=== PATIENT | female | born 1960 | race Caucasian/White ===

== ENCOUNTER 2016-08-09 18:37 | Emergency (ER) | payer OTHER ==
[~2016-08-09] VITALS: Ht 167.6 cm; Wt 82.0 kg
[~2016-08-09 18:37] MED LIST: ALBU18HF INHALATION; AZIT250T94 PO; BACTDS PO; CIME400T PO; ELIM TOP; FLUO20CA22 PO; FLUO40CA63 PO; HYDR-3010 PO; LEVO125T58 PO; LORA-441 PO; LORA1TAB PO; METO10TA92 PO; METO10TA96 PO; ONDA4TAB35 PO; OXYC-281 PO; PRED20TA PO; TRAZ150T65 PO; [UNRECOGNIZED DRUG - CODE] PO
[2016-08-09 18:51] VITALS: Ht 167.6 cm; Wt 82.0 kg
[2016-08-09] MEDS ORDERED: FLUO40CA63 PO (19:18)
[2016-08-09] MEDS ORDERED: TRAZ150T65 PO (19:18)
--- NOTE | 2016-08-09 19:32 | ERD ---
ER Documentation Chief Complaint Date/Time DATE: 08/09/16 TIME: 19:22 Chief Complaint med refill HPI This 56-year-old female presents referred medication refill. She states that she is in between switching her [facility] to [facility]. Expectation her depression but currently has no suicidal homicidal ideations. She just simply does not want to stop taking it. ROS All systems reviewed and are negative except as per history of present illness. Medications Home Meds Active Scripts Trazodone Hcl* (Trazodone Hcl*) 150 Mg Tablet, 150 MG PO QHS, #19 TAB Prov:GEETHAJOSEMIKEY DO 08/09/16 Fluoxetine Hcl* (Fluoxetine Hcl*) 40 Mg Capsule, 40 MG PO DAILY, #14 CAP Prov:GEETHAMIKEY DO 08/09/16 Trazodone Hcl* (Trazodone Hcl*) 150 Mg Tablet, 150 MG PO QHS, #2 TAB Prov:CONSTANCE SIMON MD 07/14/16 Permethrin* (Elimite*) 5% Cr, 1 APPLIC TOP ONCE, #1 TUB Prov:TYE MURDOCK PA-C 05/26/16 Azithromycin* (Zithromax*) 250 Mg Tablet, 250 MG PO .ZPACK DIRECTED, #6 TAB TAKE 500 MG (2 TABS) THE FIRST DAY THEN 250 MG (1 TAB) DAYS 2-5 Prov:TYE MURDOCK PA-C 05/26/16 Albuterol Sulfate* (Ventolin HFA*) 18 Gm Hfa.aer.ad, 2 PUFF INHALATION Q4H, #1 INHALER Prov:TYE MURDOCK PA-C 05/26/16 Prednisone* (Prednisone*) 20 Mg Tab, 40 MG PO DAILY for 4 Days, TAB Prov:TYE MURDOCK PA-C 05/26/16 Ondansetron Hcl* (Zofran* ODT) 4 mg -ODT Tab.disper, 4 MG PO Q8 Y for NAUSEA AND /OR VOMITING, #30 TAB Prov:RASHAAD PENN NP 11/21/15 Oxycodone Hcl-Acetaminophen* (Percocet*) 5-325 Mg Tablet, 1 TAB PO Q4H Y for SEVERE PAIN LEVEL 7-10, #5 TAB Prov:RASHAAD PENN NP 11/21/15 Lorazepam* (Ativan*) 0.5 Mg Tablet, 0.5 MG PO BID Y for ANXIETY, #6 TAB Prov:TYE MURDOCK PA-C 10/30/15 Cimetidine* (Cimetidine*) 400 Mg Tablet, 400 MG PO BID, #60 TAB Prov:TYE MURDOCK PA-C 10/30/15 Metoclopramide Hcl* (Metoclopramide Hcl*) 10 Mg Tablet, 10 MG PO TID, #30 TAB Prov:TYE MURDOCK PA-C 10/30/15 Trazodone Hcl* (Trazodone Hcl*) 150 Mg Tablet, 150 MG PO QHS, #30 TAB Prov:TYE MURDOCK PA-C 10/30/15 Fluoxetine Hcl* (Fluoxetine Hcl*) 40 Mg Capsule, 40 MG PO DAILY, #30 CAP Prov:TYE MURDOCK PA-C 10/30/15 Hydroxyzine Hcl* (Hydroxyzine Hcl*) 10 Mg Tablet, 10 MG PO Q6H Y for ITCHING, # 30 TAB Prov:RASHAAD PENN NP 10/16/15 Metoclopramide* (Reglan*) 10 Mg Tablet, 10 MG PO Q6 Y for NAUSEA AND/OR VOMITING , #10 TAB Prov:RASHAAD PENN PRODUCTION COORDINATOR 10/16/15 Trazodone Hcl* (Trazodone Hcl*) 150 Mg Tablet, 150 MG PO QHS, #30 TAB Prov:TYE MURDOCK PA-C 09/29/15 Fluoxetine Hcl* (Fluoxetine Hcl*) 20 Mg Capsule, 20 MG PO DAILY, #30 CAP Prov:TYE MURDOCK PA-C 09/29/15 Lorazepam* (Lorazepam*) 1 Mg Tablet, 1 MG PO BID Y for ANXIETY, #5 TAB Prov:TYE MURDOCK PA-C 09/29/15 Permethrin* (Elimite*) 5% Cr, 1 APPLIC TOP ONCE, #1 TUB Prov:TYE MURDOCK PA-C 09/29/15 Sulfamethoxazole-Trimethoprim* (Bactrim* DS) 800-160 Mg Tab, 1 TAB PO BID for 7 Days, TAB Prov:TYE MURDOCK PA-C 09/29/15 Reported Medications Levothyroxine Sodium (Levothroid) 125 Mcg Tablet, 125 MCG PO DAILY 09/05/13 Fluoxetine Hcl* (Fluoxetine Hcl*) 20 Mg Capsule, 20 MG PO HS 07/11/12 Metoclopramide* (Reglan*) 10 Mg Tablet, 10 MG PO TID 07/11/12 Cimetidine* (Tagamet*) 400 Mg Tablet, 400 MG PO DAILY 07/11/12 Trazodone Hcl* (Trazodone Hcl*) 150 Mg Tablet, 150 MG PO HS 07/11/12 Allergies Allergies: Coded Allergies: cefuroxime (Verified Allergy, Intermediate, RASH, 01/15/16) erythromycin base (Verified Allergy, Intermediate, LIGHTHEADED, 01/15/16) ketorolac tromethamine (Verified Allergy, Intermediate, HEADACHE, 01/15/16) levofloxacin (Verified Allergy, Intermediate, PALPITATION, 01/15/16) cefuroxime axetil (Verified Allergy, Mild, RASH, 01/15/16) acetaminophen (Verified Allergy, Unknown, 01/15/16) hydrocodone bit (Verified Allergy, Unknown, 01/15/16) ketorolac (Verified Allergy, Unknown, PENALOZA, 01/15/16) morphine (Verified Allergy, Unknown, 01/15/16) PMhx/Soc History of Surgery: No Anesthesia Reaction: No Hx Neurological Disorder: No Hx Respiratory Disorders: No Hx Cardiac Disorders: No Hx Psychiatric Problems: Yes (anxiety) Hx Miscellaneous Medical Probl: Yes Hx Alcohol Use: No Hx Substance Use: No Hx Tobacco Use: No Physical Exam Vitals Vital Signs Date Time Temp Pulse Resp B/P Pulse Ox O2 Delivery O2 Flow Rate FiO2 08/09/16 18:51 97.0 78 20 122/70 100 Physical Exam Const: [] No distress Head: Atraumatic Eyes: Normal Conjunctiva ENT: Normal External Ears, Nose and Mouth. Neur: Awake and alert oriented 3, no focal deficits Psych: Normal Mood and Affect Procedures/MDM Simple medication refill. Patient with diagnosis of depression but no current depression. Discharging her with 2 weeks worth of fluoxetine and trazodone. Return precautions given if she also any symptoms. Departure Diagnosis: Primary Impression: Encounter for medication refill Condition: Stable Patient Instructions: Taking Medicine Safely Additional Instructions: Call your primary care doctor TOMORROW for an appointment during the next 2-3 days.See the doctor sooner or return here if your condition worsens before your appointment time. MIKEY INIGUEZ DO Aug 09, 2016 19:32
== END 2016-08-09 19:21 | disposition home or self-care (01) ==
LOC: E/R 18:37
DX: Z76.0 Encounter for issue of repeat prescription (principal)
CPT/HCPCS: 99281

== ENCOUNTER 2016-08-22 19:50 | Emergency (ER) | payer OTHER ==
[~2016-08-22] VITALS: Ht 170.2 cm; Wt 83.0 kg
[~2016-08-22 19:50] MED LIST changes: +FLUO40CA PO; -FLUO40CA63 PO
[2016-08-22 20:37] VITALS: Ht 170.2 cm; Wt 83.0 kg
--- NOTE | 2016-08-22 22:11 | ERA ---
ER Documentation Chief Complaint Date/Time DATE: 08/22/16 TIME: 22:11 Chief Complaint headache x 3 days HPI The patient is a 56-year-old female, presenting to the ER because of headache, facial pain, nasal congestion, nasal discharge for the last 3 days. She has had cold symptoms for over a week. She denies fever, chills, neck pain, chest pain, dyspnea, abdominal pain, vomiting, dysuria, diarrhea. She ran out of her Ativan for anxiety for the last couple days and requesting medication and Ativan medication refill. She does not smoke, drink Past medical history: Hypothyroidism, anxiety Past surgical history: Thyroidectomy, appendectomy, cholecystectomy, hysterectomy ROS All systems reviewed and are negative except as per history of present illness. Medications Home Meds Active Scripts Lorazepam* (Ativan*) 0.5 Mg Tablet, 0.5 MG PO Q8H Y for ANXIETY, #10 TAB Prov:GEOFF SCOTT MD 08/22/16 Ibuprofen* (Motrin*) 600 Mg Tab, 600 MG PO Q6H Y for PAIN AND OR ELEVATED TEMP, #20 TAB Prov:GEOFF SCOTT MD 08/22/16 Amoxicillin* (Amoxicillin*) 500 Mg Cap, 500 MG PO Q8, #30 CAP Prov:GEOFF SCOTT MD 08/22/16 Trazodone Hcl* (Trazodone Hcl*) 150 Mg Tablet, 150 MG PO QHS, #19 TAB Prov:MIKEY INIGUEZ DO 08/09/16 Fluoxetine Hcl* (Fluoxetine Hcl*) 40 Mg Capsule, 40 MG PO DAILY, #14 CAP Prov:MIKEY INIGUEZ DO 08/09/16 Trazodone Hcl* (Trazodone Hcl*) 150 Mg Tablet, 150 MG PO QHS, #2 TAB Prov:CONSTANCE SIMON MD 07/14/16 Permethrin* (Elimite*) 5% Cr, 1 APPLIC TOP ONCE, #1 TUB Prov:TYE MURDOCK PA-C 05/26/16 Azithromycin* (Zithromax*) 250 Mg Tablet, 250 MG PO .ZPACK DIRECTED, #6 TAB TAKE 500 MG (2 TABS) THE FIRST DAY THEN 250 MG (1 TAB) DAYS 2-5 Prov:TYE MURDOCK PA-C 05/26/16 Albuterol Sulfate* (Ventolin HFA*) 18 Gm Hfa.aer.ad, 2 PUFF INHALATION Q4H, #1 INHALER Prov:TYE MURDOCK PA-C 05/26/16 Prednisone* (Prednisone*) 20 Mg Tab, 40 MG PO DAILY for 4 Days, TAB Prov:TYE MURDOCK PA-C 05/26/16 Ondansetron Hcl* (Zofran* ODT) 4 mg -ODT Tab.disper, 4 MG PO Q8 Y for NAUSEA AND /OR VOMITING, #30 TAB Prov:RASHAAD PENN NP 11/21/15 Oxycodone Hcl-Acetaminophen* (Percocet*) 5-325 Mg Tablet, 1 TAB PO Q4H Y for SEVERE PAIN LEVEL 7-10, #5 TAB Prov:RASHAAD PENN NP 11/21/15 Lorazepam* (Ativan*) 0.5 Mg Tablet, 0.5 MG PO BID Y for ANXIETY, #6 TAB Prov:TYE MURDOCK PA-C 10/30/15 Cimetidine* (Cimetidine*) 400 Mg Tablet, 400 MG PO BID, #60 TAB Prov:TYE MURDOCK PA-C 10/30/15 Metoclopramide Hcl* (Metoclopramide Hcl*) 10 Mg Tablet, 10 MG PO TID, #30 TAB Prov:TYE MURDOCK PA-C 10/30/15 Trazodone Hcl* (Trazodone Hcl*) 150 Mg Tablet, 150 MG PO QHS, #30 TAB Prov:TYE MURDOCK PA-C 10/30/15 Fluoxetine Hcl* (Fluoxetine Hcl*) 40 Mg Capsule, 40 MG PO DAILY, #30 CAP Prov:TYE MURDOCK PA-C 10/30/15 Hydroxyzine Hcl* (Hydroxyzine Hcl*) 10 Mg Tablet, 10 MG PO Q6H Y for ITCHING, # 30 TAB Prov:RASHAAD PENN NP 10/16/15 Metoclopramide* (Reglan*) 10 Mg Tablet, 10 MG PO Q6 Y for NAUSEA AND/OR VOMITING , #10 TAB Prov:RASHAAD PENN NP 10/16/15 Trazodone Hcl* (Trazodone Hcl*) 150 Mg Tablet, 150 MG PO QHS, #30 TAB Prov:TYE MURDOCK PA-C 09/29/15 Fluoxetine Hcl* (Fluoxetine Hcl*) 20 Mg Capsule, 20 MG PO DAILY, #30 CAP Prov:TYE MURDOCK PA-C 09/29/15 Lorazepam* (Lorazepam*) 1 Mg Tablet, 1 MG PO BID Y for ANXIETY, #5 TAB Prov:TYE MURDOCK PA-C 09/29/15 Permethrin* (Elimite*) 5% Cr, 1 APPLIC TOP ONCE, #1 TUB Prov:TYE MURDOCK PA-C 09/29/15 Sulfamethoxazole-Trimethoprim* (Bactrim* DS) 800-160 Mg Tab, 1 TAB PO BID for 7 Days, TAB Prov:TYE MURDOCK PA-C 09/29/15 Reported Medications Levothyroxine Sodium (Levothroid) 125 Mcg Tablet, 125 MCG PO DAILY 09/05/13 Fluoxetine Hcl* (Fluoxetine Hcl*) 20 Mg Capsule, 20 MG PO HS 07/11/12 Metoclopramide* (Reglan*) 10 Mg Tablet, 10 MG PO TID 07/11/12 Cimetidine* (Tagamet*) 400 Mg Tablet, 400 MG PO DAILY 07/11/12 Trazodone Hcl* (Trazodone Hcl*) 150 Mg Tablet, 150 MG PO HS 07/11/12 Allergies Allergies: Coded Allergies: cefuroxime (Verified Allergy, Intermediate, RASH, 01/15/16) erythromycin base (Verified Allergy, Intermediate, LIGHTHEADED, 01/15/16) ketorolac tromethamine (Verified Allergy, Intermediate, HEADACHE, 01/15/16) levofloxacin (Verified Allergy, Intermediate, PALPITATION, 01/15/16) cefuroxime axetil (Verified Allergy, Mild, RASH, 01/15/16) acetaminophen (Verified Allergy, Unknown, 01/15/16) hydrocodone bit (Verified Allergy, Unknown, 01/15/16) ketorolac (Verified Allergy, Unknown, PENALOZA, 01/15/16) morphine (Verified Allergy, Unknown, 01/15/16) PMhx/Soc History of Surgery: No Anesthesia Reaction: No Hx Neurological Disorder: No Hx Respiratory Disorders: No Hx Cardiac Disorders: No Hx Psychiatric Problems: Yes (anxiety) Hx Miscellaneous Medical Probl: Yes Hx Alcohol Use: No Hx Substance Use: No Hx Tobacco Use: No Physical Exam Vitals Vital Signs Date Time Temp Pulse Resp B/P Pulse Ox O2 Delivery O2 Flow Rate FiO2 08/22/16 20:37 96.9 75 20 148/64 99 Physical Exam Const: No acute distress. Head: Atraumatic. Eyes: Normal Conjunctiva. ENT: Normal External Ears, Nose and Mouth. Bilateral tympanic membranes are within normal limits. Bilateral frontal and maxillary sinus tenderness. Oropharynx is within normal limits Neck: Full range of motion. No meningismus. Resp: Clear to auscultation bilaterally. Cardio: Regular rate and rhythm, no murmurs. Abd: Soft, non distended, normal bowel sounds, non tender. Skin: No petechiae or rashes. Back: No midline or flank tenderness. Ext: No cyanosis, or edema. Neur: Awake and alert. No focal deficit Psych: Normal Mood and Affect. Results 24 hrs Current Medications Medications (Trade) Dose Ordered Sig/Shannan Route PRN Reason Start Time Stop Time Status Last Admin Dose Admin Lorazepam (Ativan) 0.5 mg ONCE ONCE PO 08/22/16 23:00 08/22/16 23:01 DC 08/22/16 23:10 Procedures/MDM MEDICAL MAKING DECISION: The patient is a 56-year-old female, presenting with acute sinusitis, acute headache, acute anxiety attack, acute viral syndrome. She was treated with Ativan 0.5 mg for acute anxiety with good response. The differential diagnoses considered include but are not limited to otitis media, bronchitis, pneumonia, cystitis Departure Diagnosis: Primary Impression: Acute sinusitis Additional Impressions: Sinus headache Viral syndrome Anxiety Condition: Good Comments She was discharged with amoxicillin, Motrin, Ativan I discussed the findings with the patient. I advised the patient to follow-up with the primary physician in about 1-2 days, sooner if needed and return if any concern. The patient's blood pressure was elevated (>120/80) but appears stable without evidence of hypertension emergency or urgency. The patient was counseled about the risks of hypertension and urged to pursue outpatient monitoring and therapy within a week with their primary care physician. GEOFF SCOTT MD Aug 22, 2016 22:11
[2016-08-22] MEDS ORDERED: IBUP-1542 PO (22:46)
[2016-08-22] MEDS ORDERED: AMO500 PO (22:46)
[2016-08-22] MEDS ORDERED: LORA-441 PO (22:46)
[2016-08-22] MEDS ORDERED: LORAZEPAM 0.5 MG TAB PO ONE (23:00)
== END 2016-08-22 23:46 | disposition home or self-care (01) ==
LOC: FTE 19:50
DX: J01.90 Acute sinusitis, unspecified (principal); J34.89 Other specified disorders of nose and nasal sinuses; B34.9 Viral infection, unspecified; F41.9 Anxiety disorder, unspecified; E03.9 Hypothyroidism, unspecified
CPT/HCPCS: Z7502; Z7610; 99284

== ENCOUNTER 2016-08-31 11:11 | Emergency (ER) | payer OTHER ==
[~2016-08-31] VITALS: Wt 72.3 kg
[~2016-08-31 11:11] MED LIST changes: +AMO500 PO; +IBUP-1542 PO
[2016-08-31] MEDS ORDERED: FLUO40CA PO (11:45)
--- NOTE | 2016-08-31 11:53 | ERD ---
ER Documentation Chief Complaint Date/Time DATE: 08/31/16 TIME: 11:51 Chief Complaint pt here for medication refill of fluoxetine. no complaints HPI Chief complaint medication refill for her Prozac 40 mg nightly. She states that she saw her primary care doctor who refilled her medications yesterday including trazodone but she states that she forgot to ask for the Prozac. She denies suicidal ideations or homicidal ideations. She has no medical complaints. ROS All systems reviewed and are negative except as per history of present illness. Medications Home Meds Active Scripts Fluoxetine Hcl* (Fluoxetine Hcl*) 40 Mg Capsule, 40 MG PO DAILY, #30 CAP Prov:TYE MURDOCK PA-C 08/31/16 Lorazepam* (Ativan*) 0.5 Mg Tablet, 0.5 MG PO Q8H Y for ANXIETY, #10 TAB Prov:GEOFF SCOTT MD 08/22/16 Ibuprofen* (Motrin*) 600 Mg Tab, 600 MG PO Q6H Y for PAIN AND OR ELEVATED TEMP, #20 TAB Prov:GEOFF SCOTT MD 08/22/16 Amoxicillin* (Amoxicillin*) 500 Mg Cap, 500 MG PO Q8, #30 CAP Prov:GEOFF SCOTT MD 08/22/16 Trazodone Hcl* (Trazodone Hcl*) 150 Mg Tablet, 150 MG PO QHS, #19 TAB Prov:MIKEY INIGUEZ DO 08/09/16 Fluoxetine Hcl* (Fluoxetine Hcl*) 40 Mg Capsule, 40 MG PO DAILY, #14 CAP Prov:MIKEY INIGUEZ DO 08/09/16 Trazodone Hcl* (Trazodone Hcl*) 150 Mg Tablet, 150 MG PO QHS, #2 TAB Prov:CONSTANCE SIMON MD 07/14/16 Permethrin* (Elimite*) 5% Cr, 1 APPLIC TOP ONCE, #1 TUB Prov:TYE MURDOCK PA-C 05/26/16 Azithromycin* (Zithromax*) 250 Mg Tablet, 250 MG PO .ZPACK DIRECTED, #6 TAB TAKE 500 MG (2 TABS) THE FIRST DAY THEN 250 MG (1 TAB) DAYS 2-5 Prov:TYE MURDOCK PA-C 05/26/16 Albuterol Sulfate* (Ventolin HFA*) 18 Gm Hfa.aer.ad, 2 PUFF INHALATION Q4H, #1 INHALER Prov:TYE MURDOCK PA-C 05/26/16 Prednisone* (Prednisone*) 20 Mg Tab, 40 MG PO DAILY for 4 Days, TAB Prov:TYE MURDOCK PA-C 05/26/16 Ondansetron Hcl* (Zofran* ODT) 4 mg -ODT Tab.disper, 4 MG PO Q8 Y for NAUSEA AND /OR VOMITING, #30 TAB Prov:RASHAAD PENN NP 11/21/15 Oxycodone Hcl-Acetaminophen* (Percocet*) 5-325 Mg Tablet, 1 TAB PO Q4H Y for SEVERE PAIN LEVEL 7-10, #5 TAB Prov:RASHAAD PENN NP 11/21/15 Lorazepam* (Ativan*) 0.5 Mg Tablet, 0.5 MG PO BID Y for ANXIETY, #6 TAB Prov:TYE MURDOCK PA-C 10/30/15 Cimetidine* (Cimetidine*) 400 Mg Tablet, 400 MG PO BID, #60 TAB Prov:TYE MURDOCK PA-C 10/30/15 Metoclopramide Hcl* (Metoclopramide Hcl*) 10 Mg Tablet, 10 MG PO TID, #30 TAB Prov:TYE MURDOCK PA-C 10/30/15 Trazodone Hcl* (Trazodone Hcl*) 150 Mg Tablet, 150 MG PO QHS, #30 TAB Prov:TYE MURDOCK PA-C 10/30/15 Fluoxetine Hcl* (Fluoxetine Hcl*) 40 Mg Capsule, 40 MG PO DAILY, #30 CAP Prov:TYE MURDOCK PA-C 10/30/15 Hydroxyzine Hcl* (Hydroxyzine Hcl*) 10 Mg Tablet, 10 MG PO Q6H Y for ITCHING, # 30 TAB Prov:RASHAAD PENN NP 10/16/15 Metoclopramide* (Reglan*) 10 Mg Tablet, 10 MG PO Q6 Y for NAUSEA AND/OR VOMITING , #10 TAB Prov:RASHAAD PENN NP 10/16/15 Trazodone Hcl* (Trazodone Hcl*) 150 Mg Tablet, 150 MG PO QHS, #30 TAB Prov:TYE MURDOCK PA-C 09/29/15 Fluoxetine Hcl* (Fluoxetine Hcl*) 20 Mg Capsule, 20 MG PO DAILY, #30 CAP Prov:TYE MURDOCK PA-C 09/29/15 Lorazepam* (Lorazepam*) 1 Mg Tablet, 1 MG PO BID Y for ANXIETY, #5 TAB Prov:TYE MURDOCK PA-C 09/29/15 Permethrin* (Elimite*) 5% Cr, 1 APPLIC TOP ONCE, #1 TUB Prov:TYE MURDOCK PA-C 09/29/15 Sulfamethoxazole-Trimethoprim* (Bactrim* DS) 800-160 Mg Tab, 1 TAB PO BID for 7 Days, TAB Prov:TYE MURDOCK PA-C 09/29/15 Reported Medications Levothyroxine Sodium (Levothroid) 125 Mcg Tablet, 125 MCG PO DAILY 09/05/13 Fluoxetine Hcl* (Fluoxetine Hcl*) 20 Mg Capsule, 20 MG PO HS 07/11/12 Metoclopramide* (Reglan*) 10 Mg Tablet, 10 MG PO TID 07/11/12 Cimetidine* (Tagamet*) 400 Mg Tablet, 400 MG PO DAILY 07/11/12 Trazodone Hcl* (Trazodone Hcl*) 150 Mg Tablet, 150 MG PO HS 07/11/12 Allergies Allergies: Coded Allergies: cefuroxime (Verified Allergy, Intermediate, RASH, 01/15/16) erythromycin base (Verified Allergy, Intermediate, LIGHTHEADED, 01/15/16) ketorolac tromethamine (Verified Allergy, Intermediate, HEADACHE, 01/15/16) levofloxacin (Verified Allergy, Intermediate, PALPITATION, 01/15/16) cefuroxime axetil (Verified Allergy, Mild, RASH, 01/15/16) acetaminophen (Verified Allergy, Unknown, 01/15/16) hydrocodone bit (Verified Allergy, Unknown, 01/15/16) ketorolac (Verified Allergy, Unknown, PENALOZA, 01/15/16) morphine (Verified Allergy, Unknown, 01/15/16) PMhx/Soc History of Surgery: Yes (thyroidectomy, appendectomy, hysterectomy, cholecystectomy) Anesthesia Reaction: No Hx Neurological Disorder: No Hx Respiratory Disorders: No Hx Cardiac Disorders: No Hx Psychiatric Problems: Yes (anxiety) 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 The patient appears in no acute distress. HEENT: Head is normocephalic, atraumatic. No scleral icterus. Neck: Supple. Nontender. Lungs: Clear to auscultation. Normal air movement. Heart: Regular rate and rhythm. S1 and S2 are normal. No murmurs, gallops, or rubs. Abdomen: Nondistended. Extremities: No clubbing or cyanosis. Moving extremities x 4. No weakness. Neurologic: Alert and oriented 3. No focal deficits. Normal speech and gait. Skin: Normal turgor. No rash or lesions. Results 24 hrs Current Medications Medications (Trade) Dose Ordered Sig/Shannan Route PRN Reason Start Time Stop Time Status Last Admin Dose Admin Fluoxetine HCl (Prozac) 40 mg ONCE ONCE PO 08/31/16 12:00 08/31/16 12:01 Procedures/MDM 56-year-old female presents for medication refill for Prozac. She will be given a one-month supply, she was asking for a dose here was given 40 mg at this time. She was asked to follow-up with her primary care doctor for further refills. Departure Diagnosis: Primary Impression: Encounter for medication refill Condition: Good Patient Instructions: Depression Additional Instructions: Call your primary care doctor TOMORROW for an appointment during the next 1-2 days.See the doctor sooner or return here if your condition worsens before your appointment time. TYE MURDOCK PA-C Aug 31, 2016 11:53
[2016-08-31] MEDS ORDERED: FLUOXETINE 20 MG CAP PO ONE (12:00)
== END 2016-08-31 12:03 | disposition home or self-care (01) ==
LOC: FTE 11:11
DX: Z76.0 Encounter for issue of repeat prescription (principal); F17.210 Nicotine dependence, cigarettes, uncomplicated
CPT/HCPCS: 99283

== ENCOUNTER 2016-09-11 18:11 | Emergency (ER) | payer OTHER ==
[~2016-09-11] VITALS: Ht 162.6 cm; Wt 80.1 kg
[2016-09-11 18:26] VITALS: Ht 162.6 cm; Wt 80.1 kg
[2016-09-11] MEDS ORDERED: BENZ100C70 PO (18:46)
[2016-09-11] MEDS ORDERED: IBUP-1542 PO (18:46)
[2016-09-11] MEDS ORDERED: BEN50 PO (18:46)
--- NOTE | 2016-09-11 19:06 | ERD ---
ER Documentation Chief Complaint Date/Time DATE: 09/11/16 TIME: 19:05 Chief Complaint cough x 1 week HPI This is a 56-year-old female with a history of hypothyroidism, anxiety presenting to the emergency department complaining of congestion and cough for the past 5 days. Patient presents with her daughter with similar symptoms. Patient denies any chest pain or shortness of breath. She denies any fevers. She denies taking any medications for this ROS All systems reviewed and are negative except as per history of present illness. Medications Home Meds Active Scripts Benzonatate* (Tessalon Perle*) 100 Mg Capsule, 100 MG PO Q8H Y for COUGH, #30 CAP Prov:STELLA BARROW PA-C 09/11/16 Ibuprofen* (Motrin*) 600 Mg Tab, 600 MG PO Q6H Y for PAIN AND OR ELEVATED TEMP, #30 TAB Prov:STELLA BARROW PA-C 09/11/16 Diphenhydramine Hcl* (Benadryl*) 50 Mg Cap, 50 MG PO Q6H Y for ITCHING/RASH, # 30 CAP Prov:STELLA BARROW PA-C 09/11/16 Fluoxetine Hcl* (Fluoxetine Hcl*) 40 Mg Capsule, 40 MG PO DAILY, #30 CAP Prov:TYE MURDOCK PA-C 08/31/16 Lorazepam* (Ativan*) 0.5 Mg Tablet, 0.5 MG PO Q8H Y for ANXIETY, #10 TAB Prov:GEOFF SCOTT MD 08/22/16 Ibuprofen* (Motrin*) 600 Mg Tab, 600 MG PO Q6H Y for PAIN AND OR ELEVATED TEMP, #20 TAB Prov:GEOFF SCOTT MD 08/22/16 Amoxicillin* (Amoxicillin*) 500 Mg Cap, 500 MG PO Q8, #30 CAP Prov:GEOFF SCOTT MD 08/22/16 Trazodone Hcl* (Trazodone Hcl*) 150 Mg Tablet, 150 MG PO QHS, #19 TAB Prov:MIKEY INIGUEZ DO 08/09/16 Fluoxetine Hcl* (Fluoxetine Hcl*) 40 Mg Capsule, 40 MG PO DAILY, #14 CAP Prov:MIKEY INIGUEZ DO 08/09/16 Trazodone Hcl* (Trazodone Hcl*) 150 Mg Tablet, 150 MG PO QHS, #2 TAB Prov:CONSTANCE SIMON MD 07/14/16 Permethrin* (Elimite*) 5% Cr, 1 APPLIC TOP ONCE, #1 TUB Prov:TYE MURDOCK PA-C 05/26/16 Azithromycin* (Zithromax*) 250 Mg Tablet, 250 MG PO .ZPACK DIRECTED, #6 TAB TAKE 500 MG (2 TABS) THE FIRST DAY THEN 250 MG (1 TAB) DAYS 2-5 Prov:TYE MURDOCK PA-C 05/26/16 Albuterol Sulfate* (Ventolin HFA*) 18 Gm Hfa.aer.ad, 2 PUFF INHALATION Q4H, #1 INHALER Prov:TYE MURDOCK PA-C 05/26/16 Prednisone* (Prednisone*) 20 Mg Tab, 40 MG PO DAILY for 4 Days, TAB Prov:TYE MURDOCK PA-C 05/26/16 Ondansetron Hcl* (Zofran* ODT) 4 mg -ODT Tab.disper, 4 MG PO Q8 Y for NAUSEA AND /OR VOMITING, #30 TAB Prov:RASHAAD PENN NP 11/21/15 Oxycodone Hcl-Acetaminophen* (Percocet*) 5-325 Mg Tablet, 1 TAB PO Q4H Y for SEVERE PAIN LEVEL 7-10, #5 TAB Prov:RASHAAD PENN NP 11/21/15 Lorazepam* (Ativan*) 0.5 Mg Tablet, 0.5 MG PO BID Y for ANXIETY, #6 TAB Prov:TYE MURDOCK PA-C 10/30/15 Cimetidine* (Cimetidine*) 400 Mg Tablet, 400 MG PO BID, #60 TAB Prov:TYE MURDOCK PA-C 10/30/15 Metoclopramide Hcl* (Metoclopramide Hcl*) 10 Mg Tablet, 10 MG PO TID, #30 TAB Prov:TYE MURDOCK PA-C 10/30/15 Trazodone Hcl* (Trazodone Hcl*) 150 Mg Tablet, 150 MG PO QHS, #30 TAB Prov:TYE MURDOCK PA-C 10/30/15 Fluoxetine Hcl* (Fluoxetine Hcl*) 40 Mg Capsule, 40 MG PO DAILY, #30 CAP Prov:TYE MURDOCK PA-C 10/30/15 Hydroxyzine Hcl* (Hydroxyzine Hcl*) 10 Mg Tablet, 10 MG PO Q6H Y for ITCHING, # 30 TAB Prov:RASHAAD PENN EXTENSION CLERK 10/16/15 Metoclopramide* (Reglan*) 10 Mg Tablet, 10 MG PO Q6 Y for NAUSEA AND/OR VOMITING , #10 TAB Prov:RASHAAD PENN EXTENSION CLERK 10/16/15 Trazodone Hcl* (Trazodone Hcl*) 150 Mg Tablet, 150 MG PO QHS, #30 TAB Prov:TYE MURDOCK PA-C 09/29/15 Fluoxetine Hcl* (Fluoxetine Hcl*) 20 Mg Capsule, 20 MG PO DAILY, #30 CAP Prov:TYE MURDOCK PA-C 09/29/15 Lorazepam* (Lorazepam*) 1 Mg Tablet, 1 MG PO BID Y for ANXIETY, #5 TAB Prov:TYE MURDOCK PA-C 09/29/15 Permethrin* (Elimite*) 5% Cr, 1 APPLIC TOP ONCE, #1 TUB Prov:TYE MURDOCK PA-C 09/29/15 Sulfamethoxazole-Trimethoprim* (Bactrim* DS) 800-160 Mg Tab, 1 TAB PO BID for 7 Days, TAB Prov:TYE MURDOCK PA-C 09/29/15 Reported Medications Levothyroxine Sodium (Levothroid) 125 Mcg Tablet, 125 MCG PO DAILY 09/05/13 Fluoxetine Hcl* (Fluoxetine Hcl*) 20 Mg Capsule, 20 MG PO HS 07/11/12 Metoclopramide* (Reglan*) 10 Mg Tablet, 10 MG PO TID 07/11/12 Cimetidine* (Tagamet*) 400 Mg Tablet, 400 MG PO DAILY 07/11/12 Trazodone Hcl* (Trazodone Hcl*) 150 Mg Tablet, 150 MG PO HS 07/11/12 Allergies Allergies: Coded Allergies: cefuroxime (Verified Allergy, Intermediate, RASH, 01/15/16) erythromycin base (Verified Allergy, Intermediate, LIGHTHEADED, 01/15/16) ketorolac tromethamine (Verified Allergy, Intermediate, HEADACHE, 01/15/16) levofloxacin (Verified Allergy, Intermediate, PALPITATION, 01/15/16) cefuroxime axetil (Verified Allergy, Mild, RASH, 01/15/16) acetaminophen (Verified Allergy, Unknown, 01/15/16) hydrocodone bit (Verified Allergy, Unknown, 01/15/16) ketorolac (Verified Allergy, Unknown, PENALOZA, 01/15/16) morphine (Verified Allergy, Unknown, 01/15/16) PMhx/Soc History of Surgery: Yes (thyroidectomy, appendectomy, hysterectomy, cholecystectomy) Anesthesia Reaction: No Hx Neurological Disorder: No Hx Respiratory Disorders: No Hx Cardiac Disorders: No Hx Psychiatric Problems: Yes (anxiety) Hx Miscellaneous Medical Probl: Yes (thyoid mass (benign) x 3) Hx Alcohol Use: No Hx Substance Use: No Hx Tobacco Use: Yes Physical Exam Vitals Vital Signs Date Time Temp Pulse Resp B/P Pulse Ox O2 Delivery O2 Flow Rate FiO2 09/11/16 18:26 97.8 80 20 123/82 98 Physical Exam GENERAL: well-developed/well-nourished, in no apparent distress, non-toxic appearing HEAD: NC/AT, no swelling noted in frontal or maxillary areas EARS: bilateral tympanic membrane is intact without erythema or effusion NARES: Congested THROAT: Nonerythematous EYES: Conjunctiva normal NECK: Supple, no lymphadenopathy PULM: CTA bilaterally, no rales, rhonchi, or wheezing heard CV: Normal S1S2, RRR, good capillary refill GI: Soft, non-distended, normal bowel sounds, non-tender BACK: No midline tenderness, no masses EXT No clubbing, cyanosis, or edema NEURO: Alert and Orientated SKIN: Intact, normal turgor PSYCH: Normal mood and mentation Procedures/MDM MDM: 56-year-old female presents to the ER with cough and congestion most likely a viral upper respiratory infection peer. My clinical suspicion is low suspicion for pneumonia, strep pharyngitis, or pulmonary emergencies due to physical examination. Patient's lungs were clear on examination. Patient is breathing well on room air, she is speaking clearly and does not appear to be sick DISPOSITION: hemodynamically stable for discharge. Prescription for ibuprofen, Benadryl and Tessalon Perles was given to patient, discussed to return to the ED if not improving as expected or follow-up with a primary care physician. Patient understood and agreed with this plan. Departure Diagnosis: Primary Impression: URI (upper respiratory infection) Condition: Stable Patient Instructions: Preventing Common Respiratory Infections, Uri, Viral, No Abx (Adult) Additional Instructions: FOLLOW UP WITH YOUR PRIMARY CARE PHYSICIAN TOMORROW.Return to this facility if you are not improving as expected. Take all medicines as directed. Return to this facility if you are not improving as expected. STELLA BARROW PA-C Sep 11, 2016 19:06
== END 2016-09-11 18:48 | disposition home or self-care (01) ==
LOC: E/R 18:11
DX: J06.9 Acute upper respiratory infection, unspecified (principal); E03.9 Hypothyroidism, unspecified; Z87.891 Personal history of nicotine dependence
CPT/HCPCS: 99283

== ENCOUNTER 2016-09-29 10:04 | Emergency (ER) | payer OTHER ==
[~2016-09-29] VITALS: Wt 80.0 kg
[~2016-09-29 10:04] MED LIST changes: +BEN50 PO; +BENZ100C70 PO
[2016-09-29] MEDS ORDERED: TRAZ150T65 PO (12:18)
[2016-09-29] MEDS ORDERED: FLUO40CA PO (12:18)
--- NOTE | 2016-09-29 12:43 | ERD ---
ER Documentation Chief Complaint Date/Time DATE: 09/29/16 TIME: 12:39 Chief Complaint Medication refill HPI 56-year-old female with history of anxiety depression comes to the emergency room for refill of trazodone and Paxil. She states that she ran out last night and has not been able to see her primary care physician for at least 3 months. Upon electronic medical review, patient has a multitude of emergency room visits. Patient is not asking for benzodiazepines at this time. ROS All systems reviewed and are negative except as per history of present illness. Medications Home Meds Active Scripts Trazodone Hcl* (Trazodone Hcl*) 150 Mg Tablet, 150 MG PO QHS, #14 TAB Prov:TYE MURDOCK PA-C 09/29/16 Fluoxetine Hcl* (Fluoxetine Hcl*) 40 Mg Capsule, 40 MG PO DAILY, #30 CAP Prov:TYE MURDOCK PA-C 09/29/16 Benzonatate* (Tessalon Perle*) 100 Mg Capsule, 100 MG PO Q8H Y for COUGH, #30 CAP Prov:STELLA BARROW PA-C 09/11/16 Ibuprofen* (Motrin*) 600 Mg Tab, 600 MG PO Q6H Y for PAIN AND OR ELEVATED TEMP, #30 TAB Prov:STELLA BARROW PA-C 09/11/16 Diphenhydramine Hcl* (Benadryl*) 50 Mg Cap, 50 MG PO Q6H Y for ITCHING/RASH, # 30 CAP Prov:STELLA BARROW PA-C 09/11/16 Fluoxetine Hcl* (Fluoxetine Hcl*) 40 Mg Capsule, 40 MG PO DAILY, #30 CAP Prov:TYE MURDOCK PA-C 08/31/16 Lorazepam* (Ativan*) 0.5 Mg Tablet, 0.5 MG PO Q8H Y for ANXIETY, #10 TAB Prov:GEOFF SCOTT MD 08/22/16 Ibuprofen* (Motrin*) 600 Mg Tab, 600 MG PO Q6H Y for PAIN AND OR ELEVATED TEMP, #20 TAB Prov:GEOFF SCOTT MD 08/22/16 Amoxicillin* (Amoxicillin*) 500 Mg Cap, 500 MG PO Q8, #30 CAP Prov:GEOFF SCOTT MD 08/22/16 Trazodone Hcl* (Trazodone Hcl*) 150 Mg Tablet, 150 MG PO QHS, #19 TAB Prov:MIKEY INIGUEZ DO 08/09/16 Fluoxetine Hcl* (Fluoxetine Hcl*) 40 Mg Capsule, 40 MG PO DAILY, #14 CAP Prov:MIKEY INIGUEZ DO 08/09/16 Trazodone Hcl* (Trazodone Hcl*) 150 Mg Tablet, 150 MG PO QHS, #2 TAB Prov:CONSTANCE SIMON MD 07/14/16 Permethrin* (Elimite*) 5% Cr, 1 APPLIC TOP ONCE, #1 TUB Prov:TYE MURDOCK PA-C 05/26/16 Azithromycin* (Zithromax*) 250 Mg Tablet, 250 MG PO .ZPACK DIRECTED, #6 TAB TAKE 500 MG (2 TABS) THE FIRST DAY THEN 250 MG (1 TAB) DAYS 2-5 Prov:TYE MURDOCK PA-C 05/26/16 Albuterol Sulfate* (Ventolin HFA*) 18 Gm Hfa.aer.ad, 2 PUFF INHALATION Q4H, #1 INHALER Prov:TYE MURDOCK PA-C 05/26/16 Prednisone* (Prednisone*) 20 Mg Tab, 40 MG PO DAILY for 4 Days, TAB Prov:TYE MURDOCK PA-C 05/26/16 Ondansetron Hcl* (Zofran* ODT) 4 mg -ODT Tab.disper, 4 MG PO Q8 Y for NAUSEA AND /OR VOMITING, #30 TAB Prov:RASHAAD PENN NP 11/21/15 Oxycodone Hcl-Acetaminophen* (Percocet*) 5-325 Mg Tablet, 1 TAB PO Q4H Y for SEVERE PAIN LEVEL 7-10, #5 TAB Prov:RASHAAD PENN NP 11/21/15 Lorazepam* (Ativan*) 0.5 Mg Tablet, 0.5 MG PO BID Y for ANXIETY, #6 TAB Prov:TYE MURDOCK PA-C 10/30/15 Cimetidine* (Cimetidine*) 400 Mg Tablet, 400 MG PO BID, #60 TAB Prov:TYE MURDOCK PA-C 10/30/15 Metoclopramide Hcl* (Metoclopramide Hcl*) 10 Mg Tablet, 10 MG PO TID, #30 TAB Prov:TYE MURDOCK PA-C 10/30/15 Trazodone Hcl* (Trazodone Hcl*) 150 Mg Tablet, 150 MG PO QHS, #30 TAB Prov:TYE MURDOCK PA-C 10/30/15 Fluoxetine Hcl* (Fluoxetine Hcl*) 40 Mg Capsule, 40 MG PO DAILY, #30 CAP Prov:TYE MURDOCK PA-C 10/30/15 Hydroxyzine Hcl* (Hydroxyzine Hcl*) 10 Mg Tablet, 10 MG PO Q6H Y for ITCHING, # 30 TAB Prov:RASHAAD PENN COIL BINDER 10/16/15 Metoclopramide* (Reglan*) 10 Mg Tablet, 10 MG PO Q6 Y for NAUSEA AND/OR VOMITING , #10 TAB Prov:RASHAAD PENN COIL BINDER 10/16/15 Trazodone Hcl* (Trazodone Hcl*) 150 Mg Tablet, 150 MG PO QHS, #30 TAB Prov:TYE MURDOCK PA-C 09/29/15 Fluoxetine Hcl* (Fluoxetine Hcl*) 20 Mg Capsule, 20 MG PO DAILY, #30 CAP Prov:TYE MURDOCK PA-C 09/29/15 Lorazepam* (Lorazepam*) 1 Mg Tablet, 1 MG PO BID Y for ANXIETY, #5 TAB Prov:TYE MURDOCK PA-C 09/29/15 Permethrin* (Elimite*) 5% Cr, 1 APPLIC TOP ONCE, #1 TUB Prov:TYE MURDOCK PA-C 09/29/15 Sulfamethoxazole-Trimethoprim* (Bactrim* DS) 800-160 Mg Tab, 1 TAB PO BID for 7 Days, TAB Prov:TYE MURDOCK PA-C 09/29/15 Reported Medications Levothyroxine Sodium (Levothroid) 125 Mcg Tablet, 125 MCG PO DAILY 09/05/13 Fluoxetine Hcl* (Fluoxetine Hcl*) 20 Mg Capsule, 20 MG PO HS 07/11/12 Metoclopramide* (Reglan*) 10 Mg Tablet, 10 MG PO TID 07/11/12 Cimetidine* (Tagamet*) 400 Mg Tablet, 400 MG PO DAILY 07/11/12 Trazodone Hcl* (Trazodone Hcl*) 150 Mg Tablet, 150 MG PO HS 07/11/12 Allergies Allergies: Coded Allergies: cefuroxime (Verified Allergy, Intermediate, RASH, 09/29/16) erythromycin base (Verified Allergy, Intermediate, LIGHTHEADED, 09/29/16) ketorolac tromethamine (Verified Allergy, Intermediate, HEADACHE, 09/29/16) levofloxacin (Verified Allergy, Intermediate, PALPITATION, 09/29/16) cefuroxime axetil (Verified Allergy, Mild, RASH, 01/15/16) acetaminophen (Verified Allergy, Unknown, 01/15/16) hydrocodone bit (Verified Allergy, Unknown, 01/15/16) ketorolac (Verified Allergy, Unknown, PENALOZA, 01/15/16) morphine (Verified Allergy, Unknown, 01/15/16) PMhx/Soc History of Surgery: Yes (thyroidectomy, appendectomy, hysterectomy, cholecystectomy) Anesthesia Reaction: No Hx Neurological Disorder: No Hx Respiratory Disorders: No Hx Cardiac Disorders: No Hx Psychiatric Problems: Yes (anxiety) Hx Miscellaneous Medical Probl: Yes (thyoid mass (benign) x 3) Hx Alcohol Use: No Hx Substance Use: No Hx Tobacco Use: Yes Smoking Status: Current every day smoker Physical Exam Vitals Vital Signs Date Time Temp Pulse Resp B/P Pulse Ox O2 Delivery O2 Flow Rate FiO2 09/29/16 10:13 98.4 78 18 141/75 98 Physical Exam General: Well-developed, well-nourished. The patient appears in no acute distress. HEENT: Head is normocephalic, atraumatic. No scleral icterus. Neck: Supple. Nontender. Lungs: Clear to auscultation. Normal air movement. Heart: Regular rate and rhythm. Abdomen: nondistended. Neurologic: Alert and oriented 3. No focal deficits. Skin: Normal turgor. No rash or lesions. Procedures/MDM 56-year-old female presents for medication refill for trazodone, and Paxil. Patient was noted to not have any available appointment with her primary care physician. I have discussed her EMR with her, it shows that she has been here multiple times for refills. She has not asked for benzodiazepines I have asked her to follow-up with a PCP. She states she does not have a wave seeing 1 and will be given just a short course of trazodone. I have will be giving her 2 weeks to follow-up with her primary care doctor, and if she is not able to see her doctor a list of facilities was also provided to her. This patient expresses understanding and agrees to plan. Departure Diagnosis: Primary Impression: Encounter for medication refill Condition: Good Patient Instructions: Depression Referrals: [facility] YOU HAVE RECEIVED A MEDICAL SCREENING EXAM AND THE RESULTS INDICATE THAT YOU DO NOT HAVE A CONDITION THAT REQUIRES URGENT TREATMENT IN THE EMERGENCY DEPARTMENT. FURTHER EVALUATION AND TREATMENT OF YOUR CONDITION CAN WAIT UNTIL YOU ARE SEEN IN YOUR DOCTORS OFFICE WITHIN THE NEXT 1-2 DAYS. IT IS YOUR RESPONSIBILITY TO MAKE AN APPOINTMENT FOR FOLOW-UP CARE. IF YOU HAVE A PRIMARY DOCTOR --you should call your primary doctor and schedule an appointment IF YOU DO NOT HAVE A PRIMARY DOCTOR YOU CAN CALL OUR PHYSICIAN REFERRAL HOTLINE AT IF YOU CAN NOT AFFORD TO SEE A PHYSICIAN YOU CAN CHOSE FROM THE FOLLOWING [facility] [address] [facility]. [facility] [address] [facility]. [facility] [address] [facility] [facility] [address] [facility] [address] [facility]. [facility] [address] [facility]. [facility] YOU HAVE RECEIVED A MEDICAL SCREENING EXAM AND THE RESULTS INDICATE THAT YOU DO NOT HAVE A CONDITION THAT REQUIRES URGENT TREATMENT IN THE EMERGENCY DEPARTMENT. FURTHER EVALUATION AND TREATMENT OF YOUR CONDITION CAN WAIT UNTIL YOU ARE SEEN IN YOUR DOCTORS OFFICE WITHIN THE NEXT 1-2 DAYS. IT IS YOUR RESPONSIBILITY TO MAKE AN APPOINTMENT FOR FOLOW-UP CARE. IF YOU HAVE A PRIMARY DOCTOR --you should call your primary doctor and schedule and appointment IF YOU DO NOT HAVE A PRIMARY DOCTOR YOU CAN CALL OUR PHYSICIAN REFERRAL HOTLINE AT . IF YOU CAN NOT AFFORD TO SEE A PHYSICIAN YOU CAN CHOSE FROM THE FOLLOWING [facility] INSTITUTIONS: [facility] [address] [place] [address] [facility] [address] [place] [address] [facility] [address] [place] [address] [facility] Additional Instructions: Call your primary care doctor TOMORROW for an appointment during the next 1-2 days.See the doctor sooner or return here if your condition worsens before your appointment time. TYE MURDOCK PA-C Sep 29, 2016 12:43
== END 2016-09-29 13:10 | disposition home or self-care (01) ==
LOC: FTE 10:04
DX: Z76.0 Encounter for issue of repeat prescription (principal); F17.210 Nicotine dependence, cigarettes, uncomplicated
CPT/HCPCS: 82962; Z7502; 99281

== ENCOUNTER 2016-11-20 13:28 | Emergency (ER) | payer OTHER ==
[~2016-11-20] VITALS: Ht 160 cm; Wt 75.0 kg
[2016-11-20 13:32] VITALS: Ht 160 cm; Wt 75.0 kg
--- NOTE | 2016-11-20 15:36 | RADRPT ---
PROCEDURE: XR Chest. CLINICAL INDICATION: Cough and shortness of breath. TECHNIQUE: Single frontal view. COMPARISON: 05/26/2016. FINDINGS: The lungs are clear. The heart size is normal. There is no pleural effusion. There is no pneumothorax. IMPRESSION: 1. Normal chest radiograph. 2. No change from 05/26/2016. RPTAT: QQ .Leno Ritchie MD, MD Date Time Electronically viewed and signed by .Leno Ritchie MD, on 11/20/2016 15:35 .R/
[2016-11-20] MEDS ORDERED: BENZ100C70 PO (16:00)
[2016-11-20] MEDS ORDERED: ALBU18HF INHALATION (16:00)
[2016-11-20 16:19] VITALS: BP 131/68; PULSE 77; RESP 17; TEMP 98.7
--- NOTE | 2016-11-20 17:47 | ERD ---
ER Documentation Chief Complaint Date/Time DATE: 11/20/16 TIME: 17:45 Chief Complaint COUGH, SOB X 5 DAYS HX OF ASTHMA HPI 56-year-old female patient with a past medical history of status post thyroidectomy presents to the ED complaining of a cough that started worsened in the last 8 days. Reports that she seen her primary care physician and she has been taking Robitussin AC without relief. Reports that her daughter is sick with similar symptoms. Denies any chest pain, shortness of breath, wheezing, dyspnea on exertion, orthopnea, pleuritic chest pain, abdominal pain, nausea, vomiting, rashes. Patient states that she also has taken a Z-Patel without relief of her symptoms. Denies denies any recent traveling. Denies any leg swelling. ROS All systems reviewed and are negative except as per history of present illness. Medications Home Meds Active Scripts Albuterol Sulfate* (Ventolin HFA*) 18 Gm Hfa.aer.ad, 2 PUFF INHALATION Q4H, #1 INHALER Prov:LYNNETTE RFAZIER PA-C 11/20/16 Benzonatate* (Tessalon Perle*) 100 Mg Capsule, 100 MG PO Q8H Y for COUGH, #20 CAP Prov:LYNNETTE FRAZIER PA-C 11/20/16 Trazodone Hcl* (Trazodone Hcl*) 150 Mg Tablet, 150 MG PO QHS, #14 TAB Prov:TYE MURDOCK PA-C 09/29/16 Fluoxetine Hcl* (Fluoxetine Hcl*) 40 Mg Capsule, 40 MG PO DAILY, #30 CAP Prov:TYE MURDOCK PA-C 09/29/16 Benzonatate* (Tessalon Perle*) 100 Mg Capsule, 100 MG PO Q8H Y for COUGH, #30 CAP Prov:STELLA BARROW PA-C 09/11/16 Ibuprofen* (Motrin*) 600 Mg Tab, 600 MG PO Q6H Y for PAIN AND OR ELEVATED TEMP, #30 TAB Prov:STELLA BARROW PA-C 09/11/16 Diphenhydramine Hcl* (Benadryl*) 50 Mg Cap, 50 MG PO Q6H Y for ITCHING/RASH, # 30 CAP Prov:STELLA BARROW PA-C 09/11/16 Fluoxetine Hcl* (Fluoxetine Hcl*) 40 Mg Capsule, 40 MG PO DAILY, #30 CAP Prov:TYE MURDOCK PA-C 08/31/16 Lorazepam* (Ativan*) 0.5 Mg Tablet, 0.5 MG PO Q8H Y for ANXIETY, #10 TAB Prov:GEOFF SCOTT MD 08/22/16 Ibuprofen* (Motrin*) 600 Mg Tab, 600 MG PO Q6H Y for PAIN AND OR ELEVATED TEMP, #20 TAB Prov:GEOFF SCOTT MD 08/22/16 Amoxicillin* (Amoxicillin*) 500 Mg Cap, 500 MG PO Q8, #30 CAP Prov:GEOFF SCOTT MD 08/22/16 Trazodone Hcl* (Trazodone Hcl*) 150 Mg Tablet, 150 MG PO QHS, #19 TAB Prov:NADEEM INIGUEZSHKENNEDY CALDWELL 08/09/16 Fluoxetine Hcl* (Fluoxetine Hcl*) 40 Mg Capsule, 40 MG PO DAILY, #14 CAP Prov:MIKEY INIGUEZ DO 08/09/16 Trazodone Hcl* (Trazodone Hcl*) 150 Mg Tablet, 150 MG PO QHS, #2 TAB Prov:CONSTANCE SIMON MD 07/14/16 Permethrin* (Elimite*) 5% Cr, 1 APPLIC TOP ONCE, #1 TUB Prov:TYE MURDOCK PA-C 05/26/16 Azithromycin* (Zithromax*) 250 Mg Tablet, 250 MG PO .ZPACK DIRECTED, #6 TAB TAKE 500 MG (2 TABS) THE FIRST DAY THEN 250 MG (1 TAB) DAYS 2-5 Prov:TYE MURDOCK PA-C 05/26/16 Albuterol Sulfate* (Ventolin HFA*) 18 Gm Hfa.aer.ad, 2 PUFF INHALATION Q4H, #1 INHALER Prov:TYE MURDOCK PA-C 05/26/16 Prednisone* (Prednisone*) 20 Mg Tab, 40 MG PO DAILY for 4 Days, TAB Prov:TYE MURDOCK PA-C 05/26/16 Ondansetron Hcl* (Zofran* ODT) 4 mg -ODT Tab.disper, 4 MG PO Q8 Y for NAUSEA AND /OR VOMITING, #30 TAB Prov:RASHAAD PENN NP 11/21/15 Oxycodone Hcl-Acetaminophen* (Percocet*) 5-325 Mg Tablet, 1 TAB PO Q4H Y for SEVERE PAIN LEVEL 7-10, #5 TAB Prov:RASHAAD PENN NP 11/21/15 Lorazepam* (Ativan*) 0.5 Mg Tablet, 0.5 MG PO BID Y for ANXIETY, #6 TAB Prov:TYE MURDOCK PA-C 10/30/15 Cimetidine* (Cimetidine*) 400 Mg Tablet, 400 MG PO BID, #60 TAB Prov:TYE MURDOCK PA-C 10/30/15 Metoclopramide Hcl* (Metoclopramide Hcl*) 10 Mg Tablet, 10 MG PO TID, #30 TAB Prov:TYE MURDOCK PA-C 10/30/15 Trazodone Hcl* (Trazodone Hcl*) 150 Mg Tablet, 150 MG PO QHS, #30 TAB Prov:TYE MURDOCK PA-C 10/30/15 Fluoxetine Hcl* (Fluoxetine Hcl*) 40 Mg Capsule, 40 MG PO DAILY, #30 CAP Prov:TYE MURDOCK PA-C 10/30/15 Hydroxyzine Hcl* (Hydroxyzine Hcl*) 10 Mg Tablet, 10 MG PO Q6H Y for ITCHING, # 30 TAB Prov:RASHAAD PENN NP 10/16/15 Metoclopramide* (Reglan*) 10 Mg Tablet, 10 MG PO Q6 Y for NAUSEA AND/OR VOMITING , #10 TAB Prov:RASHADA PENN NP 10/16/15 Trazodone Hcl* (Trazodone Hcl*) 150 Mg Tablet, 150 MG PO QHS, #30 TAB Prov:TYE MURDOCK PA-C 09/29/15 Fluoxetine Hcl* (Fluoxetine Hcl*) 20 Mg Capsule, 20 MG PO DAILY, #30 CAP Prov:TYE MURDOCK PA-C 09/29/15 Lorazepam* (Lorazepam*) 1 Mg Tablet, 1 MG PO BID Y for ANXIETY, #5 TAB Prov:TYE MURDOCK PA-C 09/29/15 Permethrin* (Elimite*) 5% Cr, 1 APPLIC TOP ONCE, #1 TUB Prov:TYE MURDOCK PA-C 09/29/15 Sulfamethoxazole-Trimethoprim* (Bactrim* DS) 800-160 Mg Tab, 1 TAB PO BID for 7 Days, TAB Prov:TYE MURDOCK PA-C 09/29/15 Reported Medications Levothyroxine Sodium (Levothroid) 125 Mcg Tablet, 125 MCG PO DAILY 09/05/13 Fluoxetine Hcl* (Fluoxetine Hcl*) 20 Mg Capsule, 20 MG PO HS 07/11/12 Metoclopramide* (Reglan*) 10 Mg Tablet, 10 MG PO TID 07/11/12 Cimetidine* (Tagamet*) 400 Mg Tablet, 400 MG PO DAILY 07/11/12 Trazodone Hcl* (Trazodone Hcl*) 150 Mg Tablet, 150 MG PO HS 07/11/12 Allergies Allergies: Coded Allergies: cefuroxime (Verified Allergy, Intermediate, RASH, 11/20/16) erythromycin base (Verified Allergy, Intermediate, LIGHTHEADED, 11/20/16) ketorolac tromethamine (Verified Allergy, Intermediate, HEADACHE, 11/20/16) levofloxacin (Verified Allergy, Intermediate, PALPITATION, 11/20/16) cefuroxime axetil (Verified Allergy, Mild, RASH, 11/20/16) acetaminophen (Verified Allergy, Unknown, 11/20/16) hydrocodone bit (Verified Allergy, Unknown, 11/20/16) ketorolac (Verified Allergy, Unknown, PENALOZA, 11/20/16) morphine (Verified Allergy, Unknown, 11/20/16) PMhx/Soc History of Surgery: Yes (thyroidectomy, appendectomy, hysterectomy, cholecystectomy) Anesthesia Reaction: No Hx Neurological Disorder: No Hx Respiratory Disorders: No Hx Cardiac Disorders: No Hx Psychiatric Problems: Yes (anxiety) Hx Miscellaneous Medical Probl: Yes (thyoid mass (benign) x 3) Hx Alcohol Use: No Hx Substance Use: No Hx Tobacco Use: Yes Smoking Status: Current every day smoker Physical Exam Vitals Vital Signs Date Time Temp Pulse Resp B/P Pulse Ox O2 Delivery O2 Flow Rate FiO2 11/20/16 16:19 98.7 77 17 131/68 100 11/20/16 13:32 98.4 90 22 137/78 98 Physical Exam Const: [id number], well-nourished. In no acute distress. Head: Atraumatic, normocephalic Eyes: Normal Conjunctiva without injection. No purulent discharge. PERRL. EOMI ENT: Normal external ear. Ear canal without erythema. Tympanic membrane pearly strickland without effusion or bulging. Nasal canal clear with normal turbinates. Moist oropharynx without tonsillar exudates. Non-erythematous pharynx. Uvula midline. No drooling. No trismus. Neck: Full range of motion. No meningismus. No cervical lymphadenopathy. Resp: Clear to auscultation bilaterally. No wheezing, rhonchi, rales, or crackles. No accessory muscle use. No retractions. Cardio: Regular rate and rhythm. No murmurs, rubs or gallops. Abd: Soft, non tender, non distended. Normal bowel sounds. No palpable masses. No rebound tenderness. No guarding. Skin: No petechiae or rashes Back: No midline tenderness. No CVA tenderness. Ext: No cyanosis, or edema. Neur: Awake and alert. Psych: Normal Mood and Affect Procedures/MDM This is a 56-year-old female patient with a past medical history of status post thyroidectomy presents the ED complaining of a persistent cough that has been going on since 8 days ago. Reports that she did have a cough also 4-6 weeks ago and took Zithromax without relief of her symptoms. Patient is afebrile nontoxic appearing. Patient has normal vital signs. Since patient has not found no relief with any medications, a chest x-ray was ordered to further evaluate patient. PROCEDURE: XR Chest. CLINICAL INDICATION: Cough and shortness of breath. TECHNIQUE: Single frontal view. COMPARISON: 05/26/2016. FINDINGS: The lungs are clear. The heart size is normal. There is no pleural effusion. There is no pneumothorax. IMPRESSION: 1. Normal chest radiograph. 2. No change from 05/26/2016. This patient presents to the ED with symptoms consistent with a viral acute upper respiratory infection. Patient is afebrile and has normal vital signs. Patient's physical exam include lungs which were clear to auscultation and a normal pulse oximetry. There is a low suspicion for CHF, atypical [place], pneumonia , pneumothorax, mononucleosis, pulmonary embolism, epiglottitis, otitis media, otitis externa, viral/strep pharyngitis, sinusitis, peritonsillar abscess, mastoiditis, retropharyngeal abscess, meningitis, sepsis, acute abdomen or other emergent conditions. Discharge medications: Tesjoyon Monico Tabares Patient was instructed to return to the ED for any new or worsening symptoms. They should otherwise follow up with the primary care provider within 1-2 days. The patient's questions were answered at the time of discharge. Patient understood and agreed with discharge management. Departure Diagnosis: Primary Impression: Cough Condition: Stable Patient Instructions: Bronchitis, No Antibiotic (Adult), Cough, Chronic, Uncertain Cause, (Adult) Referrals: CHRISTINA DUNCAN (PCP) [facility] YOU HAVE RECEIVED A MEDICAL SCREENING EXAM AND THE RESULTS INDICATE THAT YOU DO NOT HAVE A CONDITION THAT REQUIRES URGENT TREATMENT IN THE EMERGENCY DEPARTMENT. FURTHER EVALUATION AND TREATMENT OF YOUR CONDITION CAN WAIT UNTIL YOU ARE SEEN IN YOUR DOCTORS OFFICE WITHIN THE NEXT 1-2 DAYS. IT IS YOUR RESPONSIBILITY TO MAKE AN APPOINTMENT FOR FOLOW-UP CARE. IF YOU HAVE A PRIMARY DOCTOR --you should call your primary doctor and schedule an appointment IF YOU DO NOT HAVE A PRIMARY DOCTOR YOU CAN CALL OUR PHYSICIAN REFERRAL HOTLINE AT IF YOU CAN NOT AFFORD TO SEE A PHYSICIAN YOU CAN CHOSE FROM THE FOLLOWING [facility] [address] [facility] [address] [facility] [address] [facility] [address] [facility] [address] [facility]. [facility] [address] [facility]. [facility] YOU HAVE RECEIVED A MEDICAL SCREENING EXAM AND THE RESULTS INDICATE THAT YOU DO NOT HAVE A CONDITION THAT REQUIRES URGENT TREATMENT IN THE EMERGENCY DEPARTMENT. FURTHER EVALUATION AND TREATMENT OF YOUR CONDITION CAN WAIT UNTIL YOU ARE SEEN IN YOUR DOCTORS OFFICE WITHIN THE NEXT 1-2 DAYS. IT IS YOUR RESPONSIBILITY TO MAKE AN APPOINTMENT FOR FOLOW-UP CARE. IF YOU HAVE A PRIMARY DOCTOR --you should call your primary doctor and schedule and appointment IF YOU DO NOT HAVE A PRIMARY DOCTOR YOU CAN CALL OUR PHYSICIAN REFERRAL HOTLINE AT . IF YOU CAN NOT AFFORD TO SEE A PHYSICIAN YOU CAN CHOSE FROM THE FOLLOWING [facility]: [facility] [address] [place] [address] [facility] [address] [place] [address] [facility] [address] [place] [address] [facility] Additional Instructions: Call your primary care doctor TOMORROW for an appointment during the next 1-2 days.See the doctor sooner or return here if your condition worsens before your appointment time. LYNNETTE FRAZIER PA-C November 20, 2016 17:47 LYNNETTE FRAZIER PA-C November 20, 2016 17:47
== END 2016-11-20 16:32 | disposition home or self-care (01) ==
LOC: E/R 13:28
DX: R05 Cough (principal); J45.909 Unspecified asthma, uncomplicated; F17.210 Nicotine dependence, cigarettes, uncomplicated
CPT/HCPCS: 71010; Z7502

== ENCOUNTER 2017-03-23 13:36 | Emergency (ER) | payer OTHER ==
[~2017-03-23] VITALS: Ht 162.6 cm; Wt 79.5 kg
[2017-03-23 13:41] VITALS: Ht 162.6 cm; Wt 79.5 kg
[2017-03-23] MEDS ORDERED: NITR-58 PO (14:39)
[2017-03-23] MEDS ORDERED: PHEN-538 PO (14:39)
--- NOTE | 2017-03-23 14:45 | ERD ---
ER Documentation Chief Complaint Date/Time DATE: 03/23/17 TIME: 14:42 Chief Complaint RT FLANK PAIN STARTING TODAY WITH HEMATURIA/DYSURIA HPI Patient is a 57-year-old female with a history of anxiety and pain who presents with right-sided flank pain. She said that for the past few days she has been having pain with urination and blood in her urine. She feels right-sided flank pain as well. She has not taken anything for pain as of yet. She has no fevers. Upon review of old medical records the patient has multiple visits to the ER for various complaints. Review of the emergency department information exchange system shows visits to 3 separate emergency departments as well. ROS All systems reviewed and are negative except as per history of present illness. Medications Home Meds Active Scripts Phenazopyridine Hcl* (Pyridium*) 200 Mg Tab, 200 MG PO TID Y for URINARY PAIN, # 6 TAB Prov:CONSTANCE SIMON MD 03/23/17 Nitrofurantoin Monohyd Macrocr* (Macrobid*) 100 Mg Capsr, 100 MG PO BID for 7 Days, CAP Prov:CONSTANCE SIMON MD 03/23/17 Lorazepam* (Lorazepam*) 1 Mg Tablet, 1 MG PO Q8H Y for ANXIETY, #10 TAB Prov:RASHAAD PENN NP 03/18/17 Albuterol Sulfate* (Ventolin HFA*) 18 Gm Hfa.aer.ad, 2 PUFF INHALATION Q4H, #1 INHALER Prov:LYNNETTE FRAZIER PA-C 11/20/16 Benzonatate* (Tessalon Perle*) 100 Mg Capsule, 100 MG PO Q8H Y for COUGH, #20 CAP Prov:LYNNETTE FRAZIER PA-C 11/20/16 Trazodone Hcl* (Trazodone Hcl*) 150 Mg Tablet, 150 MG PO QHS, #14 TAB Prov:TYE MURDOCK PA-C 09/29/16 Fluoxetine Hcl* (Fluoxetine Hcl*) 40 Mg Capsule, 40 MG PO DAILY, #30 CAP Prov:TYE MURDOCK PA-C 09/29/16 Benzonatate* (Tessalon Perle*) 100 Mg Capsule, 100 MG PO Q8H Y for COUGH, #30 CAP Prov:STELLA BARROW PA-C 09/11/16 Ibuprofen* (Motrin*) 600 Mg Tab, 600 MG PO Q6H Y for PAIN AND OR ELEVATED TEMP, #30 TAB Prov:STELLA BARROW PA-C 09/11/16 Diphenhydramine Hcl* (Benadryl*) 50 Mg Cap, 50 MG PO Q6H Y for ITCHING/RASH, # 30 CAP Prov:STELLA BARROW PA-C 09/11/16 Fluoxetine Hcl* (Fluoxetine Hcl*) 40 Mg Capsule, 40 MG PO DAILY, #30 CAP Prov:TYE MURDOCK PA-C 08/31/16 Lorazepam* (Ativan*) 0.5 Mg Tablet, 0.5 MG PO Q8H Y for ANXIETY, #10 TAB Prov:GEOFF SCOTT MD 08/22/16 Ibuprofen* (Motrin*) 600 Mg Tab, 600 MG PO Q6H Y for PAIN AND OR ELEVATED TEMP, #20 TAB Prov:GEOFF SCOTT MD 08/22/16 Amoxicillin* (Amoxicillin*) 500 Mg Cap, 500 MG PO Q8, #30 CAP Prov:GEOFF SCOTT MD 08/22/16 Trazodone Hcl* (Trazodone Hcl*) 150 Mg Tablet, 150 MG PO QHS, #19 TAB Prov:MIKEY INIGUEZ DO 08/09/16 Fluoxetine Hcl* (Fluoxetine Hcl*) 40 Mg Capsule, 40 MG PO DAILY, #14 CAP Prov:MIKEY INIGUEZ DO 08/09/16 Trazodone Hcl* (Trazodone Hcl*) 150 Mg Tablet, 150 MG PO QHS, #2 TAB Prov:CONSTANCE SIMON MD 07/14/16 Permethrin* (Elimite*) 5% Cr, 1 APPLIC TOP ONCE, #1 TUB Prov:TYE MURDOCK PA-C 05/26/16 Azithromycin* (Zithromax*) 250 Mg Tablet, 250 MG PO .RAFAEL DIRECTED, #6 TAB TAKE 500 MG (2 TABS) THE FIRST DAY THEN 250 MG (1 TAB) DAYS 2-5 Prov:TYE MURDOCK PA-C 05/26/16 Albuterol Sulfate* (Ventolin HFA*) 18 Gm Hfa.aer.ad, 2 PUFF INHALATION Q4H, #1 INHALER Prov:TEY MURDOCK PA-C 05/26/16 Prednisone* (Prednisone*) 20 Mg Tab, 40 MG PO DAILY for 4 Days, TAB Prov:TYE MURDOCK PA-C 05/26/16 Ondansetron Hcl* (Zofran* ODT) 4 mg -ODT Tab.disper, 4 MG PO Q8 Y for NAUSEA AND /OR VOMITING, #30 TAB Prov:RASHAAD PENN NP 11/21/15 Oxycodone Hcl-Acetaminophen* (Percocet*) 5-325 Mg Tablet, 1 TAB PO Q4H Y for SEVERE PAIN LEVEL 7-10, #5 TAB Prov:RASHAAD PENN [employer] 11/21/15 Lorazepam* (Ativan*) 0.5 Mg Tablet, 0.5 MG PO BID Y for ANXIETY, #6 TAB Prov:TYE MURDOCK PA-C 10/30/15 Cimetidine* (Cimetidine*) 400 Mg Tablet, 400 MG PO BID, #60 TAB Prov:TYE MURDOCK PA-C 10/30/15 Metoclopramide Hcl* (Metoclopramide Hcl*) 10 Mg Tablet, 10 MG PO TID, #30 TAB Prov:TYE MURDOCK PA-C 10/30/15 Trazodone Hcl* (Trazodone Hcl*) 150 Mg Tablet, 150 MG PO QHS, #30 TAB Prov:TYE MURDOCK PA-C 10/30/15 Fluoxetine Hcl* (Fluoxetine Hcl*) 40 Mg Capsule, 40 MG PO DAILY, #30 CAP Prov:TYE MURDOCK PA-C 10/30/15 Hydroxyzine Hcl* (Hydroxyzine Hcl*) 10 Mg Tablet, 10 MG PO Q6H Y for ITCHING, # 30 TAB Prov:RASHAAD PENN NP 10/16/15 Metoclopramide* (Reglan*) 10 Mg Tablet, 10 MG PO Q6 Y for NAUSEA AND/OR VOMITING , #10 TAB Prov:RASHAAD PENN [employer]CH[employer] 10/16/15 Trazodone Hcl* (Trazodone Hcl*) 150 Mg Tablet, 150 MG PO QHS, #30 TAB Prov:TYE MURDOCK PA-C 09/29/15 Fluoxetine Hcl* (Fluoxetine Hcl*) 20 Mg Capsule, 20 MG PO DAILY, #30 CAP Prov:TYE MURDOCK PA-C 09/29/15 Lorazepam* (Lorazepam*) 1 Mg Tablet, 1 MG PO BID Y for ANXIETY, #5 TAB Prov:TYE MURDOCK PA-C 09/29/15 Permethrin* (Elimite*) 5% Cr, 1 APPLIC TOP ONCE, #1 TUB Prov:TYE MURDOCK PA-C 09/29/15 Sulfamethoxazole-Trimethoprim* (Bactrim* DS) 800-160 Mg Tab, 1 TAB PO BID for 7 Days, TAB Prov:TYE MURDOCK PA-C 09/29/15 Reported Medications Levothyroxine Sodium (Levothroid) 125 Mcg Tablet, 125 MCG PO DAILY 09/05/13 Fluoxetine Hcl* (Fluoxetine Hcl*) 20 Mg Capsule, 20 MG PO HS 07/11/12 Metoclopramide* (Reglan*) 10 Mg Tablet, 10 MG PO TID 07/11/12 Cimetidine* (Tagamet*) 400 Mg Tablet, 400 MG PO DAILY 07/11/12 Trazodone Hcl* (Trazodone Hcl*) 150 Mg Tablet, 150 MG PO HS 07/11/12 Allergies Allergies: Coded Allergies: cefuroxime (Verified Allergy, Intermediate, RASH, 11/20/16) erythromycin base (Verified Allergy, Intermediate, LIGHTHEADED, 11/20/16) ketorolac tromethamine (Verified Allergy, Intermediate, HEADACHE, 11/20/16) levofloxacin (Verified Allergy, Intermediate, PALPITATION, 11/20/16) cefuroxime axetil (Verified Allergy, Mild, RASH, 11/20/16) acetaminophen (Verified Allergy, Unknown, 11/20/16) hydrocodone bit (Verified Allergy, Unknown, 11/20/16) ketorolac (Verified Allergy, Unknown, PENALOZA, 11/20/16) morphine (Verified Allergy, Unknown, 11/20/16) PMhx/Soc History of Surgery: Yes (thyroidectomy, appendectomy, hysterectomy, cholecystectomy) Anesthesia Reaction: No Hx Neurological Disorder: No Hx Respiratory Disorders: No Hx Cardiac Disorders: No Hx Psychiatric Problems: Yes (anxiety) Hx Miscellaneous Medical Probl: Yes (thyoid mass (benign) x 3) Hx Alcohol Use: No Hx Substance Use: No Hx Tobacco Use: Yes Smoking Status: Current every day smoker FmHx Family History: No diabetes Physical Exam Vitals Vital Signs Date Time Temp Pulse Resp B/P Pulse Ox O2 Delivery O2 Flow Rate FiO2 03/23/17 13:41 98.7 86 16 127/77 97 Physical Exam Const: Moderate distress secondary to pain Head: Atraumatic Eyes: Normal Conjunctiva ENT: Normal External Ears, Nose and Mouth. Neck: Full range of motion..~ No meningismus. Resp: Clear to auscultation bilaterally Cardio: Regular rate and rhythm, no murmurs Abd: Soft, non tender, non distended. Normal bowel sounds Skin: No petechiae or rashes Back: Right-sided CVA tenderness with palpation Ext: No cyanosis, or edema Neur: Awake and alert Psych: Normal Mood and Affect Procedures/MDM Patient is a 57-year-old female presents with what appears to be an acute cystitis. The patient will be given Macrobid and Pyridium. She will not be given any narcotic pain medicines or benzodiazepine medications. She will need to follow-up with her primary doctor within 24-48 hours. She can return for any worsening symptoms. I doubt pneumonia, appendicitis, hepatitis, or bowel obstruction. Departure Diagnosis: Primary Impression: Flank pain Additional Impression: Cystitis CONSTANCE SIMON MD Mar 23, 2017 14:45
== END 2017-03-23 14:54 | disposition home or self-care (01) ==
LOC: FTE 13:36
DX: R10.9 Unspecified abdominal pain (principal); N30.90 Cystitis, unspecified without hematuria; F17.210 Nicotine dependence, cigarettes, uncomplicated
CPT/HCPCS: 99283

== ENCOUNTER 2017-05-27 18:24 | Emergency (ER) | payer OTHER ==
[~2017-05-27] VITALS: Ht 162.6 cm; Wt 76.0 kg
[~2017-05-27 18:24] MED LIST changes: -AMO500 PO; +AMOX500C2 PO; +NITR-58 PO; +PHEN-538 PO
[2017-05-27 18:38] VITALS: Ht 162.6 cm; Wt 76.0 kg
[2017-05-27] MEDS ORDERED: LORAZEPAM 1 MG TAB PO ONE (20:00)
--- NOTE | 2017-05-27 21:43 | ERD ---
ER Documentation Chief Complaint Chief Complaint anxiety since last night and CP today ; hx of anxiety (ran out of ativan) HPI Patient is a 57-year-old female with anxiety who presents with anxiety. She is complaining of chest pain as well. She said that she ran out of her Ativan 4 days ago. She says that she has a doctor that prescribes it for her and she is planning to see him on Thursday. She did not call her doctor as of yet. Upon review of old medical records the patient has multiple visits to the ER for the same and I have seen her previously for the same complaint. Review of the emergency department information exchange system shows visits to 2 separate emergency departments. ROS All systems reviewed and are negative except as per history of present illness. Medications Home Meds Active Scripts Phenazopyridine Hcl* (Pyridium*) 200 Mg Tab, 200 MG PO TID Y for URINARY PAIN, # 6 TAB Prov:CONSTANCE SIMON MD 03/23/17 Nitrofurantoin Monohyd Macrocr* (Macrobid*) 100 Mg Capsr, 100 MG PO BID for 7 Days, CAP Prov:CONSTANCE SIMON MD 03/23/17 Lorazepam* (Lorazepam*) 1 Mg Tablet, 1 MG PO Q8H Y for ANXIETY, #10 TAB Prov:RASHAAD PENN NP 03/18/17 Albuterol Sulfate* (Ventolin HFA*) 18 Gm Hfa.aer.ad, 2 PUFF INHALATION Q4H, #1 INHALER Prov:LYNNETTE FRAZIER PA-C 11/20/16 Benzonatate* (Tessalon Perle*) 100 Mg Capsule, 100 MG PO Q8H Y for COUGH, #20 CAP Prov:LYNNETTE FRAZIER PA-C 11/20/16 Trazodone Hcl* (Trazodone Hcl*) 150 Mg Tablet, 150 MG PO QHS, #14 TAB Prov:TYE MURDOCK PA-C 09/29/16 Fluoxetine Hcl* (Fluoxetine Hcl*) 40 Mg Capsule, 40 MG PO DAILY, #30 CAP Prov:TYE MURDOCK PA-C 09/29/16 Benzonatate* (Tessalon Perle*) 100 Mg Capsule, 100 MG PO Q8H Y for COUGH, #30 CAP Prov:STELLA BARROW PA-C 09/11/16 Ibuprofen* (Motrin*) 600 Mg Tab, 600 MG PO Q6H Y for PAIN AND OR ELEVATED TEMP, #30 TAB Prov:STELLA BARROW PA-C 09/11/16 Diphenhydramine Hcl* (Benadryl*) 50 Mg Cap, 50 MG PO Q6H Y for ITCHING/RASH, # 30 CAP Prov:STELLA BARROW PA-C 09/11/16 Fluoxetine Hcl* (Fluoxetine Hcl*) 40 Mg Capsule, 40 MG PO DAILY, #30 CAP Prov:TYE MURDOCK PA-C 08/31/16 Lorazepam* (Ativan*) 0.5 Mg Tablet, 0.5 MG PO Q8H Y for ANXIETY, #10 TAB Prov:GEOFF SCOTT MD 08/22/16 Ibuprofen* (Motrin*) 600 Mg Tab, 600 MG PO Q6H Y for PAIN AND OR ELEVATED TEMP, #20 TAB Prov:GEOFF SCOTT MD 08/22/16 Amoxicillin* (Amoxicillin*) 500 Mg Cap, 500 MG PO Q8, #30 CAP Prov:GEOFF SCOTT MD 08/22/16 Trazodone Hcl* (Trazodone Hcl*) 150 Mg Tablet, 150 MG PO QHS, #19 TAB Prov:MIKEY INIGUEZ DO 08/09/16 Fluoxetine Hcl* (Fluoxetine Hcl*) 40 Mg Capsule, 40 MG PO DAILY, #14 CAP Prov:MIKEY INIGUEZ DO 08/09/16 Trazodone Hcl* (Trazodone Hcl*) 150 Mg Tablet, 150 MG PO QHS, #2 TAB Prov:CONSTANCE SIMON MD 07/14/16 Permethrin* (Elimite*) 5% Cr, 1 APPLIC TOP ONCE, #1 TUB Prov:TYE MURDOCK PA-C 05/26/16 Azithromycin* (Zithromax*) 250 Mg Tablet, 250 MG PO .RAFAEL DIRECTED, #6 TAB TAKE 500 MG (2 TABS) THE FIRST DAY THEN 250 MG (1 TAB) DAYS 2-5 Prov:TYE MURDOCK PA-C 05/26/16 Albuterol Sulfate* (Ventolin HFA*) 18 Gm Hfa.aer.ad, 2 PUFF INHALATION Q4H, #1 INHALER Prov:TYE MURDOCK PA-C 05/26/16 Prednisone* (Prednisone*) 20 Mg Tab, 40 MG PO DAILY for 4 Days, TAB Prov:TYE MURDOCK PA-C 05/26/16 Ondansetron Hcl* (Zofran* ODT) 4 mg -ODT Tab.disper, 4 MG PO Q8 Y for NAUSEA AND /OR VOMITING, #30 TAB Prov:RASHAAD PENN NP 11/21/15 Oxycodone Hcl-Acetaminophen* (Percocet*) 5-325 Mg Tablet, 1 TAB PO Q4H Y for SEVERE PAIN LEVEL 7-10, #5 TAB Prov:RASHAAD PENN [employer] 11/21/15 Lorazepam* (Ativan*) 0.5 Mg Tablet, 0.5 MG PO BID Y for ANXIETY, #6 TAB Prov:TYE MURDOCK PA-C 10/30/15 Cimetidine* (Cimetidine*) 400 Mg Tablet, 400 MG PO BID, #60 TAB Prov:TYE MURDOCK PA-C 10/30/15 Metoclopramide Hcl* (Metoclopramide Hcl*) 10 Mg Tablet, 10 MG PO TID, #30 TAB Prov:TYE MURDOCK PA-C 10/30/15 Trazodone Hcl* (Trazodone Hcl*) 150 Mg Tablet, 150 MG PO QHS, #30 TAB Prov:TYE MURDOCK PA-C 10/30/15 Fluoxetine Hcl* (Fluoxetine Hcl*) 40 Mg Capsule, 40 MG PO DAILY, #30 CAP Prov:TYE MURDOCK PA-C 10/30/15 Hydroxyzine Hcl* (Hydroxyzine Hcl*) 10 Mg Tablet, 10 MG PO Q6H Y for ITCHING, # 30 TAB Prov:RASHAAD PENN NP 10/16/15 Metoclopramide* (Reglan*) 10 Mg Tablet, 10 MG PO Q6 Y for NAUSEA AND/OR VOMITING , #10 TAB Prov:RASHAAD PENN [employer] 10/16/15 Trazodone Hcl* (Trazodone Hcl*) 150 Mg Tablet, 150 MG PO QHS, #30 TAB Prov:TYE MURDOCK PA-C 09/29/15 Fluoxetine Hcl* (Fluoxetine Hcl*) 20 Mg Capsule, 20 MG PO DAILY, #30 CAP Prov:TYE MURDOCK PA-C 09/29/15 Lorazepam* (Lorazepam*) 1 Mg Tablet, 1 MG PO BID Y for ANXIETY, #5 TAB Prov:TYE MURDOCK PA-C 09/29/15 Permethrin* (Elimite*) 5% Cr, 1 APPLIC TOP ONCE, #1 TUB Prov:TYE MURDOCK PA-C 09/29/15 Sulfamethoxazole-Trimethoprim* (Bactrim* DS) 800-160 Mg Tab, 1 TAB PO BID for 7 Days, TAB Prov:TYE MURDOCK PA-C 09/29/15 Reported Medications Levothyroxine Sodium (Levothroid) 125 Mcg Tablet, 125 MCG PO DAILY 09/05/13 Fluoxetine Hcl* (Fluoxetine Hcl*) 20 Mg Capsule, 20 MG PO HS 07/11/12 Metoclopramide* (Reglan*) 10 Mg Tablet, 10 MG PO TID 07/11/12 Cimetidine* (Tagamet*) 400 Mg Tablet, 400 MG PO DAILY 07/11/12 Trazodone Hcl* (Trazodone Hcl*) 150 Mg Tablet, 150 MG PO HS 07/11/12 Allergies Allergies: Coded Allergies: cefuroxime (Verified Allergy, Intermediate, RASH, 11/20/16) erythromycin base (Verified Allergy, Intermediate, LIGHTHEADED, 11/20/16) ketorolac tromethamine (Verified Allergy, Intermediate, HEADACHE, 11/20/16) levofloxacin (Verified Allergy, Intermediate, PALPITATION, 11/20/16) cefuroxime axetil (Verified Allergy, Mild, RASH, 11/20/16) acetaminophen (Verified Allergy, Unknown, 11/20/16) hydrocodone bit (Verified Allergy, Unknown, 11/20/16) ketorolac (Verified Allergy, Unknown, PENALOZA, 11/20/16) morphine (Verified Allergy, Unknown, 11/20/16) PMhx/Soc History of Surgery: Yes (thyroidectomy, appendectomy, hysterectomy, cholecystectomy) Anesthesia Reaction: No Hx Neurological Disorder: No Hx Respiratory Disorders: No Hx Cardiac Disorders: No Hx Psychiatric Problems: Yes (anxiety) Hx Miscellaneous Medical Probl: Yes (thyoid mass (benign) x 3) Hx Alcohol Use: No Hx Substance Use: No Hx Tobacco Use: Yes Smoking Status: Current some day smoker FmHx Family History: diabetes Physical Exam Vitals Vital Signs Date Time Temp Pulse Resp B/P Pulse Ox O2 Delivery O2 Flow Rate FiO2 05/27/17 18:38 94.9 82 20 164/85 98 Physical Exam Const: Anxious Head: Atraumatic Eyes: Normal Conjunctiva ENT: Normal External Ears, Nose and Mouth. Neck: Full range of motion..~ No meningismus. Resp: Clear to auscultation bilaterally Cardio: Regular rate and rhythm, no murmurs Abd: Soft, non tender, non distended. Normal bowel sounds Skin: No petechiae or rashes Back: No midline or flank tenderness Ext: No cyanosis, or edema Neur: Awake and alert Psych: Anxious Results 24 hrs Current Medications Medications (Trade) Dose Ordered Sig/Shannan Route PRN Reason Start Time Stop Time Status Last Admin Dose Admin Lorazepam (Ativan) 1 mg ONCE ONCE PO 05/27/17 20:00 05/27/17 20:01 DC 05/27/17 19:58 Procedures/MDM EKG read by me: Rate/Rhythm: Regular rate and rhythm at a normal rate Intervals: Normal Impression: No evidence of ischemia or arrhythmia Patient is a 57-year-old female with anxiety who presents with anxiety. She was given 1 dose of Ativan by mouth but I told her we will not prescribe her Ativan as this will need to be filled by her primary doctor. She can return for any worsening symptoms. I doubt acute coronary syndrome, pneumonia, pneumothorax, pulmonary embolism, or aortic dissection. Departure Diagnosis: Primary Impression: Chest pain Chest pain type: unspecified Qualified Code: R07.9 - Chest pain, unspecified type Additional Impression: Anxiety attack Condition: Fair Patient Instructions: Panic Attack Additional Instructions: Call your primary care doctor TOMORROW for an appointment during the next 1-2 days.See the doctor sooner or return here if your condition worsens before your appointment time. CONSTANCE SIMON MD May 27, 2017 21:43
== END 2017-05-27 20:13 | disposition home or self-care (01) ==
LOC: E/R 18:24
DX: F41.9 Anxiety disorder, unspecified (principal); R07.9 Chest pain, unspecified; F17.210 Nicotine dependence, cigarettes, uncomplicated
CPT/HCPCS: 93005; Z7502; Z7610

== ENCOUNTER 2017-05-31 15:42 | Emergency (ER) | payer OTHER ==
[~2017-05-31] VITALS: Ht 157.5 cm; Wt 77.0 kg
[2017-05-31 15:47] VITALS: Ht 157.5 cm; Wt 77.0 kg
[2017-05-31] MEDS ORDERED: LORAZEPAM 1 MG TAB PO ONE ×2 (18:00→18:30)
--- NOTE | 2017-05-31 19:22 | ERD ---
ER Documentation Chief Complaint Chief Complaint HEART RACING WITH ANXIETY, +CP X3 DAYS, OUT OF MED, DENIES CARDIAC (LYNNETTE FRAZIER PA-C) HPI 57-year-old female patient with a past medical history of anxiety presents to the ED complaining of chest pain associated with her anxiety that started 3 days ago. Patient reports that she ran out of her Ativan. Reports that she feels like the anxiety is making her have chest pain. States that she was worked up for any cardiac abnormalities 1 year ago and was negative. Reports that she had a previous thyroidectomy, appendectomy, hysterectomy, cholecystectomy. Patient reports that her primary care physician is Dr. Garner and she has an appointment with him tomorrow at 10 AM and is here for a dose of Ativan to hold her over until her appointment tomorrow. (LYNNETTE FRAZIER PA-C) ROS All systems reviewed and are negative except as per history of present illness. (LYNNETTE FRAZIER PA-C) Medications Home Meds Active Scripts Phenazopyridine Hcl* (Pyridium*) 200 Mg Tab, 200 MG PO TID Y for URINARY PAIN, # 6 TAB Prov:CONSTANCE SIMON MD 03/23/17 Nitrofurantoin Monohyd Macrocr* (Macrobid*) 100 Mg Capsr, 100 MG PO BID for 7 Days, CAP Prov:CONSTANCE SIMON MD 03/23/17 Lorazepam* (Lorazepam*) 1 Mg Tablet, 1 MG PO Q8H Y for ANXIETY, #10 TAB Prov:RASHAAD PENN NP 03/18/17 Albuterol Sulfate* (Ventolin HFA*) 18 Gm Hfa.aer.ad, 2 PUFF INHALATION Q4H, #1 INHALER Prov:LYNNETTE FRAZIER PA-C 11/20/16 Benzonatate* (Tessalon Perle*) 100 Mg Capsule, 100 MG PO Q8H Y for COUGH, #20 CAP Prov:LYNNETTE FRAZIER PA-C 11/20/16 Trazodone Hcl* (Trazodone Hcl*) 150 Mg Tablet, 150 MG PO QHS, #14 TAB Prov:TYE MURDOCK PA-C 09/29/16 Fluoxetine Hcl* (Fluoxetine Hcl*) 40 Mg Capsule, 40 MG PO DAILY, #30 CAP Prov:TYE MURDOCK PA-C 09/29/16 Benzonatate* (Tessalon Perle*) 100 Mg Capsule, 100 MG PO Q8H Y for COUGH, #30 CAP Prov:STELLA BARROW PA-C 09/11/16 Ibuprofen* (Motrin*) 600 Mg Tab, 600 MG PO Q6H Y for PAIN AND OR ELEVATED TEMP, #30 TAB Prov:STELLA BARROW PA-C 09/11/16 Diphenhydramine Hcl* (Benadryl*) 50 Mg Cap, 50 MG PO Q6H Y for ITCHING/RASH, # 30 CAP Prov:STELLA BARROW PA-C 09/11/16 Fluoxetine Hcl* (Fluoxetine Hcl*) 40 Mg Capsule, 40 MG PO DAILY, #30 CAP Prov:TYE MURDOCK PA-C 08/31/16 Lorazepam* (Ativan*) 0.5 Mg Tablet, 0.5 MG PO Q8H Y for ANXIETY, #10 TAB Prov:GEOFF SCOTT MD 08/22/16 Ibuprofen* (Motrin*) 600 Mg Tab, 600 MG PO Q6H Y for PAIN AND OR ELEVATED TEMP, #20 TAB Prov:GEOFF SCOTT MD 08/22/16 Amoxicillin* (Amoxicillin*) 500 Mg Cap, 500 MG PO Q8, #30 CAP Prov:GEOFF SCOTT MD 08/22/16 Trazodone Hcl* (Trazodone Hcl*) 150 Mg Tablet, 150 MG PO QHS, #19 TAB Prov:MIKEY INIGUEZ DO 08/09/16 Fluoxetine Hcl* (Fluoxetine Hcl*) 40 Mg Capsule, 40 MG PO DAILY, #14 CAP Prov:MIKEY INIGUEZ DO 08/09/16 Trazodone Hcl* (Trazodone Hcl*) 150 Mg Tablet, 150 MG PO QHS, #2 TAB Prov:CONSATNCE SIMON MD 07/14/16 Permethrin* (Elimite*) 5% Cr, 1 APPLIC TOP ONCE, #1 TUB Prov:TYE MURDOCK PA-C 05/26/16 Azithromycin* (Zithromax*) 250 Mg Tablet, 250 MG PO .RAFAEL DIRECTED, #6 TAB TAKE 500 MG (2 TABS) THE FIRST DAY THEN 250 MG (1 TAB) DAYS 2-5 Prov:TYE MURDOCK PA-C 05/26/16 Albuterol Sulfate* (Ventolin HFA*) 18 Gm Hfa.aer.ad, 2 PUFF INHALATION Q4H, #1 INHALER Prov:TYE MURDOCK PA-C 05/26/16 Prednisone* (Prednisone*) 20 Mg Tab, 40 MG PO DAILY for 4 Days, TAB Prov:TYE MURDOCK PA-C 05/26/16 Ondansetron Hcl* (Zofran* ODT) 4 mg -ODT Tab.disper, 4 MG PO Q8 Y for NAUSEA AND /OR VOMITING, #30 TAB Prov:RASHAAD PENN NP 11/21/15 Oxycodone Hcl-Acetaminophen* (Percocet*) 5-325 Mg Tablet, 1 TAB PO Q4H Y for SEVERE PAIN LEVEL 7-10, #5 TAB Prov:RASHAAD PENN NP 11/21/15 Lorazepam* (Ativan*) 0.5 Mg Tablet, 0.5 MG PO BID Y for ANXIETY, #6 TAB Prov:TYE MURDOCK PA-C 10/30/15 Cimetidine* (Cimetidine*) 400 Mg Tablet, 400 MG PO BID, #60 TAB Prov:TYE MURDOCK PA-C 10/30/15 Metoclopramide Hcl* (Metoclopramide Hcl*) 10 Mg Tablet, 10 MG PO TID, #30 TAB Prov:TYE MURDOCK PA-C 10/30/15 Trazodone Hcl* (Trazodone Hcl*) 150 Mg Tablet, 150 MG PO QHS, #30 TAB Prov:TYE MURDOCK PA-C 10/30/15 Fluoxetine Hcl* (Fluoxetine Hcl*) 40 Mg Capsule, 40 MG PO DAILY, #30 CAP Prov:TYE MURDOCK PA-C 10/30/15 Hydroxyzine Hcl* (Hydroxyzine Hcl*) 10 Mg Tablet, 10 MG PO Q6H Y for ITCHING, # 30 TAB Prov:RASHAAD PENN NP 10/16/15 Metoclopramide* (Reglan*) 10 Mg Tablet, 10 MG PO Q6 Y for NAUSEA AND/OR VOMITING , #10 TAB Prov:RASHAAD PENN NP 10/16/15 Trazodone Hcl* (Trazodone Hcl*) 150 Mg Tablet, 150 MG PO QHS, #30 TAB Prov:TYE MURDOCK PA-C 09/29/15 Fluoxetine Hcl* (Fluoxetine Hcl*) 20 Mg Capsule, 20 MG PO DAILY, #30 CAP Prov:TYE MURDOCK PA-C 09/29/15 Lorazepam* (Lorazepam*) 1 Mg Tablet, 1 MG PO BID Y for ANXIETY, #5 TAB Prov:TYE MURDOCK PA-C 09/29/15 Permethrin* (Elimite*) 5% Cr, 1 APPLIC TOP ONCE, #1 TUB Prov:TYE MURDOCK PA-C 09/29/15 Sulfamethoxazole-Trimethoprim* (Bactrim* DS) 800-160 Mg Tab, 1 TAB PO BID for 7 Days, TAB Prov:TYE MURDOCK PA-C 09/29/15 Reported Medications Levothyroxine Sodium (Levothroid) 125 Mcg Tablet, 125 MCG PO DAILY 09/05/13 Fluoxetine Hcl* (Fluoxetine Hcl*) 20 Mg Capsule, 20 MG PO HS 07/11/12 Metoclopramide* (Reglan*) 10 Mg Tablet, 10 MG PO TID 07/11/12 Cimetidine* (Tagamet*) 400 Mg Tablet, 400 MG PO DAILY 07/11/12 Trazodone Hcl* (Trazodone Hcl*) 150 Mg Tablet, 150 MG PO HS 07/11/12 Allergies Allergies: Coded Allergies: cefuroxime (Verified Allergy, Intermediate, RASH, 11/20/16) erythromycin base (Verified Allergy, Intermediate, LIGHTHEADED, 11/20/16) ketorolac tromethamine (Verified Allergy, Intermediate, HEADACHE, 11/20/16) levofloxacin (Verified Allergy, Intermediate, PALPITATION, 11/20/16) cefuroxime axetil (Verified Allergy, Mild, RASH, 11/20/16) acetaminophen (Verified Allergy, Unknown, 11/20/16) hydrocodone bit (Verified Allergy, Unknown, 11/20/16) ketorolac (Verified Allergy, Unknown, PENALOZA, 11/20/16) morphine (Verified Allergy, Unknown, 11/20/16) PMhx/Soc History of Surgery: Yes (thyroidectomy, appendectomy, hysterectomy, cholecystectomy) Anesthesia Reaction: No Hx Neurological Disorder: No Hx Respiratory Disorders: No Hx Cardiac Disorders: No Hx Psychiatric Problems: Yes (anxiety) Hx Miscellaneous Medical Probl: Yes (thyoid mass (benign) x 3) Hx Alcohol Use: No Hx Substance Use: No Hx Tobacco Use: Yes Smoking Status: Current every day smoker (LYNNETTE FRAZIER PA-C) Physical Exam Physical Exam Const: [id number], well-nourished. In no acute distress. Head: Atraumatic, normocephalic Eyes: Normal Conjunctiva without injection. No purulent discharge. PERRL. EOMI ENT: Normal external ear. Ear canal without erythema. Tympanic membrane pearly strickland without effusion or bulging. Nasal canal clear with normal turbinates. Moist oropharynx without tonsillar exudates. Non-erythematous pharynx. Uvula midline. No drooling. No trismus. Neck: Full range of motion. No meningismus. No cervical lymphadenopathy. Resp: Clear to auscultation bilaterally. No wheezing, rhonchi, rales, or crackles. No accessory muscle use. No retractions. Cardio: Regular rate and rhythm. No murmurs, rubs or gallops. Abd: Soft, non tender, non distended. Normal bowel sounds. No palpable masses. No rebound tenderness. No guarding. Skin: No petechiae or rashes Back: No midline tenderness. No CVA tenderness. Ext: No cyanosis, or edema. Neur: Awake and alert. Psych: Normal Mood and Affect (LYNNETTE FRAZIER PA-C) Results 24 hrs Current Medications Medications (Trade) Dose Ordered Sig/Shannan Route PRN Reason Start Time Stop Time Status Last Admin Dose Admin Lorazepam (Ativan) 1 mg ONCE ONCE PO 05/31/17 18:00 05/31/17 18:01 DC 05/31/17 17:54 Lorazepam (Ativan) 1 mg ONCE ONCE PO 05/31/17 18:30 05/31/17 18:31 DC 05/31/17 18:45 (ANAMIKA CATES MD) Procedures/MDM 57-year-old female patient with a past medical history of anxiety presents to the ED complaining of chest pain that started 3 days ago. Patient is afebrile and nontoxic-appearing. Patient has normal vital signs. EKG was ordered to further evaluate patient. Ativan 2 mg total was given to patient with relief of her symptoms. Patient has been seen here at [facility] previously for similar symptoms. EKG reviewed and interpreted by Dr. Cates Rate/Rhythm: [82 bpm, Normal Sinus Rhythm] No ST elevations. QRS, ST, T-waves: [No changes consistent w/ acute ischemia] Impression: [No evidence of ischemia or arrhythmia] Patient's symptoms are likely secondary to anxiety. Low suspicion for acute myocardial infarction, pneumothorax, pneumonia, cardiac tamponade, Henry- Parkinson-White Syndrome, Brugada Syndrome, pulmonary embolism, AAA, aortic dissection, thoracic aortic dissection, endocarditis, pericarditis, cocaine- related ischemia, Boerhaave's syndrome, cardiac dysrhythmias,meningitis, intracranial bleed, seizure, stroke, TIA or other emergent conditions. This case was discussed with Dr. Juan Cates who agreed with the management and discharge plan. Follow up with primary care physician in 1-2 days. Instructed patient to return to the ED sooner for any worsening symptoms. Patient's questions were answered. Patient understood and agreed with discharge plan. Patient discharged stable. (LYNNETTE FRAZIER PA-C) Patient is a 57-year-old female with history of anxiety who is seen by the mid- level but not by myself. I was not requested to examine the patient. I was advised that the patient had a chief complaint of anxiety, and only incidentally noted having chest pain as part of her symptomatology. She reported that this pain has been constant for several days, and is typical for her anxiety attacks. I reviewed her EKG, which is nonischemic, and I do not believe that based upon the patient's history as explained to me by the mid- level provider, that the patient required further workup. This was also the opinion of the mid-level provider who saw the patient. (ANAMIKA CATES MD) Departure Diagnosis: Primary Impression: Anxiety Condition: Stable Patient Instructions: Your Body's Response to Anxiety, Stress Relief: Relaxation, Anxiety Reaction Referrals: [facility]RISTINA DUNCAN (PCP) [facility] YOU HAVE RECEIVED A MEDICAL SCREENING EXAM AND THE RESULTS INDICATE THAT YOU DO NOT HAVE A CONDITION THAT REQUIRES URGENT TREATMENT IN THE EMERGENCY DEPARTMENT. FURTHER EVALUATION AND TREATMENT OF YOUR CONDITION CAN WAIT UNTIL YOU ARE SEEN IN YOUR DOCTORS OFFICE WITHIN THE NEXT 1-2 DAYS. IT IS YOUR RESPONSIBILITY TO MAKE AN APPOINTMENT FOR FOLOW-UP CARE. IF YOU HAVE A PRIMARY DOCTOR --you should call your primary doctor and schedule an appointment IF YOU DO NOT HAVE A PRIMARY DOCTOR YOU CAN CALL OUR PHYSICIAN REFERRAL HOTLINE AT IF YOU CAN NOT AFFORD TO SEE A PHYSICIAN YOU CAN CHOSE FROM THE FOLLOWING [facility] [address] [facility] [address] [facility] [address] [facility] [address] [facility] [address] [facility] [address] [facility]. [facility] YOU HAVE RECEIVED A MEDICAL SCREENING EXAM AND THE RESULTS INDICATE THAT YOU DO NOT HAVE A CONDITION THAT REQUIRES URGENT TREATMENT IN THE EMERGENCY DEPARTMENT. FURTHER EVALUATION AND TREATMENT OF YOUR CONDITION CAN WAIT UNTIL YOU ARE SEEN IN YOUR DOCTORS OFFICE WITHIN THE NEXT 1-2 DAYS. IT IS YOUR RESPONSIBILITY TO MAKE AN APPOINTMENT FOR FOLOW-UP CARE. IF YOU HAVE A PRIMARY DOCTOR --you should call your primary doctor and schedule and appointment IF YOU DO NOT HAVE A PRIMARY DOCTOR YOU CAN CALL OUR PHYSICIAN REFERRAL HOTLINE AT . IF YOU CAN NOT AFFORD TO SEE A PHYSICIAN YOU CAN CHOSE FROM THE FOLLOWING [facility] INSTITUTIONS: [facility] [address] [place] [address] [facility] [address] [place] [address] [facility] [address] [place] [address] [facility] Additional Instructions: CalFOLLOW UP WITH YOUR PRIMARY CARE PHYSICIAN TOMORROW.Return to this facility if you are not improving as expected - worsening chest pain, shortness of breath, wheezing, fever, etc. LYNNETTE FRAZIER PA-C May 31, 2017 19:22 ANAMIKA CATES MD Jun 10, 2017 22:10
== END 2017-05-31 19:18 | disposition home or self-care (01) ==
LOC: FTE 15:42
DX: F41.9 Anxiety disorder, unspecified (principal); R07.9 Chest pain, unspecified; F17.210 Nicotine dependence, cigarettes, uncomplicated
CPT/HCPCS: 93005; Z7502; Z7610

== ENCOUNTER 2017-06-12 16:03 | Emergency (ER) | payer SELFPAY ==
[~2017-06-12] VITALS: Wt 73.4 kg
[2017-06-13] MEDS ORDERED: DEXTROSE 5%-0.45% NACL 1,000 ML IV SCH (04:45)
[2017-06-13] MEDS ORDERED: ACETAMINOPHEN 325 MG TAB PO PRN (05:00)
[2017-06-13] MEDS ORDERED: NACL 0.9% 3 ML SYG IV SCH (05:00)
[2017-06-13] MEDS ORDERED: ONDANSETRON 4 MG INJ IV PRN (05:00)
[2017-06-13] MEDS ORDERED: morphine 2 MG INJ IV PRN (05:00)
[2017-06-13] MEDS ORDERED: ALBUTEROL/IPRATROPIUM (NEB) 3 ML AMP HHN PRN (05:00)
[2017-06-13] MEDS ORDERED: traMADol 50 MG TAB PO PRN (05:00)
[2017-06-13] MEDS ORDERED: PIPER-TAZO 3.375 GM IV (PMX) 50 ML IV SCH (05:02)
== END 2017-06-12 20:29 | disposition left against medical advice (07) ==
LOC: E/R 16:03
DX: Z53.21 Procedure and treatment not carried out due to patient leaving prior to being seen by health care provider (principal)
CPT/HCPCS: J7042

== ENCOUNTER 2017-06-12 20:34 | Inpatient (IN) | payer OTHER ==
[~2017-06-12] VITALS: Ht 167.6 cm; Wt 73.4 kg
[2017-06-12 20:39] VITALS: Ht 167.6 cm; Wt 73.4 kg
[2017-06-12] MEDS ORDERED: SOD CHLORIDE 0.9% 1,000 ML IV STA (22:53)
[2017-06-12] MEDS ORDERED: HYDROmorphONE 1 MG/ML SYG IV STA (22:53)
[2017-06-12] MEDS ORDERED: ONDANSETRON 4 MG INJ IV STA (22:53)
[2017-06-12] MEDS ORDERED: DIPHENHYDRAMINE 50 MG INJ IV ONE (23:00)
[2017-06-12] MEDS ORDERED: ERTAPENEM SODIUM 1 GM in SOD CHLORIDE 0.9% 100 ML IVPB ONE (23:00)
[2017-06-12 23:31] LABS: ABNORMAL IP MESSAGE 1; BASOPHIL # 0.1 10^3/ul (0.0-0.1); BASOPHILS % 0.5 % (0.0-2.0); EOSINOPHILS % 0.4 % (0.0-7.0); HEMATOCRIT 37.1 % (37.0-47.0); HEMOGLOBIN 13.2 g/dl (12.0-16.0); LYMPHOCYTES # 2.1 10^3/ul (0.8-2.9); LYMPHOCYTES % 19.5 % (15.0-51.0); MEAN CORPUSCULAR HEMOGLOBIN 30.2 pg (29.0-33.0); MEAN CORPUSCULAR HGB CONC 35.6 g/dl (32.0-37.0); MEAN CORPUSCULAR VOLUME 84.9 fl (82.0-101.0); MONOCYTE # 1.9 10^3/ul (0.3-0.9); MONOCYTES % 17.9 % (0.0-11.0); NEUTROPHIL # 6.5 10^3/ul (1.6-7.5); NEUTROPHILS % 60.9 % (39.0-77.0); PLATELET COUNT 444 10^3/UL (140-415); RED BLOOD COUNT 4.37 10^6/ul (4.20-5.40); RED CELL DISTRIBUTION WIDTH 12.4 % (11.5-14.5); WHITE BLOOD COUNT 10.6 10^3/ul (4.8-10.8)
--- NOTE | 2017-06-12 23:34 | ERD ---
ER Documentation Chief Complaint Chief Complaint diarrhea w/ blood in stools x 5 days, mild abd pain HPI This is a 57-year-old female complains of diarrhea and abdominal pain for 7 days. The pain is crampy and diffuse and off-and-on. The patient said watery brown stool until today where she says she has had 5-10 bouts of watery diarrhea mixed with blood. She has no history of colon cancer that she knows of , no history of colitis or diverticulitis. Denies fever denies nausea or vomiting ROS All systems reviewed and are negative except as per history of present illness. Medications Home Meds Active Scripts Phenazopyridine Hcl* (Pyridium*) 200 Mg Tab, 200 MG PO TID Y for URINARY PAIN, # 6 TAB Prov:CONSTANCE SIMON MD 03/23/17 Nitrofurantoin Monohyd Macrocr* (Macrobid*) 100 Mg Capsr, 100 MG PO BID for 7 Days, CAP Prov:CONSTANCE SIMON MD 03/23/17 Lorazepam* (Lorazepam*) 1 Mg Tablet, 1 MG PO Q8H Y for ANXIETY, #10 TAB Prov:RASHAAD PENN NP 03/18/17 Albuterol Sulfate* (Ventolin HFA*) 18 Gm Hfa.aer.ad, 2 PUFF INHALATION Q4H, #1 INHALER Prov:LYNNETTE FRAZIER PA-C 11/20/16 Benzonatate* (Tessalon Perle*) 100 Mg Capsule, 100 MG PO Q8H Y for COUGH, #20 CAP Prov:LYNNETTE FRAZIER PA-C 11/20/16 Trazodone Hcl* (Trazodone Hcl*) 150 Mg Tablet, 150 MG PO QHS, #14 TAB Prov:TYE MURDOCK PA-C 09/29/16 Fluoxetine Hcl* (Fluoxetine Hcl*) 40 Mg Capsule, 40 MG PO DAILY, #30 CAP Prov:TYE MURDOCK PA-C 09/29/16 Benzonatate* (Tessalon Perle*) 100 Mg Capsule, 100 MG PO Q8H Y for COUGH, #30 CAP Prov:STELLA BARROW PA-C 09/11/16 Ibuprofen* (Motrin*) 600 Mg Tab, 600 MG PO Q6H Y for PAIN AND OR ELEVATED TEMP, #30 TAB Prov:STELLA BARROW PA-C 09/11/16 Diphenhydramine Hcl* (Benadryl*) 50 Mg Cap, 50 MG PO Q6H Y for ITCHING/RASH, # 30 CAP Prov:STELLA BARROW PA-C 09/11/16 Fluoxetine Hcl* (Fluoxetine Hcl*) 40 Mg Capsule, 40 MG PO DAILY, #30 CAP Prov:TYE MURDOCK PA-C 08/31/16 Lorazepam* (Ativan*) 0.5 Mg Tablet, 0.5 MG PO Q8H Y for ANXIETY, #10 TAB Prov:GEOFF SCOTT MD 08/22/16 Ibuprofen* (Motrin*) 600 Mg Tab, 600 MG PO Q6H Y for PAIN AND OR ELEVATED TEMP, #20 TAB Prov:GEOFF SCOTT MD 08/22/16 Amoxicillin* (Amoxicillin*) 500 Mg Cap, 500 MG PO Q8, #30 CAP Prov:GEOFF SCOTT MD 08/22/16 Trazodone Hcl* (Trazodone Hcl*) 150 Mg Tablet, 150 MG PO QHS, #19 TAB Prov:MIKEY INIGUEZ DO 08/09/16 Fluoxetine Hcl* (Fluoxetine Hcl*) 40 Mg Capsule, 40 MG PO DAILY, #14 CAP Prov:GEETHAMIKEY DO 08/09/16 Trazodone Hcl* (Trazodone Hcl*) 150 Mg Tablet, 150 MG PO QHS, #2 TAB Prov:CONSTANCE SIMON MD 07/14/16 Permethrin* (Elimite*) 5% Cr, 1 APPLIC TOP ONCE, #1 TUB Prov:TYE MURDOCK PA-C 05/26/16 Azithromycin* (Zithromax*) 250 Mg Tablet, 250 MG PO .ZPACK DIRECTED, #6 TAB TAKE 500 MG (2 TABS) THE FIRST DAY THEN 250 MG (1 TAB) DAYS 2-5 Prov:TYE MURDOCK PA-C 05/26/16 Albuterol Sulfate* (Ventolin HFA*) 18 Gm Hfa.aer.ad, 2 PUFF INHALATION Q4H, #1 INHALER Prov:TYE MURDOCK PA-C 05/26/16 Prednisone* (Prednisone*) 20 Mg Tab, 40 MG PO DAILY for 4 Days, TAB Prov:TYE MURDOCK PA-C 05/26/16 Ondansetron Hcl* (Zofran* ODT) 4 mg -ODT Tab.disper, 4 MG PO Q8 Y for NAUSEA AND /OR VOMITING, #30 TAB Prov:RASHAAD PENN NP 11/21/15 Oxycodone Hcl-Acetaminophen* (Percocet*) 5-325 Mg Tablet, 1 TAB PO Q4H Y for SEVERE PAIN LEVEL 7-10, #5 TAB Prov:RASHAAD PENN NP 11/21/15 Lorazepam* (Ativan*) 0.5 Mg Tablet, 0.5 MG PO BID Y for ANXIETY, #6 TAB Prov:TYE MURDOCK PA-C 10/30/15 Cimetidine* (Cimetidine*) 400 Mg Tablet, 400 MG PO BID, #60 TAB Prov:TYE MURDOCK PA-C 10/30/15 Metoclopramide Hcl* (Metoclopramide Hcl*) 10 Mg Tablet, 10 MG PO TID, #30 TAB Prov:TYE MURDOCK PA-C 10/30/15 Trazodone Hcl* (Trazodone Hcl*) 150 Mg Tablet, 150 MG PO QHS, #30 TAB Prov:TYE MURDOCK PA-C 10/30/15 Fluoxetine Hcl* (Fluoxetine Hcl*) 40 Mg Capsule, 40 MG PO DAILY, #30 CAP Prov:TYE MURDOCK PA-C 10/30/15 Hydroxyzine Hcl* (Hydroxyzine Hcl*) 10 Mg Tablet, 10 MG PO Q6H Y for ITCHING, # 30 TAB Prov:RASHAAD PENN NP 10/16/15 Metoclopramide* (Reglan*) 10 Mg Tablet, 10 MG PO Q6 Y for NAUSEA AND/OR VOMITING , #10 TAB Prov:RASHAAD PENN NP 10/16/15 Trazodone Hcl* (Trazodone Hcl*) 150 Mg Tablet, 150 MG PO QHS, #30 TAB Prov:TYE MURDOCK PA-C 09/29/15 Fluoxetine Hcl* (Fluoxetine Hcl*) 20 Mg Capsule, 20 MG PO DAILY, #30 CAP Prov:TYE MURDOCK PA-C 09/29/15 Lorazepam* (Lorazepam*) 1 Mg Tablet, 1 MG PO BID Y for ANXIETY, #5 TAB Prov:TYE MURDOCK PA-C 09/29/15 Permethrin* (Elimite*) 5% Cr, 1 APPLIC TOP ONCE, #1 TUB Prov:TYE MURDOCK PA-C 09/29/15 Sulfamethoxazole-Trimethoprim* (Bactrim* DS) 800-160 Mg Tab, 1 TAB PO BID for 7 Days, TAB Prov:TYE MURDOCK PA-C 09/29/15 Reported Medications Levothyroxine Sodium (Levothroid) 125 Mcg Tablet, 125 MCG PO DAILY 09/05/13 Fluoxetine Hcl* (Fluoxetine Hcl*) 20 Mg Capsule, 20 MG PO HS 07/11/12 Metoclopramide* (Reglan*) 10 Mg Tablet, 10 MG PO TID 07/11/12 Cimetidine* (Tagamet*) 400 Mg Tablet, 400 MG PO DAILY 07/11/12 Trazodone Hcl* (Trazodone Hcl*) 150 Mg Tablet, 150 MG PO HS 07/11/12 Allergies Allergies: Coded Allergies: cefuroxime (Verified Allergy, Intermediate, RASH, 11/20/16) erythromycin base (Verified Allergy, Intermediate, LIGHTHEADED, 11/20/16) ketorolac tromethamine (Verified Allergy, Intermediate, HEADACHE, 11/20/16) levofloxacin (Verified Allergy, Intermediate, PALPITATION, 11/20/16) cefuroxime axetil (Verified Allergy, Mild, RASH, 11/20/16) acetaminophen (Verified Allergy, Unknown, 11/20/16) hydrocodone bit (Verified Allergy, Unknown, 11/20/16) ketorolac (Verified Allergy, Unknown, PENALOZA, 11/20/16) morphine (Verified Allergy, Unknown, 11/20/16) PMhx/Soc History of Surgery: Yes (thyroidectomy, appendectomy, hysterectomy, cholecystectomy) Anesthesia Reaction: No Hx Neurological Disorder: No Hx Respiratory Disorders: No Hx Cardiac Disorders: No Hx Psychiatric Problems: Yes (anxiety) Hx Miscellaneous Medical Probl: Yes (thyoid mass (benign) x 3) Hx Alcohol Use: No Hx Substance Use: No Hx Tobacco Use: Yes FmHx Family History: No coronary disease Physical Exam Vitals Vital Signs Date Time Temp Pulse Resp B/P Pulse Ox O2 Delivery O2 Flow Rate FiO2 06/13/17 00:38 98.7 90 18 135/75 96 Room Air 06/12/17 20:39 97.8 99 20 138/80 99 Physical Exam Const: Well-developed, well-nourished Head: Atraumatic, normocephalic Eyes: Normal Conjunctiva, PERRLA, EOMI, normal sclera, no nystagmus ENT: Normal External Ears, Nose and Mouth, moist mucus membranes. Neck: Full range of motion. No meningismus, no lymphadenopathy. Resp: Clear to auscultation bilaterally, no wheezing, rhonchi, rales Cardio: Regular rate and rhythm, no murmurs, S1 S2 present Abd: Soft, diffuse mild to moderate tenderness, non distended. Normal bowel sounds, no guarding or rebound, no pulsitile abdominal masses or bruits Skin: No petechiae or rashes, no ecchymosis , no maculopapular rash Back: No midline or flank tenderness Ext: No cyanosis, or edema, FROM x 4, normal inspection, neurovascularly intact x 4 Neur: Awake and alert, STR 5/5 x 4, sensation intact x 4, no focal findings, cerebellum intact Psych: Normal Mood and Affect Result Diagram: 06/12/17229906/12/172299 Results 24 hrs Laboratory Tests Test 06/12/17 23:00 White Blood Count 10.610^3/ul Red Blood Count 4.3710^6/ul Hemoglobin 13.2g/dl Hematocrit 37.1% Mean Corpuscular Volume 84.9fl Mean Corpuscular Hemoglobin 30.2pg Mean Corpuscular Hemoglobin Concent 35.6g/dl Red Cell Distribution Width 12.4% Platelet Count 76241^3/UL Mean Platelet Volume 9.0fl Neutrophils % 60.9% Lymphocytes % 19.5% Monocytes % 17.9% Eosinophils % 0.4% Basophils % 0.5% Nucleated Red Blood Cells % 0.0/100WBC Neutrophils # 6.510^3/ul Lymphocytes # 2.110^3/ul Monocytes # 1.910^3/ul Eosinophils # 0.010^3/ul Basophils # 0.110^3/ul Nucleated Red Blood Cells # 0.010^3/ul Prothrombin Time 13.7Sec Prothrombin Time Ratio 1.1 INR International Normalized Ratio 1.05 Activated Partial Thromboplast Time 34.8Sec Sodium Level 132mmol/L Potassium Level 3.1mmol/L Chloride Level 95mmol/L Carbon Dioxide Level 24mmol/L Anion Gap 16 Blood Urea Nitrogen 10mg/dl Creatinine 0.94mg/dl Glucose Level 129mg/dl Calcium Level 10.3mg/dl Total Bilirubin 0.3mg/dl Direct Bilirubin 0.00mg/dl Indirect Bilirubin 0.3mg/dl Aspartate Amino Transf (AST/SGOT) 17IU/L Alanine Aminotransferase (ALT/SGPT) 29IU/L Alkaline Phosphatase 97IU/L Total Protein 8.2g/dl Albumin 4.0g/dl Globulin 4.20g/dl Albumin/Globulin Ratio 0.95 Lipase 92U/L Current Medications Medications (Trade) Dose Ordered Sig/Shannan Route PRN Reason Start Time Stop Time Status Last Admin Dose Admin Sodium Chloride (NS) 1,000 ml @ 1,000 mls/hr Q1H STAT IV 06/12/17 22:53 06/12/17 23:52 DC 06/12/17 23:17 Hydromorphone HCl (Dilaudid) 1 mg ONCE STAT IV 06/12/17 22:53 06/12/17 22:56 DC 06/12/17 23:17 Ondansetron HCl 4 mg 4 mg ONCE STAT IV 06/12/17 22:53 06/12/17 22:56 DC 06/12/17 23:16 Ertapenem/Sodium Chloride (Invanz/NS) 100 ml @ 200 mls/hr ONCE ONCE IVPB 06/12/17 23:00 06/12/17 23:29 DC 06/12/17 23:32 Diphenhydramine HCl (Benadryl) 25 mg ONCE ONCE IV 06/12/17 23:00 06/12/17 23:01 DC 06/12/17 23:16 IV Flush 10 ml 10 ml STK-MED ONCE .ROUTE 06/12/17 23:59 06/13/17 00:00 DC 06/13/17 00:10 Sodium Chloride (NS) 100 ml @ ud STK-MED ONCE .ROUTE 06/12/17 23:59 06/13/17 00:00 DC 06/13/17 00:10 Iohexol (Omnipaque 300mg/ ml) 150 ml STK-MED ONCE .ROUTE 06/12/17 23:59 06/13/17 00:00 DC 06/13/17 00:10 Hydromorphone HCl (Dilaudid) 1 mg ONCE STAT IV 06/13/17 01:08 06/13/17 01:10 DC Ondansetron HCl (Zofran Inj) 4 mg ONCE STAT IV 06/13/17 01:08 06/13/17 01:10 DC Procedures/MDM PROCEDURE: CT abdomen and pelvis with intravenous contrast. CLINICAL INDICATION: Pain. TECHNIQUE: CT of the abdomen/pelvis was performed utilizing axial images with reconstructions in sagittal and coronal planes after uneventful administration of 100 cc Omnipaque 300. The administered radiation dose is CTDI 15.2 mGy, DLP 875 mGy-cm. One or more of the following dose reduction techniques were used: automated exposure control, adjustment of the mA and/or kV according to patient size and/or use of iterative reconstruction technique. DICOM images are available. COMPARISON: No pertinent prior examinations were submitted for comparison. FINDINGS: Visualized Chest: The visualized lung bases are clear. Abdomen: The liver, spleen, pancreas, and adrenal glands are unremarkable. Prior cholecystectomy is noted. The kidneys are without hydronephrosis. No definite urinary calculi are seen. There is no evidence of bowel obstruction. The appendix is normal. No intra- abdominal free air is seen. There is diffuse thickening of the colon with some slight surrounding mesenteric engorgement. There is no evidence of intra-abdominal adenopathy or free fluid. Pelvis: Prior hysterectomy is noted. The urinary bladder is unremarkable. There is no pelvic adenopathy of free fluid. Osseous structures: Unremarkable. IMPRESSION: Diffuse thickening of the colon compatible with colitis. Hepatic steatosis. RPTAT: HIKT .Regulo Carbajal MD, Date Time Electronically viewed and signed by .Regulo Carbajal MD, MD on 06/13/2017 00:38 .T/ CC: ELAINA NERI DO Patient is having bloody diarrhea with evidence of colitis on CAT scan. White blood count is 10.6. There is some mild electrolyte abnormalities. We will admit to the hospital for intravenous antibiotic therapy and observation for worsening of GI bleeding. Hemoglobin is stable at this time. Departure Diagnosis: Primary Impression: Pancolitis Additional Impression: Lower GI bleeding Condition: Stable ELAINA NERI DO Jun 12, 2017 23:33
[2017-06-12 23:44] LABS: POSITIVE DIFF @See below
[2017-06-12 23:53] LABS: ALBUMIN/GLOBULIN RATIO 0.95; BILIRUBIN,INDIRECT 0.3 mg/dl (0-1.1); BILIRUBIN,TOTAL 0.3 mg/dl (0.2-1.3); CALCIUM 10.3 mg/dl (8.4-10.2); CREATININE 0.94 mg/dl (0.44-1.00); POTASSIUM 3.1 mmol/L (3.5-5.1); TOTAL PROTEIN 8.2 g/dl (6.1-8.1)
[2017-06-12] MEDS ORDERED: IOHEXOL 300MG/ML 150 ML BTL ONE (23:59)
[2017-06-12] MEDS ORDERED: SOD CHLORIDE 0.9% 100 ML ONE (23:59)
[2017-06-13 00:03] LABS: INR 1.05; PARTIAL THROMBOPLASTIN TIME 34.8 Sec (25.0-35.0); PROTIME 13.7 Sec (12.2-14.2); PT RATIO 1.1
--- NOTE | 2017-06-13 00:38 | RADRPT ---
PROCEDURE: CT abdomen and pelvis with intravenous contrast. CLINICAL INDICATION: Pain. TECHNIQUE: CT of the abdomen/pelvis was performed utilizing axial images with reconstructions in s agittal and coronal planes after uneventful administration of 100 cc Omnipaque 300. The administered radiation dose is CTDI 15.2 mGy, DLP 875 mGy-cm. One or more of the following dose reduction techni ques were used: automated exposure control, adjustment of the mA and/or kV according to patient size and/or use of iterative reconstruction technique. DICOM images are available. COMPARISON: No pertinent prior examinations were submitted for comparison. FINDINGS: Visualized Chest: The visualized lung bases are clear. Abdomen: The liver, spleen, pancreas, and adrenal glands are unremarkable. Prior cholecystectomy is noted. The kidneys are without hydronephrosis. No definite urinary calculi are seen. There is no evidence of bowel obstruction. The appendix is normal. No intra-abdominal free air is seen. There is diffuse thickening of the colon with some slight surrounding mesenteric engorgement. There is no evidence of intra-abdominal adenopathy or free fluid. Pelvis: Prior hysterectomy is noted. The urinary bladder is unremarkable. There is no pelvic adenopathy of free fluid. Osseous structures: Unremarkable. IMPRESSION: Diffuse thickening of the colon compatible with colitis. Hepatic steatosis. RPTAT: HIKT .Regulo Carbajal MD, Date Time Electronically viewed and signed by .Regulo Carbajal MD, MD on 06/13/2017 00:38 .T/
[2017-06-13] MEDS ORDERED: ONDANSETRON 4 MG INJ IV STA ×2 (01:08→03:56)
[2017-06-13] MEDS ORDERED: HYDROmorphONE 1 MG/ML SYG IV STA ×2 (01:08→03:56)
[2017-06-13] MEDS ORDERED: SOD CHLORIDE 0.9% 1,000 ML IV SCH (01:44)
[2017-06-13] MEDS ORDERED: ONDANSETRON 4 MG INJ IV PRN (02:00)
[2017-06-13 05:01] VITALS: TEMP 98.6
[2017-06-13 05:31] VITALS: BP 134/73; RESP 20
[2017-06-13] MEDS ORDERED: morphine 4 MG/ML VIAL IV PRN (06:30)
[2017-06-13] MEDS ORDERED: HYDROmorphONE 0.5 MG/0.5 ML SYG IV PRN (06:30)
[2017-06-13] MEDS ORDERED: ACETAMINOPHEN 325 MG TAB PO PRN (06:30)
[2017-06-13] MEDS ORDERED: ALBUTEROL/IPRATROPIUM (NEB) 3 ML AMP HHN PRN (06:30)
[2017-06-13] MEDS ORDERED: NACL 0.9% 3 ML SYG IV SCH (06:30)
[2017-06-13] MEDS ORDERED: FLUOXETINE 20 MG CAP PO ONE (07:00)
[2017-06-13] MEDS ORDERED: traZODone 100 MG TAB PO ONE (07:00)
[2017-06-13 07:41] VITALS: BP 128/71; RESP 18
--- NOTE | 2017-06-13 07:51 | HP ---
Date/Time of Note Date/Time of Note DATE: 06/13/17 TIME: 07:44 Assessment/Plan VTE Prophylaxis VTE Prophylaxis Intervention: SCD's Lines/Catheters IV [facility]ter [facility] (from [facility] Saline Lock Assessment/Plan Assessment/Plan 1. Pancolitis -Patient with abdominal pain and bloody stool. This could be infectious vs IBS -Plan is to treat with IV antibiotic. Order stool culture and C. difficile -GI consult -Notes that last colonoscopy per patient was 10 years ago and it was normal 2. Shortness of breath, most likely from the diarrhea -will check a chest x-ray and 2D echo HPI/ROS Admit Date/Time Admit Date/Time Jun 13, 2017 at 01:45 Hx of Present Illness This is a 57-year-old female with a history of anxiety/depression and multiple medicine allergies who presented to the ER complaining of abdominal pain and bloody diarrhea and generalized weakness. Symptoms have been progressively getting worse for the past 5 days. She said initially her stool was maroon colored but over the past 2 days she has noted bright red blood. Denied similar problems in the past. She also denied hematemesis. She reported shortness of breath on exertion for the past 5 days requiring her to rest in between walking. She said she has been active prior to this. She had a colonoscopy over 10 years ago, which she said was normal. When she presented to the ER, CT abdomen/pelvis shows pancolitis. She had a white count of 13.6 and has been afebrile. Initial hemoglobin was 12.1. PMH/Family/Social Social History Smoking Status: Former smoker Exam/Review of Systems Vital Signs Vitals Vital Signs Date Time Temp Pulse Resp B/P Pulse Ox O2 Delivery O2 Flow Rate FiO2 06/13/17 07:41 98.0 85 18 128/71 95 06/13/17 05:01 Nasal Cannula 2.0 Intake and Output 06/12/17 06/12/17 06/13/17 14:59 22:59 06:59 Output Total 300 ml Balance -300 ml Exam Constitutional: alert, oriented, well developed Head: atraumatic, normocephalic Eyes: EOMI, PERRL Respiratory: clear to auscultation, normal air movement Cardiovascular: nl pulses, regular rate and rhythm Gastrointestinal: soft, tender Extremities: normal pulses Labs Result Diagram: 06/12/17 2300 06/12/17 2300 Medications Medications Current Medications Dextrose/Sodium Chloride (D5-1/2ns) 1,000 ml @ 120 mls/hr Q8H20M IV ; Start at 06:16 Ondansetron HCl (Zofran Inj) 4 mg Q6H PRN IV NAUSEA AND/OR VOMITING; Start at 06:30 Acetaminophen (Tylenol Tab) 650 mg Q6H PRN PO PAIN LEVEL 1-3 OR FEVER; Start 06/13/17 at 06:30 Famotidine 20 mg 20 mg Q12 IV ; Start 06/13/17 at 09:00 Piperacillin Sod/ Tazobactam Sod (Zosyn 3.375gm/ 50 ml (Pmx)) 50 ml @ 100 mls/ hr Q6 IVPB ; Start 06/13/17 at 09:01 Trazodone HCl (Desyrel) 150 mg HS PO ; Start 06/13/17 at 21:00 Lorazepam (Ativan) 1 mg Q3H PRN IV anxiety; Start 06/13/17 at 06:30 Hydromorphone HCl (Dilaudid) 0.5 mg Q4H PRN IV PAIN; Start 06/13/17 at 06:30 Fluoxetine HCl (Prozac) 40 mg HS PO ; Start 06/13/17 at 21:00 MALKA YOO MD Jun 13, 2017 07:51
[2017-06-13] MEDS: FAMOTIDINE 20 MG INJ IV SCH ×2 (08:19→20:25)
[2017-06-13] MEDS: DEXTROSE 5%-0.45% NACL 1,000 ML IV SCH ×3 (08:19→22:56)
[2017-06-13 08:49] LABS: ALBUMIN 3.4 g/dl (3.3-4.9); ALBUMIN/GLOBULIN RATIO 1.03; BILIRUBIN,INDIRECT 0.1 mg/dl (0-1.1); BILIRUBIN,TOTAL 0.1 mg/dl (0.2-1.3); CALCIUM 8.7 mg/dl (8.4-10.2); CREATININE 0.9 mg/dl (0.44-1.00); MAGNESIUM 1.8 mg/dl (1.7-2.5); PHOSPHORUS 3.8 mg/dl (2.5-4.9); POTASSIUM 3.3 mmol/L (3.5-5.1); TOTAL PROTEIN 6.7 g/dl (6.1-8.1)
[2017-06-13] MEDS ORDERED: FLUOXETINE 20 MG CAP PO SCH (09:00)
[2017-06-13] MEDS: LEVOTHYROXINE 125 MCG TAB PO SCH (09:10)
[2017-06-13] MEDS: LORAZEPAM 2 MG INJ IV PRN ×3 (09:10→21:47)
[2017-06-13] MEDS: PIPER-TAZO 3.375 GM IV (PMX) 50 ML IVPB SCH ×3 (09:19→17:37)
--- NOTE | 2017-06-13 09:35 | RADRPT ---
PROCEDURE: XR Chest. CLINICAL INDICATION: Shortness of breath. TECHNIQUE: Two views. Frontal and lateral. COMPARISON: 11/20/2016. FINDINGS: The lungs are clear. The heart size is normal. There is no pleural effusion. There is no pneumothorax. IMPRESSION: 1. Normal chest radiograph. 2. No change from 11/20/2016. RPTAT: QQ .Leno Ritchie MD, MD Date Time Electronically viewed and signed by .Leno Ritchie MD, MD on 06/13/2017 09:35 .R/
[2017-06-13 10:00] LABS: ABNORMAL IP MESSAGE 1; HEMATOCRIT 33.2 % (37.0-47.0); HEMOGLOBIN 11.7 g/dl (12.0-16.0); MEAN CORPUSCULAR HEMOGLOBIN 30.9 pg (29.0-33.0); MEAN CORPUSCULAR HGB CONC 35.2 g/dl (32.0-37.0); MEAN CORPUSCULAR VOLUME 87.6 fl (82.0-101.0); MEAN PLATELET VOLUME 9.1 fl (7.4-10.4); PLATELET COUNT 363 10^3/UL (140-415); RED BLOOD COUNT 3.79 10^6/ul (4.20-5.40); RED CELL DISTRIBUTION WIDTH 12.8 % (11.5-14.5); WHITE BLOOD COUNT 12.7 10^3/ul (4.8-10.8)
[2017-06-13 10:05] LABS: POSITIVE DIFF @See below
[2017-06-13] MEDS ORDERED: POTASSIUM CHLORIDE 50 ML IVPB ONE (11:00)
[2017-06-13 11:07] LABS: GIANT THROMBO% (M) 1 % (0-0); MONOCYTES % (M) 10 % (0-11); PLATELET ESTIMATE NORMAL; POLYCHROMASIA 2+ (0-0)
[2017-06-13] MEDS: ONDANSETRON 4 MG INJ IV PRN ×2 (11:21→20:47)
--- NOTE | 2017-06-13 11:22 | CONS ---
Date/Time of Note Date/Time of Note DATE: 06/13/17 TIME: 10:58 Assessment/Plan Assessment/Plan Chief Complaint/Hosp Course Summary Assessment and Plan: Assessment: Abdominal pain r/t colitis r/o IBD vs infectious pain related to Bloody diarrhea r/t colitis r/o IBD vs infectious Shortness of breath Leukocytosis- on antibiotics Plan: Keep NPO - ice chips ok Stool cx- pending C-diff - pending Monitor H/H Colonoscopy Endoscopy - risks/benefits/alternatives/indications of procedure and sedation/ anesthesia discussed with patient who states understanding and gives informed consent to proceed. PARQ held and questions were answered. Patient is seen in collaboration with Chief Complaint/Reason for Visit: Leon pain Bloody diarrhea History of Present Illness: This is a 57-year-old female with a past medical history of thyroidectomy on medication, insomnia. Presented to the ER with low-grade fever, chills, generalized abdominal pain for the past 7 along with diarrhea 7 days, last 2 of those days noted to be bloody. Generalized abdominal pain described as cramping, not relieved or aggravated needed by anything in particular. On evaluation imaging was completed and revealed diffuse thickening of the colon compatible with colitis, hepatic steatosis. Labs today WBC 12.7, HGB 11.7 HCT 33.2, PLT 363. She had a colonoscopy about 10 years ago, negative. Has never had an EGD. With clinical presentation will plan for colonoscopy, patient in agreement. Stool studies have been ordered currently pending, Past Medical History: Depression Anxiety Pyrosis Colonoscopy 10 years ago, normal Allergies: Cefuroxime Approximately Mexitil Erythromycin days Hydrocodone bit Ketorolac Ketorolac tromethamine Morphine Levofloxacin PHYSICAL EXAMINATION: GENERAL: Well developed, well nourished, alert & oriented x 3, in no acute distress SKIN: No lesions, no stigmata chronic liver disease, no evidence of bleeding diathesis LYMPHATIC: No palpable lymphadenopathy. HEAD: Normocephalic, atraumatic, no tenderness. EYES: Pupils equal reactive to light and accommodation, full extraocular movements, sclera clear, non-icteric, no discharge. EARS/NOSE AND THROAT: Ears normal, nose normal, oropharynx normal, NECK: Supple. CHEST: Inspection within normal limits. CARDIOVASCULAR: Heart: Regular rate and rhythm, RESPIRATORY: Lungs clear to auscultation and percussion, no wheezing, no rubs GASTROINTESTINAL AND LIVER: Abdomen: Soft, non tenderness, non-distended, no hernias, no masses, no organomegaly, no ascites, no guarding, no rebound tenderness, normoactive bowel sounds. Rectal: Deferred. GENITOURINARY:Female genitalia within normal limits. EXTREMITIES: No cyanosis, clubbing or edema. Problems: Consultation Date/Type/Reason Admit Date/Time Jun 13, 2017 at 01:45 Date of Consultation: Jun 13, 2017 Type of Consultation: GI Reason for Consultation Abdominal pain Bloody diarrhea Past Medical History Medical History: GERD, other (Thyroid mass, insomnia) Past Surgical History Past Surgical Hx: other (Thyroidectomy) Social History Alcohol Use: none Smoking Status: Former smoker Drug Use: none Exam/Review of Systems Vital Signs Vitals Vital Signs Date Time Temp Pulse Resp B/P Pulse Ox O2 Delivery O2 Flow Rate FiO2 06/13/17 07:41 98.0 85 18 128/71 95 06/13/17 05:01 Nasal Cannula 2.0 Intake and Output 06/12/17 06/12/17 06/13/17 14:59 22:59 06:59 Output Total 300 ml Balance -300 ml Results Result Diagram: 06/13/17 0707 06/13/17 0708 Results 24 hrs Laboratory Tests Test 06/12/17 23:00 06/13/17 07:07 06/13/17 07:08 White Blood Count 10.6 12.7 H Red Blood Count 4.37 3.79 L Hemoglobin 13.2 11.7 L Hematocrit 37.1 33.2 L Mean Corpuscular Volume 84.9 87.6 Mean Corpuscular Hemoglobin 30.2 30.9 Mean Corpuscular Hemoglobin Concent 35.6 35.2 Red Cell Distribution Width 12.4 12.8 Platelet Count 444 H 363 Mean Platelet Volume 9.0 9.1 Neutrophils % 60.9 Lymphocytes % 19.5 Monocytes % 17.9 H Eosinophils % 0.4 Basophils % 0.5 Nucleated Red Blood Cells % 0.0 0.0 Neutrophils # 6.5 Lymphocytes # 2.1 Monocytes # 1.9 H Eosinophils # 0.0 Basophils # 0.1 Nucleated Red Blood Cells # 0.0 Prothrombin Time 13.7 Prothrombin Time Ratio 1.1 INR International Normalized Ratio 1.05 Activated Partial Thromboplast Time 34.8 Sodium Level 132 L 134 L Potassium Level 3.1 L 3.3 L Chloride Level 95 L 97 Carbon Dioxide Level 24 26 Anion Gap 16 14 Blood Urea Nitrogen 10 7 Creatinine 0.94 0.90 Glucose Level 129 110 Calcium Level 10.3 H 8.7 Total Bilirubin 0.3 0.1 L Direct Bilirubin 0.00 0.00 Indirect Bilirubin 0.3 0.1 Aspartate Amino Transf (AST/SGOT) 17 15 Alanine Aminotransferase (ALT/SGPT) 29 23 Alkaline Phosphatase 97 78 Total Protein 8.2 H 6.7 # Albumin 4.0 3.4 Globulin 4.20 H 3.30 H Albumin/Globulin Ratio 0.95 1.03 Lipase 92 Phosphorus Level 3.8 Magnesium Level 1.8 Medications Medications Current Medications Dextrose/Sodium Chloride (D5-1/2ns) 1,000 ml @ 120 mls/hr Q8H20M IV Last administered on 06/13/17 08:19; Admin Dose 120 MLS/HR; Start 06/13/17 at 06: 16 Ondansetron HCl (Zofran Inj) 4 mg Q6H PRN IV NAUSEA AND/OR VOMITING; Start at 06:30 Acetaminophen (Tylenol Tab) 650 mg Q6H PRN PO PAIN LEVEL 1-3 OR FEVER; Start 06/13/17 at 06:30 Famotidine 20 mg 20 mg Q12 IV Last administered on 06/13/17 08:19; Admin Dose 20 MG; Start 06/13/17 at 09:00 Piperacillin Sod/ Tazobactam Sod (Zosyn 3.375gm/ 50 ml (Pmx)) 50 ml @ 100 mls/ hr Q6 IVPB Last administered on 06/13/17 09:19; Admin Dose 100 MLS/HR; Start 06/13/17 at 09:01 Trazodone HCl (Desyrel) 150 mg HS PO ; Start 06/13/17 at 21:00 Lorazepam (Ativan) 1 mg Q3H PRN IV anxiety Last administered on 06/13/17 09: 10; Admin Dose 1 MG; Start 06/13/17 at 06:30 Hydromorphone HCl (Dilaudid) 0.5 mg Q4H PRN IV PAIN; Start 06/13/17 at 06:30 Fluoxetine HCl 40 mg 40 mg HS PO ; Start 06/13/17 at 21:00 Potassium Chloride (KCl 20 MEQ/50 ML SW) 50 ml @ 25 mls/hr ONCE ONCE IVPB ; Start 06/13/17 at 11:00; Stop 06/13/17 at 12:59 Copies To: CC: CHILO STEINBERG MDCHRIS Jun 13, 2017 11:10
--- NOTE | 2017-06-13 11:54 | PN ---
Date/Time of Note Date/Time of Note DATE: 06/13/17 TIME: 11:52 Assessment/Plan VTE Prophylaxis VTE Prophylaxis Intervention: SCD's Lines/Catheters [facility]from [facility] Saline Lock Urinary Cath still in place: No Assessment/Plan Chief Complaint/Hosp Course Assessment and plan 1. Pancolitis. Continue the antibiotics. Gas shelf stocker is following. Monitor for improvement. Tentative plan for possible endoscopy 2. Dyspnea. No symptoms of dyspnea at this time. Will provide with oxygen and bronchodilators as needed. 3. Obesity. Weight reduction was advised. 4. Leukocytosis likely secondary to #1. Continue antibiotics. 5. Hypokalemia. Will monitor and replete as needed. Disposition plan: Continue with antibiotics. Monitor for improvement. Follow- up with GI recommendations. Discussed plan of care with Dr. Cifuentes Problems: Subjective 24 Hr Interval Summary Free Text/Dictation Still reports having some abdominal pain. No nausea or vomiting at this time. No further reports of hematochezia Exam/Review of Systems Vital Signs Vitals Vital Signs Date Time Temp Pulse Resp B/P Pulse Ox O2 Delivery O2 Flow Rate FiO2 06/13/17 07:41 98.0 85 18 128/71 95 06/13/17 05:01 Nasal Cannula 2.0 Intake and Output 06/12/17 06/12/17 06/13/17 15:00 23:00 07:00 Output Total 300 ml Balance -300 ml Exam Constitutional: alert, obese, oriented Head: normocephalic Eyes: nl conjunctiva Neck: non-tender, supple Respiratory: clear to auscultation, normal air movement Cardiovascular: nl pulses, regular rate and rhythm Gastrointestinal: soft, tender Musculoskeletal: nl extremities to inspection Neurological: DRAFTER [employer]CIAL II-XII intact, nl mental status, nl speech Skin: nl turgor Results Result Diagram: 06/13/17 0707 06/13/17 0708 Results 24 hrs Laboratory Tests Test 06/12/17 23:00 06/13/17 07:07 06/13/17 07:08 White Blood Count 10.6 12.7 H Red Blood Count 4.37 3.79 L Hemoglobin 13.2 11.7 L Hematocrit 37.1 33.2 L Mean Corpuscular Volume 84.9 87.6 Mean Corpuscular Hemoglobin 30.2 30.9 Mean Corpuscular Hemoglobin Concent 35.6 35.2 Red Cell Distribution Width 12.4 12.8 Platelet Count 444 H 363 Mean Platelet Volume 9.0 9.1 Neutrophils % 60.9 Lymphocytes % 19.5 Monocytes % 17.9 H Eosinophils % 0.4 Basophils % 0.5 Nucleated Red Blood Cells % 0.0 0.0 Neutrophils # 6.5 Lymphocytes # 2.1 Monocytes # 1.9 H Eosinophils # 0.0 Basophils # 0.1 Nucleated Red Blood Cells # 0.0 Prothrombin Time 13.7 Prothrombin Time Ratio 1.1 INR International Normalized Ratio 1.05 Activated Partial Thromboplast Time 34.8 Sodium Level 132 L 134 L Potassium Level 3.1 L 3.3 L Chloride Level 95 L 97 Carbon Dioxide Level 24 26 Anion Gap 16 14 Blood Urea Nitrogen 10 7 Creatinine 0.94 0.90 Glucose Level 129 110 Calcium Level 10.3 H 8.7 Total Bilirubin 0.3 0.1 L Direct Bilirubin 0.00 0.00 Indirect Bilirubin 0.3 0.1 Aspartate Amino Transf (AST/SGOT) 17 15 Alanine Aminotransferase (ALT/SGPT) 29 23 Alkaline Phosphatase 97 78 Total Protein 8.2 H 6.7 # Albumin 4.0 3.4 Globulin 4.20 H 3.30 H Albumin/Globulin Ratio 0.95 1.03 Lipase 92 Segmented Neutrophils % (Manual) 56 Band Neutrophils % (Manual) 20 H Lymphocytes % (Manual) 15 Monocytes % (Manual) 10 Neutrophils # (Manual) 7.4 Band Neutrophils # 2.5 H Absolute Lymphocytes (Manual) 1.9 Absolute Monocytes (Manual) 1.2 H Platelet Estimate NORMAL Giant Platelets 1 H Polychromasia 2+ Phosphorus Level 3.8 Magnesium Level 1.8 Medications Medications Current Medications Dextrose/Sodium Chloride (D5-1/2ns) 1,000 ml @ 120 mls/hr Q8H20M IV Last administered on 06/13/17 08:19; Admin Dose 120 MLS/HR; Start 06/13/17 at 06: 16 Ondansetron HCl (Zofran Inj) 4 mg Q6H PRN IV NAUSEA AND/OR VOMITING Last administered on 06/13/17 11:21; Admin Dose 4 MG; Start 06/13/17 at 06:30 Acetaminophen (Tylenol Tab) 650 mg Q6H PRN PO PAIN LEVEL 1-3 OR FEVER; Start 06/13/17 at 06:30 Famotidine 20 mg 20 mg Q12 IV Last administered on 06/13/17 08:19; Admin Dose 20 MG; Start 06/13/17 at 09:00 Piperacillin Sod/ Tazobactam Sod (Zosyn 3.375gm/ 50 ml (Pmx)) 50 ml @ 100 mls/ hr Q6 IVPB Last administered on 06/13/17 09:19; Admin Dose 100 MLS/HR; Start 06/13/17 at 09:01 Trazodone HCl (Desyrel) 150 mg HS PO ; Start 06/13/17 at 21:00 Lorazepam (Ativan) 1 mg Q3H PRN IV anxiety Last administered on 06/13/17 09: 10; Admin Dose 1 MG; Start 06/13/17 at 06:30 Hydromorphone HCl (Dilaudid) 0.5 mg Q4H PRN IV PAIN Last administered on 11:12; Admin Dose 0.5 MG; Start 06/13/17 at 06:30 Fluoxetine HCl 40 mg 40 mg HS PO ; Start 06/13/17 at 21:00 Potassium Chloride/Dextrose (KCl/D5W) 110 ml @ 55 mls/hr ONCE ONCE IV ; Start 06/13/17 at 12:00; Stop 06/13/17 at 13:59 LEXIS LAND Jun 13, 2017 11:54
[2017-06-13] MEDS ORDERED: POTASSIUM CHLORIDE 20 MEQ in DEXTROSE 5% 100 ML IV ONE (12:00)
[2017-06-13 14:00] VITALS: BP 111/68; RESP 18
[2017-06-13] MEDS: HYDROmorphONE 1 MG/ML SYG IV PRN ×2 (16:21→20:26)
[2017-06-13] MEDS ORDERED: HYDROmorphONE 1 MG/ML SYG IV PRN (18:30)
[2017-06-13] MEDS: FLUOXETINE 20 MG CAP PO SCH (20:25)
[2017-06-13] MEDS: traZODone 50 MG TAB PO SCH (20:25)
[2017-06-13 20:31] VITALS: BP 119/64; RESP 18
[2017-06-14] MEDS: PIPER-TAZO 3.375 GM IV (PMX) 50 ML IVPB SCH ×4 (00:27→18:05)
[2017-06-14] MEDS: HYDROmorphONE 1 MG/ML SYG IV PRN ×7 (00:44→23:49)
[2017-06-14 02:00] VITALS: BP 122/68; RESP 18
[2017-06-14] MEDS: DEXTROSE 5%-0.45% NACL 1,000 ML IV SCH ×4 (03:30→23:44)
[2017-06-14] MEDS: LEVOTHYROXINE 125 MCG TAB PO SCH (06:50)
[2017-06-14] MEDS: LORAZEPAM 2 MG INJ IV PRN ×3 (06:51→22:37)
--- NOTE | 2017-06-14 07:53 | CONS ---
Date/Time of Note Date/Time of Note DATE: 06/14/17 TIME: 07:45 Assessment/Plan Assessment/Plan Additional Assessment/Plan This is a 57-year-old female with new diagnosis of colitis biopsy diagnosis pending. There is no family history of inflammatory bowel disease or other connective tissue disorders. She has not traveled recently. Nor has she had any systemic symptoms that appear to be associated with infectious process. At this time because patient is unable to tolerate p.o. I will add on low-dose fentanyl 12 mcg to be changed every 48 hours continue with current dose of Dilaudid. Locations for fentanyl as it patient is n.p.o. 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 I will add on low dose of Relistor in addition. Consultation Date/Type/Reason Admit Date/Time Jun 13, 2017 at 01:45 Reason for Consultation Pain management This is a very pleasant 57-year-old female admitted to [facility] with new diagnosis of colitis. Diagnostic test are in the process of being done there is no biopsy available at this time. Patient states her pain became severe approximately 3 days prior to this presentation she denies it as a gnawing type of discomfort severe unrelieved with current Dilaudid intravenously she gets moderate pain control but does not last very long denies nausea vomiting associated with this itching rash medical cloudiness sweating fatigue drowsiness's orientation diagnosis. She is pleasant she has negative mood changes for the worse. Does not appear to be overly medicated is not unkempt is no past medical history of drug addictions automobile accidents substance abuse she is a nondrinker non-smoker she does not request frequent early renewals of current pain control medication she asked for increasing dosages. Current pain control medications include intravenous Dilaudid 1 mg every 4 hours does not insist upon this medication she does feel he states that she becomes nauseous and has hallucinations with morphine. Overall severity of pain is severe current pain control and he was to physical function family relationships social relationships and sleep patterns. Constitutional: No chills, No diaphoresis, No disoriented, No febrile, No improved, No no complaints, No other, No poor po, No requiring IVF, No requiring O2 Respiratory: No cough, No no complaints, No other, No pain, No pleuritic pain, No shortness of breath, No sputum, No wheezing Cardiovascular: No chest pain, No edema, No lightheadedness, No no complaints, No orthopenea, No other, No palpitations, No paroxysmal nocturnal dyspnea Genitourinary: No bleeding, No discharge, No dysuria, No flank pain, No hematuria, No no complaints, No other Past Medical History Medical History: GERD, other (Thyroid mass, insomnia) Past Surgical History Past Surgical Hx: other (Thyroidectomy) Social History Alcohol Use: none Smoking Status: Former smoker Drug Use: none Exam/Review of Systems Vital Signs Vitals Vital Signs Date Time Temp Pulse Resp B/P Pulse Ox O2 Delivery O2 Flow Rate FiO2 06/14/17 02:00 98.6 73 18 122/68 97 06/13/17 05:01 Nasal Cannula 2.0 Intake and Output 06/13/17 06/13/17 06/14/17 14:59 22:59 06:59 Intake Total 210 ml 1380 ml Balance 210 ml 1380 ml Exam Constitutional: No alert, No distress, No frail, No non-verbal, No obese, No oriented, No other, No well developed Respiratory: clear to auscultation, normal air movement Cardiovascular: nl pulses, regular rate and rhythm Gastrointestinal: nl liver, spleen, non-tender, other (Tender all 4 quadrants distant low active trickles minimally distended all 4 quadrants no gross organomegaly), soft Neurological: PLATE EMBOSSER II-XII intact, nl mental status, nl speech, nl strength Results Result Diagram: 06/13/17 0707 06/13/17 0708 Medications Medications Current Medications Dextrose/Sodium Chloride (D5-1/2ns) 1,000 ml @ 120 mls/hr Q8H20M IV Last administered on 06/14/17 03:30; Admin Dose 120 MLS/HR; Start 06/13/17 at 06: 16 Ondansetron HCl (Zofran Inj) 4 mg Q6H PRN IV NAUSEA AND/OR VOMITING Last administered on 06/13/17 20:47; Admin Dose 4 MG; Start 06/13/17 at 06:30 Acetaminophen (Tylenol Tab) 650 mg Q6H PRN PO PAIN LEVEL 1-3 OR FEVER; Start 06/13/17 at 06:30 Famotidine 20 mg 20 mg Q12 IV Last administered on 06/13/17 20:25; Admin Dose 20 MG; Start 06/13/17 at 09:00 Piperacillin Sod/ Tazobactam Sod (Zosyn 3.375gm/ 50 ml (Pmx)) 50 ml @ 100 mls/ hr Q6 IVPB Last administered on 06/14/17 06:50; Admin Dose 100 MLS/HR; Start 06/13/17 at 09:01 Trazodone HCl (Desyrel) 150 mg HS PO Last administered on 06/13/17 20:25; Admin Dose 150 MG; Start 06/13/17 at 21:00 Lorazepam (Ativan) 1 mg Q3H PRN IV anxiety Last administered on 06/14/17 06: 51; Admin Dose 1 MG; Start 06/13/17 at 06:30 Fluoxetine HCl (Prozac) 40 mg HS PO Last administered on 06/13/17 20:25; Admin Dose 40 MG; Start 06/13/17 at 21:00 Hydromorphone HCl (Dilaudid) 1 mg Q4H PRN IV PAIN Last administered on 00:44; Admin Dose 1 MG; Start 06/13/17 at 16:30 MAYRA ADAMS Jun 14, 2017 07:53
[2017-06-14 08:43] VITALS: BP 110/68; RESP 18
[2017-06-14] MEDS: FAMOTIDINE 20 MG INJ IV SCH ×2 (08:51→22:35)
[2017-06-14] MEDS ORDERED: METHYLNALTREXONE 12 MG/0.6 ML VIAL SC SCH (09:00)
[2017-06-14] MEDS: FENTAnyl PATCH 12 MCG/HR TRANSDERM SCH (09:31)
--- NOTE | 2017-06-14 10:49 | PN ---
Date/Time of Note Date/Time of Note DATE: 06/14/17 TIME: 10:45 Assessment/Plan VTE Prophylaxis VTE Prophylaxis Intervention: SCD's Lines/Catheters IV [facility] (from [facility] Peripheral IV Urinary Cath still in place: No Assessment/Plan Chief Complaint/Hosp Course Summary Assessment and Plan: Assessment: Abdominal pain r/t colitis r/o IBD vs infectious pain related to Bloody diarrhea r/t colitis r/o IBD vs infectious Shortness of breath Leukocytosis- on antibiotics Plan: Keep NPO - ice chips ok- no ice chips after 10am 06/15/17 Colonoscopy tomorrow afternoon/evening Stool cx- pending C-diff - pending Monitor H/H Patient is seen in collaboration with Subjective: Course reviewed with nursing staff Patient interviewed and examined All labs, imaging and other results reviewed The patient continues to have pain, and diarrhea. plan for colonoscopy tomorrow. Discussed with patient who agrees with plan. Continue to monitor H/H. PHYSICAL EXAMINATION: GENERAL: Well developed, well nourished, alert & oriented x 3, in no acute distress SKIN: No lesions, no stigmata chronic liver disease, no evidence of bleeding diathesis LYMPHATIC: No palpable lymphadenopathy. HEAD: Normocephalic, atraumatic, no tenderness. EYES: Pupils equal reactive to light and accommodation, full extraocular movements, sclera clear, non-icteric, no discharge. EARS/NOSE AND THROAT: Ears normal, nose normal, oropharynx normal, NECK: Supple. CHEST: Inspection within normal limits. CARDIOVASCULAR: Heart: Regular rate and rhythm, RESPIRATORY: Lungs clear to auscultation and percussion, no wheezing, no rubs GASTROINTESTINAL AND LIVER: Abdomen: Soft, non tenderness, non-distended, no hernias, no masses, no organomegaly, no ascites, no guarding, no rebound tenderness, normoactive bowel sounds. Rectal: Deferred. GENITOURINARY:Female genitalia within normal limits. EXTREMITIES: No cyanosis, clubbing or edema. Problems: Exam/Review of Systems Vital Signs Vitals Vital Signs Date Time Temp Pulse Resp B/P Pulse Ox O2 Delivery O2 Flow Rate FiO2 06/14/17 08:43 98.1 86 18 110/68 98 06/13/17 05:01 Nasal Cannula 2.0 Intake and Output 06/13/17 06/13/17 06/14/17 15:00 23:00 07:00 Intake Total 210 ml 1380 ml Balance 210 ml 1380 ml Results Result Diagram: 06/13/17 0707 06/13/17 0708 Medications Medications Current Medications Dextrose/Sodium Chloride (D5-1/2ns) 1,000 ml @ 120 mls/hr Q8H20M IV Last administered on 06/14/17 03:30; Admin Dose 120 MLS/HR; Start 06/13/17 at 06: 16 Ondansetron HCl (Zofran Inj) 4 mg Q6H PRN IV NAUSEA AND/OR VOMITING Last administered on 06/13/17 20:47; Admin Dose 4 MG; Start 06/13/17 at 06:30 Acetaminophen (Tylenol Tab) 650 mg Q6H PRN PO PAIN LEVEL 1-3 OR FEVER; Start 06/13/17 at 06:30 Famotidine 20 mg 20 mg Q12 IV Last administered on 06/14/17 08:51; Admin Dose 20 MG; Start 06/13/17 at 09:00 Piperacillin Sod/ Tazobactam Sod (Zosyn 3.375gm/ 50 ml (Pmx)) 50 ml @ 100 mls/ hr Q6 IVPB Last administered on 06/14/17 06:50; Admin Dose 100 MLS/HR; Start 06/13/17 at 09:01 Trazodone HCl (Desyrel) 150 mg HS PO Last administered on 06/13/17 20:25; Admin Dose 150 MG; Start 06/13/17 at 21:00 Lorazepam (Ativan) 1 mg Q3H PRN IV anxiety Last administered on 06/14/17 06: 51; Admin Dose 1 MG; Start 06/13/17 at 06:30 Fluoxetine HCl (Prozac) 40 mg HS PO Last administered on 06/13/17 20:25; Admin Dose 40 MG; Start 06/13/17 at 21:00 Hydromorphone HCl (Dilaudid) 1 mg Q4H PRN IV PAIN Last administered on 08:51; Admin Dose 1 MG; Start 06/13/17 at 16:30 Methylnaltrexone Wallace (Relistor) 12 mg Q48H SC Last administered on 08:52; Admin Dose 12 MG; Start 06/14/17 at 09:00 Fentanyl (Duragesic 12 Mcg/Hr Patch) 1 patch Q72H TRANSDERM Last administered on 06/14/17 09:31; Admin Dose 1 PATCH; Start 06/14/17 at 10:00 CHRIS LOPEZ Jun 14, 2017 10:49
--- NOTE | 2017-06-14 10:56 | RADRPT ---
Echocardiogram Report Patient Name: KAYLIN MAK Gender: Female Date: 1960 Study Date: 13-Jun-2017 Student Liaison Officer: JULIO Location: I Ref. Physician: MALKA YOO Quality: Adequate Procedures: Transthoracic echocardiogram with complete 2D, M-Mode, and Doppler examination. Indications: Shortness of breath. 2D/M Mode Doppler Measurement Value Normal Ranges Measurement Value Normal Ranges AoR Diam MM 3.4 cm AV Peak Ramon 1.1 m/sec ACS MM 2.3 cm AV Peak PG 5.1 mmHg LVIDd 2D 3.9 3.5 - 5.6 cm LVOT Peak Ramon 0.9 m/sec LVIDs 2D 2.4 2.1 - 4.1 cm LVOT Peak PG 3.1 mmHg LVPWd 2D 1.0 0.6 - 1.1 cm MV E Peak Ramon 0.6 m/sec IVSd 2D 1.0 0.6 - 1.1 cm MV A Peak Ramon 0.8 m/sec EDV 2D 64.9 cm3 MV E/A 0.8 ESV 2D 14.0 cm3 MV Decel Time 223 msec LA Dimen 2D 3.0 2.3 - 4.0 cm MV Decel Socorro 3 MV E/A 0.8 PV Peak Ramon 0.9 m/sec PV Peak PG 3.0 mmHg Findings Left Ventricle: Normal left ventricular systolic function. Normal left ventricular cavity size. Normal left ventricular wall thickness. Ejection fraction is visually estimated at 55 %. Tissue Doppler/Mitral Doppler indices are within normal limits. E/E`=7. Right Ventricle: Normal right ventricular size. Normal right ventricular systolic function. Left Atrium: The left atrium is normal in size. Right Atrium: The right atrium is normal in size. Atrial Septum: Normal atrial septum. Mitral Valve: Normal appearance and function of the mitral valve with trace physiologic regurgitation. Aortic Valve: Normal trileaflet aortic valve structure. Trace aortic valve regurgitation. Tricuspid Valve: Normal appearance of the tricuspid valve. No evidence of tricuspid regurgitation. Pulmonic Valve: Normal pulmonic valve appearance. There is trace pulmonic regurgitation. Pericardium: Normal pericardium with no significant pericardial effusion. No pleural effusion noted. Aorta: Normal aortic root. IVC: Normal size and normal respiratory collapse consistent with normal right atrial pressure. Pulmonary Artery: Normal pulmonary artery size. Conclusions Normal left ventricular systolic function. Normal left ventricular cavity size. Normal left ventricular wall thickness. Ejection fraction is visually estimated at 55 %. Tissue Doppler/Mitral Doppler indices are within normal limits. E/E`=7. Normal appearance of the tricuspid valve. No evidence of tricuspid regurgitation. Normal appearance and function of the mitral valve with trace physiologic regurgitation. Electronically Signed By: Ryan Anderson 14-Jun-2017 10:55:01 -0800 Patient Name: KAYLIN MAK Study Date: 13-Jun-2017 [id number]
[2017-06-14 11:32] LABS: BASOPHILS % 0.4 % (0.0-2.0); EOSINOPHILS # 0.2 10^3/ul (0.0-0.5); EOSINOPHILS % 2.9 % (0.0-7.0); HEMATOCRIT 30.2 % (37.0-47.0); HEMOGLOBIN 10.4 g/dl (12.0-16.0); LYMPHOCYTES # 1.7 10^3/ul (0.8-2.9); LYMPHOCYTES % 21.3 % (15.0-51.0); MEAN CORPUSCULAR HEMOGLOBIN 30.4 pg (29.0-33.0); MEAN CORPUSCULAR HGB CONC 34.4 g/dl (32.0-37.0); MEAN CORPUSCULAR VOLUME 88.3 fl (82.0-101.0); MEAN PLATELET VOLUME 8.5 fl (7.4-10.4); MONOCYTES % 12.9 % (0.0-11.0); NEUTROPHIL # 4.9 10^3/ul (1.6-7.5); PLATELET COUNT 322 10^3/UL (140-415); RED BLOOD COUNT 3.42 10^6/ul (4.20-5.40); RED CELL DISTRIBUTION WIDTH 13.2 % (11.5-14.5)
[2017-06-14 11:50] LABS: POTASSIUM 3.1 mmol/L (3.5-5.1)
[2017-06-14 11:51] LABS: CALCIUM 8.5 mg/dl (8.4-10.2); CREATININE 0.87 mg/dl (0.44-1.00)
[2017-06-14] MEDS ORDERED: VITAMIN A & D 5 GM OINT PACKET TOP ONE (12:57)
--- NOTE | 2017-06-14 13:10 | PN ---
Date/Time of Note Date/Time of Note DATE: 06/14/17 TIME: 13:05 Assessment/Plan VTE Prophylaxis VTE Prophylaxis Intervention: SCD's Lines/Catheters IV C[facility]ter Type (from [facility] Peripheral IV Urinary Cath still in place: No Assessment/Plan Chief Complaint/Hosp Course Assessment and plan 1. Pancolitis. Continue the antibiotics. Gas heater installer is following. Monitor for improvement. Tentative plan for possible colonoscopy. Pain management physician following 2. Dyspnea. No symptoms of dyspnea at this time. Will provide with oxygen and bronchodilators as needed. 3. Obesity. Weight reduction was advised. 4. Leukocytosis likely secondary to #1. Continue antibiotics. 5. Hypokalemia. Will monitor and replete as needed. Disposition plan: Continue with antibiotics. Monitor for improvement. HALEY with analgesics. Tentative plan for colonoscopy. We will follow-up Discussed plan of care with Dr. Cifuentes Problems: Subjective 24 Hr Interval Summary Free Text/Dictation Still reports having moderate abdominal pain. Is diffuse. No reports of diarrhea or nausea vomiting. Exam/Review of Systems Vital Signs Vitals Vital Signs Date Time Temp Pulse Resp B/P Pulse Ox O2 Delivery O2 Flow Rate FiO2 06/14/17 08:43 98.1 86 18 110/68 98 06/13/17 05:01 Nasal Cannula 2.0 Intake and Output 06/13/17 06/13/17 06/14/17 15:00 23:00 07:00 Intake Total 210 ml 1380 ml Balance 210 ml 1380 ml Exam Constitutional: alert, obese, oriented Head: normocephalic Eyes: nl conjunctiva Neck: non-tender, supple Respiratory: clear to auscultation, normal air movement Cardiovascular: nl pulses, regular rate and rhythm Gastrointestinal: soft, tender Musculoskeletal: nl extremities to inspection Neurological: 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 II-XII intact, nl mental status, nl speech Skin: nl turgor Results Result Diagram: 06/14/17 1117 06/14/17 1117 Results 24 hrs Laboratory Tests Test 06/14/17 11: White Blood Count 8.0 # Red Blood Count 3.42 L Hemoglobin 10.4 L Hematocrit 30.2 L Mean Corpuscular Volume 88.3 Mean Corpuscular Hemoglobin 30.4 Mean Corpuscular Hemoglobin Concent 34.4 Red Cell Distribution Width 13.2 Platelet Count 322 Mean Platelet Volume 8.5 Neutrophils % 61.0 Lymphocytes % 21.3 Monocytes % 12.9 H Eosinophils % 2.9 Basophils % 0.4 Nucleated Red Blood Cells % 0.0 Neutrophils # 4.9 Lymphocytes # 1.7 Monocytes # 1.0 H Eosinophils # 0.2 Basophils # 0.0 Nucleated Red Blood Cells # 0.0 Sodium Level 138 Potassium Level 3.1 L Chloride Level 103 Carbon Dioxide Level 30 Anion Gap 8 Blood Urea Nitrogen 2 L Creatinine 0.87 Glucose Level 108 Calcium Level 8.5 Medications Medications Current Medications Dextrose/Sodium Chloride (D5-1/2ns) 1,000 ml @ 120 mls/hr Q8H20M IV Last administered on 06/14/17 12:51; Admin Dose 120 MLS/HR; Start 06/13/17 at 06: 16 Ondansetron HCl (Zofran Inj) 4 mg Q6H PRN IV NAUSEA AND/OR VOMITING Last administered on 06/13/17 20:47; Admin Dose 4 MG; Start 06/13/17 at 06:30 Acetaminophen (Tylenol Tab) 650 mg Q6H PRN PO PAIN LEVEL 1-3 OR FEVER; Start 06/13/17 at 06:30 Famotidine 20 mg 20 mg Q12 IV Last administered on 06/14/17 08:51; Admin Dose 20 MG; Start 06/13/17 at 09:00 Piperacillin Sod/ Tazobactam Sod (Zosyn 3.375gm/ 50 ml (Pmx)) 50 ml @ 100 mls/ hr Q6 IVPB Last administered on 06/14/17 12:38; Admin Dose 100 MLS/HR; Start 06/13/17 at 09:01 Trazodone HCl (Desyrel) 150 mg HS PO Last administered on 06/13/17 20:25; Admin Dose 150 MG; Start 06/13/17 at 21:00 Lorazepam (Ativan) 1 mg Q3H PRN IV anxiety Last administered on 06/14/17 06: 51; Admin Dose 1 MG; Start 06/13/17 at 06:30 Fluoxetine HCl (Prozac) 40 mg HS PO Last administered on 06/13/17 20:25; Admin Dose 40 MG; Start 06/13/17 at 21:00 Hydromorphone HCl (Dilaudid) 1 mg Q4H PRN IV PAIN Last administered on 12:51; Admin Dose 1 MG; Start 06/13/17 at 16:30 Methylnaltrexone Pray (Relistor) 12 mg Q48H SC Last administered on 08:52; Admin Dose 12 MG; Start 06/14/17 at 09:00 Fentanyl (Duragesic 12 Mcg/Hr Patch) 1 patch Q72H TRANSDERM Last administered on 06/14/17 09:31; Admin Dose 1 PATCH; Start 06/14/17 at 10:00 LEXIS LAND Jun 14, 2017 13:10
[2017-06-14 20:01] VITALS: BP 102/63; RESP 18
[2017-06-14] MEDS: FLUOXETINE 20 MG CAP PO SCH (21:22)
[2017-06-14] MEDS: traZODone 50 MG TAB PO SCH (21:22)
[2017-06-15] VITALS (11 sets, daily range): BP systolic 91–138; BP diastolic 46–65; PULSE 71–76; RESP 16–24
[2017-06-15] MEDS: PIPER-TAZO 3.375 GM IV (PMX) 50 ML IVPB SCH ×4 (00:01→18:00)
[2017-06-15] MEDS: HYDROmorphONE 1 MG/ML SYG IV PRN ×7 (02:22→21:52)
[2017-06-15 05:18] LABS: ANION GAP 10 (8-16); CALCIUM 7.9 mg/dl (8.4-10.2); CARBON DIOXIDE 29 mmol/L (21-31); CHLORIDE 103 mmol/L (97-110); GLUCOSE 109 mg/dl (70-220); SODIUM 139 mmol/L (135-144)
[2017-06-15 05:26] LABS: BLOOD UREA NITROGEN < 2 mg/dl (7-20)
[2017-06-15 05:29] LABS: POTASSIUM 2.9 mmol/L (3.5-5.1)
[2017-06-15 05:39] LABS: BASOPHIL # 0.1 10^3/ul (0.0-0.1); BASOPHILS % 0.6 % (0.0-2.0); EOSINOPHILS # 0.3 10^3/ul (0.0-0.5); EOSINOPHILS % 3.6 % (0.0-7.0); HEMATOCRIT 28.8 % (37.0-47.0); HEMOGLOBIN 9.8 g/dl (12.0-16.0); LYMPHOCYTES # 2.5 10^3/ul (0.8-2.9); LYMPHOCYTES % 29.4 % (15.0-51.0); MEAN CORPUSCULAR HEMOGLOBIN 30.6 pg (29.0-33.0); MEAN PLATELET VOLUME 8.7 fl (7.4-10.4); MONOCYTE # 1.2 10^3/ul (0.3-0.9); MONOCYTES % 14.1 % (0.0-11.0); NEUTROPHIL # 4.3 10^3/ul (1.6-7.5); NEUTROPHILS % 50.5 % (39.0-77.0); PLATELET COUNT 345 10^3/UL (140-415); RED CELL DISTRIBUTION WIDTH 13.2 % (11.5-14.5); WHITE BLOOD COUNT 8.5 10^3/ul (4.8-10.8)
[2017-06-15] MEDS: POTASSIUM CHLORIDE (SR) 20 MEQ TAB PO SCH ×2 (06:21→09:32)
[2017-06-15] MEDS: LEVOTHYROXINE 125 MCG TAB PO SCH (06:22)
[2017-06-15] MEDS: DEXTROSE 5%-0.45% NACL 1,000 ML IV SCH ×3 (08:31→21:36)
[2017-06-15] MEDS: FAMOTIDINE 20 MG INJ IV SCH ×2 (08:32→21:37)
[2017-06-15] MEDS: ONDANSETRON 4 MG INJ IV PRN ×2 (08:37→16:51)
[2017-06-15] MEDS: LORAZEPAM 2 MG INJ IV PRN ×3 (09:31→16:48)
--- NOTE | 2017-06-15 10:27 | PN ---
Date/Time of Note Date/Time of Note DATE: 06/15/17 TIME: 10:26 Assessment/Plan VTE Prophylaxis VTE Prophylaxis Intervention: SCD's Lines/Catheters IV [facility]ter Type (from [facility]): Peripheral IV Urinary Cath still in place: No Assessment/Plan Chief Complaint/Hosp Course 1. Abdominal pain with associated bloody diarrhea. CT scan of the abdomen and pelvis showing diffuse thickening of the colon compatible with colitis. Continue empiric antibiotics. Keep the patient n.p.o. Being followed by gastroenterology. Plan for colonoscopy. 2. Opioid dependency. The patient being followed by pain management physician. 3. Hypokalemia. Replete. 4. Hypothyroidism. Continue Synthroid. 5. Anxiety. Continue home anxiolytics. 6. Fluids, electrolytes, and nutrition. N.p.o. except ice chips. 7. DVT prophylaxis. Bilateral sequential compression devices. 8. Plan. Continue current management. Await colonoscopy. Case discussed with Dr. Soria. Problems: Subjective 24 Hr Interval Summary Free Text/Dictation Asking for pain medications [id number]. Exam/Review of Systems Vital Signs Vitals Vital Signs Date Time Temp Pulse Resp B/P Pulse Ox O2 Delivery O2 Flow Rate FiO2 06/15/17 08:23 98.4 77 18 107/55 97 06/15/17 02:15 Room Air 06/13/17 05:01 2.0 Intake and Output 06/14/17 06/14/17 06/15/17 15:00 23:00 07:00 Intake Total 750 ml 850 ml 970 ml Balance 750 ml 850 ml 970 ml Exam General: Adequately build 57 year-old female lying in bed in no apparent distress. HEENT: Normocephalic, atraumatic. Eyes: Anicteric sclerae, conjunctivae clear. ENT: Nasal septum midline, oral mucosa moist. Neck supple, no JVD noticed. Respiratory: Bilaterally diminished breath sounds. No use of accessory muscles of respiration. No adventitious breath sounds. Cardiovascular: S1, S2 heard. Regular rate and rhythm. Abdomen: Soft and nondistended. Diffuse tenderness. Bowel sounds positive in all 4 quadrants. Genitourinary: Deferred. Extremities: No cyanosis, no clubbing, no edema. Peripheral pulses palpable. Neurologic: Cranial nerves II through XII grossly intact. The patient is awake, alert, and oriented. Skin: Normal skin turgor. No skin rashes. Results Result Diagram: 06/15/17 0436 06/15/17 0437 Results 24 hrs Laboratory Tests Test 06/14/17 11:17 06/15/17 04:36 06/15/17 04:37 White Blood Count 8.0 # 8.5 Red Blood Count 3.42 L 3.20 L Hemoglobin 10.4 L 9.8 L Hematocrit 30.2 L 28.8 L Mean Corpuscular Volume 88.3 90.0 Mean Corpuscular Hemoglobin 30.4 30.6 Mean Corpuscular Hemoglobin Concent 34.4 34.0 Red Cell Distribution Width 13.2 13.2 Platelet Count 322 345 Mean Platelet Volume 8.5 8.7 Neutrophils % 61.0 50.5 Lymphocytes % 21.3 29.4 Monocytes % 12.9 H 14.1 H Eosinophils % 2.9 3.6 Basophils % 0.4 0.6 Nucleated Red Blood Cells % 0.0 0.0 Neutrophils # 4.9 4.3 Lymphocytes # 1.7 2.5 Monocytes # 1.0 H 1.2 H Eosinophils # 0.2 0.3 Basophils # 0.0 0.1 Nucleated Red Blood Cells # 0.0 0.0 Sodium Level 138 139 Potassium Level 3.1 L 2.9 *L Chloride Level 103 103 Carbon Dioxide Level 30 29 Anion Gap 8 10 Blood Urea Nitrogen 2 L < 2 L Creatinine 0.87 0.90 Glucose Level 108 109 Calcium Level 8.5 7.9 L Magnesium Level 1.9 Medications Medications Current Medications Dextrose/Sodium Chloride (D5-1/2ns) 1,000 ml @ 120 mls/hr Q8H20M IV Last administered on 06/15/17 08:31; Admin Dose 120 MLS/HR; Start 06/13/17 at 06: 16 Ondansetron HCl (Zofran Inj) 4 mg Q6H PRN IV NAUSEA AND/OR VOMITING Last administered on 06/15/17 08:37; Admin Dose 4 MG; Start 06/13/17 at 06:30 Acetaminophen (Tylenol Tab) 650 mg Q6H PRN PO PAIN LEVEL 1-3 OR FEVER; Start 06/13/17 at 06:30 Famotidine 20 mg 20 mg Q12 IV Last administered on 06/15/17 08:32; Admin Dose 20 MG; Start 06/13/17 at 09:00 Piperacillin Sod/ Tazobactam Sod (Zosyn 3.375gm/ 50 ml (Pmx)) 50 ml @ 100 mls/ hr Q6 IVPB Last administered on 06/15/17 06:22; Admin Dose 100 MLS/HR; Start 06/13/17 at 09:01 Trazodone HCl (Desyrel) 150 mg HS PO Last administered on 06/14/17 21:22; Admin Dose 150 MG; Start 06/13/17 at 21:00 Lorazepam (Ativan) 1 mg Q3H PRN IV anxiety Last administered on 06/15/17 09: 31; Admin Dose 1 MG; Start 06/13/17 at 06:30 Fluoxetine HCl (Prozac) 40 mg HS PO Last administered on 06/14/17 21:22; Admin Dose 40 MG; Start 06/13/17 at 21:00 Methylnaltrexone Mcgrew (Relistor) 12 mg Q48H SC Last administered on 08:52; Admin Dose 12 MG; Start 06/14/17 at 09:00 Fentanyl (Duragesic 12 Mcg/Hr Patch) 1 patch Q72H TRANSDERM Last administered on 06/14/17 09:31; Admin Dose 1 PATCH; Start 06/14/17 at 10:00 Hydromorphone HCl (Dilaudid) 1 mg Q2 PRN IV PAIN Last administered on 08:31; Admin Dose 1 MG; Start 06/14/17 at 15:00 JAQUAN SMITH NP Jun 15, 2017 10:27
[2017-06-15] MEDS ORDERED: BISACODYL (EC) 5 MG TAB PO ONE (14:00)
[2017-06-15] MEDS ORDERED: MAGNESIUM CITRATE 300 ML BTL PO ONE (17:30)
[2017-06-15] MEDS ORDERED: POLYETHYLENE GLYCOL 3350 119 GM POWDER PO ONE (18:30)
[2017-06-15] MEDS ORDERED: PROPOFOL 40 ML ONE (20:03)
[2017-06-15] MEDS ORDERED: LIDOCAINE 2% (SDV) 5 ML INJ ONE (20:34)
--- NOTE | 2017-06-15 20:41 | OPPN ---
Date/Time of Note Date/Time of Note DATE: 06/15/17 TIME: 20:37 Proc Note GI Procedure Date 06/15/17 Indication: other (Diarrhea) Pre-procedure Diagnosis Hematochezia/diarrhea Post-procedure Diagnosis Impression: Moderately active M[place] colitis. Multiple biopsies obtained Rule out ulcerative colitis versus others Occasional diverticula scattered throughout the colon Moderate-sized internal hemorrhoids. Plan: Mesalamine 1 g 4 times daily Budesonide 9 mg daily Review pathology Stool cultures IBD serology . Procedure Performed: Colonoscopy (With biopsies) Surgeon CHILO STEINBERG MD See signature line Four H Agent none Anesthesia Type: MAC Anesthesiologist: MEGAN MUNGUIA Tourniquet Time none EBL none Transfusion required none Biopsy 1: A sending colon, transverse colon, descending colon, sigmoid colon, rectum Grafts/Implants none Tubes/Drains none Complication(s) none Disposition: PACU Procedure Description After informed consent, with the patient/relatives understanding the procedure, its indications and potential risks and complications, including but not limited to: Allergic reaction, bleeding, perforation, infection, and after all pertinent questions were answered to the patient's satisfaction, the patient/ relatives signed the witnessed informed consent. Following this, premedication was administered slowly IV push under careful cardiovascular and respiratory monitoring with pulse OXIMETRY, automatic blood pressure, and four h agent. Once the sedative effect was achieved, the patient was placed in the left lateral decubitus position, digital rectal examination was performed. The colonoscope was then introduced and advanced under visual control throughout all segments of the colon including: the rectum, sigmoid, descending colon, splenic flexure, transverse colon, hepatic flexure, ascending colon and finally reaching the cecum which was clearly identified by transillumination, finger indentation and the ileocecal valve. Terminal ileum was briefly entered. Careful examination of the mucosa of the lower gastrointestinal tract both on insertion as well as withdrawal of the instrument disclosed the following findings: PREPARATION QUALITY: [Adequate], RECTAL EXAM: The anorectal area was visualized examined and digital rectal examination performed with the following findings: Moderate-sized external hemorrhoids. Otherwise no evidence of perirectal disease, no masses. COLONIC MUCOSA: The mucosa of all segments of the colon was carefully examined and showed the following findings: There is moderate erythema, edema and superficial erosion of the mucosa of the colon from the rectum to the cecum. Occasional diverticula are noted throughout the colon. The terminal ileum was briefly entered and appears unremarkable. Random biopsies were obtained of the ascending, transverse, descending, sigmoid colon as well as the rectum. Otherwise the examined mucosa appears within normal limits. There is no evidence of polyps or neoplasms, vascular malformation, or any other abnormality. The instrument was then withdrawn, the patient tolerated the procedure well and was transferred out of the Endoscopy Suite awake and in good condition to continue recovery under observation. Copies To: CC: CHILO STEINBERG MD, MORDO MD Jun 15, 2017 20:41
[2017-06-15] MEDS ORDERED: ONDANSETRON 4 MG INJ IV PRN (21:00)
[2017-06-15] MEDS ORDERED: DIPHENHYDRAMINE 50 MG INJ IV PRN (21:00)
[2017-06-15] MEDS ORDERED: hydrALAzine 20 MG INJ IV PRN (21:00)
[2017-06-15] MEDS ORDERED: EPHEDrine SULFATE 50 MG/5 ML SYG IV PRN (21:00)
[2017-06-15] MEDS ORDERED: MEPERIDINE 25 MG INJ IV PRN (21:00)
[2017-06-15] MEDS ORDERED: LABETALOL HCL 20MG INJ IV PRN (21:00)
[2017-06-15] MEDS ORDERED: FENTAnyl 50 MCG/ML VIAL IV PRN ×3 (21:00)
[2017-06-15] MEDS ORDERED: MIDAZOLAM 1 MG/ML 2 ML INJ IV PRN (21:00)
[2017-06-15] MEDS: FLUOXETINE 20 MG CAP PO SCH (21:36)
[2017-06-15] MEDS: traZODone 50 MG TAB PO SCH (21:37)
[2017-06-15] MEDS: MESALAMINE (SR) 250 MG CAP PO SCH (22:23)
[2017-06-16] MEDS: PIPER-TAZO 3.375 GM IV (PMX) 50 ML IVPB SCH ×3 (00:08→12:22)
[2017-06-16 00:37] VITALS: BP 122/57; RESP 18
[2017-06-16] MEDS: HYDROmorphONE 1 MG/ML SYG IV PRN ×3 (04:47→07:48)
[2017-06-16 05:22] LABS: BASOPHIL # 0.1 10^3/ul (0.0-0.1); BASOPHILS % 0.6 % (0.0-2.0); EOSINOPHILS # 0.3 10^3/ul (0.0-0.5); EOSINOPHILS % 3.4 % (0.0-7.0); HEMATOCRIT 30.1 % (37.0-47.0); HEMOGLOBIN 9.9 g/dl (12.0-16.0); LYMPHOCYTES # 2.6 10^3/ul (0.8-2.9); LYMPHOCYTES % 30.8 % (15.0-51.0); MEAN CORPUSCULAR HEMOGLOBIN 30.1 pg (29.0-33.0); MEAN CORPUSCULAR HGB CONC 32.9 g/dl (32.0-37.0); MEAN CORPUSCULAR VOLUME 91.5 fl (82.0-101.0); MEAN PLATELET VOLUME 8.7 fl (7.4-10.4); MONOCYTE # 1.1 10^3/ul (0.3-0.9); MONOCYTES % 13.5 % (0.0-11.0); NEUTROPHIL # 4.2 10^3/ul (1.6-7.5); NEUTROPHILS % 49.1 % (39.0-77.0); PLATELET COUNT 395 10^3/UL (140-415); RED BLOOD COUNT 3.29 10^6/ul (4.20-5.40); RED CELL DISTRIBUTION WIDTH 13.5 % (11.5-14.5); WHITE BLOOD COUNT 8.5 10^3/ul (4.8-10.8)
[2017-06-16 05:50] LABS: PHOSPHORUS 3.6 mg/dl (2.5-4.9)
[2017-06-16 05:53] LABS: ANION GAP 9 (8-16); CALCIUM 8.2 mg/dl (8.4-10.2); CARBON DIOXIDE 31 mmol/L (21-31); CHLORIDE 106 mmol/L (97-110); CREATININE 0.87 mg/dl (0.44-1.00); GLUCOSE 95 mg/dl (70-220); POTASSIUM 3.7 mmol/L (3.5-5.1); SODIUM 142 mmol/L (135-144)
[2017-06-16 05:56] LABS: BLOOD UREA NITROGEN < 2 mg/dl (7-20)
[2017-06-16] MEDS ORDERED: POLYETHYLENE GLYCOL 3350 119 GM POWDER PO ONE (06:00)
[2017-06-16] MEDS: LORAZEPAM 2 MG INJ IV PRN ×5 (06:01→18:57)
[2017-06-16] MEDS: LEVOTHYROXINE 125 MCG TAB PO SCH (06:02)
[2017-06-16] MEDS ORDERED: BISACODYL (EC) 5 MG TAB PO ONE (08:00)
[2017-06-16] MEDS: ONDANSETRON 4 MG INJ IV PRN (08:10)
[2017-06-16] MEDS: MESALAMINE (SR) 250 MG CAP PO SCH ×4 (08:10→20:37)
[2017-06-16] MEDS: FAMOTIDINE 20 MG INJ IV SCH ×2 (08:11→20:37)
[2017-06-16] MEDS: BUDESONIDE (EC) 3 MG CAP PO SCH (08:15)
[2017-06-16 08:48] VITALS: BP 131/62; RESP 18
--- NOTE | 2017-06-16 09:36 | PN ---
Date/Time of Note Date/Time of Note DATE: 06/16/17 TIME: 09:35 Assessment/Plan VTE Prophylaxis VTE Prophylaxis Intervention: SCD's Lines/Catheters IV [facility] Type ([facility] [place] Urinary Cath still in place: No Assessment/Plan Chief Complaint/Hosp Course 1. Abdominal pain with associated bloody diarrhea. CT scan of the abdomen and pelvis showing diffuse thickening of the colon compatible with colitis. Continue empiric antibiotics. Being followed by gastroenterology. Status post colonoscopy on 06/15/2017 that showed moderately active universal colitis and moderate size internal hemorrhoids. The patient was started on mesalamine and budesonide. Will discontinue antibiotics. 2. Opioid dependency. The patient being followed by pain management physician. 3. Hypothyroidism. Continue Synthroid. 4. Anxiety. Continue home anxiolytics. 5. Fluids, electrolytes, and nutrition. Lactose-free diet. 6. DVT prophylaxis. Bilateral sequential compression devices. 7. Plan. Continue management as per gastroenterology. Obtain adequate pain control. Discontinue IV fluids. Case discussed with Dr. Soria. Problems: Subjective 24 Hr Interval Summary Free Text/Dictation Continues to ask for pain medications [id number] Exam/Review of Systems Vital Signs Vitals Vital Signs Date Time Temp Pulse Resp B/P Pulse Ox O2 Delivery O2 Flow Rate FiO2 06/16/17 08:48 98.6 98 18 131/62 97 06/15/17 21:02 Room Air 06/13/17 05:01 2.0 Intake and Output 06/15/17 06/15/17 06/16/17 15:00 23:00 07:00 Intake Total 50 ml 950 ml 1250 ml Balance 50 ml 950 ml 1250 ml Exam General: Adequately build 57 year-old female lying in bed in no apparent distress. HEENT: Normocephalic, atraumatic. Eyes: Anicteric sclerae, conjunctivae clear. ENT: Nasal septum midline, oral mucosa moist. Neck supple, no JVD noticed. Respiratory: Bilaterally diminished breath sounds. No use of accessory muscles of respiration. No adventitious breath sounds. Cardiovascular: S1, S2 heard. Regular rate and rhythm. Abdomen: Soft and nondistended. Diffuse tenderness. Bowel sounds positive in all 4 quadrants. Genitourinary: Deferred. Extremities: No cyanosis, no clubbing, no edema. Peripheral pulses palpable. Neurologic: Cranial nerves II through XII grossly intact. The patient is awake, alert, and oriented. Skin: Normal skin turgor. No skin rashes. Results Result Diagram: 06/16/1743306/16/17433 Results 24 hrs Laboratory Tests Test 06/16/17 04:34 White Blood Count 8.5 Red Blood Count 3.29 L Hemoglobin 9.9 L Hematocrit 30.1 L Mean Corpuscular Volume 91.5 Mean Corpuscular Hemoglobin 30.1 Mean Corpuscular Hemoglobin Concent 32.9 Red Cell Distribution Width 13.5 Platelet Count 395 Mean Platelet Volume 8.7 Neutrophils % 49.1 Lymphocytes % 30.8 Monocytes % 13.5 H Eosinophils % 3.4 Basophils % 0.6 Nucleated Red Blood Cells % 0.0 Neutrophils # 4.2 Lymphocytes # 2.6 Monocytes # 1.1 H Eosinophils # 0.3 Basophils # 0.1 Nucleated Red Blood Cells # 0.0 Sodium Level 142 Potassium Level 3.7 Chloride Level 106 Carbon Dioxide Level 31 Anion Gap 9 Blood Urea Nitrogen < 2 L Creatinine 0.87 Glucose Level 95 Calcium Level 8.2 L Phosphorus Level 3.6 Magnesium Level 2.0 Medications Medications Current Medications Dextrose/Sodium Chloride (D5-1/2ns) 1,000 ml @ 120 mls/hr Q8H20M IV Last administered on 06/15/17 21:36; Admin Dose 120 MLS/HR; Start 06/13/17 at 06: 16 Ondansetron HCl (Zofran Inj) 4 mg Q6H PRN IV NAUSEA AND/OR VOMITING Last administered on 06/16/17 08:10; Admin Dose 4 MG; Start 06/13/17 at 06:30 Acetaminophen (Tylenol Tab) 650 mg Q6H PRN PO PAIN LEVEL 1-3 OR FEVER; Start 06/13/17 at 06:30 Famotidine 20 mg 20 mg Q12 IV Last administered on 06/16/17 08:11; Admin Dose 20 MG; Start 06/13/17 at 09:00 Piperacillin Sod/ Tazobactam Sod (Zosyn 3.375gm/ 50 ml (Pmx)) 50 ml @ 100 mls/ hr Q6 IVPB Last administered on 06/16/17 06:02; Admin Dose 100 MLS/HR; Start 06/13/17 at 09:01 Trazodone HCl (Desyrel) 150 mg HS PO Last administered on 06/15/17 21:37; Admin Dose 150 MG; Start 06/13/17 at 21:00 Lorazepam (Ativan) 1 mg Q3H PRN IV anxiety Last administered on 06/16/17 09: 21; Admin Dose 1 MG; Start 06/13/17 at 06:30 Fluoxetine HCl (Prozac) 40 mg HS PO Last administered on 06/15/17 21:36; Admin Dose 40 MG; Start 06/13/17 at 21:00 Fentanyl (Duragesic 12 Mcg/Hr Patch) 1 patch Q72H TRANSDERM Last administered on 06/14/17 09:31; Admin Dose 1 PATCH; Start 06/14/17 at 10:00 Hydromorphone HCl (Dilaudid) 1 mg Q2 PRN IV PAIN Last administered on 07:48; Admin Dose 1 MG; Start 06/14/17 at 15:00 Mesalamine (Pentasa) 1,000 mg QID PO Last administered on 06/16/17 08:10; Admin Dose 1,000 MG; Start 06/15/17 at 21:00 Budesonide (Entocort Ec) 9 mg DAILY PO Last administered on 06/16/17 08:15; Admin Dose 9 MG; Start 06/16/17 at 09:00 JAQUAN SMITH NP Jun 16, 2017 09:36
[2017-06-16] MEDS: ACETAMINOPHEN 1000MG/100ML IV 100 ML IVPB SCH ×3 (11:31→22:38)
[2017-06-16 19:49] VITALS: BP 129/61; RESP 20
[2017-06-16] MEDS: FLUOXETINE 20 MG CAP PO SCH (20:38)
[2017-06-16] MEDS: traZODone 50 MG TAB PO SCH (20:38)
[2017-06-17 02:50] VITALS: BP 130/60; RESP 20
[2017-06-17] MEDS: ACETAMINOPHEN 1000MG/100ML IV 100 ML IVPB SCH ×4 (05:18→23:12)
[2017-06-17 05:41] LABS: BASOPHILS % 0.4 % (0.0-2.0); EOSINOPHILS # 0.3 10^3/ul (0.0-0.5); EOSINOPHILS % 2.7 % (0.0-7.0); HEMATOCRIT 30.9 % (37.0-47.0); HEMOGLOBIN 10.7 g/dl (12.0-16.0); LYMPHOCYTES % 32.2 % (15.0-51.0); MEAN CORPUSCULAR HEMOGLOBIN 30.7 pg (29.0-33.0); MEAN CORPUSCULAR HGB CONC 34.6 g/dl (32.0-37.0); MEAN CORPUSCULAR VOLUME 88.5 fl (82.0-101.0); MEAN PLATELET VOLUME 8.6 fl (7.4-10.4); MONOCYTE # 1.2 10^3/ul (0.3-0.9); MONOCYTES % 12.6 % (0.0-11.0); NEUTROPHIL # 4.4 10^3/ul (1.6-7.5); NEUTROPHILS % 47.6 % (39.0-77.0); PLATELET COUNT 435 10^3/UL (140-415); RED BLOOD COUNT 3.49 10^6/ul (4.20-5.40); RED CELL DISTRIBUTION WIDTH 13.2 % (11.5-14.5); WHITE BLOOD COUNT 9.2 10^3/ul (4.8-10.8)
[2017-06-17 06:04] LABS: MAGNESIUM 2.1 mg/dl (1.7-2.5)
[2017-06-17 06:06] LABS: ANION GAP 11 (8-16); CALCIUM 8.6 mg/dl (8.4-10.2); CARBON DIOXIDE 32 mmol/L (21-31); CHLORIDE 106 mmol/L (97-110); CREATININE 0.85 mg/dl (0.44-1.00); GLUCOSE 93 mg/dl (70-220); POTASSIUM 3.5 mmol/L (3.5-5.1); SODIUM 145 mmol/L (135-144)
[2017-06-17 06:28] LABS: BLOOD UREA NITROGEN < 2 mg/dl (7-20)
[2017-06-17] MEDS: BUDESONIDE (EC) 3 MG CAP PO SCH (08:22)
[2017-06-17] MEDS: FAMOTIDINE 20 MG INJ IV SCH (08:22)
[2017-06-17] MEDS: LEVOTHYROXINE 125 MCG TAB PO SCH (08:22)
[2017-06-17] MEDS: MESALAMINE (SR) 250 MG CAP PO SCH ×4 (08:23→20:59)
[2017-06-17] MEDS: LORAZEPAM 2 MG INJ IV PRN ×4 (08:23→19:53)
--- NOTE | 2017-06-17 10:10 | PN ---
Date/Time of Note Date/Time of Note DATE: 06/17/17 TIME: 10:08 Assessment/Plan VTE Prophylaxis VTE Prophylaxis Intervention: SCD's Lines/Catheters IV Catheter Type (from [facility]): [place] Urinary Cath still in place: No Assessment/Plan Chief Complaint/Hosp Course Summary Assessment and Plan: Assessment: Abdominal pain Bloody diarrhea Colonoscopy 06/15/18 Impression: Moderately active Greene colitis. Multiple biopsies obtained Rule out ulcerative colitis versus others Occasional diverticula scattered throughout the colon Moderate-sized internal hemorrhoids. Shortness of breath/improved Leukocytosis/resolved o Plan: Continue Mesalamine 1 g 4 times daily Continue Budesonide 9 mg daily Review pathology once available Stool cultures IBD serology- pending Pain management Patient is seen in collaboration with Subjective: Course reviewed with nursing staff Patient interviewed and examined All labs, imaging and other results reviewed The patient states she feels a little better with the start of medication. Discussed the results of colonoscopy, IBD labs pending, BX results pending. Pt verbalized understanding. Continue to have diarrhea although improved and some abd pain again improved. Continue to monitor H/H. PHYSICAL EXAMINATION: GENERAL: Well developed, well nourished, alert & oriented x 3, in no acute distress SKIN: No lesions, no stigmata chronic liver disease, no evidence of bleeding diathesis LYMPHATIC: No palpable lymphadenopathy. HEAD: Normocephalic, atraumatic, no tenderness. EYES: Pupils equal reactive to light and accommodation, full extraocular movements, sclera clear, non-icteric, no discharge. EARS/NOSE AND THROAT: Ears normal, nose normal, oropharynx normal, NECK: Supple. CHEST: Inspection within normal limits. CARDIOVASCULAR: Heart: Regular rate and rhythm, RESPIRATORY: Lungs clear to auscultation and percussion, no wheezing, no rubs GASTROINTESTINAL AND LIVER: Abdomen: Soft, non tenderness, non-distended, no hernias, no masses, no organomegaly, no ascites, no guarding, no rebound tenderness, normoactive bowel sounds. Rectal: Deferred. GENITOURINARY:Female genitalia within normal limits. EXTREMITIES: No cyanosis, clubbing or edema. Problems: Exam/Review of Systems Vital Signs Vitals Vital Signs Date Time Temp Pulse Resp B/P Pulse Ox O2 Delivery O2 Flow Rate FiO2 06/17/17 02:50 98.3 60 20 130/60 96 06/15/17 21:02 Room Air Intake and Output 06/16/17 06/16/17 06/17/17 15:00 23:00 07:00 Intake Total 590 ml 1160 ml 650 ml Balance 590 ml 1160 ml 650 ml Results Result Diagram: 06/17/17 0428 06/17/17 0428 Results 24 hrs Laboratory Tests Test 06/17/17 04:28 White Blood Count 9.2 Red Blood Count 3.49 L Hemoglobin 10.7 L Hematocrit 30.9 L Mean Corpuscular Volume 88.5 Mean Corpuscular Hemoglobin 30.7 Mean Corpuscular Hemoglobin Concent 34.6 Red Cell Distribution Width 13.2 Platelet Count 435 H Mean Platelet Volume 8.6 Neutrophils % 47.6 Lymphocytes % 32.2 Monocytes % 12.6 H Eosinophils % 2.7 Basophils % 0.4 Nucleated Red Blood Cells % 0.0 Neutrophils # 4.4 Lymphocytes # 3.0 H Monocytes # 1.2 H Eosinophils # 0.3 Basophils # 0.0 Nucleated Red Blood Cells # 0.0 Sodium Level 145 H Potassium Level 3.5 Chloride Level 106 Carbon Dioxide Level 32 H Anion Gap 11 Blood Urea Nitrogen < 2 L Creatinine 0.85 Glucose Level 93 Calcium Level 8.6 Phosphorus Level 3.0 Magnesium Level 2.1 Medications Medications Current Medications Ondansetron HCl (Zofran Inj) 4 mg Q6H PRN IV NAUSEA AND/OR VOMITING Last administered on 06/16/17 08:10; Admin Dose 4 MG; Start 06/13/17 at 06:30 Acetaminophen (Tylenol Tab) 650 mg Q6H PRN PO PAIN LEVEL 1-3 OR FEVER; Start 06/13/17 at 06:30; Status Future Hold Famotidine (Pepcid Iv) 20 mg Q12 IV Last administered on 06/17/17 08:22; Admin Dose 20 MG; Start 06/13/17 at 09:00 Trazodone HCl (Desyrel) 150 mg HS PO Last administered on 06/16/17 20:38; Admin Dose 150 MG; Start 06/13/17 at 21:00 Lorazepam (Ativan) 1 mg Q3H PRN IV anxiety Last administered on 06/17/17 08: 23; Admin Dose 1 MG; Start 06/13/17 at 06:30 Fluoxetine HCl (Prozac) 40 mg HS PO Last administered on 06/16/17 20:38; Admin Dose 40 MG; Start 06/13/17 at 21:00 Fentanyl (Duragesic 12 Mcg/Hr Patch) 1 patch Q72H TRANSDERM Last administered on 06/14/17 09:31; Admin Dose 1 PATCH; Start 06/14/17 at 10:00 Mesalamine (Pentasa) 1,000 mg QID PO Last administered on 06/17/17 08:23; Admin Dose 1,000 MG; Start 06/15/17 at 21:00 Budesonide 9 mg 9 mg DAILY PO Last administered on 06/17/17 08:22; Admin Dose 9 MG; Start 06/16/17 at 09:00 Acetaminophen (Ofirmev 1000mg/ 100ml Iv) 100 ml @ 400 mls/hr Q6H IVPB Last administered on 06/17/17 05:18; Admin Dose 400 MLS/HR; Start 06/16/17 at 11: 00 CHRIS LOPEZ Jun 17, 2017 10:10
[2017-06-17 11:09] VITALS: BP 128/59; RESP 18
--- NOTE | 2017-06-17 12:24 | PN ---
Date/Time of Note Date/Time of Note DATE: 06/17/17 TIME: 12:23 Assessment/Plan VTE Prophylaxis VTE Prophylaxis Intervention: SCD's Lines/Catheters IV Catheter Type (from [facility]): [place] Urinary Cath still in place: No Assessment/Plan Chief Complaint/Hosp Course 1. Abdominal pain with associated bloody diarrhea. CT scan of the abdomen and pelvis showing diffuse thickening of the colon compatible with colitis. Continue empiric antibiotics. Being followed by gastroenterology. Status post colonoscopy on 06/15/2017 that showed moderately active universal colitis and moderate size internal hemorrhoids. The patient was started on mesalamine and budesonide. 2. Opioid dependency. The patient being followed by pain management physician. Opioids being weaned off. 3. Hypothyroidism. Continue Synthroid. 4. Anxiety. Continue home anxiolytics. 5. Fluids, electrolytes, and nutrition. Lactose-free diet. 6. DVT prophylaxis. Bilateral sequential compression devices. 7. Plan. Continue management as per gastroenterology. Obtain adequate pain control. Discharge the patient once cleared by consultants. Case discussed with Dr. Soria. Problems: Subjective 24 Hr Interval Summary Free Text/Dictation Abdominal pain well controlled. Exam/Review of Systems Vital Signs Vitals Vital Signs Date Time Temp Pulse Resp B/P Pulse Ox O2 Delivery O2 Flow Rate FiO2 06/17/17 11:09 98.2 62 18 128/59 98 06/15/17 21:02 Room Air Intake and Output 06/16/17 06/16/17 06/17/17 14:59 22:59 06:59 Intake Total 590 ml 1160 ml 650 ml Balance 590 ml 1160 ml 650 ml Exam General: Adequately build 57 year-old female lying in bed in no apparent distress. HEENT: Normocephalic, atraumatic. Eyes: Anicteric sclerae, conjunctivae clear. ENT: Nasal septum midline, oral mucosa moist. Neck supple, no JVD noticed. Respiratory: Bilaterally diminished breath sounds. No use of accessory muscles of respiration. No adventitious breath sounds. Cardiovascular: S1, S2 heard. Regular rate and rhythm. Abdomen: Soft and nondistended. Non-tender. Bowel sounds positive in all 4 quadrants. Genitourinary: Deferred. Extremities: No cyanosis, no clubbing, no edema. Peripheral pulses palpable. Neurologic: Cranial nerves II through XII grossly intact. The patient is awake, alert, and oriented. Skin: Normal skin turgor. No skin rashes. Results Result Diagram: 06/17/178 06/17/17 0428 Results 24 hrs Laboratory Tests Test 06/17/17 04:28 White Blood Count 9.2 Red Blood Count 3.49 L Hemoglobin 10.7 L Hematocrit 30.9 L Mean Corpuscular Volume 88.5 Mean Corpuscular Hemoglobin 30.7 Mean Corpuscular Hemoglobin Concent 34.6 Red Cell Distribution Width 13.2 Platelet Count 435 H Mean Platelet Volume 8.6 Neutrophils % 47.6 Lymphocytes % 32.2 Monocytes % 12.6 H Eosinophils % 2.7 Basophils % 0.4 Nucleated Red Blood Cells % 0.0 Neutrophils # 4.4 Lymphocytes # 3.0 H Monocytes # 1.2 H Eosinophils # 0.3 Basophils # 0.0 Nucleated Red Blood Cells # 0.0 Sodium Level 145 H Potassium Level 3.5 Chloride Level 106 Carbon Dioxide Level 32 H Anion Gap 11 Blood Urea Nitrogen < 2 L Creatinine 0.85 Glucose Level 93 Calcium Level 8.6 Phosphorus Level 3.0 Magnesium Level 2.1 Medications Medications Current Medications Ondansetron HCl (Zofran Inj) 4 mg Q6H PRN IV NAUSEA AND/OR VOMITING Last administered on 06/16/17 08:10; Admin Dose 4 MG; Start 06/13/17 at 06:30 Acetaminophen (Tylenol Tab) 650 mg Q6H PRN PO PAIN LEVEL 1-3 OR FEVER; Start 06/13/17 at 06:30; Status Future Hold Famotidine (Pepcid Iv) 20 mg Q12 IV Last administered on 06/17/17 08:22; Admin Dose 20 MG; Start 06/13/17 at 09:00 Trazodone HCl (Desyrel) 150 mg HS PO Last administered on 06/16/17 20:38; Admin Dose 150 MG; Start 06/13/17 at 21:00 Lorazepam (Ativan) 1 mg Q3H PRN IV anxiety Last administered on 06/17/17 11: 30; Admin Dose 1 MG; Start 06/13/17 at 06:30 Fluoxetine HCl (Prozac) 40 mg HS PO Last administered on 06/16/17 20:38; Admin Dose 40 MG; Start 06/13/17 at 21:00 Fentanyl (Duragesic 12 Mcg/Hr Patch) 1 patch Q72H TRANSDERM Last administered on 06/14/17 09:31; Admin Dose 1 PATCH; Start 06/14/17 at 10:00 Mesalamine (Pentasa) 1,000 mg QID PO Last administered on 06/17/17 08:23; Admin Dose 1,000 MG; Start 06/15/17 at 21:00 Budesonide 9 mg 9 mg DAILY PO Last administered on 06/17/17 08:22; Admin Dose 9 MG; Start 06/16/17 at 09:00 Acetaminophen (Ofirmev 1000mg/ 100ml Iv) 100 ml @ 400 mls/hr Q6H IVPB Last administered on 06/17/17 10:57; Admin Dose 400 MLS/HR; Start 06/16/17 at 11: 00 JAQUAN SMITH NP Jun 17, 2017 12:24
[2017-06-17] MEDS: FENTAnyl PATCH 12 MCG/HR TRANSDERM SCH (14:01)
[2017-06-17 15:35] VITALS: BP 121/61; RESP 19
[2017-06-17 19:59] VITALS: BP 142/77; RESP 20
[2017-06-17] MEDS: traZODone 50 MG TAB PO SCH (20:59)
[2017-06-17] MEDS: FLUOXETINE 20 MG CAP PO SCH (20:59)
[2017-06-17] MEDS: FAMOTIDINE 20 MG TAB PO SCH (21:00)
[2017-06-18] MEDS: LORAZEPAM 2 MG INJ IV PRN ×4 (00:20→21:02)
[2017-06-18 02:45] VITALS: BP 130/72; RESP 18
[2017-06-18] MEDS: ACETAMINOPHEN 1000MG/100ML IV 100 ML IVPB SCH ×4 (05:29→23:00)
[2017-06-18 06:27] LABS: BASOPHILS % 0.4 % (0.0-2.0); EOSINOPHILS # 0.2 10^3/ul (0.0-0.5); EOSINOPHILS % 2.1 % (0.0-7.0); HEMOGLOBIN 10.8 g/dl (12.0-16.0); LYMPHOCYTES # 2.7 10^3/ul (0.8-2.9); LYMPHOCYTES % 25.8 % (15.0-51.0); MEAN CORPUSCULAR HEMOGLOBIN 30.4 pg (29.0-33.0); MEAN CORPUSCULAR HGB CONC 33.8 g/dl (32.0-37.0); MEAN CORPUSCULAR VOLUME 90.1 fl (82.0-101.0); MEAN PLATELET VOLUME 8.7 fl (7.4-10.4); MONOCYTE # 0.9 10^3/ul (0.3-0.9); MONOCYTES % 9.1 % (0.0-11.0); NEUTROPHIL # 6.1 10^3/ul (1.6-7.5); NEUTROPHILS % 59.7 % (39.0-77.0); PLATELET COUNT 486 10^3/UL (140-415); RED BLOOD COUNT 3.55 10^6/ul (4.20-5.40); RED CELL DISTRIBUTION WIDTH 13.3 % (11.5-14.5); WHITE BLOOD COUNT 10.3 10^3/ul (4.8-10.8)
[2017-06-18 06:56] LABS: CALCIUM 8.8 mg/dl (8.4-10.2); CREATININE 0.77 mg/dl (0.44-1.00); POTASSIUM 3.6 mmol/L (3.5-5.1)
[2017-06-18 07:11] LABS: MAGNESIUM 2.2 mg/dl (1.7-2.5); PHOSPHORUS 3.6 mg/dl (2.5-4.9)
[2017-06-18 08:09] VITALS: BP 159/77; RESP 20
[2017-06-18] MEDS: MESALAMINE (SR) 250 MG CAP PO SCH ×4 (08:27→20:58)
[2017-06-18] MEDS: BUDESONIDE (EC) 3 MG CAP PO SCH (08:27)
[2017-06-18] MEDS: LEVOTHYROXINE 125 MCG TAB PO SCH (08:27)
[2017-06-18] MEDS: FAMOTIDINE 20 MG TAB PO SCH ×2 (08:27→20:58)
--- NOTE | 2017-06-18 10:03 | PN ---
Date/Time of Note Date/Time of Note DATE: 06/18/17 TIME: 10:00 Assessment/Plan VTE Prophylaxis VTE Prophylaxis Intervention: SCD's Lines/Catheters IV [facility]from [facility] Urinary Cath still in place: No Assessment/Plan Chief Complaint/Hosp Course 1. Abdominal pain with associated bloody diarrhea. CT scan of the abdomen and pelvis showing diffuse thickening of the colon compatible with colitis. Continue empiric antibiotics. Being followed by gastroenterology. Status post colonoscopy on 06/15/2017 that showed moderately active universal colitis and moderate size internal hemorrhoids. Biopsy negative for any malignancy. The patient was started on mesalamine and budesonide. 2. Opioid dependency. The patient being followed by pain management physician. Opioids has been weaned off. 3. Hypothyroidism. Continue Synthroid. 4. Anxiety. Continue home anxiolytics. 5. Fluids, electrolytes, and nutrition. Lactose-free diet. 6. DVT prophylaxis. Bilateral sequential compression devices. 7. Plan. Continue management as per gastroenterology. Obtain adequate pain control. Discharge the patient once cleared by gastroenterology. Case discussed with Dr. Soria. Problems: Subjective 24 Hr Interval Summary Free Text/Dictation Continues to have diarrhea, but improved. Abdominal pain better controlled. Exam/Review of Systems Vital Signs Vitals Vital Signs Date Time Temp Pulse Resp B/P Pulse Ox O2 Delivery O2 Flow Rate FiO2 06/18/17 08:09 98.5 64 20 159/77 98 06/15/17 21:02 Room Air Intake and Output 06/17/17 06/17/17 06/18/17 15:00 23:00 07:00 Intake Total 100 ml 1050 ml 680 ml Output Total 300 ml Balance 100 ml 750 ml 680 ml Exam General: Adequately build 57 year-old female lying in bed in no apparent distress. HEENT: Normocephalic, atraumatic. Eyes: Anicteric sclerae, conjunctivae clear. ENT: Nasal septum midline, oral mucosa moist. Neck supple, no JVD noticed. Respiratory: Bilaterally diminished breath sounds. No use of accessory muscles of respiration. No adventitious breath sounds. Cardiovascular: S1, S2 heard. Regular rate and rhythm. Abdomen: Soft and nondistended. Non-tender. Bowel sounds positive in all 4 quadrants. Genitourinary: Deferred. Extremities: No cyanosis, no clubbing, no edema. Peripheral pulses palpable. Neurologic: Cranial nerves II through XII grossly intact. The patient is awake, alert, and oriented. Skin: Normal skin turgor. No skin rashes. Results Result Diagram: 06/18/17 0503 06/18/17 0503 Results 24 hrs Laboratory Tests Test 06/18/17 05:03 White Blood Count 10.3 Red Blood Count 3.55 L Hemoglobin 10.8 L Hematocrit 32.0 L Mean Corpuscular Volume 90.1 Mean Corpuscular Hemoglobin 30.4 Mean Corpuscular Hemoglobin Concent 33.8 Red Cell Distribution Width 13.3 Platelet Count 486 H Mean Platelet Volume 8.7 Neutrophils % 59.7 Lymphocytes % 25.8 Monocytes % 9.1 Eosinophils % 2.1 Basophils % 0.4 Nucleated Red Blood Cells % 0.0 Neutrophils # 6.1 Lymphocytes # 2.7 Monocytes # 0.9 Eosinophils # 0.2 Basophils # 0.0 Nucleated Red Blood Cells # 0.0 Sodium Level 145 H Potassium Level 3.6 Chloride Level 105 Carbon Dioxide Level 35 H Anion Gap 9 Blood Urea Nitrogen 3 L Creatinine 0.77 Glucose Level 99 Calcium Level 8.8 Phosphorus Level 3.6 Magnesium Level 2.2 Medications Medications Current Medications Ondansetron HCl (Zofran Inj) 4 mg Q6H PRN IV NAUSEA AND/OR VOMITING Last administered on 06/16/17 08:10; Admin Dose 4 MG; Start 06/13/17 at 06:30 Acetaminophen (Tylenol Tab) 650 mg Q6H PRN PO PAIN LEVEL 1-3 OR FEVER; Start 06/13/17 at 06:30; Status Future Hold Trazodone HCl (Desyrel) 150 mg HS PO Last administered on 06/17/17 20:59; Admin Dose 150 MG; Start 06/13/17 at 21:00 Fluoxetine HCl (Prozac) 40 mg HS PO Last administered on 06/17/17 20:59; Admin Dose 40 MG; Start 06/13/17 at 21:00 Fentanyl (Duragesic 12 Mcg/Hr Patch) 1 patch Q72H TRANSDERM Last administered on 06/17/17 14:01; Admin Dose 1 PATCH; Start 06/14/17 at 10:00 Mesalamine (Pentasa) 1,000 mg QID PO Last administered on 06/18/17 08:27; Admin Dose 1,000 MG; Start 06/15/17 at 21:00 Budesonide 9 mg 9 mg DAILY PO Last administered on 06/18/17 08:27; Admin Dose 9 MG; Start 06/16/17 at 09:00 Acetaminophen (Ofirmev 1000mg/ 100ml Iv) 100 ml @ 400 mls/hr Q6H IVPB Last administered on 06/18/17 05:29; Admin Dose 400 MLS/HR; Start 06/16/17 at 11: 00 Lorazepam (Ativan) 1 mg Q4H PRN IV anxiety Last administered on 06/18/17 08: 29; Admin Dose 1 MG; Start 06/17/17 at 16:30 Famotidine (Pepcid) 20 mg BID PO Last administered on 06/18/17 08:27; Admin Dose 20 MG; Start 06/17/17 at 21:00 JAQUAN SMITH NP Jun 18, 2017 10:03
--- NOTE | 2017-06-18 11:18 | CONS ---
Date/Time of Note Date/Time of Note DATE: 06/18/17 TIME: 11:18 Consultation Date/Type/Reason Admit Date/Time Jun 15, 2017 at 10:19 Initial Consult Date 06/13/17 Type of Consultation: GI Exam/Review of Systems Vital Signs Vitals Vital Signs Date Time Temp Pulse Resp B/P Pulse Ox O2 Delivery O2 Flow Rate FiO2 06/18/17 08:09 98.5 64 20 159/77 98 06/15/17 21:02 Room Air Intake and Output 06/17/17 06/17/17 06/18/17 15:00 23:00 07:00 Intake Total 100 ml 1050 ml 680 ml Output Total 300 ml Balance 100 ml 750 ml 680 ml Results Result Diagram: 06/18/17 0503 06/18/17 0503 Results 24 hrs Laboratory Tests Test 06/18/17 05:03 White Blood Count 10.3 Red Blood Count 3.55 L Hemoglobin 10.8 L Hematocrit 32.0 L Mean Corpuscular Volume 90.1 Mean Corpuscular Hemoglobin 30.4 Mean Corpuscular Hemoglobin Concent 33.8 Red Cell Distribution Width 13.3 Platelet Count 486 H Mean Platelet Volume 8.7 Neutrophils % 59.7 Lymphocytes % 25.8 Monocytes % 9.1 Eosinophils % 2.1 Basophils % 0.4 Nucleated Red Blood Cells % 0.0 Neutrophils # 6.1 Lymphocytes # 2.7 Monocytes # 0.9 Eosinophils # 0.2 Basophils # 0.0 Nucleated Red Blood Cells # 0.0 Sodium Level 145 H Potassium Level 3.6 Chloride Level 105 Carbon Dioxide Level 35 H Anion Gap 9 Blood Urea Nitrogen 3 L Creatinine 0.77 Glucose Level 99 Calcium Level 8.8 Phosphorus Level 3.6 Magnesium Level 2.2 Medications Medications Current Medications Ondansetron HCl (Zofran Inj) 4 mg Q6H PRN IV NAUSEA AND/OR VOMITING Last administered on 06/16/17 08:10; Admin Dose 4 MG; Start 06/13/17 at 06:30 Acetaminophen (Tylenol Tab) 650 mg Q6H PRN PO PAIN LEVEL 1-3 OR FEVER; Start 06/13/17 at 06:30; Status Future Hold Trazodone HCl (Desyrel) 150 mg HS PO Last administered on 06/17/17 20:59; Admin Dose 150 MG; Start 06/13/17 at 21:00 Fluoxetine HCl (Prozac) 40 mg HS PO Last administered on 06/17/17 20:59; Admin Dose 40 MG; Start 06/13/17 at 21:00 Fentanyl (Duragesic 12 Mcg/Hr Patch) 1 patch Q72H TRANSDERM Last administered on 06/17/17 14:01; Admin Dose 1 PATCH; Start 06/14/17 at 10:00 Mesalamine (Pentasa) 1,000 mg QID PO Last administered on 06/18/17 08:27; Admin Dose 1,000 MG; Start 06/15/17 at 21:00 Budesonide 9 mg 9 mg DAILY PO Last administered on 06/18/17 08:27; Admin Dose 9 MG; Start 06/16/17 at 09:00 Acetaminophen (Ofirmev 1000mg/ 100ml Iv) 100 ml @ 400 mls/hr Q6H IVPB Last administered on 06/18/17 05:29; Admin Dose 400 MLS/HR; Start 06/16/17 at 11: 00 Famotidine (Pepcid) 20 mg BID PO Last administered on 06/18/17 08:27; Admin Dose 20 MG; Start 06/17/17 at 21:00 Lorazepam (Ativan) 1 mg Q6H PRN IV Anxiety; Start 06/18/17 at 11:00 MAYRA ADAMS Jun 18, 2017 11:18
[2017-06-18 13:02] VITALS: BP 154/83; RESP 20
[2017-06-18] MEDS: ONDANSETRON 4 MG INJ IV PRN (18:36)
--- NOTE | 2017-06-18 19:06 | PN ---
Date/Time of Note Date/Time of Note DATE: 06/18/17 TIME: 19:02 Assessment/Plan VTE Prophylaxis VTE Prophylaxis Intervention: ambulation Lines/Catheters [facility] Saline [facility] Urinary Cath still in place: No Assessment/Plan Chief Complaint/Hosp Course Assessment: Abdominal pain [place] ulcerative colitis vs self limited colitis Colonoscopy 06/15/18 Impression: Moderately active [place] colitis. Multiple biopsies obtained Rule out ulcerative colitis versus others Occasional diverticula scattered throughout the colon Moderate-sized internal hemorrhoids. Path c/w acute colitis, nonspecific Shortness of breath/improved Leukocytosis/resolved Plan: Continue Mesalamine 1 g 4 times daily Continue Budesonide 9 mg daily Appears safe for op f/u Subjective: Course reviewed with nursing staff Patient interviewed and examined All labs, imaging and other results reviewed Patient reports no diarrhea, bleeding Tolerating diet and meds Pathology reviewed c/w acute colitis but not specific, self limited colitis still a possibility PHYSICAL EXAMINATION: GENERAL: Well developed, well nourished, alert & oriented x 3, in no acute distress SKIN: No lesions, no stigmata chronic liver disease, no evidence of bleeding diathesis LYMPHATIC: No palpable lymphadenopathy. HEAD: Normocephalic, atraumatic, no tenderness. EYES: Pupils equal reactive to light and accommodation, full extraocular movements, sclera clear, non-icteric, no discharge. EARS/NOSE AND THROAT: Ears normal, nose normal, oropharynx normal, NECK: Supple. CHEST: Inspection within normal limits. CARDIOVASCULAR: Heart: Regular rate and rhythm, RESPIRATORY: Lungs clear to auscultation and percussion, no wheezing, no rubs GASTROINTESTINAL AND LIVER: Abdomen: Soft, non tenderness, non-distended, no hernias, no masses, no organomegaly, no ascites, no guarding, no rebound tenderness, normoactive bowel sounds. Rectal: Deferred. GENITOURINARY:Female genitalia within normal limits. EXTREMITIES: No cyanosis, clubbing or edema. Problems: Exam/Review of Systems Vital Signs Vitals Vital Signs Date Time Temp Pulse Resp B/P Pulse Ox O2 Delivery O2 Flow Rate FiO2 06/18/17 13:02 98.0 65 20 154/83 94 06/15/17 21:02 Room Air Intake and Output 06/17/17 06/17/17 06/18/17 15:00 23:00 07:00 Intake Total 100 ml 1050 ml 680 ml Output Total 300 ml Balance 100 ml 750 ml 680 ml Results Result Diagram: 06/18/17 0503 06/18/17 0503 Results 24 hrs Laboratory Tests Test 06/18/17 05:03 White Blood Count 10.3 Red Blood Count 3.55 L Hemoglobin 10.8 L Hematocrit 32.0 L Mean Corpuscular Volume 90.1 Mean Corpuscular Hemoglobin 30.4 Mean Corpuscular Hemoglobin Concent 33.8 Red Cell Distribution Width 13.3 Platelet Count 486 H Mean Platelet Volume 8.7 Neutrophils % 59.7 Lymphocytes % 25.8 Monocytes % 9.1 Eosinophils % 2.1 Basophils % 0.4 Nucleated Red Blood Cells % 0.0 Neutrophils # 6.1 Lymphocytes # 2.7 Monocytes # 0.9 Eosinophils # 0.2 Basophils # 0.0 Nucleated Red Blood Cells # 0.0 Sodium Level 145 H Potassium Level 3.6 Chloride Level 105 Carbon Dioxide Level 35 H Anion Gap 9 Blood Urea Nitrogen 3 L Creatinine 0.77 Glucose Level 99 Calcium Level 8.8 Phosphorus Level 3.6 Magnesium Level 2.2 Medications Medications Current Medications Ondansetron HCl (Zofran Inj) 4 mg Q6H PRN IV NAUSEA AND/OR VOMITING Last administered on 06/18/17 18:36; Admin Dose 4 MG; Start 06/13/17 at 06:30 Acetaminophen (Tylenol Tab) 650 mg Q6H PRN PO PAIN LEVEL 1-3 OR FEVER; Start 06/13/17 at 06:30; Status Future Hold Trazodone HCl (Desyrel) 150 mg HS PO Last administered on 06/17/17 20:59; Admin Dose 150 MG; Start 06/13/17 at 21:00 Fluoxetine HCl (Prozac) 40 mg HS PO Last administered on 06/17/17 20:59; Admin Dose 40 MG; Start 06/13/17 at 21:00 Fentanyl (Duragesic 12 Mcg/Hr Patch) 1 patch Q72H TRANSDERM Last administered on 06/17/17 14:01; Admin Dose 1 PATCH; Start 06/14/17 at 10:00 Mesalamine (Pentasa) 1,000 mg QID PO Last administered on 06/18/17 18:23; Admin Dose 1,000 MG; Start 06/15/17 at 21:00 Budesonide 9 mg 9 mg DAILY PO Last administered on 06/18/17 08:27; Admin Dose 9 MG; Start 06/16/17 at 09:00 Acetaminophen (Ofirmev 1000mg/ 100ml Iv) 100 ml @ 400 mls/hr Q6H IVPB Last administered on 06/18/17 18:23; Admin Dose 400 MLS/HR; Start 06/16/17 at 11: 00 Famotidine (Pepcid) 20 mg BID PO Last administered on 06/18/17 08:27; Admin Dose 20 MG; Start 06/17/17 at 21:00 Lorazepam (Ativan) 1 mg Q6H PRN IV Anxiety Last administered on 06/18/17 14: 44; Admin Dose 1 MG; Start 06/18/17 at 11:00 CHILO STEINBERG MD Jun 18, 2017 19:06
[2017-06-18 20:12] VITALS: BP 142/72; RESP 18
[2017-06-18] MEDS: FLUOXETINE 20 MG CAP PO SCH (20:58)
[2017-06-18] MEDS: traZODone 50 MG TAB PO SCH (20:58)
[2017-06-19] MEDS: LORAZEPAM 2 MG INJ IV PRN ×2 (03:58→09:59)
[2017-06-19] MEDS: ACETAMINOPHEN 1000MG/100ML IV 100 ML IVPB SCH ×2 (05:00→10:53)
[2017-06-19 05:13] LABS: BASOPHILS % 0.4 % (0.0-2.0); EOSINOPHILS # 0.2 10^3/ul (0.0-0.5); EOSINOPHILS % 2.2 % (0.0-7.0); HEMATOCRIT 32.4 % (37.0-47.0); HEMOGLOBIN 10.8 g/dl (12.0-16.0); LYMPHOCYTES # 2.8 10^3/ul (0.8-2.9); MEAN CORPUSCULAR HEMOGLOBIN 30.3 pg (29.0-33.0); MEAN CORPUSCULAR HGB CONC 33.3 g/dl (32.0-37.0); MEAN CORPUSCULAR VOLUME 90.8 fl (82.0-101.0); MEAN PLATELET VOLUME 8.6 fl (7.4-10.4); MONOCYTE # 0.9 10^3/ul (0.3-0.9); MONOCYTES % 9.3 % (0.0-11.0); NEUTROPHIL # 5.7 10^3/ul (1.6-7.5); NEUTROPHILS % 57.8 % (39.0-77.0); PLATELET COUNT 460 10^3/UL (140-415); RED BLOOD COUNT 3.57 10^6/ul (4.20-5.40); RED CELL DISTRIBUTION WIDTH 13.2 % (11.5-14.5); WHITE BLOOD COUNT 9.9 10^3/ul (4.8-10.8)
[2017-06-19 05:33] LABS: MAGNESIUM 2.1 mg/dl (1.7-2.5); PHOSPHORUS 4.1 mg/dl (2.5-4.9)
[2017-06-19 05:45] LABS: CALCIUM 8.9 mg/dl (8.4-10.2); CREATININE 0.77 mg/dl (0.44-1.00); POTASSIUM 3.8 mmol/L (3.5-5.1)
[2017-06-19 08:16] VITALS: BP 121/74; RESP 18
[2017-06-19] MEDS: LEVOTHYROXINE 125 MCG TAB PO SCH (08:30)
[2017-06-19] MEDS: BUDESONIDE (EC) 3 MG CAP PO SCH (08:30)
[2017-06-19] MEDS: MESALAMINE (SR) 250 MG CAP PO SCH (08:31)
[2017-06-19] MEDS: FAMOTIDINE 20 MG TAB PO SCH (08:31)
--- NOTE | 2017-06-19 09:06 | PDOCDIS ---
Discharge Instructions DIAGNOSIS Discharge Diagnosis Colitis. CONDITION Patient Condition: Stable HOME CARE INSTRUCTIONS: Special Diet: Regular diet lactose free FOLLOW UP/APPOINTMENTS Follow-up Plan Greg Aiken MD [facility] Office Address [id number] [place] [address] Office OTHER ORDERS: Other Orders: 1. Take medications as per prescription. 2. Take a lactose-free diet. 3. Resume activities as tolerated. 4. Follow-up with gastroenterology (Dr. Aiken) in 1 month. 5. Please go to the nearest emergency room if you continue to have significant abdominal pain, persistent diarrhea, or any other unusual signs/symptoms. JAQUAN SMITH NP Jun 19, 2017 09:06
[2017-06-19] MEDS ORDERED: MES250 PO (09:12)
[2017-06-19] MEDS ORDERED: BUDE3CAP PO (09:12)
[2017-06-19] MEDS ORDERED: FAMO20TA18 PO (09:38)
--- NOTE | 2017-06-19 11:47 | PN ---
Date/Time of Note Date/Time of Note DATE: 06/19/17 TIME: 11:45 Assessment/Plan VTE Prophylaxis VTE Prophylaxis Intervention: SCD's Lines/Catheters [facility] Saline Lock Urinary Cath still in place: No Assessment/Plan Chief Complaint/Hosp Course Chief Complaint/Hosp Course Assessment: Abdominal pain [place] ulcerative colitis vs self limited colitis Colonoscopy 06/15/18 Impression: Moderately active [place] colitis. Multiple biopsies obtained Rule out ulcerative colitis versus others Occasional diverticula scattered throughout the colon Moderate-sized internal hemorrhoids. Path c/w acute colitis, nonspecific Shortness of breath/improved Leukocytosis/resolved Plan: Continue Mesalamine 1 g 4 times daily Continue Budesonide 9 mg daily Appears safe for op f/u Subjective: Course reviewed with nursing staff Patient interviewed and examined All labs, imaging and other results reviewed Patient has been d/c'd PHYSICAL EXAMINATION: GENERAL: Well developed, well nourished, alert & oriented x 3, in no acute distress SKIN: No lesions, no stigmata chronic liver disease, no evidence of bleeding diathesis LYMPHATIC: No palpable lymphadenopathy. HEAD: Normocephalic, atraumatic, no tenderness. EYES: Pupils equal reactive to light and accommodation, full extraocular movements, sclera clear, non-icteric, no discharge. EARS/NOSE AND THROAT: Ears normal, nose normal, oropharynx normal, NECK: Supple. CHEST: Inspection within normal limits. CARDIOVASCULAR: Heart: Regular rate and rhythm, RESPIRATORY: Lungs clear to auscultation and percussion, no wheezing, no rubs GASTROINTESTINAL AND LIVER: Abdomen: Soft, non tenderness, non-distended, no hernias, no masses, no organomegaly, no ascites, no guarding, no rebound tenderness, normoactive bowel sounds. Rectal: Deferred. GENITOURINARY:Female genitalia within normal limits. EXTREMITIES: No cyanosis, clubbing or edema. Problems: Exam/Review of Systems Vital Signs Vitals Vital Signs Date Time Temp Pulse Resp B/P Pulse Ox O2 Delivery O2 Flow Rate FiO2 06/19/17 08:16 98.7 18 121/74 97 06/18/17 20:12 68 06/15/17 21:02 Room Air Intake and Output 06/18/17 06/18/17 06/19/17 15:00 23:00 07:00 Intake Total 780 ml 500 ml Output Total 800 ml Balance -20 ml 500 ml Results Result Diagram: 06/19/17 0425 06/19/17 0425 Results 24 hrs Laboratory Tests Test 06/19/17 04:25 White Blood Count 9.9 Red Blood Count 3.57 L Hemoglobin 10.8 L Hematocrit 32.4 L Mean Corpuscular Volume 90.8 Mean Corpuscular Hemoglobin 30.3 Mean Corpuscular Hemoglobin Concent 33.3 Red Cell Distribution Width 13.2 Platelet Count 460 H Mean Platelet Volume 8.6 Neutrophils % 57.8 Lymphocytes % 28.0 Monocytes % 9.3 Eosinophils % 2.2 Basophils % 0.4 Nucleated Red Blood Cells % 0.0 Neutrophils # 5.7 Lymphocytes # 2.8 Monocytes # 0.9 Eosinophils # 0.2 Basophils # 0.0 Nucleated Red Blood Cells # 0.0 Sodium Level 146 H Potassium Level 3.8 Chloride Level 106 Carbon Dioxide Level 34 H Anion Gap 10 Blood Urea Nitrogen 4 L Creatinine 0.77 Glucose Level 100 Calcium Level 8.9 Phosphorus Level 4.1 Magnesium Level 2.1 Medications Medications Current Medications Ondansetron HCl (Zofran Inj) 4 mg Q6H PRN IV NAUSEA AND/OR VOMITING Last administered on 06/18/17 18:36; Admin Dose 4 MG; Start 06/13/17 at 06:30 Acetaminophen (Tylenol Tab) 650 mg Q6H PRN PO PAIN LEVEL 1-3 OR FEVER; Start 06/13/17 at 06:30; Status Future Hold Trazodone HCl (Desyrel) 150 mg HS PO Last administered on 06/18/17 20:58; Admin Dose 150 MG; Start 06/13/17 at 21:00 Fluoxetine HCl (Prozac) 40 mg HS PO Last administered on 06/18/17 20:58; Admin Dose 40 MG; Start 06/13/17 at 21:00 Fentanyl (Duragesic 12 Mcg/Hr Patch) 1 patch Q72H TRANSDERM Last administered on 06/17/17 14:01; Admin Dose 1 PATCH; Start 06/14/17 at 10:00 Mesalamine (Pentasa) 1,000 mg QID PO Last administered on 06/19/17 08:31; Admin Dose 1,000 MG; Start 06/15/17 at 21:00 Budesonide 9 mg 9 mg DAILY PO Last administered on 06/19/17 08:30; Admin Dose 9 MG; Start 06/16/17 at 09:00 Acetaminophen (Ofirmev 1000mg/ 100ml Iv) 100 ml @ 400 mls/hr Q6H IVPB Last administered on 06/18/17 18:23; Admin Dose 400 MLS/HR; Start 06/16/17 at 11: 00 Famotidine (Pepcid) 20 mg BID PO Last administered on 06/19/17 08:31; Admin Dose 20 MG; Start 06/17/17 at 21:00 Lorazepam (Ativan) 1 mg Q6H PRN IV Anxiety Last administered on 06/19/17 09:59 ; Admin Dose 1 MG; Start 06/18/17 at 11:00 CHRIS LOPEZ Jun 19, 2017 11:47 CHRIS LOPEZ Jun 19, 2017 11:47
--- NOTE | 2017-06-19 15:20 | DS ---
Date/Time of Note Date/Time of Note DATE: 06/19/17 TIME: 15:19 Discharge Summary Admission/Discharge Info Admit Date/Time Jun 15, 2017 at 10:19 Discharge Date/Time Jun 19, 2017 at 12:00 Discharge Diagnosis 1. [place] colitis. 2. Anxiety disorder. 3. Hypothyroidism. Patient Condition: Stable Consults 1. Greg Aiken MD, Gastroenterology. Procedures Colonoscopy Procedure Date 06/15/17 Indication: other (Diarrhea) Pre-procedure Diagnosis Hematochezia/diarrhea Post-procedure Diagnosis Impression: Moderately active [place] colitis. Multiple biopsies obtained Rule out ulcerative colitis versus others Occasional diverticula scattered throughout the colon Moderate-sized internal hemorrhoids. MICROSCOPIC DIAGNOSIS: A-Ascending colon, biopsy: -- Colonic mucosa showing mild acute colitis with minimal basal plasmacytosis. -- No evidence of granuloma, dysplasia or malignancy. B-Transverse colon, biopsy: -- Colonic mucosa showing moderate acute colitis with minimal basal plasmacytosis. -- No evidence of granuloma, dysplasia or malignancy. Continued Next Page. . . C-Descending colon, biopsy: -- Colonic mucosa showing mild acute colitis. -- No evidence of granuloma, dysplasia or malignancy. D-Sigmoid colon, biopsy: -- Colonic mucosa showing mild acute colitis. -- No evidence of granuloma, dysplasia or malignancy. E-Rectum, biopsy: -- Colonic mucosa showing mild acute colitis. -- No evidence of granuloma, dysplasia or malignancy. CT Abdomen and Pelvis IMPRESSION: Diffuse thickening of the colon compatible with colitis. Hepatic steatosis. 2D Echocardiogram Conclusions Normal left ventricular systolic function. Normal left ventricular cavity size. Normal left ventricular wall thickness. Ejection fraction is visually estimated at 55 %. Tissue Doppler/Mitral Doppler indices are within normal limits. E/E`=7. Normal appearance of the tricuspid valve. No evidence of tricuspid regurgitation. Normal appearance and function of the mitral valve with trace physiologic regurgitation. Hx of Present Illness This is a 57-year-old female with past medical history of anxiety and multiple drug allergies who presented to the emergency room complaining of abdominal pain and bloody diarrhea along with generalized weakness. The patient verbalized that the symptoms have progressively worsened over the past few days prior to the day of ED visit. The patient denied any similar problems in the past. The patient denied any hematemesis. She also reported some dyspnea on exertion. In the emergency room, the patient underwent a CT scan of the abdomen and pelvis that revealed pancolitis. The patient also had underlying leukocytosis. The patient's hemoglobin was 12.1. Provided the patient's history of present illness and the diagnostic findings, a clinical decision was made to admit the patient inpatient setting to have a further evaluate. The patient was admitted to inpatient medical surgical floor. The patient was started on empiric antibiotics. A gastroenterology consult was obtained. Hospital Course The patient underwent a colonoscopy on 06/15/2017 that revealed moderately active universal colitis. After the colonoscopy, the patient was started on mesalamine and budesonide. Gastroenterology was strongly thinking about ulcerative colitis and other autoimmune diseases. The patient's IBD serology are pending at this time. Nevertheless, after the initiation of the patient's mesalamine and budesonide the patient improved dramatically. Prior to the initiation of mesalamine, the patient was on a opiate medications around-the- clock for abdominal pain. The patient's diarrhea improved over the course of the hospital stay. The patient was cleared by gastroenterology to be discharged home on mesalamine and budesonide provided the patient will follow up with outpatient gastroenterology. The patient's biopsy from colonoscopy was negative for any malignancy, but it revealed colitis. The patient has underlying hypothyroidism. She was maintained on Synthroid for the same. The patient has anxiety disorder. She was maintained on anxiolytics for the same. The patient complained of some dyspnea upon the ED visit. The patient was started on as needed inhaled bronchodilators. Nevertheless, the patient's dyspnea resolved and she did not require any dose of as needed inhaled bronchodilators during the hospital course. Discharge Disposition/Plan 1. Take medications as per prescription. 2. Take a lactose-free diet. 3. Resume activities as tolerated. 4. Follow-up with gastroenterology (Dr. Aiken) in 1 month. 5. Please go to the nearest emergency room if you continue to have significant abdominal pain, persistent diarrhea, or any other unusual signs/symptoms. The patient verbalized understanding of her discharge instructions. At this time I would like to thank all the consultants for seeing the patient, doing the diagnostic procedures, and providing clinical recommendations. Case discussed with Dr. Soria. Home Meds Active Scripts Famotidine* (Famotidine*) 20 Mg Tablet, 20 MG PO BID, #60 TAB Prov:JAQUAN SMITH PHYSICIAN'S AIDE 06/19/17 Budesonide EC* (Budesonide EC*) 3 Mg Capdr...er, 9 MG PO DAILY, #30 CAP Prov:JAQUAN SMITH NP 06/19/17 Mesalamine* (Pentasa*) 250 Mg Capsule.sa, 1000 MG PO QID, #120 TAB Prov:JAQUAN SMITH PHYSICIAN'S AIDE 06/19/17 Fluoxetine Hcl* (Fluoxetine Hcl*) 40 Mg Capsule, 40 MG PO DAILY, #30 CAP Prov:TYE MURDOCK PA-C 09/29/16 Albuterol Sulfate* (Ventolin HFA*) 18 Gm Hfa.aer.ad, 2 PUFF INHALATION Q4H, #1 INHALER Prov:TYE MURDOCK PA-C 05/26/16 Lorazepam* (Lorazepam*) 1 Mg Tablet, 1 MG PO BID Y for ANXIETY, #5 TAB Prov:TYE MURDOCK PA-C 09/29/15 Reported Medications Levothyroxine Sodium (Levothroid) 125 Mcg Tablet, 125 MCG PO DAILY 09/05/13 Trazodone Hcl* (Trazodone Hcl*) 150 Mg Tablet, 150 MG PO HS 07/11/12 Discontinued Reported Medications Fluoxetine Hcl* (Fluoxetine Hcl*) 20 Mg Capsule, 20 MG PO HS 07/11/12 Metoclopramide* (Reglan*) 10 Mg Tablet, 10 MG PO TID 07/11/12 Cimetidine* (Tagamet*) 400 Mg Tablet, 400 MG PO DAILY 07/11/12 Discontinued Scripts Ibuprofen* (Motrin*) 600 Mg Tab, 600 MG PO Q6H Y for PAIN AND OR ELEVATED TEMP, #30 TAB Prov:STELLA BARROW PA-C 09/11/16 Diphenhydramine Hcl* (Benadryl*) 50 Mg Cap, 50 MG PO Q6H Y for ITCHING/RASH, # 30 CAP Prov:STELLA BARROW PA-C 09/11/16 Ibuprofen* (Motrin*) 600 Mg Tab, 600 MG PO Q6H Y for PAIN AND OR ELEVATED TEMP, #20 TAB Prov:GEOFF SCOTT MD 08/22/16 Oxycodone Hcl-Acetaminophen* (Percocet*) 5-325 Mg Tablet, 1 TAB PO Q4H Y for SEVERE PAIN LEVEL 7-10, #5 TAB Prov:RASHAAD PENN NP 11/21/15 Cimetidine* (Cimetidine*) 400 Mg Tablet, 400 MG PO BID, #60 TAB Prov:TYE MURDOCK PA-C 10/30/15 Metoclopramide* (Reglan*) 10 Mg Tablet, 10 MG PO Q6 Y for NAUSEA AND/OR VOMITING , #10 TAB Prov:RASHAAD PENN NP 10/16/15 Phenazopyridine Hcl* (Pyridium*) 200 Mg Tab, 200 MG PO TID Y for URINARY PAIN, # 6 TAB Prov:CONSTANCE SIMON MD 03/23/17 Nitrofurantoin Monohyd Macrocr* (Macrobid*) 100 Mg Capsr, 100 MG PO BID for 7 Days, CAP Prov:CONSTANCE SIMON MD 03/23/17 Lorazepam* (Lorazepam*) 1 Mg Tablet, 1 MG PO Q8H Y for ANXIETY, #10 TAB Prov:RASHAAD PENN PHYSICIAN'S AIDE 03/18/17 Albuterol Sulfate* (Ventolin HFA*) 18 Gm Hfa.aer.ad, 2 PUFF INHALATION Q4H, #1 INHALER Prov:LYNNETTE FRAZIER PA-C 11/20/16 Benzonatate* (Tessalon Perle*) 100 Mg Capsule, 100 MG PO Q8H Y for COUGH, #20 CAP Prov:LYNNETTE FRAZIER PA-C 11/20/16 Trazodone Hcl* (Trazodone Hcl*) 150 Mg Tablet, 150 MG PO QHS, #14 TAB Prov:TYE MURDOCK PA-C 09/29/16 Benzonatate* (Tessalon Perle*) 100 Mg Capsule, 100 MG PO Q8H Y for COUGH, #30 CAP Prov:STELLA BARROW PA-C 09/11/16 Fluoxetine Hcl* (Fluoxetine Hcl*) 40 Mg Capsule, 40 MG PO DAILY, #30 CAP Prov:TYE MURDOCK PA-C 08/31/16 Lorazepam* (Ativan*) 0.5 Mg Tablet, 0.5 MG PO Q8H Y for ANXIETY, #10 TAB Prov:GEOFF SCOTT MD 08/22/16 Amoxicillin* (Amoxicillin*) 500 Mg Cap, 500 MG PO Q8, #30 CAP Prov:GEOFF SCOTT MD 08/22/16 Trazodone Hcl* (Trazodone Hcl*) 150 Mg Tablet, 150 MG PO QHS, #19 TAB Prov:MIKEY INIGUEZ DO 08/09/16 Fluoxetine Hcl* (Fluoxetine Hcl*) 40 Mg Capsule, 40 MG PO DAILY, #14 CAP Prov:MIKEY INIGUEZ DO 08/09/16 Trazodone Hcl* (Trazodone Hcl*) 150 Mg Tablet, 150 MG PO QHS, #2 TAB Prov:CONSTANCE SIMON MD 07/14/16 Permethrin* (Elimite*) 5% Cr, 1 APPLIC TOP ONCE, #1 TUB Prov:TYE MURDOCK PA-C 05/26/16 Azithromycin* (Zithromax*) 250 Mg Tablet, 250 MG PO .ZPACK DIRECTED, #6 TAB TAKE 500 MG (2 TABS) THE FIRST DAY THEN 250 MG (1 TAB) DAYS 2-5 Prov:TYE MURDOCK PA-C 05/26/16 Prednisone* (Prednisone*) 20 Mg Tab, 40 MG PO DAILY for 4 Days, TAB Prov:TYE MURDOCK PA-C 05/26/16 Ondansetron Hcl* (Zofran* ODT) 4 mg -ODT Tab.disper, 4 MG PO Q8 Y for NAUSEA AND /OR VOMITING, #30 TAB Prov:RASHAAD PENN NP 11/21/15 Lorazepam* (Ativan*) 0.5 Mg Tablet, 0.5 MG PO BID Y for ANXIETY, #6 TAB Prov:TYE MURDOCK PA-C 10/30/15 Metoclopramide Hcl* (Metoclopramide Hcl*) 10 Mg Tablet, 10 MG PO TID, #30 TAB Prov:TYE MURDOCK PA-C 10/30/15 Trazodone Hcl* (Trazodone Hcl*) 150 Mg Tablet, 150 MG PO QHS, #30 TAB Prov:TYE MURDOCK PA-C 10/30/15 Fluoxetine Hcl* (Fluoxetine Hcl*) 40 Mg Capsule, 40 MG PO DAILY, #30 CAP Prov:TYE MURDOCK PA-C 10/30/15 Hydroxyzine Hcl* (Hydroxyzine Hcl*) 10 Mg Tablet, 10 MG PO Q6H Y for ITCHING, # 30 TAB Prov:RASHAAD PENN NP 10/16/15 Trazodone Hcl* (Trazodone Hcl*) 150 Mg Tablet, 150 MG PO QHS, #30 TAB Prov:TYE MURDOCK PA-C 09/29/15 Fluoxetine Hcl* (Fluoxetine Hcl*) 20 Mg Capsule, 20 MG PO DAILY, #30 CAP Prov:TYE MURDOCK PA-C 09/29/15 Permethrin* (Elimite*) 5% Cr, 1 APPLIC TOP ONCE, #1 TUB Prov:TYE MURDOCK PA-C 09/29/15 Sulfamethoxazole-Trimethoprim* (Bactrim* DS) 800-160 Mg Tab, 1 TAB PO BID for 7 Days, TAB Prov:TYE MURDOCK PA-C 09/29/15 Follow-up Plan Greg Aiken MD [facility] Office Address [address] [place], [place] [id number] Office Primary Care Provider [place] Time spent on discharge: 40 minutes Pending Labs Laboratory Tests Test 06/19/17 04:25 White Blood Count 9.910^3/ul (4.8-10.8) Red Blood Count 3.5710^6/ul (4.20-5.40) Hemoglobin 10.8g/dl (12.0-16.0) Hematocrit 32.4% (37.0-47.0) Mean Corpuscular Volume 90.8fl (82.0-101.0) Mean Corpuscular Hemoglobin 30.3pg (29.0-33.0) Mean Corpuscular Hemoglobin Concent 33.3g/dl (32.0-37.0) Red Cell Distribution Width 13.2% (11.5-14.5) Platelet Count 42993^3/UL (140-415) Mean Platelet Volume 8.6fl (7.4-10.4) Neutrophils % 57.8% (39.0-77.0) Lymphocytes % 28.0% (15.0-51.0) Monocytes % 9.3% (0.0-11.0) Eosinophils % 2.2% (0.0-7.0) Basophils % 0.4% (0.0-2.0) Nucleated Red Blood Cells % 0.0/100WBC (0.0-0.0) Neutrophils # 5.710^3/ul (1.6-7.5) Lymphocytes # 2.810^3/ul (0.8-2.9) Monocytes # 0.910^3/ul (0.3-0.9) Eosinophils # 0.210^3/ul (0.0-0.5) Basophils # 0.010^3/ul (0.0-0.1) Nucleated Red Blood Cells # 0.010^3/ul (0.0-0.0) Sodium Level 146mmol/L (135-144) Potassium Level 3.8mmol/L (3.5-5.1) Chloride Level 106mmol/L (97-110) Carbon Dioxide Level 34mmol/L (21-31) Anion Gap 10 (8-16) Blood Urea Nitrogen 4mg/dl (7-20) Creatinine 0.77mg/dl (0.44-1.00) Glucose Level 100mg/dl (70-220) Calcium Level 8.9mg/dl (8.4-10.2) Phosphorus Level 4.1mg/dl (2.5-4.9) Magnesium Level 2.1mg/dl (1.7-2.5) JAQUAN SMITH NP Jun 19, 2017 15:20
== END 2017-06-19 12:00 | disposition home or self-care (01) | DRG 386 ==
LOC: E/R 20:34 → MS1 06-13 01:45 → OBSVTOIN 06-15 10:19
PROVIDERS: ADMIT Internal Medicine; ATTEND Internal Medicine
PROC: 0DBL8ZX Excision of Transverse Colon, Via Natural or Artificial Opening Endoscopic, Diagnostic (ICD-10-PCS; 2017-06-15)
PROC: 0DBN8ZX Excision of Sigmoid Colon, Via Natural or Artificial Opening Endoscopic, Diagnostic (ICD-10-PCS; 2017-06-15)
PROC: 0DBP8ZX Excision of Rectum, Via Natural or Artificial Opening Endoscopic, Diagnostic (ICD-10-PCS; 2017-06-15)
PROC: 0DBM8ZX Excision of Descending Colon, Via Natural or Artificial Opening Endoscopic, Diagnostic (ICD-10-PCS; 2017-06-15)
PROC: 0DBK8ZX Excision of Ascending Colon, Via Natural or Artificial Opening Endoscopic, Diagnostic (ICD-10-PCS; principal; 2017-06-15 20:45)
DX: K51.00 Ulcerative (chronic) pancolitis without complications (principal); F11.20 Opioid dependence, uncomplicated; F32.9 Major depressive disorder, single episode, unspecified; F41.9 Anxiety disorder, unspecified; E89.0 Postprocedural hypothyroidism; G47.00 Insomnia, unspecified; K21.9 Gastro-esophageal reflux disease without esophagitis; E87.6 Hypokalemia; E66.9 Obesity, unspecified; R06.00 Dyspnea, unspecified; K57.30 Diverticulosis of large intestine without perforation or abscess without bleeding; K64.8 Other hemorrhoids; Z87.891 Personal history of nicotine dependence; Z68.26 Body mass index [BMI] 26.0-26.9, adult
CPT/HCPCS: 71020; 74177; 80048; 80053; 83690; 83735; 84100; 85025; 85610; 85730; 88305; 93306; 96374; 96375; G0378; J0131; J1170; J1200; J1335; J2060; J2405; J2543; J3480; J7030; J7042; Q9967

== ENCOUNTER 2017-08-12 14:30 | Emergency (ER) | END 2017-08-12 18:41 | disposition home or self-care (01) ==

== ENCOUNTER 2017-10-13 15:22 | Emergency (ER) | END 2017-10-13 17:30 | disposition home or self-care (01) ==

== ENCOUNTER 2017-10-20 15:42 | Emergency (ER) | END 2017-10-20 21:01 | disposition home or self-care (01) ==

== ENCOUNTER 2017-11-12 16:41 | Emergency (ER) | END 2017-11-12 19:34 | disposition home or self-care (01) ==

== ENCOUNTER 2018-01-15 18:38 | Emergency (ER) | END 2018-01-15 19:49 | disposition home or self-care (01) ==

== ENCOUNTER 2018-02-20 15:50 | Emergency (ER) | END 2018-02-20 18:35 | disposition home or self-care (01) ==

== ENCOUNTER 2018-03-09 19:06 | Emergency (ER) | END 2018-03-10 04:15 | disposition short-term general hospital (02) ==

== ENCOUNTER 2018-04-01 14:55 | Emergency (ER) | END 2018-04-01 21:17 | disposition home or self-care (01) ==

== ENCOUNTER 2018-05-12 16:20 | Emergency (ER) | END 2018-05-12 23:01 | disposition home or self-care (01) ==

== ENCOUNTER 2018-05-16 11:21 | Emergency (ER) | END 2018-05-16 12:03 | disposition home or self-care (01) ==

== ENCOUNTER 2018-11-28 17:23 | Inpatient (IN) | payer OTHER ==
[~2018-11-28] VITALS: Ht 162.6 cm; Wt 87.3 kg
[~2018-11-28 17:23] MED LIST changes: -ALBU18HF INHALATION; -AMOX500C2 PO; -AZIT250T94 PO; -BACTDS PO; -BEN50 PO; -BENZ100C70 PO; +DOXY100T20 PO; -ELIM TOP; -FLUO20CA22 PO; -HYDR-3010 PO; +HYDR-4011 PO; -IBUP-1542 PO; -LEVO125T58 PO; +LEVO137T3 PO; -LORA-441 PO; +LORA-444 PO; +METO10TA3 PO; -METO10TA92 PO; -METO10TA96 PO; -NITR-58 PO; -ONDA4TAB35 PO; -OXYC-281 PO; -PHEN-538 PO; -[UNRECOGNIZED DRUG - CODE] PO
--- NOTE | 2018-11-28 20:52 | ERD ---
ER Documentation Chief Complaint Chief Complaint abdominal pain, blood in stool today HPI This is a 58-year-old female with a history of ulcerative colitis, who presents with abdominal pain. The patient last underwent colonoscopy in May 2017, at that time it revealed moderately active universal colitis. ROS All systems reviewed and are negative except as per history of present illness. Medications Home Meds Active Scripts Prednisone* (Prednisone*) 20 Mg Tab, 60 MG PO DAILY for 4 Days, TAB Prov:CONSTANCE SIMON MD 07/03/18 Doxycycline Hyclate* (Doxycycline Hyclate*) 100 Mg Tablet.dr, 100 MG PO BID for 10 Days, TAB Prov:LYNNETTE FRAZIER PA-C 05/12/18 Hydrocodone/Acetaminophen (Stem 5-325 Tablet) 1 Each Tablet, 1 TAB PO Q6H PRN for PAIN, #20 TAB Prov:ASIF ROBERTS MD 04/01/18 Lorazepam* (Ativan*) 2 Mg Tablet, 2 MG PO BID PRN for ANXIETY, #8 TAB Prov:MEGAN MURPHY PA-C 01/15/18 Hydrocodone/Acetaminophen (Stem 5-325 Tablet) 1 Each Tablet, 1 TAB PO Q6H PRN for PAIN, #7 TAB Prov:GEOFF SCOTT MD 08/12/17 Reported Medications Cimetidine* (Cimetidine*) 400 Mg Tablet, 400 MG PO HS for GERD, TAB 03/10/18 Metoclopramide Hcl* (Metoclopramide Hcl*) 10 Mg Tablet, 10 MG PO NEEDED PRN for NAUSEA AND OR VOMITING, TAB 08/12/17 Trazodone Hcl* (Trazodone Hcl*) 150 Mg Tablet, 150 MG PO QHS, #30 TAB 08/12/17 Lorazepam* (Lorazepam*) 1 Mg Tablet, 1 MG PO BID PRN for ANXIETY, #30 TAB 08/12/17 Levothyroxine Sodium* (Levothyroxine Sodium*) 137 Mcg Tablet, 137 MCG PO BEFORE BREAKFAST, #30 TAB 08/12/17 Fluoxetine Hcl* (Fluoxetine Hcl*) 40 Mg Capsule, 40 MG PO QHS, CAP 08/12/17 Allergies Allergies: Coded Allergies: amoxicillin (Unverified Allergy, Severe, 04/01/18) cefuroxime (Unverified Allergy, Intermediate, RASH, 03/10/18) erythromycin base (Unverified Allergy, Intermediate, LIGHTHEADED, 03/10/18) ketorolac tromethamine (Unverified Allergy, Intermediate, HEADACHE, 03/10/18) levofloxacin (Unverified Allergy, Intermediate, PALPITATION, 03/10/18) cefuroxime axetil (Unverified Allergy, Mild, RASH, 03/10/18) ketorolac (Unverified Allergy, Unknown, HEADACHE, 03/10/18) PMhx/Soc History of Surgery: Yes (Hysterectomy,Appy,Cholecystectomy) Anesthesia Reaction: No Hx Neurological Disorder: No Hx Respiratory Disorders: Yes (Asthma) Hx Cardiac Disorders: No Hx Psychiatric Problems: Yes (Anxiety D/O) Hx Miscellaneous Medical Probl: Yes (Ulcerative Colitis) Hx Alcohol Use: No Hx Substance Use: No Hx Tobacco Use: No Physical Exam Vitals Vital Signs Date Temp Pulse Resp B/P (MAP) Pulse Ox O2 O2 Flow FiO2 Time Delivery Rate 11/28/18 98.8 86 18 135/93 97 17:26 (107) Physical Exam Const: No acute distress Head: Atraumatic Eyes: Normal Conjunctiva ENT: Normal External Ears, Nose and Mouth. Neck: Full range of motion. No meningismus. Resp: Clear to auscultation bilaterally Cardio: Regular rate and rhythm, no murmurs Abd: Soft, non tender, non distended. Normal bowel sounds Skin: No petechiae or rashes Back: No midline or flank tenderness Ext: No cyanosis, or edema Neur: Awake and alert Psych: Normal Mood and Affect Results 24 hrs Laboratory Tests Test 11/28/18 21:16 White Blood Count Pending Red Blood Count Pending Hemoglobin Pending Hematocrit Pending Mean Corpuscular Volume Pending Mean Corpuscular Hemoglobin Pending Mean Corpuscular Hemoglobin Concent Pending Red Cell Distribution Width Pending Platelet Count Pending Mean Platelet Volume Pending Current Medications Medications Dose Sig/Shannan Start Time Status Last (Trade) Ordered Route PRN Stop Time Admin Dose Reason Admin 1 mg ONCE STAT 11/28/18 DC 11/28/18 Hydromorphone IV 21:10 21:17 HCl 11/28/18 21:11 (Dilaudid) Ondansetron 4 mg ONCE STAT 11/28/18 DC 11/28/18 HCl (Zofran IV 21:10 21:17 Inj) 11/28/18 21:11 EKG: Rate/Rhythm: Normal Sinus Rhythm QRS, ST, T-waves: No changes consistent w/ acute ischemia Impression: No evidence of ischemia or arrhythmia KRISTEN FONG MD November 28, 2018 20:52
[2018-11-28] MEDS ORDERED: HYDROmorphONE 1 MG/ML SYG IV STA ×2 (21:10→21:44)
[2018-11-28] MEDS ORDERED: ONDANSETRON 4 MG INJ IV STA (21:10)
--- NOTE | 2018-11-28 21:47 | ERD ---
ER Documentation Chief Complaint Chief Complaint abdominal pain, blood in stool today HPI This is a 58-year-old female with a history of ulcerative colitis, who presents with abdominal pain. The patient last underwent colonoscopy in May 2017, at that time it revealed moderately active universal colitis. At that time she was started on mesalamine and budesonide, however she is no longer on these medications, and she has lost follow-up. She denies fever, pain is diffuse, is associated with diarrhea. She has nausea but no vomiting. ROS All systems reviewed and are negative except as per history of present illness. Medications Home Meds Active Scripts Prednisone* (Prednisone*) 20 Mg Tab, 60 MG PO DAILY for 4 Days, TAB Prov:CONSTANCE SIMON MD 07/03/18 Doxycycline Hyclate* (Doxycycline Hyclate*) 100 Mg Tablet.dr, 100 MG PO BID for 10 Days, TAB Prov:LYNNETTE FRAZIER PA-C 05/12/18 Hydrocodone/Acetaminophen ([place] 5-325 Tablet) 1 Each Tablet, 1 TAB PO Q6H PRN for PAIN, #20 TAB Prov:ASIF ROBERTS MD 04/01/18 Lorazepam* (Ativan*) 2 Mg Tablet, 2 MG PO BID PRN for ANXIETY, #8 TAB Prov:MEGAN MURPHY PA-C 01/15/18 Hydrocodone/Acetaminophen ([place] 5-325 Tablet) 1 Each Tablet, 1 TAB PO Q6H PRN for PAIN, #7 TAB Prov:GEOFF SCOTT MD 08/12/17 Reported Medications Cimetidine* (Cimetidine*) 400 Mg Tablet, 400 MG PO HS for GERD, TAB 03/10/18 Metoclopramide Hcl* (Metoclopramide Hcl*) 10 Mg Tablet, 10 MG PO NEEDED PRN for NAUSEA AND OR VOMITING, TAB 08/12/17 Trazodone Hcl* (Trazodone Hcl*) 150 Mg Tablet, 150 MG PO QHS, #30 TAB 08/12/17 Lorazepam* (Lorazepam*) 1 Mg Tablet, 1 MG PO BID PRN for ANXIETY, #30 TAB 08/12/17 Levothyroxine Sodium* (Levothyroxine Sodium*) 137 Mcg Tablet, 137 MCG PO BEFORE BREAKFAST, #30 TAB 08/12/17 Fluoxetine Hcl* (Fluoxetine Hcl*) 40 Mg Capsule, 40 MG PO QHS, CAP 08/12/17 Allergies Allergies: Coded Allergies: amoxicillin (Unverified Allergy, Severe, 04/01/18) cefuroxime (Unverified Allergy, Intermediate, RASH, 03/10/18) erythromycin base (Unverified Allergy, Intermediate, LIGHTHEADED, 03/10/18) ketorolac tromethamine (Unverified Allergy, Intermediate, HEADACHE, 03/10/18) levofloxacin (Unverified Allergy, Intermediate, PALPITATION, 03/10/18) cefuroxime axetil (Unverified Allergy, Mild, RASH, 03/10/18) ketorolac (Unverified Allergy, Unknown, HEADACHE, 03/10/18) PMhx/Soc History of Surgery: Yes (Hysterectomy,Appy,Cholecystectomy) Anesthesia Reaction: No Hx Neurological Disorder: No Hx Respiratory Disorders: Yes (Asthma) Hx Cardiac Disorders: No Hx Psychiatric Problems: Yes (Anxiety D/O) Hx Miscellaneous Medical Probl: Yes (Ulcerative Colitis) Hx Alcohol Use: No Hx Substance Use: No Hx Tobacco Use: No Physical Exam Vitals Vital Signs Date Temp Pulse Resp B/P (MAP) Pulse Ox O2 O2 Flow FiO2 Time Delivery Rate 11/28/18 98.8 86 18 135/93 97 17:26 (107) Physical Exam Const: Well-developed, well-nourished Head: Atraumatic Eyes: Normal Conjunctiva ENT: Normal External Ears, Nose and Mouth. Neck: Full range of motion. No meningismus. Resp: Clear to auscultation bilaterally Cardio: Regular rate and rhythm, no murmurs Abd: Soft, abdomen diffusely tender, there is no rebound or guarding, no McBurney point tenderness, non distended. Normal bowel sounds Skin: No petechiae or rashes Back: No midline or flank tenderness Ext: No cyanosis, or edema Neur: Awake and alert Psych: Normal Mood and Affect Result Diagram: 11/28/18211511/28/182115 Results 24 hrs Laboratory Tests Test 11/28/18 21:16 11/28/18 21:20 White Blood Count 12.7 10^3/ul Red Blood Count 3.89 10^6/ul Hemoglobin 11.8 g/dl Hematocrit 35.3 % Mean Corpuscular Volume 90.7 fl Mean Corpuscular Hemoglobin 30.3 pg Mean Corpuscular Hemoglobin Concent 33.4 g/dl Red Cell Distribution Width 12.9 % Platelet Count 358 10^3/UL Mean Platelet Volume 8.6 fl Immature Granulocytes % 0.300 % Neutrophils % 69.1 % Lymphocytes % 22.2 % Monocytes % 6.8 % Eosinophils % 1.3 % Basophils % 0.3 % Nucleated Red Blood Cells % 0.0 /100WBC Immature Granulocytes # 0.040 10^3/ul Neutrophils # 8.8 10^3/ul Lymphocytes # 2.8 10^3/ul Monocytes # 0.9 10^3/ul Eosinophils # 0.2 10^3/ul Basophils # 0.0 10^3/ul Nucleated Red Blood Cells # 0.0 10^3/ul Sodium Level 134 mmol/L Potassium Level 4.8 mmol/L Chloride Level 99 mmol/L Carbon Dioxide Level 28 mmol/L Anion Gap 7 Blood Urea Nitrogen 7 mg/dl Creatinine 0.77 mg/dl Est Glomerular Filtrat Rate mL/min > 60 mL/min Glucose Level 98 mg/dl Calcium Level 9.1 mg/dl Total Bilirubin 0.2 mg/dl Direct Bilirubin 0.00 mg/dl Indirect Bilirubin 0.2 mg/dl Aspartate Amino Transf (AST/SGOT) 22 IU/L Alanine Aminotransferase (ALT/SGPT) 18 IU/L Alkaline Phosphatase 88 IU/L Troponin I < 0.012 ng/ml C-Reactive Protein 0.9 mg/dl Total Protein 7.7 g/dl Albumin 4.1 g/dl Globulin 3.60 g/dl Albumin/Globulin Ratio 1.13 Lipase 89 U/L Urine Color COLORLESS Urine Clarity CLEAR Urine pH 7.0 Urine Specific Candia 1.003 Urine Ketones NEGATIVE mg/dL Urine Nitrite NEGATIVE mg/dL Urine Bilirubin NEGATIVE mg/dL Urine Urobilinogen NEGATIVE mg/dL Urine Leukocyte Esterase NEGATIVE Ramos/ul Urine Hemoglobin NEGATIVE mg/dL Urine Glucose NEGATIVE mg/dL Urine Total Protein NEGATIVE mg/dl Current Medications Medications Dose Sig/Shannan Start Time Status Last (Trade) Ordered Route PRN Stop Time Admin Dose Reason Admin 1 mg ONCE STAT 11/28/18 DC 11/28/18 Hydromorphone IV 21:10 21:17 HCl 11/28/18 21:11 (Dilaudid) Ondansetron 4 mg ONCE STAT 11/28/18 DC 11/28/18 HCl (Zofran IV 21:10 21:17 Inj) 11/28/18 21:11 1 mg ONCE STAT 11/28/18 DC 11/28/18 Hydromorphone IV 21:44 21:55 HCl 11/28/18 21:47 (Dilaudid) 10 mg ONCE ONCE 11/28/18 DC 11/28/18 Metoclopramid IV 22:00 21:55 e HCl 11/28/18 22:01 (Reglan) Procedures/MDM 58-year-old female presents for evaluation of abdominal pain, diarrhea, her symptoms are concerning upper and also colitis flare, she had been previously lost to follow-up, and is not currently on any immunosuppressants, thus the plan will be for admission to get her symptoms under control, and to ideally get her started on a stable regimen. She has no signs of a surgical abdomen, and she is otherwise medically stable. Accepting Care Team: Current data and ongoing care discussed. Primary: Jona Consulting: None Outstanding Data: Formal CT abdomen pelvis read Departure Diagnosis: Primary Impression: Abdominal pain Abdominal location: unspecified location Qualified Codes: R10.9 - Unspecified abdominal pain Additional Impression: Ulcerative colitis Ulcerative colitis location: unspecified ulcerative colitis location Digestive disease complication type: unspecified complication Qualified Codes: K51.919 - Ulcerative colitis, unspecified with unspecified complications Condition: KRISTEN Rebolledo MD November 28, 2018 21:46
[2018-11-28] MEDS ORDERED: METOCLOPRAMIDE 10 MG INJ IV ONE (22:00)
[2018-11-28 22:30] VITALS: BP 137/79; PULSE 80; RESP 18
[2018-11-28] MEDS ORDERED: ACETAMINOPHEN 325 MG TAB PO PRN (23:00)
[2018-11-28] MEDS ORDERED: LORAZEPAM 2 MG INJ ONE (23:17)
[2018-11-28] MEDS ORDERED: LORAZEPAM 2 MG INJ IV ONE (23:30)
[2018-11-28] MEDS: SOD CHLORIDE 0.9% 1,000 ML IV SCH (23:58)
[2018-11-29] MEDS: predniSONE 20 MG TAB PO SCH ×2 (00:14→08:22)
[2018-11-29] MEDS: HYDROmorphONE 1 MG/ML SYG IV PRN ×11 (00:14→23:12)
[2018-11-29] MEDS: MESALAMINE (EC) 400 MG CAP PO SCH ×4 (00:14→23:12)
[2018-11-29] MEDS: traZODone 50 MG TAB PO SCH ×2 (00:39→20:49)
[2018-11-29] MEDS: FLUOXETINE 20 MG CAP PO SCH ×2 (00:39→20:48)
[2018-11-29 00:58] VITALS: Ht 162.6 cm; Wt 87.3 kg
[2018-11-29] MEDS: LORAZEPAM 0.5 MG TAB PO PRN ×2 (01:21→07:29)
[2018-11-29 02:00] VITALS: BP 133/66; PULSE 76; RESP 18
[2018-11-29] MEDS: ONDANSETRON 4 MG INJ IV PRN ×5 (03:46→23:05)
[2018-11-29] MEDS: PANTOPRAZOLE (EC) 40 MG TAB PO SCH (06:16)
[2018-11-29] MEDS: LEVOTHYROXINE 137 MCG TAB PO SCH (06:16)
[2018-11-29] MEDS: SOD CHLORIDE 0.9% 1,000 ML IV SCH ×3 (07:00→16:36)
[2018-11-29 08:37] VITALS: BP 138/73; PULSE 80; RESP 18
[2018-11-29] MEDS: AZITHROMYCIN 250 MG TAB PO SCH (12:15)
--- NOTE | 2018-11-29 12:31 | HP ---
DATE OF ADMISSION: 11/28/2018 CHIEF COMPLAINT: Abdominal pain. HISTORY OF PRESENT ILLNESS: A 58-year-old female with history of ulcerative colitis diagnosed 2 year s prior to admission, presented to emergency room with complaint of diffuse abdominal pain associated with bloody diarrhea. Apparently, the patient had colonoscopy in May 2017 and diagnosed with u lcerative colitis at that time. She was started on mesalamine; however, she stopped taking the medic ations and did not follow up with GI. On review of system she denies any nausea or vomiting. No hematemesis. No melena. No fevers or chi lls. Initial evaluation revealed white blood cell count of 12.7. Basic metabolic panel and liver fu nction tests were within normal limits. CAT scan of the abdomen and pelvis showed mild diverticulosi s with no evidence of acute diverticulitis. Esperanza mesentry with cluster of prominent lymph nodes in the mid abdomen was noted. PAST MEDICAL HISTORY: 1. Ulcerative colitis. 2. Severe anxiety disorder. 3. Hypothyroidism. 4. Chronic depression. HOME MEDICATIONS: 1. Guttenberg. 2. Lorazepam. 3. Amantadine. 4. Metoclopramide. 5. Trazodone. 6. Levothyroxine. 7. Fluoxetine. ALLERGIES: The patient is allergic to several medications including; 1. AMOXICILLIN. 2. CEFUROXIME. 3. ERYTHROMYCIN. 4. KETOROLAC. 5. LEVAQUIN. SOCIAL HISTORY: The patient lives at home. She has a remote history of tobacco use, but quit severa l years prior to admission. She smokes medical marijuana occasionally. PAST SURGICAL HISTORY: Status post hysterectomy, status post appendectomy, status post cholecystecto my. PHYSICAL EXAMINATION: GENERAL: Well-developed, well-nourished, obese female who is in no apparent distress. VITAL SIGNS: Stable. She is afebrile. HEENT: Extraocular muscles are intact. Pupils are equal and reactive to light bilaterally. Sclerae are anicteric. Oropharynx is clear and moist. NECK: Supple, no JVD, no carotid bruit. CHEST: Clear to auscultation bilaterally. CARDIAC: Regular rate and rhythm. ABDOMEN: Soft, diffusely tender to palpation. Normoactive bowel sounds. No palpable mass. EXTREMITIES: No clubbing, cyanosis, or edema. NEUROLOGICAL: Nonfocal. ASSESSMENT: 1. A 58-year-old female with several days of abdominal pain associated with bloody diarrhea. The fi ndings are most consistent with ulcerative colitis flare. 2. Severe anxiety disorder. 3. Chronic cough, most likely due to bronchitis. 4. Chronic depression. 5. Hypothyroidism. PLAN: 1. Place in med/surg observation. 2. Start IV Solu-Medrol. 3. Resume mesalamine and Z-Patel. 4. Check TSH. 5. Gastrointestinal consultation was requested. Dictated By: MANN MORALES/NTS Conf#: [id number] DID#: [id number] CC: WILVER HOWARD MD; CHILO STEINBERG;*EndCC*
[2018-11-29] MEDS: LORAZEPAM 1 MG TAB PO PRN ×2 (13:32→21:43)
[2018-11-29] MEDS ORDERED: METHYLPREDNISOLONE 125 MG INJ IV SCH (14:00)
[2018-11-29] MEDS ORDERED: LORAZEPAM 1 MG TAB PO SCH (14:00)
[2018-11-29 14:24] VITALS: BP 148/82; PULSE 74; RESP 18
--- NOTE | 2018-11-29 15:04 | CONS ---
Assessment/Plan Assessment/Plan Hospital Course (Demo Recall) Assessment: Bloody diarrhea/abdominal pain -likely 2/2 to UC Flare UC Hypothyroidism Anxiety/depression Plan: Soul-medrol 20 mg IV q 8 hrs- plan to change to prednisone 30 mg po BID with a 5 mg taper every 5 days prior to d/c Clear liquids today- advance as tolerated Continue mesalamine Will check ERS/CRP Recheck labs in am Patient seen in collaboration with Dr. Aiken CC: CHILO AIKEN MD ; Consultation Date/Type/Reason Admit Date/Time November 28, 2018 at 22:29 Date of Consultation: November 29, 2018 Type of Consult GI Reason for Consultation Bloody diarrhea Date/Time of Note DATE: 11/29/18 TIME: 14:44 Hx of Present Illness This is a 58 year old female with PMH of hypothyroidism, Ulcerative colitis, anxiety disorder, hypothyroidism, chronic depression who presented with c/o bloody diarrhea. She states she has had progressive lower abdominal pain for the last few weeks and yesterday she started having diarrhea x2 episodes with bloody. She states she had up to 7 bm yesterday. She denies melena, n/v, hematemesis. She states she was previously on mesalamine however stopped taking medication over a year ago. She admits not following up with GI. At time of exam pt c/o generalized abd pain, no BM/s today. She has been afebrile since admission, previous leukocytosis has resolved, no noted anemia, LFTs are within normal limits discussed plan to continue Solu-Medrol we will reduce to 20 mg every 8 hours we will continue mesalamine's and check CRP/ESR for baseline. Further recommendations based on clinical course Review of Systems: A 12 system, review was conducted and is negative except as noted in the HPI or here. Past Medical History Home Meds Active Scripts Prednisone* (Prednisone*) 20 Mg Tab, 60 MG PO DAILY for 4 Days, TAB Prov:CONSTANCE SIMON MD 07/03/18 Doxycycline Hyclate* (Doxycycline Hyclate*) 100 Mg Tablet., 100 MG PO BID for 10 Days, TAB Prov:LYNNETTE FRAZIER PA-C 05/12/18 Hydrocodone/Acetaminophen ([place] 5-325 Tablet) 1 Each Tablet, 1 TAB PO Q6H PRN for PAIN, #20 TAB Prov:ASIF ROBERTS MD 04/01/18 Lorazepam* (Ativan*) 2 Mg Tablet, 2 MG PO BID PRN for ANXIETY, #8 TAB Prov:MEGAN MURPHY PA-C 01/15/18 Hydrocodone/Acetaminophen ([place] 5-325 Tablet) 1 Each Tablet, 1 TAB PO Q6H PRN for PAIN, #7 TAB Prov:GEOFF SCOTT MD 08/12/17 Reported Medications Cimetidine* (Cimetidine*) 400 Mg Tablet, 400 MG PO HS for GERD, TAB 03/10/18 Metoclopramide Hcl* (Metoclopramide Hcl*) 10 Mg Tablet, 10 MG PO NEEDED PRN for NAUSEA AND OR VOMITING, TAB 08/12/17 Trazodone Hcl* (Trazodone Hcl*) 150 Mg Tablet, 150 MG PO QHS, #30 TAB 08/12/17 Lorazepam* (Lorazepam*) 1 Mg Tablet, 1 MG PO BID PRN for ANXIETY, #30 TAB 08/12/17 Levothyroxine Sodium* (Levothyroxine Sodium*) 137 Mcg Tablet, 137 MCG PO BEFORE BREAKFAST, #30 TAB 08/12/17 Fluoxetine Hcl* (Fluoxetine Hcl*) 40 Mg Capsule, 40 MG PO QHS, CAP 08/12/17 Medications Current Medications Sodium Chloride 1,000 ml @ 125 mls/hr Q8H IV Last administered on 11/29/18at 08:30; Admin Dose 125 MLS/HR; Start 11/28/18 at 23:00 Pantoprazole (Protonix Tab) 40 mg DAILY@0600 PO Last administered on 11/29/18at 06:16; Admin Dose 40 MG; Start 11/29/18 at 06:00 Hydromorphone HCl (Dilaudid) 1 mg Q2H PRN IV pain Last administered on 11/29/18at 14:41; Admin Dose 1 MG; Start 11/28/18 at 23:00 Acetaminophen (Tylenol Tab) 650 mg Q4H PRN PO pain/fever; Start 11/28/18 at 23:00 Ondansetron HCl (Zofran Inj) 4 mg Q4H PRN IV nausea Last administered on 11/29/18at 12:15; Admin Dose 4 MG; Start 11/28/18 at 23:00 Hydralazine HCl (Apresoline) 25 mg Q6H PRN PO sbp>160; Start 11/28/18 at 23:00 Mesalamine (Delzicol Dr) 800 mg Q8 PO Last administered on 11/29/18 13:35; Admin Dose 800 MG; Start 11/28/18 at 23:30 Fluoxetine HCl (Prozac) 40 mg QHS PO Last administered on 11/29/18 00:39; Admin Dose 40 MG; Start 11/29/18 at 00:33 Levothyroxine Sodium (Synthroid) 137 mcg BEFORE BREAKFAST PO Last administered on 11/29/18 06:16; Admin Dose 137 MCG; Start 11/29/18 at 07:00 Trazodone HCl (Desyrel) 150 mg QHS PO Last administered on 11/29/18 00:39; Admin Dose 150 MG; Start 11/29/18 at 00:34 Lorazepam (Ativan) 2 mg Q8 PRN PO ANXIETY Last administered on 11/29/18 13:32; Admin Dose 2 MG; Start 11/29/18 at 11:30 Azithromycin (Zithromax) 250 mg DAILY PO Last administered on 11/29/18 12:15; Admin Dose 250 MG; Start 11/29/18 at 11:30 Methylprednisolone Sodium Succinate (Solu-Medrol) 80 mg Q8 IV Last administered on 11/29/18 13:35; Admin Dose 80 MG; Start 11/29/18 at 14:00 Allergies: Coded Allergies: amoxicillin (Unverified Allergy, Severe, 04/01/18) cefuroxime (Unverified Allergy, Intermediate, RASH, 03/10/18) erythromycin base (Unverified Allergy, Intermediate, LIGHTHEADED, 03/10/18) ketorolac tromethamine (Unverified Allergy, Intermediate, HEADACHE, 03/10/18) levofloxacin (Unverified Allergy, Intermediate, PALPITATION, 03/10/18) cefuroxime axetil (Unverified Allergy, Mild, RASH, 03/10/18) acetaminophen (Verified Allergy, Unknown, 11/28/18) headcahe, alters mood hydrocodone (Verified Allergy, Unknown, 11/28/18) headcahe, alters mood ketorolac (Unverified Allergy, Unknown, HEADACHE, 03/10/18) Past Surgical History Past Surgical Hx: other Social History Smoking Status: Former smoker Exam/Review of Systems Exam Vitals Vital Signs Date Temp Pulse Resp B/P (MAP) Pulse Ox O2 O2 Flow FiO2 Time Delivery Rate 11/29/18 98.2 74 18 148/82 93 14:24 (104) 11/29/18 Room Air 08:37 Intake and Output 11/28/18 11/28/18 11/29/18 1414:59 22:59 06:59 IntakeIntake Total 925 ml BalanceBalance 925 ml Exam PHYSICAL EXAMINATION: GENERAL: Well developed, well nourished, alert & oriented x 3, in no acute distress SKIN: No lesions, no stigmata chronic liver disease, no evidence of bleeding diathesis HEAD: Normocephalic, atraumatic, no tenderness. EYES: Pupils equal reactive to light and accommodation, full extraocular movements, sclera clear, non-icteric, no discharge. EARS/NOSE AND THROAT: Ears normal, nose normal NECK: Supple, no masses CHEST: Inspection within normal limits. CARDIOVASCULAR: Heart: Regular rate and rhythm RESPIRATORY: Lungs clear to auscultation GASTROINTESTINAL AND LIVER: Abdomen: Soft, generalized tenderness, non- distended, no hernias, no masses, no organomegaly, no ascites, no guarding, no rebound tenderness, normoactive bowel sounds. Rectal: Deferred. EXTREMITIES: No cyanosis, clubbing or edema. Results Result Diagram: 11/29/1852311/29/1824 Results 24hrs Laboratory Tests Test 11/28/18 21:16 11/28/18 21:20 11/29/18 05:22 11/29/18 05:24 White Blood Count 12.7 #H 9.6 # Red Blood Count 3.89 L 4.24 Hemoglobin 11.8 L 12.8 Hematocrit 35.3 L 38.2 Mean Corpuscular 90.7 90.1 Volume Mean Corpuscular 30.3 30.2 Hemoglobin Mean Corpuscular 33.4 33.5 Hemoglobin Concent Red Cell 12.9 13.0 Distribution Width Platelet Count 358 362 Mean Platelet Volume 8.6 8.7 Immature 0.300 0.400 Granulocytes % Neutrophils % 69.1 86.5 H Lymphocytes % 22.2 10.9 L Monocytes % 6.8 1.8 Eosinophils % 1.3 0.1 Basophils % 0.3 0.3 Nucleated Red Blood 0.0 0.0 Cells % Immature 0.040 H 0.040 H Granulocytes # Neutrophils # 8.8 H 8.3 H Lymphocytes # 2.8 1.1 Monocytes # 0.9 0.2 L Eosinophils # 0.2 0.0 Basophils # 0.0 0.0 Nucleated Red Blood 0.0 0.0 Cells # Erythrocyte 52 H Sedimentation Rate Prothrombin Time 13.2 Prothrombin Time 1.0 Ratio INR International 0.99 Normalized Ratio Sodium Level 134 L 140 Potassium Level 4.8 4.7 Chloride Level 99 106 Carbon Dioxide Level 28 27 Anion Gap 7 7 Blood Urea Nitrogen 7 5 L Creatinine 0.77 0.73 Est Glomerular > 60 > 60 Filtrat Rate mL/min Glucose Level 98 145 # Calcium Level 9.1 9.1 Total Bilirubin 0.2 0.2 Direct Bilirubin 0.00 0.00 Indirect Bilirubin 0.2 0.2 Aspartate Amino 22 21 Transf (AST/SGOT) Alanine 18 20 Aminotransferase (AL T/SGPT) Alkaline Phosphatase 88 90 Troponin I < 0.012 C-Reactive Protein 0.9 Total Protein 7.7 7.6 Albumin 4.1 4.0 Globulin 3.60 H 3.60 H Albumin/Globulin 1.13 1.11 Ratio Lipase 89 Urine Color COLORLESS Urine Clarity CLEAR Urine pH 7.0 Urine Specific 1.003 [place] Urine Ketones NEGATIVE Urine Nitrite NEGATIVE Urine Bilirubin NEGATIVE Urine Urobilinogen NEGATIVE Urine Leukocyte NEGATIVE Esterase Urine Hemoglobin NEGATIVE Urine Glucose NEGATIVE Urine Total Protein NEGATIVE Thyroid Stimulating 7.970 H Hormone (TSH) Medications Medication Current Medications Sodium Chloride 1,000 ml @ 125 mls/hr Q8H IV Last administered on 11/29/18at 08:30; Admin Dose 125 MLS/HR; Start 11/28/18 at 23:00 Pantoprazole (Protonix Tab) 40 mg DAILY@0600 PO Last administered on 11/29/18at 06:16; Admin Dose 40 MG; Start 11/29/18 at 06:00 Hydromorphone HCl (Dilaudid) 1 mg Q2H PRN IV pain Last administered on 11/29/18at 14:41; Admin Dose 1 MG; Start 11/28/18 at 23:00 Acetaminophen (Tylenol Tab) 650 mg Q4H PRN PO pain/fever; Start 11/28/18 at 23:00 Ondansetron HCl (Zofran Inj) 4 mg Q4H PRN IV nausea Last administered on 11/29/18 12:15; Admin Dose 4 MG; Start 11/28/18 at 23:00 Hydralazine HCl (Apresoline) 25 mg Q6H PRN PO sbp>160; Start 11/28/18 at 23:00 Mesalamine (Delzicol Dr) 800 mg Q8 PO Last administered on 11/29/18 13:35; Admin Dose 800 MG; Start 11/28/18 at 23:30 Fluoxetine HCl (Prozac) 40 mg QHS PO Last administered on 11/29/18 00:39; Admin Dose 40 MG; Start 11/29/18 at 00:33 Levothyroxine Sodium (Synthroid) 137 mcg BEFORE BREAKFAST PO Last administered on 11/29/18 06:16; Admin Dose 137 MCG; Start 11/29/18 at 07:00 Trazodone HCl (Desyrel) 150 mg QHS PO Last administered on 11/29/18 00:39; Admin Dose 150 MG; Start 11/29/18 at 00:34 Lorazepam (Ativan) 2 mg Q8 PRN PO ANXIETY Last administered on 11/29/18 13:32; Admin Dose 2 MG; Start 11/29/18 at 11:30 Azithromycin (Zithromax) 250 mg DAILY PO Last administered on 11/29/18 12:15; Admin Dose 250 MG; Start 11/29/18 at 11:30 Methylprednisolone Sodium Succinate (Solu-Medrol) 80 mg Q8 IV Last administered on 11/29/18 13:35; Admin Dose 80 MG; Start 11/29/18 at 14:00 CHRIS LOPEZ November 29, 2018 14:56
[2018-11-29 20:14] VITALS: BP 176/84; PULSE 92; RESP 16
[2018-11-29] MEDS: METHYLPREDNISOLONE 40 MG INJ IV SCH (23:16)
[2018-11-30] MEDS: HYDROmorphONE 1 MG/ML SYG IV PRN ×6 (01:08→15:11)
[2018-11-30] MEDS: SOD CHLORIDE 0.9% 1,000 ML IV SCH ×2 (01:09→09:26)
[2018-11-30 02:45] VITALS: BP 156/72; PULSE 82; RESP 16
[2018-11-30] MEDS: MESALAMINE (EC) 400 MG CAP PO SCH ×2 (06:08→13:29)
[2018-11-30] MEDS: LORAZEPAM 1 MG TAB PO PRN ×2 (06:08→14:12)
[2018-11-30] MEDS: LEVOTHYROXINE 137 MCG TAB PO SCH (06:08)
[2018-11-30] MEDS: METHYLPREDNISOLONE 40 MG INJ IV SCH ×2 (06:08→13:30)
[2018-11-30] MEDS: PANTOPRAZOLE (EC) 40 MG TAB PO SCH (06:08)
[2018-11-30] MEDS: ONDANSETRON 4 MG INJ IV PRN ×3 (06:09→14:18)
[2018-11-30 07:59] VITALS: BP 142/69; PULSE 74; RESP 16
[2018-11-30] MEDS: AZITHROMYCIN 250 MG TAB PO SCH (08:14)
[2018-11-30] MEDS ORDERED: AZIT250T13 PO (10:03)
[2018-11-30] MEDS ORDERED: ASA400 PO (10:03)
[2018-11-30] MEDS ORDERED: LEVO150T7 PO (10:03)
[2018-11-30] MEDS ORDERED: PRED20TA PO (10:07)
--- NOTE | 2018-11-30 10:08 | PDOCDIS ---
Discharge Instructions CONDITION [id number] Patient Condition: [id number] Good HOME CARE INSTRUCTIONS: [id number] Diet Instructions: [id number] Regular ACTIVITY: [id number] Activity Restrictions: [id number] No Restrictions FOLLOW UP/APPOINTMENTS Follow-up Plan pcp [address] Aiken 1 week MANN SINCLAIR MD November 30, 2018 10:08
[2018-11-30 14:15] VITALS: BP 157/77; PULSE 74; RESP 16
--- NOTE | 2018-11-30 19:08 | DS ---
DATE OF ADMISSION: 11/28/2018 DATE OF DISCHARGE: 11/30/2018 DISCHARGE DIAGNOSES: 1. A 58-year-old female with ulcerative colitis flare. 2. Chronic bronchitis. 3. Hypothyroidism. 4. Chronic depression. 5. Severe anxiety disorder. 6. MULTIPLE DRUG ALLERGIES. HOSPITAL COURSE: A 58-year-old female with history of ulcerative colitis diagnosed about 1-1/2 years prior to admission, presented to emergency room with complaint of diffuse abdominal pain associated with bloody diarrhea. The patient was diagnosed with ulcerative colitis flare. She was seen in [facility] by the gastroenterology group. The patient was placed on IV Solu-Medrol and mesalamine. He r diarrhea resolved and her pain improved. She was found to have of TSH of 7.97. I increased her thyroid supplements 150 mcg daily. The patien t also complained of chronic dry cough. She was placed on Z-Patel. THE PATIENT HAS MULTIPLE DRUG LADAN RGIES INCLUDING SEVERAL ANTIBIOTICS. However, she tolerated Z-Patel. The patient is in a stable condi tion for discharge. MEDICATIONS ON DISCHARGE: 1. Zithromax 250 mg x4 days. 2. Levothyroxine 150 mcg daily. 3. Mesalamine 800 mg q.8 hours. 4. Prednisone 30 mg p.o. b.i.d. with 5 mg taper every 5 days. 5. Cimetidine 400 mg daily. 6. Prozac 40 mg daily. 7. Lorazepam 2 mg b.i.d. as needed. 8. Reglan as needed. 9. Trazodone 150 mg p.o. at bedtime. 10. Percocet 10/325 one tablet every 4 hours as needed, #20. FOLLOWUP: 1. Follow up with PCP. 2. Follow up with Dr. Aiken in 1 week. Dictated By: MANN MORALES/NTS Conf#: [id number] DID#: [id number] CC: CHILO AIKEN; WILVER HOWARD MD;*[facility]*
[2018-12-01] MEDS ORDERED: LEVOTHYROXINE 150 MCG TAB PO SCH (07:00)
== END 2018-11-30 17:00 | disposition home or self-care (01) | DRG 387 ==
LOC: E/R 17:23 → PP2 22:29
PROVIDERS: ADMIT Legal Medicine; ATTEND Legal Medicine
DX: K51.90 Ulcerative colitis, unspecified, without complications (principal); F41.9 Anxiety disorder, unspecified; F32.9 Major depressive disorder, single episode, unspecified; E03.9 Hypothyroidism, unspecified; J42 Unspecified chronic bronchitis
CPT/HCPCS: 36415; 74176; 80053; 81003; 83690; 84443; 84484; 85025; 85610; 85651; 86140; 93005; 96374; 96375; 96376; J1170; J2060; J2405; J2765; J2920; J2930; J7030; J7512

== ENCOUNTER 2018-12-16 16:05 | Emergency (ER) | payer OTHER ==
[~2018-12-16] VITALS: Ht 162.6 cm; Wt 84.1 kg
[~2018-12-16 16:05] MED LIST changes: +ASA400 PO; +AZIT250T13 PO; -DOXY100T20 PO; -HYDR-4011 PO; -LEVO137T3 PO; +LEVO150T7 PO; -LORA1TAB PO
[2018-12-16 16:08] VITALS: BP 174/84; PULSE 92; RESP 19; Ht 162.6 cm; Wt 84.1 kg
[2018-12-16] MEDS ORDERED: LORAZEPAM 1 MG TAB PO ONE (16:30)
[2018-12-16] MEDS ORDERED: TRAZ150T65 PO (16:46)
[2018-12-16] MEDS ORDERED: FLUO40CA PO (16:47)
[2018-12-16] MEDS ORDERED: LORA-444 PO (16:47)
[2018-12-16] MEDS ORDERED: OXYC-431 PO (16:48)
[2018-12-16] MEDS ORDERED: GABA300C16 PO (16:49)
[2018-12-16] MEDS ORDERED: METO10TA3 PO (16:49)
[2018-12-16] MEDS ORDERED: ONDANSETRON (ODT) 4 MG TAB ODT STA (16:52)
[2018-12-16] MEDS ORDERED: LIDOCAINE/MYLANTA 40 ML BTL PO ONE (17:00)
--- NOTE | 2018-12-16 17:39 | ERD ---
ER Documentation Chief Complaint Chief Complaint STABBING LIKE PAIN @ MID CHEST AREA X 2 HOURS AGO HPI Patient is a 58-year-old female with chronic pain who presents for chest pain. The patient said that she woke up this morning with chest pain. She has had anxiety as well. She said that she is "going off by prednisone" and that she is started with abdominal pain as well. She has no blood in her stool. She was recently admitted and discharged 2 weeks ago. Upon review of old medical record the patient has multiple visits for various pain complaints. Review of the emergency department information exchange system shows visits to 4 separate emergency departments for a total of 16 visits over the past 1 year. ROS All systems reviewed and are negative except as per history of present illness. Medications Home Meds Active Scripts Prednisone* (Prednisone*) 20 Mg Tab, 30 MG PO BID for 30 Days, TAB 30 mg po bid with 5 mg taper every 5 days Prov:MANN SINCLAIR MD 11/30/18 Levothyroxine Sodium* (Levothyroxine Sodium*) 150 Mcg Tablet, 150 MCG PO BEFORE BREAKFAST for 30 Days, TAB 3 Refills Prov:MANN SINCLAIR MD 11/30/18 Mesalamine (Delzicol) 400 Mg Cap.drtab., 800 MG PO Q8 for 30 Days, 3 Refills Prov:MANN SINCLAIR MD 11/30/18 Reported Medications Gabapentin* (Gabapentin*) 300 Mg Capsule, 300 MG PO BID, #60 CAP 12/16/18 Metoclopramide Hcl* (Metoclopramide Hcl*) 10 Mg Tablet, 10 MG PO WITH MEALS BEDTIME, TAB 12/16/18 Oxycodone HCl/Acetaminophen (Oxycodone-Acetaminophen 10-325) 1 Each Tablet, 1 EACH PO TID, TAB 12/16/18 Lorazepam* (Ativan*) 2 Mg Tablet, 2 MG PO NEEDED PRN for ANXIETY, #30 TAB 12/16/18 Fluoxetine Hcl* (Fluoxetine Hcl*) 40 Mg Capsule, 40 MG PO QHS, CAP 12/16/18 Trazodone Hcl* (Trazodone Hcl*) 150 Mg Tablet, 150 MG PO QHS, #30 TAB 12/16/18 Discontinued Reported Medications Cimetidine* (Cimetidine*) 400 Mg Tablet, 400 MG PO HS for GERD, TAB 03/10/18 Metoclopramide Hcl* (Metoclopramide Hcl*) 10 Mg Tablet, 10 MG PO NEEDED PRN for NAUSEA AND OR VOMITING, TAB 08/12/17 Trazodone Hcl* (Trazodone Hcl*) 150 Mg Tablet, 150 MG PO QHS, #30 TAB 08/12/17 Fluoxetine Hcl* (Fluoxetine Hcl*) 40 Mg Capsule, 40 MG PO QHS, CAP 08/12/17 Discontinued Scripts Azithromycin* (Azithromycin*) 250 Mg Tablet, 250 MG PO DAILY for 4 Days, TAB Prov:MANN SINCLAIR MD 11/30/18 Lorazepam* (Ativan*) 2 Mg Tablet, 2 MG PO BID PRN for ANXIETY, #8 TAB Prov:MEGAN MURPHY PA-C 01/15/18 Allergies Allergies: Coded Allergies: amoxicillin (Unverified Allergy, Severe, 12/16/18) cefuroxime (Unverified Allergy, Intermediate, RASH, 12/16/18) erythromycin base (Unverified Allergy, Intermediate, LIGHTHEADED, 12/16/18) ketorolac tromethamine (Unverified Allergy, Intermediate, HEADACHE, 12/16/18) levofloxacin (Unverified Allergy, Intermediate, PALPITATION, 12/16/18) cefuroxime axetil (Unverified Allergy, Mild, RASH, 12/16/18) acetaminophen (Verified Allergy, Unknown, 11/28/18) headcahe, alters mood hydrocodone (Verified Allergy, Unknown, 11/28/18) headcahe, alters mood ketorolac (Unverified Allergy, Unknown, HEADACHE, 03/10/18) PMhx/Soc History of Surgery: Yes (hysterectomy,appendectomy,cholecystectomy,removal of thyroid) Anesthesia Reaction: No Hx Neurological Disorder: No Hx Respiratory Disorders: No Hx Cardiac Disorders: No Hx Psychiatric Problems: Yes (anxiety) Hx Miscellaneous Medical Probl: No Hx Alcohol Use: No Hx Substance Use: No Hx Tobacco Use: No Smoking Status: Never smoker FmHx Family History: diabetes Physical Exam Vitals Vital Signs Date Temp Pulse Resp B/P (MAP) Pulse Ox O2 O2 Flow FiO2 Time Delivery Rate 12/16/18 98.9 92 19 174/84 98 16:08 (114) Physical Exam Const: Anxious Head: Atraumatic Eyes: Normal Conjunctiva ENT: Normal External Ears, Nose and Mouth. Neck: Full range of motion. No meningismus. Resp: Clear to auscultation bilaterally Cardio: Regular rate and rhythm, no murmurs Abd: Soft, non tender, non distended. Normal bowel sounds Skin: No petechiae or rashes Back: No midline or flank tenderness Ext: No cyanosis, or edema Neur: Awake and alert Psych: Anxious Results 24 hrs Current Medications Medications Dose Sig/Shannan Start Time Status Last (Trade) Ordered Route PRN Stop Time Admin Dose Reason Admin Lorazepam 1 mg ONCE ONCE 12/16/18 DC 12/16/18 (Ativan) PO 16:30 16:22 12/16/18 16:31 Ondansetron 4 mg ONCE STAT 12/16/18 DC 12/16/18 HCl (Zofran ODT 16:52 16:56 Odt) 12/16/18 16:53 40 ml ONCE ONCE 12/16/18 DC Miscellaneous PO 17:00 Medication 12/16/18 17:01 (Gi Cocktail (2)) Procedures/MDM EKG read by me: Rate/Rhythm: Regular rate and rhythm at a rate of 80 Intervals: Normal Impression: No evidence of ischemia or arrhythmia Chest x-ray negative per radiology. Patient is a 58-year-old female presents with chest pain. I doubt acute coronary syndrome, pneumonia, pneumothorax, pulmonary embolism, or aortic dissection. EKG and chest x-ray were normal. The patient will be discharged but will need to follow-up closely with her primary doctor within 24 to 48 hours. She was given Ativan and I was going to give her a GI cocktail but she told me she is allergic and she is also allergic to multiple nonnarcotic pain medicines. I will do believe there is an element of drug-seeking behavior and I will not give her narcotic medicines in the emergency department. Departure Diagnosis: Primary Impression: Chest pain Chest pain type: unspecified Qualified Codes: R07.9 - Chest pain, unspecified Condition: Fair Patient Instructions: Chest Pain, Uncertain Cause Referrals: Your doctor Additional Instructions: Call your primary care doctor TOMORROW for an appointment during the next 1-2 days.See the doctor sooner or return here if your condition worsens before your appointment time. CONSTANCE SIMON MD December 16, 2018 17:39
== END 2018-12-16 18:15 | disposition home or self-care (01) ==
LOC: E/R 16:05
DX: R07.9 Chest pain, unspecified (principal)
CPT/HCPCS: 71045; 93005; Z7610

== ENCOUNTER 2018-12-25 17:35 | Emergency (ER) | payer OTHER ==
[~2018-12-25] VITALS: Ht 162.6 cm; Wt 85.8 kg
[~2018-12-25 17:35] MED LIST changes: -AZIT250T13 PO; -CIME400T PO; +GABA300C16 PO; +OXYC-431 PO
[2018-12-25 17:40] VITALS: Ht 162.6 cm; Wt 85.8 kg
[2018-12-25] MEDS ORDERED: SOD CHLORIDE 0.9% 1,000 ML IV STA (18:49)
[2018-12-25] MEDS ORDERED: HYDROmorphONE 1 MG/ML SYG IV STA (18:49)
[2018-12-25] MEDS ORDERED: ONDANSETRON 4 MG INJ IV STA (18:49)
[2018-12-25] MEDS ORDERED: SOD CHLORIDE 0.9% 100 ML ONE (19:46)
[2018-12-25] MEDS ORDERED: IOHEXOL 300MG/ML 150 ML BTL ONE (19:46)
[2018-12-25] MEDS ORDERED: HYDR-3980 PO (20:27)
[2018-12-25] MEDS ORDERED: MESA800T2 PO (20:27)
[2018-12-25] MEDS ORDERED: PRED20TA PO (20:27)
[2018-12-25] MEDS ORDERED: METHYLPREDNISOLONE 125 MG INJ IV ONE (20:30)
--- NOTE | 2018-12-25 20:30 | ERD ---
ER Documentation Chief Complaint Chief Complaint ABD PAIN WITH BLOOD IN STOOL , ONSET 1100 AM H/O ULCERATIVE COLITIS HPI This is a 58-year-old female who is seen frequently here in the ER. She is here complaining of ulcerative colitis flareup today with some diarrhea with some mild blood in her stool. Said 3 times of bright red blood. The patient says she has some left-sided abdominal cramping but no fever vomiting or diarrhea. She said her Asacol is very helpful and she ran out ROS All systems reviewed and are negative except as per history of present illness. Medications Home Meds Active Scripts Mesalamine* (Asacol HD) 800 Mg Tablet.dr, 1800 MG PO TID, #60 TAB Prov:ELAINA NERI DO 12/25/18 Hydrocodone/Acetaminophen (Philo 10-325 Tablet) 1 Each Tablet, 1 TAB PO Q6H PRN for PAIN, #12 TAB Prov:ELAINA NERI DO 12/25/18 Prednisone* (Prednisone*) 20 Mg Tab, 60 MG PO DAILY for 5 Days, TAB Prov:ELAINA NERI DO 12/25/18 Prednisone* (Prednisone*) 20 Mg Tab, 30 MG PO BID for 30 Days, TAB 30 mg po bid with 5 mg taper every 5 days Prov:MANN SINCLAIR MD 11/30/18 Levothyroxine Sodium* (Levothyroxine Sodium*) 150 Mcg Tablet, 150 MCG PO BEFORE BREAKFAST for 30 Days, TAB 3 Refills Prov:MANN SINCLAIR MD 11/30/18 Mesalamine (Delzicol) 400 Mg Cap.drtab., 800 MG PO Q8 for 30 Days, 3 Refills Prov:MANN SINCLAIR MD 11/30/18 Reported Medications Gabapentin* (Gabapentin*) 300 Mg Capsule, 300 MG PO BID, #60 CAP 12/16/18 Metoclopramide Hcl* (Metoclopramide Hcl*) 10 Mg Tablet, 10 MG PO WITH MEALS BEDTIME, TAB 12/16/18 Oxycodone HCl/Acetaminophen (Oxycodone-Acetaminophen 10-325) 1 Each Tablet, 1 EACH PO TID, TAB 12/16/18 Lorazepam* (Ativan*) 2 Mg Tablet, 2 MG PO NEEDED PRN for ANXIETY, #30 TAB 5/30/19 Fluoxetine Hcl* (Fluoxetine Hcl*) 40 Mg Capsule, 40 MG PO QHS, CAP 12/16/18 Trazodone Hcl* (Trazodone Hcl*) 150 Mg Tablet, 150 MG PO QHS, #30 TAB 12/16/18 Allergies Allergies: Coded Allergies: amoxicillin (Unverified Allergy, Severe, 12/16/18) cefuroxime (Unverified Allergy, Intermediate, RASH, 12/16/18) erythromycin base (Unverified Allergy, Intermediate, LIGHTHEADED, 12/16/18) ketorolac tromethamine (Unverified Allergy, Intermediate, HEADACHE, 12/16/18) levofloxacin (Unverified Allergy, Intermediate, PALPITATION, 12/16/18) cefuroxime axetil (Unverified Allergy, Mild, RASH, 12/16/18) acetaminophen (Verified Allergy, Unknown, 11/28/18) headcahe, alters mood hydrocodone (Verified Allergy, Unknown, 11/28/18) headcahe, alters mood ketorolac (Unverified Allergy, Unknown, HEADACHE, 03/10/18) PMhx/Soc History of Surgery: Yes (hysterectomy,appendectomy,cholecystectomy,removal of thyroid) Anesthesia Reaction: No Hx Neurological Disorder: No Hx Respiratory Disorders: No Hx Cardiac Disorders: No Hx Psychiatric Problems: Yes (anxiety) Hx Miscellaneous Medical Probl: No Hx Alcohol Use: No Hx Substance Use: No Hx Tobacco Use: No Smoking Status: Never smoker FmHx Family History: No coronary disease Physical Exam Vitals Vital Signs Date Temp Pulse Resp B/P (MAP) Pulse Ox O2 O2 Flow FiO2 Time Delivery Rate 12/25/18 91 20 153/97 100 Room Air 18:51 (115) 12/25/18 97.8 88 18 176/88 97 17:40 (117) Physical Exam Const: Well-developed, well-nourished Head: Atraumatic, normocephalic Eyes: Normal Conjunctiva, PERRLA, EOMI, normal sclera, no nystagmus ENT: Normal External Ears, Nose and Mouth, moist mucus membranes. Neck: Full range of motion. No meningismus, no lymphadenopathy. Resp: Clear to auscultation bilaterally, no wheezing, rhonchi, rales Cardio: Regular rate and rhythm, no murmurs, S1 S2 present Abd: Soft, lower quadrant tenderness mild, non distended. Normal bowel sounds, no guarding or rebound, no pulsitile abdominal masses or bruits Skin: No petechiae or rashes, no ecchymosis , no maculopapular rash Back: No midline or flank tenderness Ext: No cyanosis, or edema, FROM x 4, normal inspection, neurovascularly intact x 4 Neur: Awake and alert, STR 5/5 x 4, sensation intact x 4, no focal findings, cerebellum intact Psych: Normal Mood and Affect Result Diagram: 12/25/18185512/25/181855 Results 24 hrs Laboratory Tests Test 12/25/18 18:56 White Blood Count 13.0 10^3/ul Red Blood Count 3.81 10^6/ul Hemoglobin 11.8 g/dl Hematocrit 35.1 % Mean Corpuscular Volume 92.1 fl Mean Corpuscular Hemoglobin 31.0 pg Mean Corpuscular Hemoglobin Concent 33.6 g/dl Red Cell Distribution Width 14.6 % Platelet Count 319 10^3/UL Mean Platelet Volume 8.0 fl Immature Granulocytes % 0.800 % Neutrophils % 71.6 % Lymphocytes % 19.5 % Monocytes % 7.7 % Eosinophils % 0.2 % Basophils % 0.2 % Nucleated Red Blood Cells % 0.0 /100WBC Immature Granulocytes # 0.100 10^3/ul Neutrophils # 9.3 10^3/ul Lymphocytes # 2.5 10^3/ul Monocytes # 1.0 10^3/ul Eosinophils # 0.0 10^3/ul Basophils # 0.0 10^3/ul Nucleated Red Blood Cells # 0.0 10^3/ul Sodium Level 135 mmol/L Potassium Level 4.4 mmol/L Chloride Level 99 mmol/L Carbon Dioxide Level 29 mmol/L Anion Gap 7 Blood Urea Nitrogen 15 mg/dl Creatinine 0.66 mg/dl Est Glomerular Filtrat Rate mL/min > 60 mL/min Glucose Level 95 mg/dl Calcium Level 9.4 mg/dl Total Bilirubin 0.3 mg/dl Direct Bilirubin 0.00 mg/dl Indirect Bilirubin 0.3 mg/dl Aspartate Amino Transf (AST/SGOT) 18 IU/L Alanine Aminotransferase (ALT/SGPT) 23 IU/L Alkaline Phosphatase 48 IU/L Total Protein 7.4 g/dl Albumin 4.0 g/dl Globulin 3.40 g/dl Albumin/Globulin Ratio 1.17 Lipase 125 U/L Current Medications Medications Dose Sig/Shannan Start Time Status Last (Trade) Ordered Route PRN Stop Time Admin Dose Reason Admin Sodium 1,000 ml @ Q1H STAT 12/25/18 DC 12/25/18 Chloride 1,000 mls/hr IV 18:49 12/25/18 18:57 19:48 1 mg ONCE STAT 12/25/18 DC 12/25/18 Hydromorphone IV 18:49 12/25/18 18:58 HCl 18:51 (Dilaudid) Ondansetron 4 mg ONCE STAT 12/25/18 DC 12/25/18 HCl (Zofran IV 18:49 12/25/18 18:57 Inj) 18:51 IV Flush 10 ml STK-MED 12/25/18 DC 12/25/18 (NS 10 ml) ONCE .ROUTE 19:46 12/25/18 20:08 19:47 Sodium 100 ml @ ud STK-MED 12/25/18 DC 12/25/18 Chloride ONCE .ROUTE 19:46 12/25/18 20:09 19:47 Iohexol 150 ml STK-MED 12/25/18 DC 12/25/18 (Omnipaque ONCE .ROUTE 19:46 12/25/18 20:09 300mg/ ml) 19:47 125 mg ONCE ONCE 12/25/18 Methylprednis IV 20:30 12/25/18 olone Sodium 20:31 Succinate (Solu-Medrol) Procedures/[place] [id number] Radiology Main Line: [phone] DIAGNOSTIC IMAGING REPORT Patient: KAYLIN MAK : 1960 Age: 58 Sex: F MR #: [id number] DOS: 12/25/18 0000 Ordering MD: ELAINA NERI DO Location: E/R Room/Bed: PROCEDURE: CT Abdomen and Pelvis with contrast. CLINICAL INDICATION: Abdominal pain. TECHNIQUE: CT scan of the abdomen and pelvis with contrast was performed on a multi-detector high-resolution CT scanner. The patient was scanned following the uncomplicated intravenous administration of 100 cc of Omnipaque 300. Coronal and sagittal reformatted images were obtained from the axial source images. One or more of the following dose reduction techniques were used: Automated exposure control, adjustment of the mA and/or kV according to patient size, use of iterative reconstruction technique. Images were reviewed on a high-resolution PACS workstation. DICOM images are available. The total exam CTDI equals 19.11 mGy and the total exam DLP equals 1091.85 mGy-cm. COMPARISON: CT from 11/28/2018. FINDINGS: CT ABDOMEN: Visualized lung bases: No significant infiltrate or pleural/pericardial effusion. The heart size is normal. Liver: The liver is normal in size and demonstrates normal attenuation. No evidence of suspicious solid hepatic mass or intrahepatic ductal dilatation. Gallbladder and bile ducts: The gallbladder is surgically absent. The intrahepatic biliary tree is unremarkable. Spleen: Unremarkable. Pancreas: Unremarkable. No ductal dilatation, mass, or peripancreatic stranding. Adrenal glands: Unremarkable. Kidneys: No hydronephrosis, stones, or solid lesions seen. Vasculature: There is mild aortic atherosclerosis. No abdominal aortic aneurysm. Negative IVC. Lymph nodes: No adenopathy. GI: There is no evidence of inflamed appendix. Negative terminal ileum and rectum. No evidence of obstruction. Scattered diverticula are present throughout the sigmoid colon. Peritoneal cavity: Minimal mid mesenteric fat stranding is again noted. No free fluid or free air. CT PELVIS: : Normal appearing bladder, distal ureters and ureterovesiculal junctions. The pelvic organs are unremarkable. Peritoneal cavity: No free fluid or free air. Lymph nodes: No adenopathy. Osseous structures: No acute osseous injury. No lytic or blastic lesions. Other: None. IMPRESSION: 1. No evidence of acute abdominopelvic inflammatory process, mass or lymphadenopathy. 2. Sigmoid diverticulosis. 3. Mild aortic atherosclerosis. 4. Minimal mid mesenteric fat stranding is again noted, similar to the prior exam, likely related to chronic mesenteric panniculitis. RPTAT: QQ .Rick Alvarado MD, Date Time Electronically viewed and signed by .Rick Alvarado MD, MD on 12/25/2018 20:04 .A/ CC: ELAINA NERI DO [id number] Patient was discharged home with stable ulcerative colitis with Asacol, prednisone and Philo Departure Diagnosis: Primary Impression: Ulcerative colitis Ulcerative colitis location: unspecified ulcerative colitis location Diges tive disease complication type: unspecified complication Qualified Codes: K51.919 - Ulcerative colitis, unspecified with unspecified complications Condition: Stable Patient Instructions: Ulcerative Colitis ELAINA NERI DO Dec 25, 2018 20:30
[2018-12-25] MEDS ORDERED: LORAZEPAM 1 MG TAB PO ONE (21:00)
[2018-12-25 21:07] VITALS: BP 148/89; PULSE 89; RESP 20
== END 2018-12-25 21:09 | disposition home or self-care (01) ==
LOC: E/R 17:35
DX: K51.919 Ulcerative colitis, unspecified with unspecified complications (principal)
CPT/HCPCS: 36415; 74177; 80053; 83690; 85025; 96374; 96375; J1170; J2405; J2930; J7030; Q9967; Z7502; Z7610

== ENCOUNTER 2018-12-26 15:40 | Emergency (ER) | payer OTHER ==
[~2018-12-26] VITALS: Ht 162.6 cm; Wt 85.0 kg
[~2018-12-26 15:40] MED LIST changes: +HYDR-3980 PO; +MESA800T2 PO
[2018-12-26 15:42] VITALS: BP 186/79; PULSE 100; RESP 18; Ht 162.6 cm; Wt 85.0 kg
--- NOTE | 2018-12-26 16:15 | ERD ---
ER Documentation Chief Complaint Chief Complaint ANIETY ATTACK, PT REQUESTING MED REFILL HPI Patient is a 58-year-old female with past medical history of ulcerative colitis, anxiety, cholecystectomy, who presents the ER for concerns of feeling anxious and needing a medication refill. Patient states she ran out of her Ativan. Patient is requesting refill as she states that she is feeling anxious. Patient denies any suicidal ideations or homicidal ideations. Of note, patient was seen here yesterday for concerns of ulcerative colitis flareup. Patient states her bleeding has resolved. Patient denies any vomiting. Patient denies fevers or chills. Patient states yesterday she was worried about her bleeding that she did not bring up her medication refill. Patient is also concerned about bumps in her rectal region. Patient denies any pain. ROS All systems reviewed and are negative except as per history of present illness. Medications Home Meds Active Scripts Mesalamine* (Asacol HD) 800 Mg Tablet.dr, 1800 MG PO TID, #60 TAB Prov:ELAINA NERI DO 12/25/18 Hydrocodone/Acetaminophen (Falls 10-325 Tablet) 1 Each Tablet, 1 TAB PO Q6H PRN for PAIN, #12 TAB Prov:ELAINA NERI DO 12/25/18 Prednisone* (Prednisone*) 20 Mg Tab, 60 MG PO DAILY for 5 Days, TAB Prov:ELAINA NERI DO 12/25/18 Prednisone* (Prednisone*) 20 Mg Tab, 30 MG PO BID for 30 Days, TAB 30 mg po bid with 5 mg taper every 5 days Prov:MANN SINCLAIR MD 11/30/18 Levothyroxine Sodium* (Levothyroxine Sodium*) 150 Mcg Tablet, 150 MCG PO BEFORE BREAKFAST for 30 Days, TAB 3 Refills Prov:MANN SINCLAIR MD 11/30/18 Mesalamine (Delzicol) 400 Mg Cap.drtab., 800 MG PO Q8 for 30 Days, 3 Refills Prov:MANN SINCLAIR MD 11/30/18 Reported Medications Gabapentin* (Gabapentin*) 300 Mg Capsule, 300 MG PO BID, #60 CAP 12/16/18 Metoclopramide Hcl* (Metoclopramide Hcl*) 10 Mg Tablet, 10 MG PO WITH MEALS BEDTIME, TAB 12/16/18 Oxycodone HCl/Acetaminophen (Oxycodone-Acetaminophen 10-325) 1 Each Tablet, 1 EACH PO TID, TAB 12/16/18 Lorazepam* (Ativan*) 2 Mg Tablet, 2 MG PO NEEDED PRN for ANXIETY, #30 TAB 12/16/18 Fluoxetine Hcl* (Fluoxetine Hcl*) 40 Mg Capsule, 40 MG PO QHS, CAP 12/16/18 Trazodone Hcl* (Trazodone Hcl*) 150 Mg Tablet, 150 MG PO QHS, #30 TAB 12/16/18 Allergies Allergies: Coded Allergies: amoxicillin (Unverified Allergy, Severe, 12/16/18) cefuroxime (Unverified Allergy, Intermediate, RASH, 12/16/18) erythromycin base (Unverified Allergy, Intermediate, LIGHTHEADED, 12/16/18) ketorolac tromethamine (Unverified Allergy, Intermediate, HEADACHE, 12/16/18) levofloxacin (Unverified Allergy, Intermediate, PALPITATION, 12/16/18) cefuroxime axetil (Unverified Allergy, Mild, RASH, 12/16/18) acetaminophen (Verified Allergy, Unknown, 11/28/18) headcahe, alters mood hydrocodone (Verified Allergy, Unknown, 11/28/18) headcahe, alters mood ketorolac (Unverified Allergy, Unknown, HEADACHE, 03/10/18) PMhx/Soc History of Surgery: Yes (hysterectomy,cholecystectomy,removal of thyroid) Anesthesia Reaction: No Hx Neurological Disorder: No Hx Respiratory Disorders: No Hx Cardiac Disorders: No Hx Psychiatric Problems: Yes (anxiety) Hx Miscellaneous Medical Probl: Yes (ulcerative colitis) Hx Alcohol Use: No Hx Substance Use: No Hx Tobacco Use: No FmHx Family History: No diabetes Physical Exam Vitals Vital Signs Date Temp Pulse Resp B/P (MAP) Pulse Ox O2 O2 Flow FiO2 Time Delivery Rate 12/26/18 98.0 100 18 186/79 96 15:42 (114) Physical Exam GENERAL: Well-developed, well-nourished female. Speaking in full sentences. HEAD: Normocephalic, atraumatic. EYES: Pupils are equally reactive bilaterally. EOMs grossly intact. No conjunctival erythema. NECK: Supple. No meningismus. Normal range of motion of the neck. LUNG: Clear to auscultation bilaterally. No rhonchi, wheezing, rales or coarse breath sounds. HEART: Regular rate and rhythm. No murmurs, rubs or gallops. RECTAL: Wart like lesions noted posterior to anus. No active bleeding or drainage. EXTREMITIES: Equal pulses bilaterally. No peripheral clubbing, cyanosis or edema. No unilateral leg swelling. NEUROLOGIC: Alert and oriented. Moving all four extremities without any difficulty. Normal speech. Steady gait. SKIN: Normal color. Warm and dry. No rashes or lesions. PSYCH: Appears anxious. Denied homicidal ideations. Denied suicidal ideations. Results 24 hrs Current Medications Medications Dose Sig/Shannan Start Time Status Last (Trade) Ordered Route PRN Stop Time Admin Dose Reason Admin Lorazepam 2 mg ONCE ONCE 12/26/18 (Ativan) PO 16:30 12/26/18 16:31 Procedures/MDM MEDICAL DECISION MAKING: Patient is a 58-year-old female with past medical history of anxiety, ulcerative colitis, status post cholecystectomy, presents the ER for concerns of needing Ativan medication refill. Patient states she ran out 2 days ago. Patient states she has an appointment with her primary care doctor on Thursday.. Vital signs were reviewed. Patient is afebrile. Patient was not hypoxic. Patient was hemodynamically stable. Patient has been seen here at this facility for similar concerns in the past. I did review the patient's cures report which shows that patient last received prescription for Ativan 2 mg on 11-30-18. Patient states she did run out of this medication. I explained to the patient I will give her a single dose of Ativan here today in ER and she will need to follow-up with her primary care physician for any additional refills. Patient understood and was agreeable with this plan. Patient was also encouraged to follow-up with her GI doctor for her ulcerative colitis. Patient denied suicidal ideations or homocidal ideations. Patient was advised to follow up with auto adjudication specialist and/or her GI doctor for her rectal lesions of concern. DISCHARGE: At this time, patient is stable for discharge and outpatient management. I have instructed the patient to follow-up with his/her primary care physician in 1-2 days. I have discussed with the patient the possibility of needing to see a specialist for further workup and imaging studies if symptoms persist. I have instructed the patient to promptly return to the ER for any new or worsening symptoms including increased pain, fever, nausea, vomiting, weakness or LOC. The patient and/or family expressed understanding of and agreement with this plan. All questions were answered. Home care instructions were provided. Patients blood pressure was elevated (>120/80) but appears stable without evidence of hypertensive emergency, hypertensive urgency or end-organ failure. I had discussion with the patient about the risks of hypertension. I have advised the patient to follow up with his/her primary care physician for outpatient monitoring and treatment for hypertension in 2-3 days. I have instructed the patient to return to the ER for any new or worsening symptoms including chest pain, shortness of breath, headache, blurred vision, confusion, nausea, vomiting or LOC. Disclaimer: Inadvertent spelling and grammatical errors are likely due to EHR/dictation software use and do not reflect on the overall quality of patient care. Also, please note that the electronic time recorded on this note does not necessarily reflect the actual time of the patient encounter. Departure Diagnosis: Primary Impression: Anxiety Additional Impression: Encounter for medication refill Condition: Fair Patient Instructions: Taking Medicine Safely Referrals: [facility] YOU HAVE RECEIVED A MEDICAL SCREENING EXAM AND THE RESULTS INDICATE THAT YOU DO NOT HAVE A CONDITION THAT REQUIRES URGENT TREATMENT IN THE EMERGENCY DEPARTMENT. FURTHER EVALUATION AND TREATMENT OF YOUR CONDITION CAN WAIT UNTIL YOU ARE SEEN IN YOUR DOCTORS OFFICE WITHIN THE NEXT 1-2 DAYS. IT IS YOUR RESPONSIBILITY TO MAKE AN APPOINTMENT FOR FOLOW-UP CARE. IF YOU HAVE A PRIMARY DOCTOR --you should call your primary doctor and schedule an appointment IF YOU DO NOT HAVE A PRIMARY DOCTOR YOU CAN CALL OUR PHYSICIAN REFERRAL HOTLINE AT IF YOU CAN NOT AFFORD TO SEE A PHYSICIAN YOU CAN CHOSE FROM THE FOLLOWING [facility] [address] [facility] [address] [facility] [address] [facility] [facility] [address] [facility] [facility] [address] [facility]. [facility]. [address] [facility] YOU HAVE RECEIVED A MEDICAL SCREENING EXAM AND THE RESULTS INDICATE THAT YOU DO NOT HAVE A CONDITION THAT REQUIRES URGENT TREATMENT IN THE EMERGENCY DEPARTMENT. FURTHER EVALUATION AND TREATMENT OF YOUR CONDITION CAN WAIT UNTIL YOU ARE SEEN IN YOUR DOCTORS OFFICE WITHIN THE NEXT 1-2 DAYS. IT IS YOUR RESPONSIBILITY TO MAKE AN APPOINTMENT FOR FOLOW-UP CARE. IF YOU HAVE A PRIMARY DOCTOR --you should call your primary doctor and schedule and appointment IF YOU DO NOT HAVE A PRIMARY DOCTOR YOU CAN CALL OUR PHYSICIAN REFERRAL HOTLINE AT . IF YOU CAN NOT AFFORD TO SEE A PHYSICIAN YOU CAN CHOSE FROM THE FOLLOWING [facility] INSTITUTIONS: [facility] [address] [place] [address] [facility] [address] [place] [address] [facility] [address] [place] [address] Additional Instructions: Follow-up with your GI doctor Dr. Aiken in regards to your concerns. Follow-up with your primary care physician for further refills of your medications. Call your primary care doctor TOMORROW for an appointment during the next 1-2 days.See the doctor sooner or return here if your condition worsens before your appointment time. ORLIN RADER PA-C Dec 26, 2018 16:15
[2018-12-26] MEDS ORDERED: LORAZEPAM 1 MG TAB PO ONE (16:30)
== END 2018-12-26 16:46 | disposition home or self-care (01) ==
LOC: FTE 15:40
DX: F41.9 Anxiety disorder, unspecified (principal); Z76.0 Encounter for issue of repeat prescription
CPT/HCPCS: Z7502; Z7610; 99281

== ENCOUNTER 2018-12-28 17:56 | Emergency (ER) | payer OTHER ==
[~2018-12-28] VITALS: Wt 78.9 kg
[2018-12-28 18:03] VITALS: BP 141/76; PULSE 76; RESP 18
--- NOTE | 2018-12-28 19:25 | ERD ---
ER Documentation Chief Complaint Chief Complaint ANXIETY ATTACK HPI 58-year-old female, presents to the emergency department, complaining of worsening of anxiety during the last 3 days after being on prednisone. The patient usually takes Lorazepam 2 mg but ran out of the medication. She denies chest pain, no shortness of breath, no abdominal pain, no fever or chills. ROS All systems reviewed and are negative except as per history of present illness. Medications Home Meds Active Scripts Lorazepam* (Lorazepam*) 1 Mg Tablet, 1 MG PO Q8H PRN for ANXIETY, #10 TAB Prov:ANGELIA NAIK MD 12/28/18 Mesalamine* (Asacol HD) 800 Mg Tablet.dr, 1800 MG PO TID, #60 TAB Prov:DAREK NERISTOLOS Giovanni DO 12/25/18 Hydrocodone/Acetaminophen (Crescent 10-325 Tablet) 1 Each Tablet, 1 TAB PO Q6H PRN for PAIN, #12 TAB Prov:DAREK NERISTOLOS ALucia DO 12/25/18 Prednisone* (Prednisone*) 20 Mg Tab, 60 MG PO DAILY for 5 Days, TAB Prov:LEKKOSDAREKSTOLOS A. DO 12/25/18 Prednisone* (Prednisone*) 20 Mg Tab, 30 MG PO BID for 30 Days, TAB 30 mg po bid with 5 mg taper every 5 days Prov:MANN SINCLAIR MD 11/30/18 Levothyroxine Sodium* (Levothyroxine Sodium*) 150 Mcg Tablet, 150 MCG PO BEFORE BREAKFAST for 30 Days, TAB 3 Refills Prov:MANN SINCLAIR MD 11/30/18 Mesalamine (Delzicol) 400 Mg Cap.drtab., 800 MG PO Q8 for 30 Days, 3 Refills Prov:MANN SINCLAIR MD 11/30/18 Reported Medications Gabapentin* (Gabapentin*) 300 Mg Capsule, 300 MG PO BID, #60 CAP 12/16/18 Metoclopramide Hcl* (Metoclopramide Hcl*) 10 Mg Tablet, 10 MG PO WITH MEALS BEDTIME, TAB 12/16/18 Oxycodone HCl/Acetaminophen (Oxycodone-Acetaminophen 10-325) 1 Each Tablet, 1 EACH PO TID, TAB 12/16/18 Lorazepam* (Ativan*) 2 Mg Tablet, 2 MG PO NEEDED PRN for ANXIETY, #30 TAB 12/16/18 Fluoxetine Hcl* (Fluoxetine Hcl*) 40 Mg Capsule, 40 MG PO QHS, CAP 12/16/18 Trazodone Hcl* (Trazodone Hcl*) 150 Mg Tablet, 150 MG PO QHS, #30 TAB 12/16/18 Allergies Allergies: Coded Allergies: amoxicillin (Unverified Allergy, Severe, 12/28/18) cefuroxime (Unverified Allergy, Intermediate, RASH, 12/28/18) erythromycin base (Unverified Allergy, Intermediate, LIGHTHEADED, 12/28/18) ketorolac tromethamine (Unverified Allergy, Intermediate, HEADACHE, 12/28/18) levofloxacin (Unverified Allergy, Intermediate, PALPITATION, 12/28/18) cefuroxime axetil (Unverified Allergy, Mild, RASH, 12/28/18) acetaminophen (Verified Allergy, Unknown, 11/28/18) headcahe, alters mood hydrocodone (Verified Allergy, Unknown, 11/28/18) headcahe, alters mood ketorolac (Unverified Allergy, Unknown, HEADACHE, 03/10/18) tramadol (Verified Allergy, Unknown, 12/28/18) states it gives her anxiety PMhx/Soc History of Surgery: Yes (hysterectomy,cholecystectomy,removal of thyroid) Anesthesia Reaction: No Hx Neurological Disorder: No Hx Respiratory Disorders: No Hx Cardiac Disorders: No Hx Psychiatric Problems: Yes (anxiety) Hx Miscellaneous Medical Probl: Yes (ulcerative colitis) Hx Alcohol Use: No Hx Substance Use: No Hx Tobacco Use: No FmHx Family History: No diabetes, No coronary disease Physical Exam Vitals Vital Signs Date Temp Pulse Resp B/P (MAP) Pulse Ox O2 O2 Flow FiO2 Time Delivery Rate 12/28/18 98.1 76 18 141/76 99 18:03 (97) Physical Exam Const: No acute distress Head: Atraumatic Eyes: Normal Conjunctiva ENT: Normal External Ears, Nose and Mouth. Neck: Full range of motion. No meningismus. Resp: Clear to auscultation bilaterally Cardio: Regular rate and rhythm, no murmurs Abd: Soft, non tender, non distended. Normal bowel sounds Skin: No petechiae or rashes Back: No midline or flank tenderness Ext: No cyanosis, or edema Neur: Awake and alert Psych: Normal Mood and Affect Results 24 hrs Current Medications Medications Dose Sig/Shannan Start Time Status Last (Trade) Ordered Route PRN Stop Time Admin Dose Reason Admin Lorazepam 2 mg ONCE ONCE 12/28/18 DC 12/28/18 (Ativan) PO 19:30 19:31 12/28/18 19:31 Procedures/MDM Thank you vital signs stable, Physical exam unremarkable, neurovascular exam intact. Differential diagnosis include but not limited to: Depression, anxiety, migraine, thyroid disease, electrolyte imbalance. Low suspicion for acute coronary event, aortic dissection, CVA. Physical examination and clinical presentation consistent most likely with anxiety. During the ED course the patient remained stable, no new complaints. The patient received treatment with lorazepam presenting overall improvement of the symptoms. Results and clinical impression discussed with patient who agrees with management. The patient is stable to be treated outpatient and will be discharged home with a Rx for lorazepam, some side effects of prescribed medicat ions (headache, rash, nausea, vomiting, diarrhea, drowsiness, habituation, bleeding, hypertension, interactions with other medications) were reviewed. The patient was instructed to follow up with the primary care provider in the next 48h. If symptoms persist, worsen or new symptoms develop, then patient should return to the ED immediately. Instructions explained and given directly by me to the patient with acknowledgment and demonstrated understanding. Disclaimer: Inadvertent spelling and grammatical errors are likely due to EHR/dictation software use and do not reflect on the overall quality of patient care. Also, please note that the electronic time recorded on this note does not necessarily reflect the actual time of the patient encounter. Departure Diagnosis: Primary Impression: Anxiety Patient Instructions: Your Body's Response to Anxiety Additional Instructions: Thank you very much for allowing us to participate in your care. Your health and safety is our top priority at [facility]. The evaluation in the emergency department has been done to rule out an acute emergency. Chronic, [id number] conditions may have not been evaluated; therefore, you need to follow up with a primary care provider in the next 48h. If symptoms persist, worsen or new symptoms develop, then patient should return to the ED immediately. Call your primary care doctor TOMORROW for an appointment during the next 2-4 days and bring all the information provided. Have prescriptions filled and follow precisely the directions on the label. If the symptoms get worse and your provider is unavailable, return to the Emergency Department immediately. ANGELIA NAIK MD Dec 28, 2018 19:25
[2018-12-28] MEDS ORDERED: LORAZEPAM 1 MG TAB PO ONE (19:30)
[2018-12-28] MEDS ORDERED: LORA1TAB PO (19:34)
== END 2018-12-28 19:39 | disposition home or self-care (01) ==
LOC: FTE 17:56
DX: F41.9 Anxiety disorder, unspecified (principal)
CPT/HCPCS: Z7502; Z7610; 99283

== ENCOUNTER 2019-01-19 17:59 | Inpatient (IN) | payer OTHER ==
[~2019-01-19] VITALS: Ht 162.6 cm; Wt 83.9 kg
[~2019-01-19 17:59] MED LIST changes: +LORA1TAB PO
[2019-01-20] MEDS ORDERED: ONDANSETRON 4 MG INJ IV STA (00:04)
[2019-01-20] MEDS ORDERED: HYDROmorphONE 0.5 MG/0.5 ML SYG IV STA (00:18)
[2019-01-20] MEDS ORDERED: LORAZEPAM 2 MG INJ IV ONE (00:30)
--- NOTE | 2019-01-20 00:57 | ERD ---
ER Documentation Chief Complaint Chief Complaint BLOOD IN STOOL, AP X'S 2 DAYS; HX ULCERITIVE COLITIS HPI 58-year-old female who is known to me who presents for abdominal pain and bloody stools. She has a history of ulcerative colitis, and she appears he had an admission in November 2018. She states that today's episode is similar to prior, she denies fever, she has not been on steroids for at least the last 2 weeks, she states that they had made her very agitated. She denies dysuria, she denies any chest pain or shortness of breath. ROS All systems reviewed and are negative except as per history of present illness. Medications Home Meds Active Scripts Lorazepam* (Lorazepam*) 1 Mg Tablet, 1 MG PO Q8H PRN for ANXIETY, #10 TAB Prov:ANGELIA NAIK MD 12/28/18 Mesalamine* (Asacol HD) 800 Mg Tablet.dr, 1800 MG PO TID, #60 TAB Prov:ELAINA NERI DO 12/25/18 Hydrocodone/Acetaminophen ([place] 10-325 Tablet) 1 Each Tablet, 1 TAB PO Q6H PRN for PAIN, #12 TAB Prov:ELAINA NERI DO 12/25/18 Prednisone* (Prednisone*) 20 Mg Tab, 60 MG PO DAILY for 5 Days, TAB Prov:ELAINA NERI DO 12/25/18 Prednisone* (Prednisone*) 20 Mg Tab, 30 MG PO BID for 30 Days, TAB 30 mg po bid with 5 mg taper every 5 days Prov:MANN SINCLAIR MD 11/30/18 Levothyroxine Sodium* (Levothyroxine Sodium*) 150 Mcg Tablet, 150 MCG PO BEFORE BREAKFAST for 30 Days, TAB 3 Refills Prov:MANN SINCLAIR MD 11/30/18 Mesalamine (Delzicol) 400 Mg Cap.drtab., 800 MG PO Q8 for 30 Days, 3 Refills Prov:MANN SINCLAIR MD 11/30/18 Reported Medications Gabapentin* (Gabapentin*) 300 Mg Capsule, 300 MG PO BID, #60 CAP 12/16/18 Metoclopramide Hcl* (Metoclopramide Hcl*) 10 Mg Tablet, 10 MG PO WITH MEALS BEDTIME, TAB 12/16/18 Oxycodone HCl/Acetaminophen (Oxycodone-Acetaminophen 10-325) 1 Each Tablet, 1 EACH PO TID, TAB 12/16/18 Lorazepam* (Ativan*) 2 Mg Tablet, 2 MG PO NEEDED PRN for ANXIETY, #30 TAB 12/16/18 Fluoxetine Hcl* (Fluoxetine Hcl*) 40 Mg Capsule, 40 MG PO QHS, CAP 12/16/18 Trazodone Hcl* (Trazodone Hcl*) 150 Mg Tablet, 150 MG PO QHS, #30 TAB 12/16/18 Allergies Allergies: Coded Allergies: amoxicillin (Unverified Allergy, Severe, 12/28/18) cefuroxime (Unverified Allergy, Intermediate, RASH, 12/28/18) erythromycin base (Unverified Allergy, Intermediate, LIGHTHEADED, 12/28/18) ketorolac tromethamine (Unverified Allergy, Intermediate, HEADACHE, 12/28/18) levofloxacin (Unverified Allergy, Intermediate, PALPITATION, 12/28/18) cefuroxime axetil (Unverified Allergy, Mild, RASH, 12/28/18) acetaminophen (Verified Allergy, Unknown, 11/28/18) headcahe, alters mood hydrocodone (Verified Allergy, Unknown, 11/28/18) headcahe, alters mood ketorolac (Unverified Allergy, Unknown, HEADACHE, 03/10/18) tramadol (Verified Allergy, Unknown, 12/28/18) states it gives her anxiety PMhx/Soc History of Surgery: Yes (hysterectomy,cholecystectomy,removal of thyroid) Anesthesia Reaction: No Hx Neurological Disorder: No Hx Respiratory Disorders: No Hx Cardiac Disorders: No Hx Psychiatric Problems: Yes (anxiety) Hx Miscellaneous Medical Probl: Yes (ulcerative colitis) Hx Alcohol Use: No Hx Substance Use: No Hx Tobacco Use: No Smoking Status: Never smoker Physical Exam Vitals Vital Signs Date Temp Pulse Resp B/P (MAP) Pulse Ox O2 O2 Flow FiO2 Time Delivery Rate 01/20/19 83 19 159/97 100 Room Air 01:10 (117) 01/19/19 98.4 85 18 193/95 98 18:37 (127) Physical Exam Const: No acute distress Head: Atraumatic Eyes: Normal Conjunctiva ENT: Normal External Ears, Nose and Mouth. Neck: Full range of motion. No meningismus. Resp: Clear to auscultation bilaterally Cardio: Regular rate and rhythm, no murmurs Abd: Soft, non tender, non distended. Normal bowel sounds Skin: No petechiae or rashes Back: No midline or flank tenderness Ext: No cyanosis, or edema Neur: Awake and alert Psych: Normal Mood and Affect Result Diagram: 01/20/19 0010 01/20/19 0010 Results 24 hrs Laboratory Tests Test 01/20/19 00:10 01/20/19 01:00 White Blood Count 11.3 10^3/ul Red Blood Count 4.23 10^6/ul Hemoglobin 12.9 g/dl Hematocrit 37.4 % Mean Corpuscular Volume 88.4 fl Mean Corpuscular Hemoglobin 30.5 pg Mean Corpuscular Hemoglobin Concent 34.5 g/dl Red Cell Distribution Width 13.2 % Platelet Count 386 10^3/UL Mean Platelet Volume 8.2 fl Immature Granulocytes % 0.400 % Neutrophils % 65.4 % Lymphocytes % 25.3 % Monocytes % 7.9 % Eosinophils % 0.6 % Basophils % 0.4 % Nucleated Red Blood Cells % 0.0 /100WBC Immature Granulocytes # 0.050 10^3/ul Neutrophils # 7.4 10^3/ul Lymphocytes # 2.9 10^3/ul Monocytes # 0.9 10^3/ul Eosinophils # 0.1 10^3/ul Basophils # 0.0 10^3/ul Nucleated Red Blood Cells # 0.0 10^3/ul Sodium Level 137 mmol/L Potassium Level 3.5 mmol/L Chloride Level 98 mmol/L Carbon Dioxide Level 29 mmol/L Anion Gap 10 Blood Urea Nitrogen 5 mg/dl Creatinine 0.71 mg/dl Est Glomerular Filtrat Rate mL/min > 60 mL/min Glucose Level 101 mg/dl Calcium Level 10.1 mg/dl Total Bilirubin 0.5 mg/dl Direct Bilirubin 0.00 mg/dl Indirect Bilirubin 0.5 mg/dl Aspartate Amino Transf (AST/SGOT) 26 IU/L Alanine Aminotransferase (ALT/SGPT) 20 IU/L Alkaline Phosphatase 83 IU/L Troponin I < 0.012 ng/ml C-Reactive Protein 0.8 mg/dl Total Protein 8.8 g/dl Albumin 4.8 g/dl Globulin 4.00 g/dl Albumin/Globulin Ratio 1.20 Lipase 79 U/L Urine Color STRAW Urine Clarity CLEAR Urine pH 6.0 Urine Specific Delano 1.004 Urine Ketones TRACE mg/dL Urine Nitrite NEGATIVE mg/dL Urine Bilirubin NEGATIVE mg/dL Urine Urobilinogen NEGATIVE mg/dL Urine Leukocyte Esterase NEGATIVE Ramos/ul Urine Hemoglobin NEGATIVE mg/dL Urine Glucose NEGATIVE mg/dL Urine Total Protein NEGATIVE mg/dl Current Medications Medications Dose Sig/Shannan Start Time Status Last (Trade) Ordered Route PRN Stop Time Admin Dose Reason Admin Ondansetron 4 mg ONCE STAT 01/20/19 DC 01/20/19 HCl (Zofran IV 00:04 01/20/19 00:18 Inj) 00:06 Lorazepam 0.5 mg ONCE ONCE 01/20/19 DC 01/20/19 (Ativan) IV 00:30 01/20/19 00:18 00:31 0.5 mg ONCE STAT 01/20/19 DC 01/20/19 Hydromorphone IV 00:18 01/20/19 01:05 HCl 00:20 (Dilaudid) 2 mg ONCE STAT 01/20/19 UNV Hydromorphone IV 01:19 01/20/19 HCl 01:20 (Dilaudid) Procedures/MDM This is a 58-year-old female presents for abdominal pain. She has a long- standing history of ulcerative colitis, and her history and physical is most consistent with like a likely flare. No signs or symptoms of infection, she will be treated with analgesia, symptom control IV fluids, and will be admitted, given the severity of her symptoms. EKG: Rate/Rhythm: Normal Sinus Rhythm QRS, ST, T-waves: No changes consistent w/ acute ischemia Impression: No evidence of ischemia or arrhythmia Accepting Care Team: Current data and ongoing care discussed. Time: Time of admission Primary Provider: Alpa Consulting: none Outstanding Data: CT abd pelvis Departure Diagnosis: Primary Impression: Abdominal pain Abdominal location: unspecified location Qualified Codes: R10.9 - Unspecified abdominal pain Additional Impression: Ulcerative colitis Ulcerative colitis location: unspecified ulcerative colitis location Digestive disease complication type: unspecified complication Qualified Codes: K51.919 - Ulcerative colitis, unspecified with unspecified complications Condition: KRISTEN Rebolledo MD Jan 20, 2019 00:57
[2019-01-20] MEDS ORDERED: HYDROmorphONE 2 MG/ML SYG IV ONE (01:26)
[2019-01-20] MEDS ORDERED: ONDANSETRON 4 MG INJ IV PRN ×2 (01:30→22:30)
[2019-01-20 02:24] VITALS: Ht 162.6 cm; Wt 83.9 kg
[2019-01-20] MEDS ORDERED: LORAZEPAM 1 MG TAB PO PRN ×2 (02:30→13:30)
[2019-01-20] MEDS ORDERED: NACL 0.9% 3 ML SYG IV SCH (02:30)
[2019-01-20] MEDS ORDERED: HYDROCODONE/APAP (10/325) TAB PO PRN (02:30)
[2019-01-20] MEDS ORDERED: ACETAMINOPHEN 325 MG TAB PO PRN (02:30)
[2019-01-20] MEDS ORDERED: ONDANSETRON 4 MG TAB PO PRN (02:30)
[2019-01-20 02:52] VITALS: BP 182/85; PULSE 82; RESP 20
[2019-01-20] MEDS ORDERED: LORA-444 PO (02:55)
[2019-01-20] MEDS ORDERED: OMEP20CA16 PO (02:55)
[2019-01-20] MEDS ORDERED: MESA0.372 PO (02:55)
[2019-01-20] MEDS ORDERED: HYDROmorphONE 2 MG/ML SYG IV STA (03:50)
[2019-01-20] MEDS ORDERED: traZODone 50 MG TAB PO ONE (04:00)
[2019-01-20] MEDS ORDERED: FLUOXETINE 20 MG CAP PO ONE (04:00)
[2019-01-20] MEDS ORDERED: HYDROmorphONE 1 MG/ML SYG IV PRN (04:00)
[2019-01-20] MEDS: FAMOTIDINE 20 MG INJ IV SCH ×3 (04:21→21:38)
[2019-01-20 06:38] VITALS: BP 133/65; PULSE 75; RESP 17
[2019-01-20 07:38] VITALS: BP 129/66; PULSE 78; RESP 17
[2019-01-20] MEDS: OXYCODONE/ACETAMINOPHEN (10/325) TAB PO PRN ×2 (07:59→19:46)
[2019-01-20] MEDS: METOCLOPRAMIDE 10 MG TAB PO SCH ×4 (07:59→21:40)
[2019-01-20] MEDS: GABAPENTIN 300 MG CAP PO SCH ×2 (08:51→21:39)
[2019-01-20] MEDS ORDERED: METHYLPREDNISOLONE 40 MG INJ IV SCH ×2 (09:00→14:00)
[2019-01-20] MEDS: LEVOTHYROXINE 150 MCG TAB PO SCH (11:02)
[2019-01-20] MEDS: MESALAMINE (EC) 400 MG CAP PO SCH ×3 (11:29→21:39)
[2019-01-20] MEDS: HYDROmorphONE 1 MG/ML SYG IV PRN ×3 (11:31→21:40)
--- NOTE | 2019-01-20 13:04 | CONS ---
Assessment/Plan Assessment/Plan Hospital Course (Demo Recall) Assessment: Bloody diarrhea/abdominal pain -likely 2/2 to UC Flare UC Mesenteric panniculitis. Negative free air abscess or lymphadenopathy. Prominent nondilated fluid filled loops of proximal and distal small bowel that is nonspecific and likely ileus. -No bowel obstruction. Hypothyroidism Anxiety/depression Plan: Soul-medrol 20 mg IV q 8 hrs Clear liquids today Continue mesalamine Will check ERS/CRP in am Continue Reglan Patient seen in collaboration with Dr. Aiken CC: CHILO AIKEN MD ; Consultation Date/Type/Reason Admit Date/Time Jan 20, 2019 at 01:26 Date of Consultation: Jan 20, 2019 Type of Consult GI Reason for Consultation UC flare Date/Time of Note DATE: 01/20/19 TIME: 13:00 Hx of Present Illness This is a 58 year old female with PMH of hypothyroidism, Ulcerative colitis, anxiety disorder, hypothyroidism, chronic depression who presented with c/o bloody diarrhea up to 4-6 episodes per day. She was admitted here last month for similar symptoms she was discharged on steroid jez and mesalamine. After d/c patient did followed up in out clinical, with plan in place to to start budesonide and proceed with colonoscopy to assess mucosal healing with current regimen which is scheduled in March . Unfortunately symptoms of bloody diarrhea, tenesmus, and abdominal pain returned, and she represented to [facility] for further evaluation. Of note she has nt been on steroid therapy for the last 1-2 weeks. Initial labs reveal mild leukocytosis of 11, and elevated ESR 62, CRP is WNL 0.8. with not noted anemia, LFTs are WNL. CT A?p was completed showing diverticulosis, minimal induration of the central mesentery consistent with chronic mesenteric panniculitis. Negative free air abscess or lymphadenopathy. Prominent nondilated fluid filled loops of proximal and distal small bowel that is nonspecific and likely ileus. No bowel obstruction. At time of exam pt c/o generalized abd pain, no BM/s today. She has been afebrile since admission. Discussed plan to continue Solu-Medrol 20 mg every 8 hours we will continue mesalamine's and check CRP/ESR in am. Further recommendations based on clinical course. Review of Systems: [A 12 system, review was conducted and is negative except as noted in the HPI or here.] Past Medical History Home Meds Active Scripts Lorazepam* (Lorazepam*) 1 Mg Tablet, 1 MG PO Q8H PRN for ANXIETY, #10 TAB Prov:ANGELIA NAIK MD 12/28/18 Mesalamine* (Asacol HD) 800 Mg Tablet.dr, 1800 MG PO TID, #60 TAB Prov:DAREK NERISTOLOS A. DO 12/25/18 Hydrocodone/Acetaminophen ([place]in 10-325 Tablet) 1 Each Tablet, 1 TAB PO Q6H PRN for PAIN, #12 TAB Prov:DAREK NERISTVIVIANES A. DO 12/25/18 Prednisone* (Prednisone*) 20 Mg Tab, 60 MG PO DAILY for 5 Days, TAB Prov:NHI NERIS A. DO 12/25/18 Prednisone* (Prednisone*) 20 Mg Tab, 30 MG PO BID for 30 Days, TAB 30 mg po bid with 5 mg taper every 5 days Prov:MANN SINCLAIR MD 11/30/18 Levothyroxine Sodium* (Levothyroxine Sodium*) 150 Mcg Tablet, 150 MCG PO BEFORE BREAKFAST for 30 Days, TAB 3 Refills Prov:MANN SINCLAIR MD 11/30/18 Mesalamine (Delzicol) 400 Mg Cap.drtab., 800 MG PO Q8 for 30 Days, 3 Refills Prov:MANN SINCLAIR MD 11/30/18 Reported Medications Lorazepam* (Ativan*) 2 Mg Tablet, 2 MG PO QID for 30 Days, #120 TAKE 1 TABLET BY MOUTH FOUR TIMES A DAY 01/20/19 Mesalamine* (Apriso*) 0.375 Gm Cap.sr.24h, 0.375 GM PO q24 TAKE FOUR CAPSULES BY MOUTH IN THE MORNING 01/20/19 Omeprazole* (Omeprazole*) 20 Mg Capsule.dr, 20 MG PO DAILY TAKE 1 CAPSULE BY MOUTH EVERY DAY 01/20/19 Gabapentin* (Gabapentin*) 300 Mg Capsule, 300 MG PO BID, #60 CAP 12/16/18 Metoclopramide Hcl* (Metoclopramide Hcl*) 10 Mg Tablet, 10 MG PO WITH MEALS BEDTIME, TAB 12/16/18 Oxycodone HCl/Acetaminophen (Oxycodone-Acetaminophen 10-325) 1 Each Tablet, 1 EACH PO TID, TAB 12/16/18 Fluoxetine Hcl* (Fluoxetine Hcl*) 40 Mg Capsule, 40 MG PO QHS, CAP 12/16/18 Trazodone Hcl* (Trazodone Hcl*) 150 Mg Tablet, 150 MG PO QHS, #30 TAB 12/16/18 Discontinued Reported Medications Lorazepam* (Ativan*) 2 Mg Tablet, 2 MG PO NEEDED PRN for ANXIETY, #30 TAB 12/16/18 Medications Current Medications Ondansetron HCl (Zofran Inj) 4 mg BRIDGE ORDER PRN IV NAUSEA/VOMITING; Start 01/20/19 at 01:30; Stop 01/21/19 at 01:29 Fluoxetine HCl (Prozac) 40 mg QHS PO ; Start 01/20/19 at 21:00 Gabapentin (Neurontin) 300 mg BID PO Last administered on 01/20/19at 08:51; Admin Dose 300 MG; Start 01/20/19 at 09:00 Levothyroxine Sodium (Synthroid) 150 mcg BEFORE BREAKFAST PO Last administered on 01/20/19at 11:02; Admin Dose 150 MCG; Start 01/20/19 at 07:00 Lorazepam (Ativan) 1 mg Q8H PRN PO ANXIETY Last administered on 01/20/19at 08:51; Admin Dose 1 MG; Start 01/20/19 at 02:30 Mesalamine (Delzicol Dr) 800 mg Q8 PO Last administered on 01/20/19at 11:29; Admin Dose 800 MG; Start 01/20/19 at 06:00 Metoclopramide HCl (Reglan) 10 mg WITH MEALS BEDTIME PO Last administered on 01/20/19at 12:35; Admin Dose 10 MG; Start 01/20/19 at 08:00 Trazodone HCl (Desyrel) 150 mg QHS PO ; Start 01/20/19 at 21:00 IV Flush (NS 3 ml) 3 ml PER PROTOCOL IV ; Start 01/20/19 at 02:30 Ondansetron HCl (Zofran Tab) 4 mg Q6H PRN PO NAUSEA/VOMITING; Start 01/20/19 at 02:30 Acetaminophen (Tylenol Tab) 650 mg Q6H PRN PO .PAIN 1-3 OR TEMP; Start 01/20/19 at 02:30 Famotidine (Pepcid Iv) 20 mg Q12 IV Last administered on 01/20/19at 04:21; Admin Dose 20 MG; Start 01/20/19 at 02:30 Oxycodone/ Acetaminophen (Endocet (10/ 325)) 1 tab Q6H PRN PO MODERATE PAIN LEVEL 4-6 Last administered on 01/20/19at 07:59; Admin Dose 1 TAB; Start 01/20/19 at 04:00 Hydromorphone HCl (Dilaudid) 1 mg Q3 PRN IV SEVERE PAIN LEVEL 7-10 Last administered on 01/20/19at 11:31; Admin Dose 1 MG; Start 01/20/19 at 11:00 Methylprednisolone Sodium Succinate (Solu-Medrol) 60 mg Q8 IV ; Start 01/20/19 at 14:00 Allergies: Coded Allergies: amoxicillin (Unverified Allergy, Severe, 12/28/18) cefuroxime (Unverified Allergy, Intermediate, RASH, 12/28/18) erythromycin base (Unverified Allergy, Intermediate, LIGHTHEADED, 12/28/18) ketorolac tromethamine (Unverified Allergy, Intermediate, HEADACHE, 12/28/18) levofloxacin (Unverified Allergy, Intermediate, PALPITATION, 12/28/18) cefuroxime axetil (Unverified Allergy, Mild, RASH, 12/28/18) hydrocodone (Verified Allergy, Unknown, 11/28/18) headcahe, alters mood ketorolac (Unverified Allergy, Unknown, HEADACHE, 03/10/18) tramadol (Verified Allergy, Unknown, 12/28/18) states it gives her anxiety Past Surgical History Past Surgical Hx: other Social History Smoking Status: Former smoker Exam/Review of Systems Exam Vitals Vital Signs Date Temp Pulse Resp B/P (MAP) Pulse Ox O2 O2 Flow FiO2 Time Delivery Rate 01/20/19 98.2 78 17 129/66 94 Room Air 07:38 (87) Intake and Output 01/19/19 01/19/19 01/20/19 1515:00 23:00 07:00 IntakeIntake Total 480 ml BalanceBalance 480 ml Exam PHYSICAL EXAMINATION: GENERAL: Well developed, well nourished, alert & oriented x 3, in no acute distress SKIN: No lesions. HEAD: Normocephalic, atraumatic, no tenderness. EYES: Pupils equal reactive to light and accommodation, full extraocular movements, sclera clear, non-icteric, no discharge. EARS/NOSE AND THROAT: Ears normal, nose normal, oropharynx normal, oral membranes well hydrated without lesions. NECK: Supple, no masses, thyroid normal, CHEST: Inspection within normal limits. CARDIOVASCULAR: Heart: Regular rate and rhythm RESPIRATORY: Lungs clear to auscultation GASTROINTESTINAL AND LIVER: Abdomen: Soft, generalized tenderness, non-dist ended, no hernias, no masses, no organomegaly, no ascites, no guarding, no rebound tenderness, normoactive bowel sounds. Rectal: Deferred. Results Result Diagram: 01/20/19 0532 01/20/19 0532 Results 24hrs Laboratory Tests Test 01/20/19 00:10 01/20/19 01:00 01/20/19 05:32 White Blood Count 11.3 H 11.0 H Red Blood Count 4.23 3.96 L Hemoglobin 12.9 12.2 Hematocrit 37.4 35.2 L Mean Corpuscular Volume 88.4 88.9 Mean Corpuscular Hemoglobin 30.5 30.8 Mean Corpuscular Hemoglobin Concent 34.5 34.7 Red Cell Distribution Width 13.2 13.2 Platelet Count 386 # 366 Mean Platelet Volume 8.2 8.4 Immature Granulocytes % 0.400 0.500 H Neutrophils % 65.4 61.3 Lymphocytes % 25.3 25.6 Monocytes % 7.9 11.4 H Eosinophils % 0.6 0.8 Basophils % 0.4 0.4 Nucleated Red Blood Cells % 0.0 0.0 Immature Granulocytes # 0.050 H 0.060 H Neutrophils # 7.4 6.7 Lymphocytes # 2.9 2.8 Monocytes # 0.9 1.3 H Eosinophils # 0.1 0.1 Basophils # 0.0 0.0 Nucleated Red Blood Cells # 0.0 0.0 Erythrocyte Sedimentation Rate 62 H Sodium Level 137 138 Potassium Level 3.5 3.7 Chloride Level 98 102 Carbon Dioxide Level 29 28 Anion Gap 10 8 Blood Urea Nitrogen 5 L 5 L Creatinine 0.71 0.68 Est Glomerular Filtrat Rate mL/min > 60 > 60 Glucose Level 101 108 Calcium Level 10.1 9.2 Total Bilirubin 0.5 Direct Bilirubin 0.00 Indirect Bilirubin 0.5 Aspartate Amino Transf (AST/SGOT) 26 Alanine Aminotransferase (ALT/SGPT) 20 Alkaline Phosphatase 83 Troponin I < 0.012 C-Reactive Protein 0.8 Total Protein 8.8 H Albumin 4.8 Globulin 4.00 H Albumin/Globulin Ratio 1.20 Lipase 79 Urine Color STRAW Urine Clarity CLEAR Urine pH 6.0 Urine Specific [place] 1.004 Urine Ketones TRACE A Urine Nitrite NEGATIVE Urine Bilirubin NEGATIVE Urine Urobilinogen NEGATIVE Urine Leukocyte Esterase NEGATIVE Urine Hemoglobin NEGATIVE Urine Glucose NEGATIVE Urine Total Protein NEGATIVE Medications Medication Current Medications Ondansetron HCl (Zofran Inj) 4 mg BRIDGE ORDER PRN IV NAUSEA/VOMITING; Start 01/20/19 at 01:30; Stop 01/21/19 at 01:29 Fluoxetine HCl (Prozac) 40 mg QHS PO ; Start 01/20/19 at 21:00 Gabapentin (Neurontin) 300 mg BID PO Last administered on 01/20/19at 08:51; Admin Dose 300 MG; Start 01/20/19 at 09:00 Levothyroxine Sodium (Synthroid) 150 mcg BEFORE BREAKFAST PO Last administered on 01/20/19at 11:02; Admin Dose 150 MCG; Start 01/20/19 at 07:00 Lorazepam (Ativan) 1 mg Q8H PRN PO ANXIETY Last administered on 01/20/19 08:51; Admin Dose 1 MG; Start 01/20/19 at 02:30 Mesalamine (Delzicol Dr) 800 mg Q8 PO Last administered on 01/20/19at 11:29; Admin Dose 800 MG; Start 01/20/19 at 06:00 Metoclopramide HCl (Reglan) 10 mg WITH MEALS BEDTIME PO Last administered on 01/20/19at 12:35; Admin Dose 10 MG; Start 01/20/19 at 08:00 Trazodone HCl (Desyrel) 150 mg QHS PO ; Start 01/20/19 at 21:00 IV Flush (NS 3 ml) 3 ml PER PROTOCOL IV ; Start 01/20/19 at 02:30 Ondansetron HCl (Zofran Tab) 4 mg Q6H PRN PO NAUSEA/VOMITING; Start 01/20/19 at 02:30 Acetaminophen (Tylenol Tab) 650 mg Q6H PRN PO .PAIN 1-3 OR TEMP; Start 01/20/19 at 02:30 Famotidine (Pepcid Iv) 20 mg Q12 IV Last administered on 01/20/19 04:21; Admin Dose 20 MG; Start 01/20/19 at 02:30 Oxycodone/ Acetaminophen (Endocet (10/ 325)) 1 tab Q6H PRN PO MODERATE PAIN LEVEL 4-6 Last administered on 01/20/19at 07:59; Admin Dose 1 TAB; Start 01/20/19 at 04:00 Hydromorphone HCl (Dilaudid) 1 mg Q3 PRN IV SEVERE PAIN LEVEL 7-10 Last administered on 01/20/19at 11:31; Admin Dose 1 MG; Start 01/20/19 at 11:00 Methylprednisolone Sodium Succinate (Solu-Medrol) 60 mg Q8 IV ; Start 01/20/19 at 14:00 CHRIS LOPEZ Jan 20, 2019 13:04
[2019-01-20] MEDS: METHYLPREDNISOLONE 40 MG INJ IV SCH ×2 (13:28→21:39)
[2019-01-20] MEDS: LORAZEPAM 1 MG TAB PO PRN ×2 (13:29→19:41)
--- NOTE | 2019-01-20 14:52 | HP ---
DATE OF ADMISSION: 01/20/2019 CHIEF COMPLAINT: Abdominal pain and bright red blood per rectum. HISTORY OF PRESENT ILLNESS: This is a 58-year-old female presenting with a history of ulcerative col itis, presented to Emergency Room with complaint of abdominal pain and occasional bright red blood pe r rectum. The patient was recently admitted to the hospital with ulcerative colitis flare and placed on steroid use. She denies any nausea or vomiting or hematemesis. No fevers or chills. No melena. Initial evaluation revealed diffuse abdominal pain. There was no evidence of active GI bleed. PAST MEDICAL HISTORY: 1. Ulcerative colitis. 2. Hypothyroidism. 3. Chronic depression. MEDICATIONS PRIOR TO ADMISSION: 1. Fluoxetine. 2. Gabapentin. 3. [place]. 4. Lorazepam. 5. Trazadone. 6. Mesalamine. 7. Metoclopramide. 8. Omeprazole. 9. Levothyroxine. SOCIAL HISTORY: The patient denies tobacco or alcohol use. She lives at home. PHYSICAL EXAMINATION: GENERAL: Well-developed, well-nourished female who is in mild distress. VITAL SIGNS: Stable. She is afebrile. HEENT: Extraocular muscles intact. Pupils are equal and reactive to light bilaterally. Sclerae are anicteric. Oropharynx is clear and moist. NECK: Supple, no JVD, no carotid bruits. LUNGS: Clear to auscultation bilaterally. CARDIAC: Regular rate and rhythm. No murmurs or gallops. ABDOMEN: Soft, diffusely tender to palpation. No rebound or guarding. Normoactive bowel sounds. EXTREMITIES: No clubbing, cyanosis, or edema. NEUROLOGICAL: Nonfocal. LABORATORY DATA: WBC 11, hemoglobin is 12.2, platelet count is 366,000. Basic metabolic panel is wi thin normal limits. ASSESSMENT: 1. A 58-year-old female presenting with ulcerative colitis flare. There is no evidence of active ga strointestinal bleed. 2. Hypothyroidism. 3. Chronic depression. PLAN: 1. Place in med/surg observation. 2. IV Solu-Medrol. 3. Resume mesalamine. 4. Change to clear liquid diet. 5. Pain control. 6. Gastrointestinal consultation was requested. Dictated By: MANN MORALES/WING Conf#: [id number] DID#: [id number] CC: OLIVERIO AC MD; CHILO STEINBERG;*[facility]*
[2019-01-20 14:56] VITALS: BP 139/74; PULSE 79; RESP 17
[2019-01-20 20:15] VITALS: BP 183/92; PULSE 83; RESP 16
[2019-01-20] MEDS: FLUOXETINE 20 MG CAP PO SCH (21:39)
[2019-01-20] MEDS: traZODone 50 MG TAB PO SCH (21:40)
[2019-01-20] MEDS ORDERED: ACETAMINOPHEN 1000MG/100ML IV 100 ML IVPB PRN (22:30)
[2019-01-20] MEDS ORDERED: METOCLOPRAMIDE 10 MG INJ IV PRN (22:30)
[2019-01-20] MEDS: DEXTROSE 5%-0.45% NACL 1,000 ML IV SCH (23:09)
[2019-01-20] MEDS: LORAZEPAM 2 MG INJ IV PRN (23:09)
[2019-01-20] MEDS: hydrALAzine 20 MG INJ IV PRN (23:09)
[2019-01-21 02:40] VITALS: BP 181/81; PULSE 105; RESP 16
[2019-01-21] MEDS: hydrALAzine 20 MG INJ IV PRN ×2 (03:22→15:41)
[2019-01-21] MEDS: HYDROmorphONE 1 MG/ML SYG IV PRN ×7 (03:22→23:18)
[2019-01-21 04:22] VITALS: BP 166/83; PULSE 98
[2019-01-21] MEDS: LORAZEPAM 2 MG INJ IV PRN ×3 (05:34→18:13)
[2019-01-21] MEDS: MESALAMINE (EC) 400 MG CAP PO SCH ×2 (06:55→12:13)
[2019-01-21] MEDS: LEVOTHYROXINE 150 MCG TAB PO SCH (06:55)
[2019-01-21] MEDS: METHYLPREDNISOLONE 40 MG INJ IV SCH ×3 (06:55→23:18)
[2019-01-21 07:58] VITALS: BP 172/77; PULSE 97; RESP 22
[2019-01-21] MEDS: LORAZEPAM 1 MG TAB PO PRN (08:11)
[2019-01-21] MEDS: FAMOTIDINE 20 MG INJ IV SCH ×2 (08:11→20:08)
[2019-01-21] MEDS: GABAPENTIN 300 MG CAP PO SCH ×2 (08:11→20:08)
[2019-01-21] MEDS: METOCLOPRAMIDE 10 MG TAB PO SCH ×4 (08:11→23:20)
[2019-01-21] MEDS: DEXTROSE 5%-0.45% NACL 1,000 ML IV SCH ×2 (08:12→18:11)
[2019-01-21 08:21] VITALS: BP 155/72
[2019-01-21] MEDS ORDERED: LACTULOSE 30ML CUP PO ONE (10:30)
--- NOTE | 2019-01-21 12:04 | PSY ---
Date/Time of Note Date/Time of Note DATE: 01/21/19 TIME: 11:59 Psychiatric Subjective Eval Consent Pt consented to telemedicine: No Subjective Evaluation Patient location: inpatient Chief Complaint: BLOOD IN STOOL, AP X'S 2 DAYS; HX ULCERITIVE COLITIS Hospitalization: other Medical history Problems Medical Problems: (1) Abdominal pain Status: Acute (2) Abdominal pain Status: Acute (3) Acute sinusitis Status: Acute (4) Anxiety Status: Acute (5) Anxiety Status: Acute (6) Anxiety Status: Acute (7) Anxiety Status: Acute (8) Anxiety attack Status: Acute (9) Anxiety attack Status: Acute (10) Anxiety disorder Status: Acute (11) Anxiety disorder Status: Acute (12) Anxiety reaction Status: Acute (13) Anxiety reaction Status: Acute (14) Asthmatic bronchitis Status: Acute (15) Breast pain Status: Acute (16) Bronchitis, acute Status: Acute (17) Chest pain Status: Acute (18) Chest pain Status: Acute (19) Chest pain Status: Acute (20) Chest pain Status: Acute (21) Cough Status: Acute (22) Cough Status: Acute (23) Cystitis Status: Acute (24) Dental abscess Status: Acute (25) Dermatitis Status: Acute (26) Encounter for medication refill Status: Acute (27) Facial pain Status: Acute (28) Flank pain Status: Acute (29) H. pylori infection Status: Acute (30) Headache Status: Acute (31) Lower GI bleeding Status: Acute (32) Medication refill Status: Acute (33) Nasal contusion Status: Acute (34) Palpitations Status: Acute (35) Pancolitis Status: Acute (36) Patient left after triage Status: Acute (37) Patient left before evaluation by physician Status: Acute (38) Patient left before triage assessment Status: Acute (39) Patient left without being seen Status: Acute (40) Proc/trtmt not crd out d/t pt lv bef seen by [facility] care prov Status: Acute (41) Rash Status: Acute (42) Scabies Status: Acute (43) Scabies Status: Acute (44) Sinus headache Status: Acute (45) Sinusitis Status: Acute (46) Ulcerative colitis Status: Acute (47) Ulcerative colitis Status: Acute (48) URI (upper respiratory infection) Status: Acute (49) Viral syndrome Status: Acute Allergies: Coded Allergies: amoxicillin (Unverified Allergy, Severe, 12/28/18) cefuroxime (Unverified Allergy, Intermediate, RASH, 12/28/18) erythromycin base (Unverified Allergy, Intermediate, LIGHTHEADED, 12/28/18) ketorolac tromethamine (Unverified Allergy, Intermediate, HEADACHE, 12/28/18) levofloxacin (Unverified Allergy, Intermediate, PALPITATION, 12/28/18) cefuroxime axetil (Unverified Allergy, Mild, RASH, 12/28/18) hydrocodone (Verified Allergy, Unknown, 11/28/18) headcahe, alters mood ketorolac (Unverified Allergy, Unknown, HEADACHE, 03/10/18) tramadol (Verified Allergy, Unknown, 12/28/18) states it gives her anxiety Substance Abuse Substance abuse history: No Prior substance abuse treatmen: No Social History Marital status: other DPA/Conservatorship: No Psychiatric Objective Eval Review of Systems: Review of Systems: Not Applicable Physical Examination: Physical Examination: Not Applicable Sleep: Adequate Appetite: Decreased Energy: Decreased Interest: Decreased Mental Status Examination: Appearance: Disheveled Eye Contact: Poor Psychomotor Activity: Slow Behavior: Cooperative Speech: Clear, Soft AFFECT: Flat Mood: Depressed, Anxious Though Process: Linear Thought Content: Normal Orientation: x4 Cognition: Alert Insight: Moderate Judgement: Moderate Attention Span: Distractible Laboratory Results Laboratory Tests Test 01/20/19 00:10 01/20/19 01:00 01/20/19 05:32 01/21/19 04:55 White Blood Count 11.3 10^3/ul 11.0 10^3/ul Red Blood Count 4.23 10^6/ul 3.96 10^6/ul Hemoglobin 12.9 g/dl 12.2 g/dl Hematocrit 37.4 % 35.2 % Mean Corpuscular 88.4 fl 88.9 fl Volume Mean Corpuscular 30.5 pg 30.8 pg Hemoglobin Mean Corpuscular 34.5 g/dl 34.7 g/dl Hemoglobin Concen t Red Cell 13.2 % 13.2 % Distribution Width Platelet Count 386 10^3/UL 366 10^3/UL Mean Platelet 8.2 fl 8.4 fl Volume Immature 0.400 % 0.500 % Granulocytes % Neutrophils % 65.4 % 61.3 % Lymphocytes % 25.3 % 25.6 % Monocytes % 7.9 % 11.4 % Eosinophils % 0.6 % 0.8 % Basophils % 0.4 % 0.4 % Nucleated Red 0.0 /100WBC 0.0 /100WBC Blood Cells % Immature 0.050 10^3/ul 0.060 10^3/ul Granulocytes # Neutrophils # 7.4 10^3/ul 6.7 10^3/ul Lymphocytes # 2.9 10^3/ul 2.8 10^3/ul Monocytes # 0.9 10^3/ul 1.3 10^3/ul Eosinophils # 0.1 10^3/ul 0.1 10^3/ul Basophils # 0.0 10^3/ul 0.0 10^3/ul Nucleated Red 0.0 10^3/ul 0.0 10^3/ul Blood Cells # Erythrocyte 62 mm/Hr 73 mm/Hr Sedimentation Rate Sodium Level 137 mmol/L 138 mmol/L Potassium Level 3.5 mmol/L 3.7 mmol/L Chloride Level 98 mmol/L 102 mmol/L Carbon Dioxide 29 mmol/L 28 mmol/L Level Anion Gap 10 8 Blood Urea 5 mg/dl 5 mg/dl Nitrogen Creatinine 0.71 mg/dl 0.68 mg/dl Est Glomerular > 60 mL/min > 60 mL/min Filtrat Rate mL/min Glucose Level 101 mg/dl 108 mg/dl Calcium Level 10.1 mg/dl 9.2 mg/dl Total Bilirubin 0.5 mg/dl Direct Bilirubin 0.00 mg/dl Indirect 0.5 mg/dl Bilirubin Aspartate Amino 26 IU/L Transf (AST/SGOT) Alanine 20 IU/L Aminotransferase (ALT/SGPT) Alkaline 83 IU/L Phosphatase Troponin I < 0.012 ng/ml C-Reactive 0.8 mg/dl 0.9 mg/dl Protein Total Protein 8.8 g/dl Albumin 4.8 g/dl Globulin 4.00 g/dl Albumin/Globulin 1.20 Ratio Lipase 79 U/L Urine Color STRAW Urine Clarity CLEAR Urine pH 6.0 Urine Specific 1.004 [place] Urine Ketones TRACE mg/dL Urine Nitrite NEGATIVE mg/dL Urine Bilirubin NEGATIVE mg/dL Urine NEGATIVE mg/dL Urobilinogen Urine Leukocyte NEGATIVE Ramos/ul Esterase Urine Hemoglobin NEGATIVE mg/dL Urine Glucose NEGATIVE mg/dL Urine Total NEGATIVE mg/dl Protein Assessment and Plan Assessment/Diagnosis Diagnosis 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
--- NOTE | 2019-01-21 13:29 | PN ---
Date/Time of Note Date/Time of Note DATE: 01/21/19 TIME: 13:06 Assessment/Plan VTE Prophylaxis Risk score (from Nsg)>0 risk: 1 SCD applied (from Nsg): Yes Pharmacological prophylaxis: heparin Lines/Catheters IV Catheter Type (from Nrsg): Saline Lock Assessment/Plan Assessment/Plan Assessment: Bloody diarrhea/abdominal pain -likely 2/2 to UC Flare Nausea/vomiting UC Mesenteric panniculitis. Negative free air abscess or lymphadenopathy. Prominent nondilated fluid filled loops of proximal and distal small bowel that is nonspecific and likely ileus. -No bowel obstruction. Hypothyroidism Anxiety/depression Plan: Soul-medrol 20 mg IV q 8 hrs Keep n.p.o. Start Protonix p.o. twice daily Start Levsin Continue mesalamine Will check ERS/CRP in am Continue Reglan Patient seen in collaboration with Dr. Aiken Subjective: Patient is complaining of nausea and vomiting x2 yesterday. She was downgraded to n.p.o. Patient had 2 nonbloody bowel movements yesterday that were loose. Currently constipated. Complaining of generalized abdominal pain. Will start Levsin and Protonix. Continue observation. Exam PHYSICAL EXAMINATION: GENERAL: Well developed, well nourished, alert & oriented x 3, in no acute distress SKIN: No lesions. HEAD: Normocephalic, atraumatic, no tenderness. EYES: Pupils equal reactive to light and accommodation, full extraocular movements, sclera clear, non-icteric, no discharge. EARS/NOSE AND THROAT: Ears normal, nose normal, oropharynx normal, oral mem branes well hydrated without lesions. NECK: Supple, no masses, thyroid normal, CHEST: Inspection within normal limits. CARDIOVASCULAR: Heart: Regular rate and rhythm RESPIRATORY: Lungs clear to auscultation GASTROINTESTINAL AND LIVER: Abdomen: Soft, generalized tenderness, non- distended, no hernias, no masses, no organomegaly, no ascites, no guarding, no rebound tenderness, normoactive bowel sounds. Rectal: Deferred. Result Diagram: 01/20/19 0532 01/20/19 0532 Results 24hrs Laboratory Tests Test 01/21/19 04:55 Erythrocyte Sedimentation Rate 73 H C-Reactive Protein 0.9 CC: ; Exam/Review of Systems Exam Vitals Vital Signs Date Temp Pulse Resp B/P (MAP) Pulse Ox O2 O2 Flow FiO2 Time Delivery Rate 01/21/19 155/72 08:21 (99) 01/21/19 98.9 97 22 90 07:58 01/20/19 Room Air 14:56 Intake and Output 01/20/19 01/20/19 01/21/19 1515:00 23:00 07:00 IntakeIntake Total 840 ml 600 ml OutputOutput Total 300 ml BalanceBalance 840 ml -300 ml 600 ml Results Results 24hrs Laboratory Tests Test 01/21/19 04:55 Erythrocyte Sedimentation Rate 73 H C-Reactive Protein 0.9 Medications Medication Current Medications Fluoxetine HCl (Prozac) 40 mg QHS PO Last administered on 01/20/19 21:39; Admin Dose 40 MG; Start 01/20/19 at 21:00 Gabapentin (Neurontin) 300 mg BID PO Last administered on 01/21/19 08:11; Admin Dose 300 MG; Start 01/20/19 at 09:00 Levothyroxine Sodium (Synthroid) 150 mcg BEFORE BREAKFAST PO Last administered on 01/21/19 06:55; Admin Dose 150 MCG; Start 01/20/19 at 07:00 Mesalamine (Delzicol Dr) 800 mg Q8 PO Last administered on 01/21/19 12:13; Admin Dose 800 MG; Start 01/20/19 at 06:00 Metoclopramide HCl (Reglan) 10 mg WITH MEALS BEDTIME PO Last administered on 01/21/19 12:13; Admin Dose 10 MG; Start 01/20/19 at 08:00 Trazodone HCl (Desyrel) 150 mg QHS PO Last administered on 01/20/19 21:40; Admin Dose 150 MG; Start 01/20/19 at 21:00 IV Flush (NS 3 ml) 3 ml PER PROTOCOL IV ; Start 01/20/19 at 02:30 Ondansetron HCl (Zofran Tab) 4 mg Q6H PRN PO NAUSEA/VOMITING Last administered on 01/20/19 20:21; Admin Dose 4 MG; Start 01/20/19 at 02:30 Acetaminophen (Tylenol Tab) 650 mg Q6H PRN PO .PAIN 1-3 OR TEMP; Start 01/20/19 at 02:30 Famotidine (Pepcid Iv) 20 mg Q12 IV Last administered on 01/21/19 08:11; Admin Dose 20 MG; Start 01/20/19 at 02:30 Oxycodone/ Acetaminophen (Endocet (10/ 325)) 1 tab Q6H PRN PO MODERATE PAIN LEVEL 4-6 Last administered on 01/20/19 19:46; Admin Dose 1 TAB; Start 01/20/19 at 04:00 Hydromorphone HCl (Dilaudid) 1 mg Q3 PRN IV SEVERE PAIN LEVEL 7-10 Last administered on 01/21/19 10:12; Admin Dose 1 MG; Start 01/20/19 at 11:00 Methylprednisolone Sodium Succinate (Solu-Medrol) 20 mg Q8 IV Last administered on 01/21/19 12:13; Admin Dose 20 MG; Start 01/20/19 at 14:00 Lorazepam (Ativan) 2 mg Q6 PRN PO ANXIETY Last administered on 01/21/19 08:11; Admin Dose 2 MG; Start 01/20/19 at 13:30 Hydralazine HCl (Apresoline) 10 mg Q4H PRN IV ELEVATED SYSTOLIC BP Last administered on 01/21/19 03:22; Admin Dose 10 MG; Start 01/20/19 at 22:30 Metoclopramide HCl (Reglan) 10 mg Q6H PRN IV NAUSEA AND/OR VOMITING Last administered on 01/20/19 23:09; Admin Dose 10 MG; Start 01/20/19 at 22:30 Ondansetron HCl (Zofran Inj) 4 mg Q4H PRN IV NAUSEA AND/OR VOMITING Last administered on 01/21/19 10:20; Admin Dose 4 MG; Start 01/20/19 at 22:30 Lorazepam (Ativan) 1 mg Q6H PRN IV ANXIETY Last administered on 01/21/19 12:13; Admin Dose 1 MG; Start 01/20/19 at 22:30 Acetaminophen 100 ml @ 400 mls/hr ONCE PRN IVPB FEVER; Start 01/20/19 at 22:30; Stop 01/21/19 at 22:29 Dextrose/Sodium Chloride 1,000 ml @ 100 mls/hr Q10H IV Last administered on 01/21/19 08:12; Admin Dose 100 MLS/HR; Start 7/4/19 at 22:30 Lactulose (Enulose) 20 gm DAILY PRN PO CONSTIPATION; Start 01/22/19 at 10:30 Buspirone HCl (Buspar) 5 mg BID PO ; Start 01/21/19 at 13:00 PAULINE AGEE NP Jan 21, 2019 13:16
[2019-01-21] MEDS: BUSPIRONE 5 MG TAB PO SCH ×2 (15:04→20:07)
[2019-01-21] MEDS: HYOSCYAMINE 0.125 MG SUBL TAB PO SCH (15:05)
[2019-01-21 15:44] VITALS: BP 170/79; PULSE 92; RESP 20
[2019-01-21] MEDS: traZODone 50 MG TAB PO SCH (20:07)
[2019-01-21] MEDS: FLUOXETINE 20 MG CAP PO SCH (20:07)
[2019-01-21 20:53] VITALS: BP 150/81; PULSE 90; RESP 20
[2019-01-22] MEDS: DEXTROSE 5%-0.45% NACL 1,000 ML IV SCH (00:41)
[2019-01-22] MEDS: LORAZEPAM 2 MG INJ IV PRN ×4 (00:41→19:48)
[2019-01-22] MEDS: HYOSCYAMINE 0.125 MG SUBL TAB PO SCH ×4 (00:43→21:58)
[2019-01-22] MEDS: MESALAMINE (EC) 400 MG CAP PO SCH ×4 (00:43→21:57)
[2019-01-22 02:27] VITALS: BP 150/86; PULSE 66; RESP 20
[2019-01-22] MEDS: HYDROmorphONE 1 MG/ML SYG IV PRN ×6 (06:23→21:59)
[2019-01-22] MEDS: METHYLPREDNISOLONE 40 MG INJ IV SCH ×3 (06:23→21:59)
[2019-01-22] MEDS: LEVOTHYROXINE 150 MCG TAB PO SCH (06:23)
[2019-01-22] MEDS: PANTOPRAZOLE (EC) 40 MG TAB PO SCH (06:23)
[2019-01-22 08:04] VITALS: BP 148/70; PULSE 78; RESP 20
[2019-01-22] MEDS: METOCLOPRAMIDE 10 MG TAB PO SCH ×4 (08:17→21:58)
[2019-01-22] MEDS: GABAPENTIN 300 MG CAP PO SCH ×2 (08:17→21:58)
[2019-01-22] MEDS: FAMOTIDINE 20 MG INJ IV SCH ×2 (08:17→21:58)
[2019-01-22] MEDS: BUSPIRONE 5 MG TAB PO SCH ×2 (08:17→21:59)
[2019-01-22] MEDS ORDERED: LACTULOSE 30ML CUP PO PRN (10:30)
--- NOTE | 2019-01-22 10:30 | PN ---
Date/Time of Note Date/Time of Note DATE: 01/22/19 TIME: 10:28 Subjective Still having abdominal pain and diarrhea. No bright red blood per rectum or melena Objective Vitals Vital Signs Date Temp Pulse Resp B/P (MAP) Pulse Ox O2 O2 Flow FiO2 Time Delivery Rate 01/22/19 99.4 78 20 148/70 93 08:04 (96) 01/20/19 Room Air 14:56 Intake and Output 01/21/19 01/21/19 01/22/19 1515:00 23:00 07:00 IntakeIntake Total 600 ml 1400 ml BalanceBalance 600 ml 1400 ml Clear to auscultation bilaterally Regular rate and rhythm Soft, diffusely tender, normoactive bowel sounds No edema Nonfocal Results Result Diagram: 01/20/19 0532 01/20/19 0532 Medications Medications Current Medications Fluoxetine HCl (Prozac) 40 mg QHS PO Last administered on 01/21/19 20:07; Admin Dose 40 MG; Start 01/20/19 at 21:00 Gabapentin (Neurontin) 300 mg BID PO Last administered on 01/22/19 08:17; Admin Dose 300 MG; Start 01/20/19 at 09:00 Levothyroxine Sodium (Synthroid) 150 mcg BEFORE BREAKFAST PO Last administered on 01/22/19 06:23; Admin Dose 150 MCG; Start 01/20/19 at 07:00 Mesalamine (Delzicol Dr) 800 mg Q8 PO Last administered on 01/22/19 06:23; Admin Dose 800 MG; Start 01/20/19 at 06:00 Metoclopramide HCl (Reglan) 10 mg WITH MEALS BEDTIME PO Last administered on 01/22/19 08:17; Admin Dose 10 MG; Start 01/20/19 at 08:00 Trazodone HCl (Desyrel) 150 mg QHS PO Last administered on 01/21/19 20:07; Admin Dose 150 MG; Start 01/20/19 at 21:00 IV Flush (NS 3 ml) 3 ml PER PROTOCOL IV ; Start 01/20/19 at 02:30 Ondansetron HCl (Zofran Tab) 4 mg Q6H PRN PO NAUSEA/VOMITING Last administered on 01/20/19 20:21; Admin Dose 4 MG; Start 01/20/19 at 02:30 Acetaminophen (Tylenol Tab) 650 mg Q6H PRN PO .PAIN 1-3 OR TEMP; Start 01/20/19 at 02:30 Famotidine (Pepcid Iv) 20 mg Q12 IV Last administered on 01/22/19 08:17; Admin Dose 20 MG; Start 01/20/19 at 02:30 Oxycodone/ Acetaminophen (Endocet (10/ 325)) 1 tab Q6H PRN PO MODERATE PAIN LEVEL 4-6 Last administered on 01/20/19 19:46; Admin Dose 1 TAB; Start 01/20/19 at 04:00 Hydromorphone HCl (Dilaudid) 1 mg Q3 PRN IV SEVERE PAIN LEVEL 7-10 Last administered on 01/22/19 09:32; Admin Dose 1 MG; Start 01/20/19 at 11:00 Methylprednisolone Sodium Succinate (Solu-Medrol) 20 mg Q8 IV Last administered on 01/22/19 06:23; Admin Dose 20 MG; Start 01/20/19 at 14:00 Lorazepam (Ativan) 2 mg Q6 PRN PO ANXIETY Last administered on 01/21/19 08:11; Admin Dose 2 MG; Start 01/20/19 at 13:30 Hydralazine HCl (Apresoline) 10 mg Q4H PRN IV ELEVATED SYSTOLIC BP Last adm inistered on 01/21/19 15:41; Admin Dose 10 MG; Start 01/20/19 at 22:30 Metoclopramide HCl (Reglan) 10 mg Q6H PRN IV NAUSEA AND/OR VOMITING Last administered on 01/20/19 23:09; Admin Dose 10 MG; Start 01/20/19 at 22:30 Ondansetron HCl (Zofran Inj) 4 mg Q4H PRN IV NAUSEA AND/OR VOMITING Last administered on 01/21/19 10:20; Admin Dose 4 MG; Start 01/20/19 at 22:30 Dextrose/Sodium Chloride 1,000 ml @ 100 mls/hr Q10H IV Last administered on 01/22/19 00:41; Admin Dose 100 MLS/HR; Start 01/20/19 at 22:30 Lactulose (Enulose) 20 gm DAILY PRN PO CONSTIPATION; Start 01/22/19 at 10:30 Buspirone HCl (Buspar) 5 mg BID PO Last administered on 01/22/19at 08:17; Admin Dose 5 MG; Start 01/21/19 at 13:00 Pantoprazole (Protonix Tab) 40 mg DAILY@06 PO Last administered on 01/22/19at 06:23; Admin Dose 40 MG; Start 01/22/19 at 06:00 Hyoscyamine (Levsin (Sl)) 0.125 mg Q8 PO Last administered on 01/22/19at 06:23; Admin Dose 0.125 MG; Start 01/21/19 at 14:00 Lorazepam (Ativan) 2 mg Q6H PRN IV ANXIETY; Start 01/22/19 at 10:00 VTE Prophylaxis Risk score (from Nsg)>0 risk: 1 SCD applied (from Nsg): Yes Lines/Catheters IV Catheter Type: Saline Lock Victor in Place: No Assessment/Plan Assessment/Plan 58-year-old female with ulcerative colitis flare Severe anxiety disorder Chronic depression Continue IV Solu-Medrol Ativan 2 mg every 6 hours Pain control Discharge planning GI follow-up MANN SINCLAIR MD Jan 22, 2019 10:30
[2019-01-22 14:00] VITALS: BP 149/78; PULSE 74; RESP 18
--- NOTE | 2019-01-22 15:22 | PN ---
Date/Time of Note Date/Time of Note DATE: 01/22/19 TIME: 15:15 Assessment/Plan VTE Prophylaxis Risk score (from Nsg)>0 risk: 1 SCD applied (from Nsg): Yes Pharmacological prophylaxis: other (scds) Lines/Catheters IV Catheter Type (from Nrsg): Saline Lock Urinary Cath still in place: No Assessment/Plan Hospital Course Assessment: Bloody diarrhea/abdominal pain -likely 2/2 to UC Flare Nausea/vomiting UC Mesenteric panniculitis. Negative free air abscess or lymphadenopathy. Prominent nondilated fluid filled loops of proximal and distal small bowel that is nonspecific and likely ileus. -No bowel obstruction. Hypothyroidism Anxiety/depression Plan: We will monitor patient overnight if remains stable will change Solu-Medrol to prednisone 30 mg p.o. twice daily and will advance diet to low residue. Continue current GI regimen Patient seen in collaboration with Dr. Aiken Subjective: No complaints of nausea or vomiting currently patient has been restarted on a clear liquid diet and thus far tolerating well. No BM today no overt signs of GI bleed. No overnight events, continue close observation Exam PHYSICAL EXAMINATION: GENERAL: Well developed, well nourished, alert & oriented x 3, in no acute distress SKIN: No lesions. HEAD: Normocephalic, atraumatic, no tenderness. EYES: Pupils equal reactive to light and accommodation, full extraocular move ments, sclera clear, non-icteric, no discharge. EARS/NOSE AND THROAT: Ears normal, nose normal, oropharynx normal, oral membranes well hydrated without lesions. NECK: Supple, no masses, thyroid normal, CHEST: Inspection within normal limits. CARDIOVASCULAR: Heart: Regular rate and rhythm RESPIRATORY: Lungs clear to auscultation GASTROINTESTINAL AND LIVER: Abdomen: Soft, generalized tenderness, non- distended, no hernias, no masses, no organomegaly, no ascites, no guarding, no rebound tenderness, normoactive bowel sounds. Rectal: Deferred. Result Diagram: 01/20/19 0532 01/20/19 0532 Exam/Review of Systems Exam Vitals Vital Signs Date Temp Pulse Resp B/P (MAP) Pulse Ox O2 O2 Flow FiO2 Time Delivery Rate 01/22/19 99.4 78 20 148/70 93 08:04 (96) 01/20/19 Room Air 14:56 Intake and Output 7/12/0501/21/19 01/22/19 1515:00 23:00 07:00 IntakeIntake Total 600 ml 1400 ml BalanceBalance 600 ml 1400 ml Medications Medication Current Medications Fluoxetine HCl (Prozac) 40 mg QHS PO Last administered on 01/21/19 20:07; Admin Dose 40 MG; Start 01/20/19 at 21:00 Gabapentin (Neurontin) 300 mg BID PO Last administered on 01/22/19 08:17; Admin Dose 300 MG; Start 01/20/19 at 09:00 Levothyroxine Sodium (Synthroid) 150 mcg BEFORE BREAKFAST PO Last administered on 01/22/19 06:23; Admin Dose 150 MCG; Start 01/20/19 at 07:00 Mesalamine (Delzicol Dr) 800 mg Q8 PO Last administered on 01/22/19 14:40; Admin Dose 800 MG; Start 01/20/19 at 06:00 Metoclopramide HCl (Reglan) 10 mg WITH MEALS BEDTIME PO Last administered on 01/22/19 11:42; Admin Dose 10 MG; Start 01/20/19 at 08:00 Trazodone HCl (Desyrel) 150 mg QHS PO Last administered on 01/21/19 20:07; Admin Dose 150 MG; Start 01/20/19 at 21:00 IV Flush (NS 3 ml) 3 ml PER PROTOCOL IV ; Start 01/20/19 at 02:30 Ondansetron HCl (Zofran Tab) 4 mg Q6H PRN PO NAUSEA/VOMITING Last administered on 01/20/19 20:21; Admin Dose 4 MG; Start 01/20/19 at 02:30 Acetaminophen (Tylenol Tab) 650 mg Q6H PRN PO .PAIN 1-3 OR TEMP; Start 01/20/19 at 02:30 Famotidine (Pepcid Iv) 20 mg Q12 IV Last administered on 01/22/19 08:17; Admin Dose 20 MG; Start 01/20/19 at 02:30 Oxycodone/ Acetaminophen (Endocet (10/ 325)) 1 tab Q6H PRN PO MODERATE PAIN LEVEL 4-6 Last administered on 01/20/19 19:46; Admin Dose 1 TAB; Start 01/20/19 at 04:00 Hydromorphone HCl (Dilaudid) 1 mg Q3 PRN IV SEVERE PAIN LEVEL 7-10 Last administered on 01/22/19 12:32; Admin Dose 1 MG; Start 01/20/19 at 11:00 Methylprednisolone Sodium Succinate (Solu-Medrol) 20 mg Q8 IV Last administered on 01/22/19 14:41; Admin Dose 20 MG; Start 01/20/19 at 14:00 Lorazepam (Ativan) 2 mg Q6 PRN PO ANXIETY Last administered on 01/21/19 08:11; Admin Dose 2 MG; Start 01/20/19 at 13:30 Hydralazine HCl (Apresoline) 10 mg Q4H PRN IV ELEVATED SYSTOLIC BP Last administered on 01/21/19 15:41; Admin Dose 10 MG; Start 01/20/19 at 22:30 Metoclopramide HCl (Reglan) 10 mg Q6H PRN IV NAUSEA AND/OR VOMITING Last administered on 01/20/19 23:09; Admin Dose 10 MG; Start 01/20/19 at 22:30 Ondansetron HCl (Zofran Inj) 4 mg Q4H PRN IV NAUSEA AND/OR VOMITING Last administered on 01/21/19 10:20; Admin Dose 4 MG; Start 01/20/19 at 22:30 Lactulose (Enulose) 20 gm DAILY PRN PO CONSTIPATION; Start 01/22/19 at 10:30 Buspirone HCl (Buspar) 5 mg BID PO Last administered on 01/22/19 08:17; Admin Dose 5 MG; Start 01/21/19 at 13:00 Pantoprazole (Protonix Tab) 40 mg DAILY@06 PO Last administered on 01/22/19 06:23; Admin Dose 40 MG; Start 01/22/19 at 06:00 Hyoscyamine (Levsin (Sl)) 0.125 mg Q8 PO Last administered on 01/22/19 14:40; Admin Dose 0.125 MG; Start 01/21/19 at 14:00 Lorazepam (Ativan) 2 mg Q6H PRN IV ANXIETY Last administered on 01/22/19 13:41; Admin Dose 2 MG; Start 01/22/19 at 10:00 CHRIS LOPEZ Jan 22, 2019 15:21
[2019-01-22 20:15] VITALS: BP 140/75; PULSE 78; RESP 16
[2019-01-22] MEDS: FLUOXETINE 20 MG CAP PO SCH (21:58)
[2019-01-22] MEDS: traZODone 50 MG TAB PO SCH (21:58)
[2019-01-23] MEDS: HYDROmorphONE 1 MG/ML SYG IV PRN ×2 (02:13→06:47)
[2019-01-23 02:25] VITALS: BP 191/86; PULSE 86
[2019-01-23] MEDS: hydrALAzine 20 MG INJ IV PRN ×2 (02:28→07:30)
[2019-01-23 02:36] VITALS: BP 191/86; PULSE 86; RESP 18
[2019-01-23 02:45] VITALS: BP 159/72
[2019-01-23] MEDS: LORAZEPAM 2 MG INJ IV PRN ×2 (02:48→08:53)
[2019-01-23] MEDS: HYOSCYAMINE 0.125 MG SUBL TAB PO SCH (06:47)
[2019-01-23] MEDS: LEVOTHYROXINE 150 MCG TAB PO SCH (06:47)
[2019-01-23] MEDS: PANTOPRAZOLE (EC) 40 MG TAB PO SCH (06:47)
[2019-01-23] MEDS: METHYLPREDNISOLONE 40 MG INJ IV SCH (06:47)
[2019-01-23] MEDS: MESALAMINE (EC) 400 MG CAP PO SCH (06:48)
[2019-01-23] MEDS: METOCLOPRAMIDE 10 MG TAB PO SCH ×2 (07:30→12:47)
[2019-01-23 07:37] VITALS: BP 206/94; PULSE 86; RESP 18
[2019-01-23] MEDS: FAMOTIDINE 20 MG INJ IV SCH (08:25)
[2019-01-23] MEDS: GABAPENTIN 300 MG CAP PO SCH (08:25)
[2019-01-23] MEDS: BUSPIRONE 5 MG TAB PO SCH (08:25)
[2019-01-23] MEDS ORDERED: BUSP5TAB2 PO (09:48)
[2019-01-23] MEDS ORDERED: AMLO5TAB4 PO (09:48)
[2019-01-23] MEDS ORDERED: HYOS0.1297 PO (09:48)
--- NOTE | 2019-01-23 09:49 | PDOCDIS ---
Discharge Instructions CONDITION [id number] Patient Condition: [id number] Good HOME CARE INSTRUCTIONS: [id number] Diet Instructions: [id number] Activity Restrictions: [id number] No Restrictions FOLLOW UP/APPOINTMENTS Follow-up Plan pcp [address] Aiken 1 week MANN SINCLAIR MD Jan 23, 2019 09:49
[2019-01-23] MEDS ORDERED: AMLODIPINE 5 MG TAB PO SCH (10:00)
[2019-01-23] MEDS: OXYCODONE/ACETAMINOPHEN (10/325) TAB PO PRN (10:04)
--- NOTE | 2019-01-23 11:24 | DS ---
DATE OF ADMISSION: 01/21/2019 DATE OF DISCHARGE: DISCHARGE DIAGNOSES: 1. A 58-year-old female with ulcerative colitis flare, significantly improved. 2. Bright red blood per rectum, resolved. 3. Hypothyroidism. 4. Chronic depression. 5. Severe anxiety disorder. 6. Narcotic and benzodiazepine dependence. 7. Hypertension. 8. Drug seeking behavior. HOSPITAL COURSE: A 58-year-old female with history of ulcerative colitis who presented to the emerge ncy room with complaint of abdominal pain and occasional bright red blood per rectum. The patient wa s diagnosed with acute ulcerative colitis flare. She was seen in consultation by gastroenterology gr oup. The patient was started on IV Solu-Medrol. Her symptoms improved. There was no evidence of GI bleed. The patient has severe anxiety disorder. She is narcotic and benzodiazepine dependent. Patient has been getting Ativan 2 mg 4 times daily as outpatient for a long period of time. I have had an extens jessy discussion with her and encouraged her to wean off Ativan slowly. Patient is undergoing breast l ump resection and plans to decrease her Ativan following the surgery. She is in a stable condition f or discharge. Her blood pressure was elevated during the hospitalization, mainly due to anxiety and abdominal pain. I prescribed Norvasc. Her abdomen was soft and nontender on the day of discharge. PLAN: Discharge home. MEDICATIONS ON DISCHARGE: 1. Norvasc 5 mg p.o. daily. 2. Buspirone 5 mg p.o. b.i.d. 3. Hyoscyamine sulfate 0.125 mg q.8h. 4. Fluoxetine 40 mg at bedtime. 5. Gabapentin 300 mg b.i.d. 6. [place] as needed. 7. Levothyroxine 150 mcg daily. 8. Lorazepam 2 mg p.o. q.i.d. 9. Mesalamine 800 mg 3 times daily. 10. Metoclopramide 10 mg with meals as needed. 11. Omeprazole 20 mg daily. 12. Prednisone 30 mg p.o. b.i.d. with 5 mg tapers. 12, Trazodone 150 mg p.o. at bedtime. FOLLOWUP: With PCP in 1 week. Follow up with Dr. Aiken in 1 week. Dictated By: MANN MORALES/WING Conf#: [id number] DID#: [id number] CC: RISHI PARK NP; CHILO AIKEN; OLIVERIO AC MD;*[facility]*
[2019-01-23 12:31] VITALS: BP 140/67; PULSE 100; RESP 20
== END 2019-01-23 13:20 | disposition home or self-care (01) | DRG 386 ==
LOC: E/R 17:59 → 2NE 01-20 01:26 → INTOOBSV 01-20 01:26 → OBSVTOIN 01-21 14:38 → 5EC 01-21 17:00
PROVIDERS: ADMIT Internal Medicine; ATTEND Internal Medicine
DX: K51.90 Ulcerative colitis, unspecified, without complications (principal); K65.4 Sclerosing mesenteritis; F33.2 Major depressive disorder, recurrent severe without psychotic features; F13.20 Sedative, hypnotic or anxiolytic dependence, uncomplicated; F11.20 Opioid dependence, uncomplicated; E03.9 Hypothyroidism, unspecified; Z76.5 Malingerer [conscious simulation]; F41.9 Anxiety disorder, unspecified; Z90.710 Acquired absence of both cervix and uterus; Z90.49 Acquired absence of other specified parts of digestive tract
CPT/HCPCS: 36415; 74176; 80048; 80053; 81003; 83690; 84484; 85025; 85651; 86140; 87081; 93005; 96374; 96375; 99217; G0378; J0360; J1170; J2060; J2405; J2765; J2920; J7042

== ENCOUNTER 2019-02-04 19:04 | Emergency (ER) | payer OTHER ==
[~2019-02-04] VITALS: Ht 162.6 cm; Wt 85.6 kg
[~2019-02-04 19:04] MED LIST changes: +AMLO5TAB4 PO; +BUSP5TAB2 PO; +HYOS0.1297 PO; -LORA1TAB PO; -MESA800T2 PO; +OMEP20CA16 PO; -OXYC-431 PO
[2019-02-04 19:24] VITALS: Ht 162.6 cm; Wt 85.6 kg
[2019-02-04 21:18] VITALS: BP 134/78; PULSE 72; RESP 16
--- NOTE | 2019-02-05 00:26 | ERD ---
ER Documentation Chief Complaint Chief Complaint shakey & been anxious lately; on Prednisone x UC HPI History of Present Illness: 58-year-old female with history of anxiety, ulcerative colitis, thyroidectomy coming in today with complaint of feeling shaky and anxious. Patient reports that she is currently on 30 mg of prednisone twice daily for ulcerative colitis. Patient reports that she is being weaned off prednisone by the prescribing physician. Patient reports that she usually takes Ativan 2 mg 4 times daily but missed one dose of medication today due to leaving the medication at home. Patient with recent prescription of Ativan 120 pills according to cures on 01/25/2019. Denies any other associated symptoms. Patient desires to have 1 pill before discharge. At home pharmacological/nonpharmacological treatment for symptoms: Denies Denies social concerns; Denies recent foreign travel ROS All systems reviewed and are negative except as per history of present illness. Medications Home Meds Active Scripts Amlodipine Besylate* (Norvasc*) 5 Mg Tablet, 5 MG PO DAILY for 30 Days, TAB Prov:MANN SINCLAIR MD 01/23/19 Buspirone Hcl* (Buspirone Hcl*) 5 Mg Tab, 5 MG PO BID for 30 Days, TAB Prov:MANN SINCLAIR MD 01/23/19 Hyoscyamine Sulfate* (Hyoscyamine Sulfate*) 0.125 Mg Tab.subl, 0.125 MG PO Q8 for 30 Days Prov:MANN SINCLAIR MD 01/23/19 Hydrocodone/Acetaminophen ([place] 10-325 Tablet) 1 Each Tablet, 1 TAB PO Q6H PRN for PAIN, #12 TAB Prov:ELAINA NERI DO 12/25/18 Prednisone* (Prednisone*) 20 Mg Tab, 30 MG PO BID for 30 Days, TAB 30 mg po bid with 5 mg taper every 5 days Prov:MANN SINCLAIR MD 11/30/18 Levothyroxine Sodium* (Levothyroxine Sodium*) 150 Mcg Tablet, 150 MCG PO BEFORE BREAKFAST for 30 Days, TAB 3 Refills Prov:MANN SINCLAIR MD 11/30/18 Mesalamine (Delzicol) 400 Mg Cap.drtab., 800 MG PO Q8 for 30 Days, 3 Refills Prov:MANN SINCLAIR MD 11/30/18 Reported Medications Lorazepam* (Ativan*) 2 Mg Tablet, 2 MG PO QID for 30 Days, #120 TAKE 1 TABLET BY MOUTH FOUR TIMES A DAY 01/20/19 Omeprazole* (Omeprazole*) 20 Mg Capsule.dr, 20 MG PO DAILY TAKE 1 CAPSULE BY MOUTH EVERY DAY 01/20/19 Gabapentin* (Gabapentin*) 300 Mg Capsule, 300 MG PO BID, #60 CAP 12/16/18 Metoclopramide Hcl* (Metoclopramide Hcl*) 10 Mg Tablet, 10 MG PO WITH MEALS BEDTIME, TAB 12/16/18 Fluoxetine Hcl* (Fluoxetine Hcl*) 40 Mg Capsule, 40 MG PO QHS, CAP 12/16/18 Trazodone Hcl* (Trazodone Hcl*) 150 Mg Tablet, 150 MG PO QHS, #30 TAB 12/16/18 Allergies Allergies: Coded Allergies: amoxicillin (Unverified Allergy, Severe, 12/28/18) cefuroxime (Unverified Allergy, Intermediate, RASH, 12/28/18) erythromycin base (Unverified Allergy, Intermediate, LIGHTHEADED, 12/28/18) ketorolac tromethamine (Unverified Allergy, Intermediate, HEADACHE, 12/28/18) levofloxacin (Unverified Allergy, Intermediate, PALPITATION, 12/28/18) cefuroxime axetil (Unverified Allergy, Mild, RASH, 12/28/18) hydrocodone (Verified Allergy, Unknown, 11/28/18) headcahe, alters mood ketorolac (Unverified Allergy, Unknown, HEADACHE, 03/10/18) tramadol (Verified Allergy, Unknown, 12/28/18) states it gives her anxiety PMhx/Soc History of Surgery: Yes (HYSTERECTOMY, APPENDECTOMY, CHOELCYSTECTOMY, THYROIDECTOMY) Anesthesia Reaction: No Hx Neurological Disorder: No Hx Respiratory Disorders: Yes (ASTHMA) Hx Cardiac Disorders: No Hx Psychiatric Problems: Yes (ANXIETY, DEPRESSION) Hx Miscellaneous Medical Probl: No Hx Alcohol Use: Yes Hx Substance Use: Yes Hx Tobacco Use: No Smoking Status: Never smoker FmHx Family History: diabetes Physical Exam Vitals Vital Signs Date Temp Pulse Resp B/P (MAP) Pulse Ox O2 O2 Flow FiO2 Time Delivery Rate 02/04/19 98.3 72 16 134/78 98 Room Air 21:18 (96) 02/04/19 98.3 93 18 135/75 97 19:24 (95) Physical Exam Const: No acute distress, afebrile Head: Atraumatic Eyes: Normal Conjunctiva ENT: Normal External Ears, Nose and Mouth. Neck: Full range of motion. No meningismus. Resp: Clear to auscultation bilaterally Cardio: Regular rate and rhythm, no murmurs Abd: Soft, non tender, non distended. No guarding, no masses, no rigidity Skin: No petechiae or rashes Back: No midline or flank tenderness Ext: No cyanosis, or edema Neur: Awake and alert x3, speaking in clear sentences, no focal deficits or facial asymmetry Psych: Normal Mood and Affect Procedures/MDM ED COURSE: ED course includes a thorough examination and history. The patient was stable throughout ED course. I kept the patient and/or family informed of laboratory and diagnostic imaging results throughout the ED course. DIAGNOSTIC IMAGING: EKG: Read by Dr. Dempsye, ED attending physician. EKG shows normal sinus rhythm at a rate of 75 No arrhythmias, acute ST elevations or T wave changes were noted. PROCEDURES: None. MEDICAL DECISION MAKING: Low suspicion for life-threatening medical emergency. Low suspicion for endocrinology emergency. Low suspicion for cardiac emergency. Otherwise healthy patient presenting with constellation of symptoms likely representing uncomplicated anxiety as characterized by history, physical exam findings, EKG findings Patient reassessment @ 2039: Results of EKG discussed. No clinical indication for Ativan during emergency department visit. Patient has this prescription at home and there is no reason that patient should be able to obtain her prescription. Report to patient that if she is able to drive to emergency department that she should be able to drive home and get medication as needeD, as patient is not an out-of-town patient. Patient hemodynamically stable. No respiratory distress, otherwise relatively well appearing and nontoxic. Disposition given. Patient educated on diagnoses, prescriptions, follow-up care, return precautions. Strict return precautions given for worsening condition; questions answered discharge. Patient verbalizes understanding of discharge instructions. PRESCRIPTIONS FOR HOME: None DISPOSITION: DISCHARGE At this time, patient is stable for discharge and outpatient management. I have instructed the patient to follow-up with his/her primary care physician in 1-2 days. I have discussed with the patient the possibility of needing to see a specialist for further workup and imaging studies if symptoms persist. I have instructed the patient to promptly return to the ER for any new or worsening symptoms including increased pain, fever, nausea, vomiting, weakness or LOC. The patient and/or family expressed understanding of and agreement with this plan. All questions were answered. Home care instructions were provided. DISCLAIMER: Inadvertent spelling and grammatical errors are likely due to EHR/dictation software use and do not reflect on the overall quality of patient care. Also, please note that the electronic time recorded on this note does not necessarily reflect the actual time of the patient encounter. Departure Diagnosis: Primary Impression: Anxiety Condition: Stable Patient Instructions: Your Body's Response to Anxiety, Anxiety Reaction Referrals: [facility] YOU HAVE RECEIVED A MEDICAL SCREENING EXAM AND THE RESULTS INDICATE THAT YOU DO NOT HAVE A CONDITION THAT REQUIRES URGENT TREATMENT IN THE EMERGENCY DEPARTMENT. FURTHER EVALUATION AND TREATMENT OF YOUR CONDITION CAN WAIT UNTIL YOU ARE SEEN IN YOUR DOCTORS OFFICE WITHIN THE NEXT 1-2 DAYS. IT IS YOUR RESPONSIBILITY TO MAKE AN APPOINTMENT FOR FOLOW-UP CARE. IF YOU HAVE A PRIMARY DOCTOR --you should call your primary doctor and schedule an appointment IF YOU DO NOT HAVE A PRIMARY DOCTOR YOU CAN CALL OUR PHYSICIAN REFERRAL HOTLINE AT IF YOU CAN NOT AFFORD TO SEE A PHYSICIAN YOU CAN CHOSE FROM THE FOLLOWING [facility] [address] [facility]. [facility] [address] [facility]. [facility] [address] [facility] [facility] [address] [facility]. [facility] [address] [facility]. [facility]. [address] [facility]. [facility] YOU HAVE RECEIVED A MEDICAL SCREENING EXAM AND THE RESULTS INDICATE THAT YOU DO NOT HAVE A CONDITION THAT REQUIRES URGENT TREATMENT IN THE EMERGENCY DEPARTMENT. FURTHER EVALUATION AND TREATMENT OF YOUR CONDITION CAN WAIT UNTIL YOU ARE SEEN IN YOUR DOCTORS OFFICE WITHIN THE NEXT 1-2 DAYS. IT IS YOUR RESPONSIBILITY TO MAKE AN APPOINTMENT FOR FOLOW-UP CARE. IF YOU HAVE A PRIMARY DOCTOR --you should call your primary doctor and schedule and appointment IF YOU DO NOT HAVE A PRIMARY DOCTOR YOU CAN CALL OUR PHYSICIAN REFERRAL HOTLINE AT . IF YOU CAN NOT AFFORD TO SEE A PHYSICIAN YOU CAN CHOSE FROM THE FOLLOWING [facility] INSTITUTIONS: [facility] [address] [place] [address] [facility] [address] [place] [address] [facility] [address] [place] [address] Additional Instructions: Thank you very much for allowing us to participate in your care. Your health and safety is our top priority at [facility]. It is important to read all discharge instructions and education provided in your discharge packet. Call your primary care doctor TOMORROW for an appointment during the next 2-4 days and bring all the information and medications prescribed. *Talk to your prescribing doctor regarding present to see if there are other alternatives since this is exacerbating your anxiety. Do not miss any scheduled and lorazepam doses; this will help prevent anxiety attack.* Have prescriptions filled and follow precisely the directions on the label. If the symptoms get worse and your provider is unavailable, return to the Emergency Department immediately. BENITO ORDOÑEZ NP Feb 05, 2019 00:26
== END 2019-02-04 21:18 | disposition home or self-care (01) ==
LOC: FTE 19:04
DX: F41.9 Anxiety disorder, unspecified (principal); J45.909 Unspecified asthma, uncomplicated
CPT/HCPCS: 93005; Z7502

== ENCOUNTER 2019-02-18 15:28 | Emergency (ER) | payer OTHER ==
[~2019-02-18] VITALS: Ht 157.5 cm; Wt 79.0 kg
[~2019-02-18 15:28] MED LIST changes: +DICY10CA40 PO; +LEVO137T3 PO; +OXYC-431 PO
[2019-02-18 15:32] VITALS: Ht 157.5 cm; Wt 79.0 kg
[2019-02-18] MEDS ORDERED: SOD CHLORIDE 0.9% 1,000 ML IV STA (16:07)
[2019-02-18] MEDS ORDERED: ONDANSETRON 4 MG INJ IV STA (16:07)
[2019-02-18] MEDS ORDERED: HYDROmorphONE 1 MG/ML SYG IV STA (16:07)
[2019-02-18] MEDS ORDERED: LORAZEPAM 2 MG INJ IV ONE (17:00)
--- NOTE | 2019-02-18 17:08 | ERD ---
ER Documentation Chief Complaint Chief Complaint ap with bloody stools x 2 dAYS, HX ULCERATIVE COLITIS HPI 59-year-old female history of ulcerative colitis, chronic abdominal pain who is currently tapering down on steroids. The patient states that she has had these cramping abdominal discomfort with 2-3 episodes of looser bloody stools. She denies any fevers or chills. The patient states that she usually requires narcotic pain medication to control her symptoms. She denies any hematemesis or melena. ROS All systems reviewed and are negative except as per history of present illness. Medications Home Meds Active Scripts Dicyclomine HCl (Dicyclomine HCl) 10 Mg Capsule, 10 MG PO TID PRN for ABDOMINAL CRAMPING, #20 CAP Prov:TEX DUDLEY MD 02/18/19 Amlodipine Besylate* (Norvasc*) 5 Mg Tablet, 5 MG PO DAILY for 30 Days, TAB Prov:MANN SINCLAIR MD 01/23/19 Buspirone Hcl* (Buspirone Hcl*) 5 Mg Tab, 5 MG PO BID for 30 Days, TAB Prov:MANN SINCLAIR MD 01/23/19 Hyoscyamine Sulfate* (Hyoscyamine Sulfate*) 0.125 Mg Tab.subl, 0.125 MG PO Q8 for 30 Days Prov:MANN SINCLAIR MD 01/23/19 Prednisone* (Prednisone*) 20 Mg Tab, 30 MG PO BID for 30 Days, TAB 30 mg po bid with 5 mg taper every 5 days Prov:MANN SINCLAIR MD 11/30/18 Mesalamine (Delzicol) 400 Mg Cap.drtab., 800 MG PO Q8 for 30 Days, 3 Refills Prov:MANN SINCLAIR MD 11/30/18 Reported Medications Oxycodone HCl/Acetaminophen (Oxycodone-Acetaminophen 10-325) 1 Each Tablet, 1 EACH PO Q8H, TAB 02/18/19 Levothyroxine Sodium* (Levothyroxine Sodium*) 137 Mcg Tablet, 137 MCG PO BEFORE BREAKFAST, #30 TAB 02/18/19 Lorazepam* (Ativan*) 2 Mg Tablet, 2 MG PO QID for 30 Days, #120 TAKE 1 TABLET BY MOUTH FOUR TIMES A DAY 01/20/19 Omeprazole* (Omeprazole*) 20 Mg Capsule.dr, 20 MG PO DAILY TAKE 1 CAPSULE BY MOUTH EVERY DAY 01/20/19 Gabapentin* (Gabapentin*) 300 Mg Capsule, 600 MG PO BID, #60 CAP 12/16/18 Metoclopramide Hcl* (Metoclopramide Hcl*) 10 Mg Tablet, 10 MG PO WITH MEALS BEDTIME, TAB 12/16/18 Fluoxetine Hcl* (Fluoxetine Hcl*) 40 Mg Capsule, 40 MG PO QHS, CAP 12/16/18 Trazodone Hcl* (Trazodone Hcl*) 150 Mg Tablet, 150 MG PO QHS, #30 TAB 12/16/18 Discontinued Scripts Hydrocodone/Acetaminophen ([place] 10-325 Tablet) 1 Each Tablet, 1 TAB PO Q6H PRN for PAIN, #12 TAB Prov:ELAINA NERI DO 12/25/18 Levothyroxine Sodium* (Levothyroxine Sodium*) 150 Mcg Tablet, 150 MCG PO BEFORE BREAKFAST for 30 Days, TAB 3 Refills Prov:MANN SINCLAIR MD 11/30/18 Allergies Allergies: Coded Allergies: amoxicillin (Unverified Allergy, Severe, 02/18/19) cefuroxime (Unverified Allergy, Intermediate, RASH, 02/18/19) erythromycin base (Unverified Allergy, Intermediate, LIGHTHEADED, 02/18/19) ketorolac tromethamine (Unverified Allergy, Intermediate, HEADACHE, 02/18/19) levofloxacin (Unverified Allergy, Intermediate, PALPITATION, 02/18/19) cefuroxime axetil (Unverified Allergy, Mild, RASH, 02/18/19) hydrocodone (Verified Allergy, Unknown, 02/18/19) headcahe, alters mood ketorolac (Unverified Allergy, Unknown, HEADACHE, 02/18/19) tramadol (Verified Allergy, Unknown, 02/18/19) states it gives her anxiety PMhx/Soc History of Surgery: Yes (HYSTERECTOMY, APPENDECTOMY, CHOELCYSTECTOMY, THYROIDECTOMY) Anesthesia Reaction: No Hx Neurological Disorder: No Hx Respiratory Disorders: Yes (ASTHMA) Hx Cardiac Disorders: No Hx Psychiatric Problems: Yes (ANXIETY, DEPRESSION) Hx Miscellaneous Medical Probl: No Hx Alcohol Use: Yes Hx Substance Use: Yes (marijuana) Hx Tobacco Use: No Smoking Status: Former smoker FmHx Family History: No diabetes Physical Exam Vitals Vital Signs Date Temp Pulse Resp B/P (MAP) Pulse Ox O2 O2 Flow FiO2 Time Delivery Rate 02/18/19 77 13 150/90 97 Room Air 18:35 (110) 02/18/19 80 18 169/84 100 Room Air 17:27 (112) 02/18/19 98.1 99 18 161/78 99 15:32 (105) Physical Exam General: Well developed, well nourished, no acute distress Head: Normocephalic, atraumatic. Eyes: Pupils equally reactive, EOM intact ENT: Moist mucous membranes Neck: Supple, no lymphadenopathy Respiratory: Lungs clear bilaterally, no distress Cardiovascular: RRR, no murmurs, rubs, or gallops Abdominal: Soft, generalized abdominal tenderness without rebound or guarding : Deferred MSK: No edema, no unilateral swelling, 5/5 strength Neurologic: Alert and oriented, moving all extremities, normal speech, no focal weakness, no cerebellar signs Skin: No rash Psych: Normal mood Result Diagram: 02/18/19 1555 02/18/19 1555 Results 24 hrs Laboratory Tests Test 02/18/19 15:55 White Blood Count 13.5 10^3/ul Red Blood Count 4.41 10^6/ul Hemoglobin 13.8 g/dl Hematocrit 41.7 % Mean Corpuscular Volume 94.6 fl Mean Corpuscular Hemoglobin 31.3 pg Mean Corpuscular Hemoglobin Concent 33.1 g/dl Red Cell Distribution Width 13.9 % Platelet Count 383 10^3/UL Mean Platelet Volume 8.3 fl Immature Granulocytes % 0.700 % Neutrophils % 84.0 % Lymphocytes % 9.8 % Monocytes % 5.2 % Eosinophils % 0.1 % Basophils % 0.2 % Nucleated Red Blood Cells % 0.0 /100WBC Immature Granulocytes # 0.100 10^3/ul Neutrophils # 11.4 10^3/ul Lymphocytes # 1.3 10^3/ul Monocytes # 0.7 10^3/ul Eosinophils # 0.0 10^3/ul Basophils # 0.0 10^3/ul Nucleated Red Blood Cells # 0.0 10^3/ul Sodium Level 138 mmol/L Potassium Level 4.3 mmol/L Chloride Level 101 mmol/L Carbon Dioxide Level 28 mmol/L Anion Gap 9 Blood Urea Nitrogen 13 mg/dl Creatinine 0.71 mg/dl Est Glomerular Filtrat Rate mL/min > 60 mL/min Glucose Level 117 mg/dl Calcium Level 9.6 mg/dl Current Medications Medications Dose Sig/Shannan Start Time Status Last (Trade) Ordered Route PRN Stop Time Admin Dose Reason Admin Sodium 1,000 ml @ Q1H STAT 02/18/19 DC 02/18/19 Chloride 1,000 mls/hr IV 16:07 02/18/19 16:17 17:06 1 mg ONCE STAT 02/18/19 DC 02/18/19 Hydromorphone IV 16:07 02/18/19 16:17 HCl 16:09 (Dilaudid) Ondansetron 4 mg ONCE STAT 02/18/19 DC 02/18/19 HCl (Zofran IV 16:07 02/18/19 16:17 Inj) 16:09 Lorazepam 1 mg ONCE ONCE 02/18/19 DC 02/18/19 (Ativan) IV 17:00 02/18/19 16:52 17:01 1 mg ONCE STAT 02/18/19 DC 02/18/19 Hydromorphone IV 17:53 02/18/19 17:59 HCl 17:54 (Dilaudid) Procedures/MDM LAB INTERPRETATION: I reviewed the laboratory testing and it shows slight leukocytosis MEDICAL DECISION MAKING: Patient presents to the emergency room with a flare of abdominal pain possibly secondary to ulcerative colitis flare versus acute on chronic abdominal pain. Patient has had multiple CTs including one in the past 30 days. I would like to avoid unnecessary CT imaging. Low concern for perforation or abscess. This also could be an exacerbation of her chronic pain. ER COURSE: * Laboratory testing is reassuring, leukocytosis of likely secondary to steroid use * Patient received several doses of pain medication. Symptoms improved. Repeat abdominal exam benign. I believe the patient is safe for discharge. The patient does have some chronic abdominal pain issues. 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 CONSULTATION: None DISPOSITION PLAN: The patient does not have an identifiable emergent medical condition that warrants inpatient hospitalization at this time. The patient is deemed safe for discharge with outpatient follow-up. We discussed follow up with the patient's primary care doctor within 24 to 48 hours as needed. We also discussed return to the emergency room for worsening symptoms or worsening condition. Outpatient referral: Gastroenterology Discharge Medications: Bentyl Departure Diagnosis: Primary Impression: Anxiety Additional Impressions: Generalized abdominal pain Ulcerative colitis Ulcerative colitis location: unspecified ulcerative colitis location Digestive disease complication type: unspecified complication Qualified Codes: K51.919 - Ulcerative colitis, unspecified with unspecified complications Condition: TEX Sneed MD Feb 18, 2019 17:08
[2019-02-18] MEDS ORDERED: HYDROmorphONE 0.5 MG/0.5 ML SYG IV STA (17:53)
[2019-02-18 19:20] VITALS: BP 169/81; PULSE 81; RESP 11
== END 2019-02-18 19:20 | disposition home or self-care (01) ==
LOC: E/R 15:28
DX: K51.919 Ulcerative colitis, unspecified with unspecified complications (principal); J45.909 Unspecified asthma, uncomplicated; F41.9 Anxiety disorder, unspecified; Z87.891 Personal history of nicotine dependence
CPT/HCPCS: 36415; 80048; 85025; 96374; 96375; 96376; J1170; J2060; J2405; J7030; Z7502

== ENCOUNTER 2019-02-19 10:59 | Emergency (ER) | payer OTHER ==
[~2019-02-19] VITALS: Ht 167.6 cm; Wt 85.3 kg
[~2019-02-19 10:59] MED LIST changes: -HYDR-3980 PO; -LEVO150T7 PO
[2019-02-19 11:02] VITALS: Ht 167.6 cm; Wt 85.3 kg
[2019-02-19] MEDS ORDERED: SOD CHLORIDE 0.9% 1,000 ML IV STA (11:11)
[2019-02-19] MEDS ORDERED: HYDROmorphONE 1 MG/ML SYG IV STA ×2 (11:11→13:23)
[2019-02-19] MEDS ORDERED: ONDANSETRON 4 MG INJ IV STA ×2 (11:11→13:23)
[2019-02-19] MEDS ORDERED: LORAZEPAM 2 MG INJ IV ONE ×2 (11:30→13:00)
--- NOTE | 2019-02-19 11:43 | ERD ---
ER Documentation Chief Complaint Chief Complaint chronic abdominal pain & blood in stool, seen here yesterday HPI This is a 59-year-old female with a known history of ulcerative colitis and chronic abdominal pain. The patient indicates that for the past 48 hours she has been having intermittent cramping. She states the pain and cramping is more prominent in the lower abdomen. She is been having loose watery stools. She stated she woke this morning noticed a small amount of blood-tinged stool. The patient is currently taking steroids for her ulcerative colitis. She said no fevers or shaking no chills. She denies any emesis but states she is felt nauseous. Patient states the pain is 10 out of 10 in intensity. The patient was seen and evaluated here yesterday for the same complaint. ROS All systems reviewed and are negative except as per history of present illness. Medications Home Meds Active Scripts Dicyclomine HCl (Dicyclomine HCl) 10 Mg Capsule, 10 MG PO TID PRN for ABDOMINAL CRAMPING, #20 CAP Prov:TEX DUDLEY MD 02/18/19 Amlodipine Besylate* (Norvasc*) 5 Mg Tablet, 5 MG PO DAILY for 30 Days, TAB Prov:MANN SINCLAIR MD 01/23/19 Buspirone Hcl* (Buspirone Hcl*) 5 Mg Tab, 5 MG PO BID for 30 Days, TAB Prov:MANN SINCLAIR MD 01/23/19 Hyoscyamine Sulfate* (Hyoscyamine Sulfate*) 0.125 Mg Tab.subl, 0.125 MG PO Q8 for 30 Days Prov:MANN SINCLAIR MD 01/23/19 Prednisone* (Prednisone*) 20 Mg Tab, 30 MG PO BID for 30 Days, TAB 30 mg po bid with 5 mg taper every 5 days Prov:MANN SINCLAIR MD 11/30/18 Mesalamine (Delzicol) 400 Mg Cap.drtab., 800 MG PO Q8 for 30 Days, 3 Refills Prov:MANN SINCLAIR MD 11/30/18 Reported Medications Oxycodone HCl/Acetaminophen (Oxycodone-Acetaminophen 10-325) 1 Each Tablet, 1 EACH PO Q8H, TAB 02/18/19 Levothyroxine Sodium* (Levothyroxine Sodium*) 137 Mcg Tablet, 137 MCG PO BEFORE BREAKFAST, #30 TAB 02/18/19 Lorazepam* (Ativan*) 2 Mg Tablet, 2 MG PO QID for 30 Days, #120 TAKE 1 TABLET BY MOUTH FOUR TIMES A DAY 01/20/19 Omeprazole* (Omeprazole*) 20 Mg Capsule.dr, 20 MG PO DAILY TAKE 1 CAPSULE BY MOUTH EVERY DAY 01/20/19 Gabapentin* (Gabapentin*) 300 Mg Capsule, 600 MG PO BID, #60 CAP 12/16/18 Metoclopramide Hcl* (Metoclopramide Hcl*) 10 Mg Tablet, 10 MG PO WITH MEALS BEDTIME, TAB 12/16/18 Fluoxetine Hcl* (Fluoxetine Hcl*) 40 Mg Capsule, 40 MG PO QHS, CAP 12/16/18 Trazodone Hcl* (Trazodone Hcl*) 150 Mg Tablet, 150 MG PO QHS, #30 TAB 12/16/18 Discontinued Scripts Hydrocodone/Acetaminophen ([place] 10-325 Tablet) 1 Each Tablet, 1 TAB PO Q6H PRN for PAIN, #12 TAB Prov:ELAINA NERI DO 12/25/18 Levothyroxine Sodium* (Levothyroxine Sodium*) 150 Mcg Tablet, 150 MCG PO BEFORE BREAKFAST for 30 Days, TAB 3 Refills Prov:MANN SINCLAIR MD 11/30/18 Allergies Allergies: Coded Allergies: amoxicillin (Unverified Allergy, Severe, 02/18/19) cefuroxime (Unverified Allergy, Intermediate, RASH, 02/18/19) erythromycin base (Unverified Allergy, Intermediate, LIGHTHEADED, 02/18/19) ketorolac tromethamine (Unverified Allergy, Intermediate, HEADACHE, 02/18/19) levofloxacin (Unverified Allergy, Intermediate, PALPITATION, 02/18/19) cefuroxime axetil (Unverified Allergy, Mild, RASH, 02/18/19) hydrocodone (Verified Allergy, Unknown, 02/18/19) headcahe, alters mood ketorolac (Unverified Allergy, Unknown, HEADACHE, 02/18/19) tramadol (Verified Allergy, Unknown, 02/18/19) states it gives her anxiety PMhx/Soc History of Surgery: Yes (HYSTERECTOMY, APPENDECTOMY, CHOELCYSTECTOMY, THYROIDECTOMY) Anesthesia Reaction: No Hx Neurological Disorder: No Hx Respiratory Disorders: Yes (ASTHMA) Hx Cardiac Disorders: No Hx Psychiatric Problems: Yes (ANXIETY, DEPRESSION) Hx Miscellaneous Medical Probl: No Hx Alcohol Use: Yes Hx Substance Use: Yes (marijuana) Hx Tobacco Use: No Physical Exam Vitals Vital Signs Date Temp Pulse Resp B/P (MAP) Pulse Ox O2 O2 Flow FiO2 Time Delivery Rate 02/19/19 98.0 91 18 194/101 98 11:02 (132) Physical Exam Constitutional:Well-developed. Well-nourished. Patient tearful and appeared to be in pain. HEENT:Normocephalic. Atraumatic.Pupils were equal round reactive to light. Moist mucous membranes.No tonsillar exudates. Respiratory: Not using accessory muscles of respiration.Lungs were clear to auscultation bilaterally. No rhonchi. No rales. No wheezing. Cardiovascular: Regular rate regular rhythm.No murmurs. No rubs were carol reciated.S1, S2 normal. Distal pulses are palpable 2+ bilaterally. GI: Abdomen was soft. Mild tenderness in the left lower quadrant and right lower quadrant. No tenderness specifically over McBurney's point. Psoas sign negative. Obturator sign negative.. Non Distended. No pulsatile abdominal masses or bruits. No rebound. No guarding. Bowel sounds were present and normal. NEURO: Patient was alert, awake, orientated x3.No facial droop. Gait observed and normal with no ataxia.Speech had regular rate and rhythm. No focal neurological deficits. Results 24 hrs Current Medications Medications Dose Sig/Shannan Start Time Status Last (Trade) Ordered Route PRN Stop Time Admin Dose Reason Admin Sodium 1,000 ml @ Q1H STAT 02/19/19 02/19/19 Chloride 1,000 mls/hr IV 11:11 02/19/19 11:36 12:10 1 mg ONCE STAT 02/19/19 DC 02/19/19 Hydromorphone IV 11:11 02/19/19 11:35 HCl 11:16 (Dilaudid) Ondansetron 4 mg ONCE STAT 02/19/19 DC 02/19/19 HCl (Zofran IV 11:11 02/19/19 11:35 Inj) 11:16 Lorazepam 1 mg ONCE ONCE 02/19/19 DC 02/19/19 (Ativan) IV 11:30 02/19/19 11:36 11:31 Procedures/MDM This patient presented to the emergency department with abdominal pain and was seen and evaluated by myself. My differential diagnosis included but was not limited to abdominal aortic aneurysm, appendicitis, pancreatitis, perforated peptic ulcer, perforated viscus, Boerhaave's syndrome or visceral pain such as diverticulitis, DKA, esophagitis, hepatitis or bowel obstruction. The patient was placed on a quality assurance monitor chassis, continuous pulse oximetry, and IV access was established by nursing staff. The patient was given intravenous Dilaudid Zofran and was requesting Ativan as she states she also has a history of anxiety and had not taken her benzodiazepines prior to arrival. The patient's abdomen was benign with no peritoneal signs. I reviewed previous medical records and the patient has had multiple visits for similar complaints. She is had a CT scan of her abdomen and pelvis within the past month. Given that there is no peritoneal signs my clinical suspicion was low for surgical abdomen such as perforation. I repeated the ancillary laboratory work and the patient had no severe electrolyte abnormalities or anemia. I felt she was stable to be discharged and follow-up with her GI physician to further discuss pain control and medication treatment for her ulcerative colitis flareup. The patient was discharged home in fair condition. They were instructed to return to the emergency department at any time if there was any worsening of their condition. The patient stated they would follow up with their PCP in the next 24-48 hours to initiate a suitable medication regimen under the care of their PCP as well as to allow their PCP to monitor any drug reactions. The patient was discharged home with prescriptions after they gave informed consent to the new medication. They were also fully informed by myself on the adverse effects and adverse drug interactions in order to provide adequate safeguards to prevent possible adverse reactions to medications. Departure Diagnosis: Primary Impression: Ulcerative colitis Ulcerative colitis location: unspecified ulcerative colitis location Digestive disease complication type: with rectal bleeding Qualified Codes: K51.911 - Ulcerative colitis, unspecified with rectal bleeding Condition: ASIF Oro MD Feb 19, 2019 11:43
[2019-02-19 13:20] VITALS: BP 157/86; PULSE 79; RESP 17
== END 2019-02-19 13:40 | disposition home or self-care (01) ==
LOC: E/R 10:59
DX: K51.911 Ulcerative colitis, unspecified with rectal bleeding (principal); J45.909 Unspecified asthma, uncomplicated
CPT/HCPCS: 80053; 82150; 83690; 85025; 96374; 96375; 96376; J1170; J2060; J2405; J7030; Z7502

== ENCOUNTER 2019-02-20 11:15 | Inpatient (IN) | payer OTHER ==
[~2019-02-20] VITALS: Ht 162.6 cm; Wt 83.5 kg
[2019-02-20] MEDS ORDERED: ONDANSETRON 4 MG INJ IV STA (13:09)
[2019-02-20] MEDS ORDERED: LORAZEPAM 2 MG INJ IV ONE (13:30)
--- NOTE | 2019-02-20 13:55 | ERD ---
ER Documentation Chief Complaint Chief Complaint abd pain with bloody stools x 3-4 days - hx of ulcerative colitis HPI 59-year-old female with a history of ulcerative colitis on a prednisone taper currently presenting with worsening abdominal pain and bloody stools. She has been here in the ER twice in the past 2 days as her symptoms are not improving. She has pain medications at home that are not helping with her pain. She is also complaining of a lot of anxiety as she ran out of her benzodiazepines. No fever or chills. But she has been having sweats. Her pain is stabbing, diffuse, mostly in the upper abdomen, with no alleviating or exacerbating factors. Rated at a 10 out of 10. Her GI doctor is Dr. Aiken, with whom she has an appointment in March. ROS All systems reviewed and are negative except as per history of present illness. Medications Home Meds Active Scripts Dicyclomine HCl (Dicyclomine HCl) 10 Mg Capsule, 10 MG PO TID PRN for ABDOMINAL CRAMPING, #20 CAP Prov:TEX DUDLEY MD 02/18/19 Amlodipine Besylate* (Norvasc*) 5 Mg Tablet, 5 MG PO DAILY for 30 Days, TAB Prov:MANN SINCLAIR MD 01/23/19 Buspirone Hcl* (Buspirone Hcl*) 5 Mg Tab, 5 MG PO BID for 30 Days, TAB Prov:MANN SINCLAIR MD 01/23/19 Hyoscyamine Sulfate* (Hyoscyamine Sulfate*) 0.125 Mg Tab.subl, 0.125 MG PO Q8 for 30 Days Prov:MANN SINCLAIR MD 01/23/19 Prednisone* (Prednisone*) 20 Mg Tab, 30 MG PO BID for 30 Days, TAB 30 mg po bid with 5 mg taper every 5 days Prov:MANN SINCLAIR MD 11/30/18 Mesalamine (Delzicol) 400 Mg Cap.drtab., 800 MG PO Q8 for 30 Days, 3 Refills Prov:MANN SINCLAIR MD 11/30/18 Reported Medications Oxycodone HCl/Acetaminophen (Oxycodone-Acetaminophen 10-325) 1 Each Tablet, 1 EACH PO Q8H, TAB 02/18/19 Levothyroxine Sodium* (Levothyroxine Sodium*) 137 Mcg Tablet, 137 MCG PO BEFORE BREAKFAST, #30 TAB 02/18/19 Lorazepam* (Ativan*) 2 Mg Tablet, 2 MG PO QID for 30 Days, #120 TAKE 1 TABLET BY MOUTH FOUR TIMES A DAY 01/20/19 Omeprazole* (Omeprazole*) 20 Mg Capsule.dr, 20 MG PO DAILY TAKE 1 CAPSULE BY MOUTH EVERY DAY 01/20/19 Gabapentin* (Gabapentin*) 300 Mg Capsule, 600 MG PO BID, #60 CAP 12/16/18 Metoclopramide Hcl* (Metoclopramide Hcl*) 10 Mg Tablet, 10 MG PO WITH MEALS BEDTIME, TAB 12/16/18 Fluoxetine Hcl* (Fluoxetine Hcl*) 40 Mg Capsule, 40 MG PO QHS, CAP 12/16/18 Trazodone Hcl* (Trazodone Hcl*) 150 Mg Tablet, 150 MG PO QHS, #30 TAB 12/16/18 Discontinued Scripts Hydrocodone/Acetaminophen ([place] 10-325 Tablet) 1 Each Tablet, 1 TAB PO Q6H PRN for PAIN, #12 TAB Prov:ELAINA NERI DO 12/25/18 Levothyroxine Sodium* (Levothyroxine Sodium*) 150 Mcg Tablet, 150 MCG PO BEFORE BREAKFAST for 30 Days, TAB 3 Refills Prov:MANN SINCLAIR MD 11/30/18 Allergies Allergies: Coded Allergies: amoxicillin (Unverified Allergy, Severe, 02/19/19) cefuroxime (Unverified Allergy, Intermediate, RASH, 02/19/19) erythromycin base (Unverified Allergy, Intermediate, LIGHTHEADED, 02/19/19) ketorolac tromethamine (Unverified Allergy, Intermediate, HEADACHE, 02/19/19) levofloxacin (Unverified Allergy, Intermediate, PALPITATION, 02/19/19) cefuroxime axetil (Unverified Allergy, Mild, RASH, 02/19/19) hydrocodone (Verified Allergy, Unknown, 02/19/19) headcahe, alters mood ketorolac (Unverified Allergy, Unknown, HEADACHE, 02/19/19) tramadol (Verified Allergy, Unknown, 02/19/19) states it gives her anxiety PMhx/Soc History of Surgery: Yes (HYSTERECTOMY, APPENDECTOMY, CHOELCYSTECTOMY, THYROIDECTOMY) Anesthesia Reaction: No Hx Neurological Disorder: No Hx Respiratory Disorders: Yes (ASTHMA) Hx Cardiac Disorders: No Hx Psychiatric Problems: Yes (ANXIETY, DEPRESSION) Hx Miscellaneous Medical Probl: No (breast "tumor" benign per pt) Hx Alcohol Use: Yes Hx Substance Use: Yes (marijuana) Hx Tobacco Use: No Smoking Status: Never smoker FmHx Family History: No diabetes Physical Exam Vitals Vital Signs Date Temp Pulse Resp B/P (MAP) Pulse Ox O2 O2 Flow FiO2 Time Delivery Rate 02/20/19 99.4 86 16 169/97 96 Room Air 14:50 (121) 02/20/19 97.6 104 20 175/104 98 11:32 (127) Physical Exam Const: Diaphoretic, in distress secondary to pain. Nontoxic Head: Atraumatic Eyes: Normal Conjunctiva ENT: Normal External Ears, Nose and Mouth. Neck: Full range of motion. No meningismus. Resp: Clear to auscultation bilaterally Cardio: Regular rate and rhythm, no murmurs Abd: Soft, diffuse mild tenderness, mostly in the upper abdomen with no rebound or guarding. non distended. Hyperactive bowel sounds Skin: No petechiae or rashes Back: No midline or flank tenderness Ext: No cyanosis, or edema Neur: Awake and alert Psych: Normal Mood and Affect Result Diagram: 02/20/19 1315 02/20/19 1315 Results 24 hrs Laboratory Tests Test 02/20/19 13:15 White Blood Count 13.8 10^3/ul Red Blood Count 4.66 10^6/ul Hemoglobin 14.5 g/dl Hematocrit 44.2 % Mean Corpuscular Volume 94.8 fl Mean Corpuscular Hemoglobin 31.1 pg Mean Corpuscular Hemoglobin Concent 32.8 g/dl Red Cell Distribution Width 14.1 % Platelet Count 329 10^3/UL Mean Platelet Volume 8.0 fl Immature Granulocytes % 0.600 % Neutrophils % 82.5 % Lymphocytes % 11.1 % Monocytes % 5.6 % Eosinophils % 0.1 % Basophils % 0.1 % Nucleated Red Blood Cells % 0.0 /100WBC Immature Granulocytes # 0.080 10^3/ul Neutrophils # 11.4 10^3/ul Lymphocytes # 1.5 10^3/ul Monocytes # 0.8 10^3/ul Eosinophils # 0.0 10^3/ul Basophils # 0.0 10^3/ul Nucleated Red Blood Cells # 0.0 10^3/ul Sodium Level 140 mmol/L Potassium Level 4.3 mmol/L Chloride Level 103 mmol/L Carbon Dioxide Level 30 mmol/L Anion Gap 7 Blood Urea Nitrogen 9 mg/dl Creatinine 0.74 mg/dl Est Glomerular Filtrat Rate mL/min > 60 mL/min Glucose Level 115 mg/dl Calcium Level 10.1 mg/dl Current Medications Medications Dose Sig/Shannan Start Time Status Last (Trade) Ordered Route PRN Stop Time Admin Dose Reason Admin Lorazepam 1 mg ONCE ONCE 02/20/19 DC 02/20/19 (Ativan) IV 13:30 02/20/19 13:19 13:31 Ondansetron 4 mg ONCE STAT 02/20/19 DC 02/20/19 HCl (Zofran IV 13:09 02/20/19 13:19 Inj) 13:10 125 mg ONCE ONCE 02/20/19 Methylprednis IV 15:00 02/20/19 olone Sodium 15:01 Succinate (Solu-Medrol) Nicardipine 30 mg ONCE ONCE 02/20/19 HCl PO 15:00 02/20/19 (Cardene) 15:01 Procedures/MDM EMERGENT LABS AND DIAGNOSTIC STUDIES: Lab Results above were reviewed and interpreted by me. CBC: Mild leukocytosis, stable when compared to the last 2 days. No anemia or evidence of infection BMP: [no e/o clinically significant electrolyte abnormality severe acidosis, alkalosis, renal failure, diabetic ketoacidosis] Initial Nursing notes reviewed. Previous Medical Records requested via the Electronic Health Record. EMERGENCY DEPARTMENT COURSE / MEDICAL DECISION MAKING: Patient is presenting with most likely ulcerative colitis flare. She was tachycardic and hypertensive on arrival. Labs showed mild leukocytosis which is stable. I do not suspect severe sepsis or septic shock. I do not suspect acute surgical abdomen or serious bacterial infection. Patient given high-dose steroids IV as well as Ativan for her anxiety. She will require admission for further work-up and stabilization as she is clearly not improving on outpatient therapy. Dr. Aiken was paged and I am awaiting response. Dr. Tenorio will be admitting patient to [facility]. Departure Diagnosis: Primary Impression: Acute ulcerative colitis with rectal bleeding Condition: EVENS Spears MD Feb 20, 2019 13:55
[2019-02-20] MEDS ORDERED: SOD CHLORIDE 0.9% 1,000 ML IV STA (14:57)
[2019-02-20] MEDS ORDERED: NICARDipine HCL 30 MG CAPSULE PO ONE (15:00)
[2019-02-20] MEDS ORDERED: ACETAMINOPHEN 325 MG TAB PO PRN (15:00)
[2019-02-20] MEDS ORDERED: METHYLPREDNISOLONE 125 MG INJ IV ONE (15:00)
[2019-02-20] MEDS ORDERED: ONDANSETRON 4 MG INJ IV PRN (15:00)
[2019-02-20] MEDS ORDERED: HYDROmorphONE 2 MG/ML SYG IV STA (15:28)
[2019-02-20 16:52] VITALS: BP 141/80; PULSE 84; RESP 18
[2019-02-20 17:10] VITALS: Ht 162.6 cm; Wt 83.5 kg
[2019-02-20] MEDS: HYDROmorphONE 1 MG/ML SYG IV PRN ×2 (18:59→22:20)
[2019-02-20 19:48] VITALS: BP 141/85; PULSE 83; RESP 20
[2019-02-20] MEDS: ONDANSETRON 4 MG INJ IV PRN (19:56)
[2019-02-20] MEDS: GABAPENTIN 300 MG CAP PO SCH (21:20)
[2019-02-20] MEDS: FLUOXETINE 20 MG CAP PO SCH (21:20)
[2019-02-20] MEDS: MESALAMINE (EC) 400 MG CAP PO SCH (21:20)
[2019-02-20] MEDS: LORAZEPAM 1 MG TAB PO SCH (21:20)
[2019-02-20] MEDS: traZODone 50 MG TAB PO SCH (21:20)
[2019-02-20] MEDS: BUSPIRONE 5 MG TAB PO SCH (21:21)
--- NOTE | 2019-02-20 22:59 | QN ---
Documentation Comment H&P dict a/p 1. uc flare, await gi WILVER HOWARD MD Feb 20, 2019 22:59
--- NOTE | 2019-02-20 23:11 | HP ---
DATE OF ADMISSION: 02/20/2019 CHIEF COMPLAINT: Abdominal pain. HISTORY OF PRESENTING ILLNESS: The patient presents to the emergency room at [facility] wit h 3 to 4-day history of abdominal pain with associated cramping, bloody diarrhea which she describes as typical for ulcerative colitis flare. She has been to the emergency room 3 times in the last 3 da ys for this and is not improving. She has not had the opportunity to see her GI doctor, Dr. Aiken. PAST MEDICAL HISTORY: Significant for anxiety, hypertension, depression, ulcerative colitis. MEDICATIONS OUTPATIENT: Include: 1. Bentyl. 2. Hyoscine. 3. Norvasc. 4. BuSpar. 5. Prozac. 6. Neurontin. 7. Ativan. 8. Percocet. 9. Trazodone. 10. Mesalamine. 11. Reglan. 12. Omeprazole. 13. Levothyroxine. 14. Prednisone. ALLERGIES: 1. AMOXICILLIN. 2. CEFUROXIME. 3. ERYTHROMYCIN. 4. HYDROCODONE. 5. TORADOL. 6. LEVAQUIN. 7. TRAMADOL. SOCIAL HISTORY: The patient is living in a hotel with her daughter and daughter's boyfriend. She is independent of activities of daily living. Denies tobacco and alcohol. Does take occasional mariju jason for medicinal purposes according to her. FAMILY HISTORY: Noncontributory. REVIEW OF SYSTEMS: Five systems reviewed and found not to be revealing. PHYSICAL EXAMINATION: VITAL SIGNS: Blood pressure 141/85, pulse rate 83, respirations 20, temperature is 99. GENERAL: Pleasant woman in no acute distress, alert and oriented x3. HEENT: Normocephalic, atraumatic without evident scleral icterus, perioral cyanosis. Mucous membran es are moist. NECK: Soft and supple without masses. There is no evidence of jugular venous distention or carotid bruits. CHEST: Clear to auscultation and percussion bilaterally. HEART: Regular rate and rhythm, S1-S2, no added sounds. ABDOMEN: Soft, minimally tender globally, not distended. No palpable hepatosplenomegaly. EXTREMITIES: Without clubbing, cyanosis or edema. SKIN: Without rashes. NEUROLOGIC: Grossly intact. LABORATORY STUDIES: Reveal hemoglobin 14.5 g/dL, white count of 13,800, platelets of 329,000. [place]od[place] m 140, potassium 4.3, chloride 103, bicarbonate 30, BUN 9, creatinine 0.74, glucose 115. ASSESSMENT AND PLAN: 1. Gastrointestinal: The patient is with flare of ulcerative colitis. Resume steroids and mesalami ne. Await GI consultation. 2. Anxiety syndrome. 3. Hypothyroidism. Dictated By: WILVER HOWARD MD RER/NTS Conf#: [id number] DID#: [id number] CC: CHILO AIKEN;*EndCC*
[2019-02-21 00:56] VITALS: BP 134/64; PULSE 60; RESP 20
[2019-02-21] MEDS: MESALAMINE (EC) 400 MG CAP PO SCH ×3 (06:28→22:07)
[2019-02-21] MEDS: LEVOTHYROXINE 137 MCG TAB PO SCH (06:28)
[2019-02-21] MEDS: PANTOPRAZOLE (EC) 40 MG TAB PO SCH (06:28)
[2019-02-21] MEDS: ONDANSETRON 4 MG INJ IV PRN ×2 (06:54→22:16)
[2019-02-21] MEDS: HYDROmorphONE 1 MG/ML SYG IV PRN ×7 (06:54→22:07)
[2019-02-21 08:00] VITALS: BP 172/84; PULSE 64; RESP 18
[2019-02-21] MEDS: LORAZEPAM 1 MG TAB PO SCH ×4 (08:36→20:44)
[2019-02-21] MEDS: GABAPENTIN 300 MG CAP PO SCH ×2 (08:36→20:44)
[2019-02-21] MEDS: BUSPIRONE 5 MG TAB PO SCH ×2 (08:36→20:44)
[2019-02-21] MEDS: AMLODIPINE 5 MG TAB PO SCH (08:37)
[2019-02-21] MEDS: predniSONE 20 MG TAB PO SCH (08:37)
[2019-02-21] MEDS ORDERED: NON-FORMULARY/PATIENT OWN MED (Omeprazole* 20 MG) PO SCH (09:00)
--- NOTE | 2019-02-21 12:28 | PN ---
Date/Time of Note Date/Time of Note DATE: 02/21/19 TIME: 12:26 Subjective Still having abdominal pain. Tolerating clear liquid. Objective Vitals Vital Signs Date Temp Pulse Resp B/P (MAP) Pulse Ox O2 O2 Flow FiO2 Time Delivery Rate 02/21/19 98.6 64 18 172/84 97 Room Air 08:00 (113) Intake and Output 02/20/19 02/20/19 02/21/19 1515:00 23:00 07:00 IntakeIntake Total 480 ml BalanceBalance 480 ml Clear to auscultation bilaterally Regular rate and rhythm Soft, diffusely tender. No rebound or guarding. Normoactive bowel sounds No edema Grossly nonfocal Results Result Diagram: 02/20/19 1315 02/20/19 1315 Medications Medications Current Medications Amlodipine Besylate (Norvasc) 5 mg DAILY PO Last administered on 02/21/19 08:37; Admin Dose 5 MG; Start 02/21/19 at 09:00 Buspirone HCl (Buspar) 5 mg BID PO Last administered on 02/21/19 08:36; Admin Dose 5 MG; Start 02/20/19 at 21:00 Fluoxetine HCl (Prozac) 40 mg QHS PO Last administered on 02/20/19 21:20; Admin Dose 40 MG; Start 02/20/19 at 21:00 Gabapentin (Neurontin) 600 mg BID PO Last administered on 02/21/19 08:36; Admin Dose 600 MG; Start 02/20/19 at 21:00 Levothyroxine Sodium (Synthroid) 137 mcg BEFORE BREAKFAST PO Last administered on 02/21/19 06:28; Admin Dose 137 MCG; Start 02/21/19 at 07:00 Lorazepam (Ativan) 2 mg QID PO Last administered on 02/21/19 08:36; Admin Dose 2 MG; Start 02/20/19 at 21:00 Mesalamine (Delzicol Dr) 800 mg Q8 PO Last administered on 02/21/19 06:28; Admin Dose 800 MG; Start 02/20/19 at 22:00 Trazodone HCl (Desyrel) 150 mg QHS PO Last administered on 02/20/19 21:20; Admin Dose 150 MG; Start 02/20/19 at 21:00 Prednisone (Prednisone) 60 mg DAILY PO Last administered on 02/21/19 08:37; A dmin Dose 60 MG; Start 02/21/19 at 09:00 Hydromorphone HCl (Dilaudid) 1 mg Q3H PRN IV SEVERE PAIN LEVEL 7-10 Last administered on 02/21/19 10:06; Admin Dose 1 MG; Start 02/20/19 at 18:30 Ondansetron HCl (Zofran Inj) 4 mg Q6H PRN IV NAUSEA AND/OR VOMITING Last administered on 02/21/19at 06:54; Admin Dose 4 MG; Start 02/20/19 at 18:30 Hydralazine HCl (Apresoline) 25 mg Q6H PRN PO sbp>160; Start 02/20/19 at 18:30 Pantoprazole (Protonix Tab) 40 mg DAILY@06 PO Last administered on 02/21/19at 06:28; Admin Dose 40 MG; Start 02/21/19 at 06:00 VTE Prophylaxis Risk score (from Nsg)>0 risk: 2 SCD applied (from Nsg): Yes Lines/Catheters IV Catheter Type: Saline Lock Victor in Place: No Assessment/Plan Assessment/Plan 59-year-old female with ulcerative colitis flare Narcotic dependence Chronic abdominal pain Hypertension Anxiety disorder Continue prednisone and mesalamine Pain control Advance to soft diet GI evaluation MANN SINCLAIR MD Feb 21, 2019 12:28
[2019-02-21] MEDS: OXYCODONE/ACETAMINOPHEN (5/325) TAB PO PRN ×3 (14:43→23:56)
[2019-02-21 15:42] VITALS: BP 171/78; PULSE 78; RESP 17
--- NOTE | 2019-02-21 17:02 | CONS ---
Assessment/Plan Assessment/Plan Hospital Course (Demo Recall) # UC flare vs infectious- UC dx 3 years ago per pt, uknown extent - f/o cdiff, and obtain stool cx and O&P - can continue steroids and mesalamine for now - nurse communication to obtain most recent cscope report. - KUB to r/o toxic megacolon - per pt, undergoing clinic approvals for humira and budesonide as outpatient and cscope scheduled for march Consultation Date/Type/Reason Admit Date/Time Feb 20, 2019 at 14:54 Date/Time of Note DATE: 02/21/19 TIME: 17:00 Hx of Present Illness Patient is a 58-year-old female with a history of hypothyroidism, ulcerative colitis which she states was diagnosed 3 years prior, hypothyroidism, depression who presents to our facility for 3 days of bloody diarrhea. Her last bowel movement was yesterday morning and was nonbloody. She currently has abdominal pain which subsides with Dilaudid. She denies any significant vomiting but does have nausea. She has been having repeated flares in the past few months. This most recent flare occurred while tapering her prednisone. He is on mesalamine therapy. Denies any hematemesis. No significant weight loss. Denies being on biologic or an immune modulator in the past. Constitutional: chills; No diaphoresis, No disoriented, No febrile ENT: No no complaints, No bleeding, No pain, No congestion, No discharge, No dysphagia, No sore throat, No other Respiratory: No no complaints, No pain, No cough, No pleuritic pain, No shortness of breath, No sputum, No wheezing, No other Cardiovascular: No no complaints, No chest pain, No edema, No lightheadedness, No orthopenea, No palpitations, No paroxysmal nocturnal dyspnea, No other Gastrointestinal: pain, nausea; No vomiting Genitourinary: No bleeding, No dysuria Skin: No erythema, No rash Past Medical History Home Meds Active Scripts Dicyclomine HCl (Dicyclomine HCl) 10 Mg Capsule, 10 MG PO TID PRN for ABDOMINAL CRAMPING, #20 CAP Prov:TEX DUDLEY MD 02/18/19 Amlodipine Besylate* (Norvasc*) 5 Mg Tablet, 5 MG PO DAILY for 30 Days, TAB Prov:MANN SINCLAIR MD 01/23/19 Buspirone Hcl* (Buspirone Hcl*) 5 Mg Tab, 5 MG PO BID for 30 Days, TAB Prov:MANN SINCLAIR MD 01/23/19 Hyoscyamine Sulfate* (Hyoscyamine Sulfate*) 0.125 Mg Tab.subl, 0.125 MG PO Q8 for 30 Days Prov:MANN SINCLAIR MD 01/23/19 Prednisone* (Prednisone*) 20 Mg Tab, 30 MG PO BID for 30 Days, TAB 30 mg po bid with 5 mg taper every 5 days Prov:MANN SINCLAIR MD 11/30/18 Mesalamine (Delzicol) 400 Mg Cap.drtab., 800 MG PO Q8 for 30 Days, 3 Refills Prov:MANN SINCLAIR MD 11/30/18 Reported Medications Oxycodone HCl/Acetaminophen (Oxycodone-Acetaminophen 10-325) 1 Each Tablet, 1 EACH PO Q8H, TAB 02/18/19 Levothyroxine Sodium* (Levothyroxine Sodium*) 137 Mcg Tablet, 137 MCG PO BEFORE BREAKFAST, #30 TAB 02/18/19 Lorazepam* (Ativan*) 2 Mg Tablet, 2 MG PO QID for 30 Days, #120 TAKE 1 TABLET BY MOUTH FOUR TIMES A DAY 01/20/19 Omeprazole* (Omeprazole*) 20 Mg Capsule.dr, 20 MG PO DAILY TAKE 1 CAPSULE BY MOUTH EVERY DAY 01/20/19 Gabapentin* (Gabapentin*) 300 Mg Capsule, 600 MG PO BID, #60 CAP 12/16/18 Metoclopramide Hcl* (Metoclopramide Hcl*) 10 Mg Tablet, 10 MG PO WITH MEALS BEDTIME, TAB 12/16/18 Fluoxetine Hcl* (Fluoxetine Hcl*) 40 Mg Capsule, 40 MG PO QHS, CAP 12/16/18 Trazodone Hcl* (Trazodone Hcl*) 150 Mg Tablet, 150 MG PO QHS, #30 TAB 12/16/18 Discontinued Scripts Hydrocodone/Acetaminophen ([place] 10-325 Tablet) 1 Each Tablet, 1 TAB PO Q6H PRN for PAIN, #12 TAB Prov:ELAINA NERI DO 12/25/18 Levothyroxine Sodium* (Levothyroxine Sodium*) 150 Mcg Tablet, 150 MCG PO BEFORE BREAKFAST for 30 Days, TAB 3 Refills Prov:MANN SINCLAIR MD 11/30/18 Medications Current Medications Amlodipine Besylate (Norvasc) 5 mg DAILY PO Last administered on 02/21/19 08:37; Admin Dose 5 MG; Start 02/21/19 at 09:00 Buspirone HCl (Buspar) 5 mg BID PO Last administered on 02/21/19 08:36; Admin Dose 5 MG; Start 02/20/19 at 21:00 Fluoxetine HCl (Prozac) 40 mg QHS PO Last administered on 02/20/19 21:20; Admin Dose 40 MG; Start 02/20/19 at 21:00 Gabapentin (Neurontin) 600 mg BID PO Last administered on 02/21/19 08:36; Admin Dose 600 MG; Start 02/20/19 at 21:00 Levothyroxine Sodium (Synthroid) 137 mcg BEFORE BREAKFAST PO Last administered on 02/21/19 06:28; Admin Dose 137 MCG; Start 02/21/19 at 07:00 Lorazepam (Ativan) 2 mg QID PO Last administered on 02/21/19 12:59; Admin Dose 2 MG; Start 02/20/19 at 21:00 Mesalamine (Delzicol Dr) 800 mg Q8 PO Last administered on 02/21/19 14:26; Admin Dose 800 MG; Start 02/20/19 at 22:00 Trazodone HCl (Desyrel) 150 mg QHS PO Last administered on 02/20/19 21:20; Admin Dose 150 MG; Start 02/20/19 at 21:00 Prednisone (Prednisone) 60 mg DAILY PO Last administered on 02/21/19 08:37; Admin Dose 60 MG; Start 02/21/19 at 09:00 Hydromorphone HCl (Dilaudid) 1 mg Q3H PRN IV SEVERE PAIN LEVEL 7-10 Last administered on 02/21/19 16:14; Admin Dose 1 MG; Start 02/20/19 at 18:30 Ondansetron HCl (Zofran Inj) 4 mg Q6H PRN IV NAUSEA AND/OR VOMITING Last administered on 02/21/19 06:54; Admin Dose 4 MG; Start 02/20/19 at 18:30 Hydralazine HCl (Apresoline) 25 mg Q6H PRN PO sbp>160; Start 02/20/19 at 18:30 Pantoprazole (Protonix Tab) 40 mg DAILY@06 PO Last administered on 02/21/19at 06:28; Admin Dose 40 MG; Start 02/21/19 at 06:00 Oxycodone/ Acetaminophen (Percocet (5/ 325)) 1 tab Q4H PRN PO MODERATE PAIN LEVEL 4-6 Last administered on 02/21/19at 14:43; Admin Dose 1 TAB; Start 02/21/19 at 12:30 Allergies: Coded Allergies: amoxicillin (Verified Allergy, Severe, 02/20/19) cefuroxime (Verified Allergy, Intermediate, RASH, 02/20/19) erythromycin base (Verified Allergy, Intermediate, LIGHTHEADED, 02/20/19) ketorolac tromethamine (Verified Allergy, Intermediate, HEADACHE, 02/20/19) levofloxacin (Verified Allergy, Intermediate, PALPITATION, 02/20/19) cefuroxime axetil (Verified Allergy, Mild, RASH, 02/20/19) hydrocodone (Verified Allergy, Unknown, 02/20/19) headcahe, alters mood ketorolac (Verified Allergy, Unknown, HEADACHE, 02/20/19) tramadol (Verified Allergy, Unknown, 02/20/19) states it gives her anxiety Past Surgical History Past Surgical Hx: other Family History Significant Family History: no pertinent family hx Social History Alcohol Use: none Smoking Status: Never smoker Drug Use: none Exam/Review of Systems Exam Vitals Vital Signs Date Temp Pulse Resp B/P (MAP) Pulse Ox O2 O2 Flow FiO2 Time Delivery Rate 02/21/19 98.5 78 17 171/78 96 Room Air 15:42 (109) Intake and Output 02/20/19 02/20/19 02/21/19 1414:59 22:59 06:59 IntakeIntake Total 480 ml BalanceBalance 480 ml Exam Head: [Atraumatic] Eyes: [Normal Conjunctiva] Neck: [Full range of motion. No meningismus.] Resp: [Clear to auscultation bilaterally] Cardio: [Regular rate and rhythm, no murmurs] Abd: [Soft,tender diffusely, non distended. Normal bowel sounds] Skin: [No petechiae or rashes] Back: [No midline or flank tenderness] Ext: [No cyanosis, or edema] Neuro: [Awake and alert] Psych: [Normal Mood and Affect] Results Result Diagram: 02/20/19 1315 02/20/19 1315 Medications Medication Current Medications Amlodipine Besylate (Norvasc) 5 mg DAILY PO Last administered on 02/21/19 08:37; Admin Dose 5 MG; Start 02/21/19 at 09:00 Buspirone HCl (Buspar) 5 mg BID PO Last administered on 02/21/19 08:36; Admin Dose 5 MG; Start 02/20/19 at 21:00 Fluoxetine HCl (Prozac) 40 mg QHS PO Last administered on 02/20/19 21:20; Admin Dose 40 MG; Start 02/20/19 at 21:00 Gabapentin (Neurontin) 600 mg BID PO Last administered on 02/21/19 08:36; Admin Dose 600 MG; Start 02/20/19 at 21:00 Levothyroxine Sodium (Synthroid) 137 mcg BEFORE BREAKFAST PO Last administered on 02/21/19 06:28; Admin Dose 137 MCG; Start 02/21/19 at 07:00 Lorazepam (Ativan) 2 mg QID PO Last administered on 02/21/19 12:59; Admin Dose 2 MG; Start 02/20/19 at 21:00 Mesalamine (Delzicol Dr) 800 mg Q8 PO Last administered on 02/21/19 14:26; Admin Dose 800 MG; Start 02/20/19 at 22:00 Trazodone HCl (Desyrel) 150 mg QHS PO Last administered on 02/20/19 21:20; Admin Dose 150 MG; Start 02/20/19 at 21:00 Prednisone (Prednisone) 60 mg DAILY PO Last administered on 02/21/19 08:37; Admin Dose 60 MG; Start 02/21/19 at 09:00 Hydromorphone HCl (Dilaudid) 1 mg Q3H PRN IV SEVERE PAIN LEVEL 7-10 Last administered on 02/21/19 16:14; Admin Dose 1 MG; Start 02/20/19 at 18:30 Ondansetron HCl (Zofran Inj) 4 mg Q6H PRN IV NAUSEA AND/OR VOMITING Last administered on 02/21/19 06:54; Admin Dose 4 MG; Start 02/20/19 at 18:30 Hydralazine HCl (Apresoline) 25 mg Q6H PRN PO sbp>160; Start 02/20/19 at 18:30 Pantoprazole (Protonix Tab) 40 mg DAILY@06 PO Last administered on 02/21/19at 06:28; Admin Dose 40 MG; Start 02/21/19 at 06:00 Oxycodone/ Acetaminophen (Percocet (5/ 325)) 1 tab Q4H PRN PO MODERATE PAIN LEVEL 4-6 Last administered on 02/21/19at 14:43; Admin Dose 1 TAB; Start 02/21/19 at 12:30 RYDER NASCIMENTO Feb 21, 2019 17:02
[2019-02-21 19:20] VITALS: BP 141/73; PULSE 79; RESP 18
[2019-02-21] MEDS: traZODone 50 MG TAB PO SCH (20:44)
[2019-02-21] MEDS: FLUOXETINE 20 MG CAP PO SCH (20:44)
[2019-02-22 01:15] VITALS: BP 166/66; PULSE 73; RESP 18
[2019-02-22] MEDS: HYDROmorphONE 1 MG/ML SYG IV PRN ×4 (01:43→13:04)
[2019-02-22] MEDS: PANTOPRAZOLE (EC) 40 MG TAB PO SCH (06:44)
[2019-02-22] MEDS: ONDANSETRON 4 MG INJ IV PRN ×2 (06:45→14:49)
[2019-02-22] MEDS: LEVOTHYROXINE 137 MCG TAB PO SCH (06:45)
[2019-02-22] MEDS: MESALAMINE (EC) 400 MG CAP PO SCH ×2 (06:45→12:34)
[2019-02-22 07:45] VITALS: BP 147/84; PULSE 67; RESP 20
[2019-02-22] MEDS: OXYCODONE/ACETAMINOPHEN (5/325) TAB PO PRN ×2 (07:48→11:43)
[2019-02-22] MEDS: BUSPIRONE 5 MG TAB PO SCH (08:38)
[2019-02-22] MEDS: LORAZEPAM 1 MG TAB PO SCH ×2 (08:38→12:34)
[2019-02-22] MEDS: predniSONE 20 MG TAB PO SCH (08:38)
[2019-02-22] MEDS: GABAPENTIN 300 MG CAP PO SCH (08:38)
[2019-02-22] MEDS: AMLODIPINE 5 MG TAB PO SCH (08:38)
--- NOTE | 2019-02-22 10:15 | PDOCDIS ---
Discharge Instructions CONDITION [id number] Patient Condition: [id number] Good HOME CARE INSTRUCTIONS: [id number] Diet Instructions: [id number] FOLLOW UP/APPOINTMENTS Follow-up Plan pcp [address] Vincent 1 week MANN SINCLAIR MD Feb 22, 2019 10:15
[2019-02-22 14:58] VITALS: BP 140/80; PULSE 66; RESP 18
--- NOTE | 2019-02-22 19:06 | DS ---
DATE OF ADMISSION: 02/20/2019 DATE OF DISCHARGE: 02/22/2019 DISCHARGE DIAGNOSES: 1. A 59-year-old female with ulcerative colitis flare, significantly improved. 2. Narcotic dependence. 3. Chronic abdominal pain. 4. Hypertension. 5. Anxiety disorder. HOSPITAL COURSE: A 59-year-old female with known history of ulcerative colitis, presented to emergen cy room with complaint of abdominal pain associated with rectal bleeding. The patient was diagnosed with ulcerative colitis flare. Hemoglobin was stable throughout the hospitalization. She was starte d on prednisone and mesalamine was resumed. The patient is narcotic dependent and also exhibited drug-seeking behavior. She was seen in consulta tion by the inspector [employer]. KUB did not show any evidence of toxic megacolon. Her loose stools resolved. She is in a stable condition for discharge and tolerating oral intake. MEDICATIONS ON DISCHARGE: As follows: 1. Amlodipine 5 mg daily. 2. Buspirone 5 mg b.i.d. 3. Dicyclomine 10 mg t.i.d. 4. Fluoxetine 40 mg at bedtime. 5. Gabapentin 600 mg b.i.d. 6. Hyoscyamine sulfate 0.125 mg q.8 hours. 7. Levothyroxine 137 mcg daily. 8. Lorazepam 2 mg 4 times daily as needed. 9. Mesalamine 800 mg t.i.d. 10. Reglan 10 mg with meals and bedtime. 11. Omeprazole 20 mg daily. 12. Prednisone 60 mg daily with taper. 13. Trazodone 150 mg at bedtime. FOLLOWUP: 1. Follow up with PCP. 2. Follow up with Dr. Vincent in 1 week. Dictated By: MANN MORALES/WING Conf#: [id number] DID#: [id number] CC: RYDER VINCENT MD; WILVER HOWARD MD; CHILO STEINBERG;*End*
== END 2019-02-22 15:20 | disposition home or self-care (01) | DRG 386 ==
LOC: E/R 11:15 → 2NE 14:54
PROVIDERS: ADMIT Legal Medicine; ATTEND Legal Medicine
DX: K51.911 Ulcerative colitis, unspecified with rectal bleeding (principal); F11.20 Opioid dependence, uncomplicated; J45.909 Unspecified asthma, uncomplicated; F41.9 Anxiety disorder, unspecified; E03.9 Hypothyroidism, unspecified; F17.210 Nicotine dependence, cigarettes, uncomplicated; I10 Essential (primary) hypertension; Z76.5 Malingerer [conscious simulation]
CPT/HCPCS: 74018; 80048; 85025; 96374; 96375; J1170; J2060; J2405; J2930; J7030; J7512

== ENCOUNTER 2019-02-25 18:56 | Emergency (ER) | payer OTHER ==
[~2019-02-25] VITALS: Ht 162.6 cm; Wt 87.4 kg
[2019-02-25 19:02] VITALS: Ht 162.6 cm; Wt 87.4 kg
[2019-02-25 19:16] VITALS: BP 134/95; PULSE 85; RESP 18
--- NOTE | 2019-02-25 22:50 | ERD ---
ER Documentation Chief Complaint Chief Complaint c/o R eye droopiness with numbness to right side face/arm x 6 hrs HPI Patient is a 59-year-old female with ulcerative colitis who presents with "right eye sagging". The patient symptoms had started yesterday. The symptoms continued today so she came to the ER for evaluation. She is already on prednisone for her ulcerative colitis flare as she was recently admitted on February 20 and discharged on February 22. She has no weakness and no slurred speech. Upon review of old medical record the patient has multiple visits for various complaints. Review of the emergency department information exchange system shows visits to 4 separate emergency departments for a total of 21 visits over the past 1 year. The patient does have a primary doctor. ROS All systems reviewed and are negative except as per history of present illness. Medications Home Meds Active Scripts Prednisone* (Prednisone*) 20 Mg Tab, 60 MG PO DAILY for 10 Days, TAB Prov:MANN SINCLAIR MD 02/22/19 Mesalamine (Delzicol) 400 Mg Cap.drtab., 800 MG PO Q8 for 30 Days, 3 Refills Prov:MANN SINCLAIR MD 02/22/19 Dicyclomine HCl (Dicyclomine HCl) 10 Mg Capsule, 10 MG PO TID PRN for ABDOMINAL CRAMPING, #20 CAP Prov:TEX DUDLEY MD 02/18/19 Amlodipine Besylate* (Norvasc*) 5 Mg Tablet, 5 MG PO DAILY for 30 Days, TAB Prov:MANN SINCLAIR MD 01/23/19 Buspirone Hcl* (Buspirone Hcl*) 5 Mg Tab, 5 MG PO BID for 30 Days, TAB Prov:MANN SINCLAIR MD 01/23/19 Hyoscyamine Sulfate* (Hyoscyamine Sulfate*) 0.125 Mg Tab.subl, 0.125 MG PO Q8 for 30 Days Prov:MANN SINCLAIR MD 01/23/19 Reported Medications Oxycodone HCl/Acetaminophen (Oxycodone-Acetaminophen 10-325) 1 Each Tablet, 1 EACH PO Q8H, TAB 02/18/19 Levothyroxine Sodium* (Levothyroxine Sodium*) 137 Mcg Tablet, 137 MCG PO BEFORE BREAKFAST, #30 TAB 02/18/19 Lorazepam* (Ativan*) 2 Mg Tablet, 2 MG PO QID for 30 Days, #120 TAKE 1 TABLET BY MOUTH FOUR TIMES A DAY 01/20/19 Omeprazole* (Omeprazole*) 20 Mg Capsule.dr, 20 MG PO DAILY TAKE 1 CAPSULE BY MOUTH EVERY DAY 01/20/19 Gabapentin* (Gabapentin*) 300 Mg Capsule, 600 MG PO BID, #60 CAP 12/16/18 Metoclopramide Hcl* (Metoclopramide Hcl*) 10 Mg Tablet, 10 MG PO WITH MEALS BEDTIME, TAB 12/16/18 Fluoxetine Hcl* (Fluoxetine Hcl*) 40 Mg Capsule, 40 MG PO QHS, CAP 12/16/18 Trazodone Hcl* (Trazodone Hcl*) 150 Mg Tablet, 150 MG PO QHS, #30 TAB 12/16/18 Discontinued Scripts Prednisone* (Prednisone*) 20 Mg Tab, 30 MG PO BID for 30 Days, TAB 30 mg po bid with 5 mg taper every 5 days Prov:MANN SINCLAIR MD 11/30/18 Hydrocodone/Acetaminophen ([place] 10-325 Tablet) 1 Each Tablet, 1 TAB PO Q6H PRN for PAIN, #12 TAB Prov:ELAINA NERI DO 12/25/18 Levothyroxine Sodium* (Levothyroxine Sodium*) 150 Mcg Tablet, 150 MCG PO BEFORE BREAKFAST for 30 Days, TAB 3 Refills Prov:MANN SINCLAIR MD 11/30/18 Allergies Allergies: Coded Allergies: amoxicillin (Verified Allergy, Severe, 02/20/19) cefuroxime (Verified Allergy, Intermediate, RASH, 02/20/19) erythromycin base (Verified Allergy, Intermediate, LIGHTHEADED, 02/20/19) ketorolac tromethamine (Verified Allergy, Intermediate, HEADACHE, 02/20/19) levofloxacin (Verified Allergy, Intermediate, PALPITATION, 02/20/19) cefuroxime axetil (Verified Allergy, Mild, RASH, 02/20/19) hydrocodone (Verified Allergy, Unknown, 02/20/19) headcahe, alters mood ketorolac (Verified Allergy, Unknown, HEADACHE, 02/20/19) tramadol (Verified Allergy, Unknown, 02/20/19) states it gives her anxiety PMhx/Soc History of Surgery: Yes (ANITA, Appendectomy, Lap gage,Thyroid surgery) Anesthesia Reaction: No Hx Neurological Disorder: No Hx Respiratory Disorders: No Hx Cardiac Disorders: Yes (HNT) Hx Psychiatric Problems: Yes (Anxiety, Depression) Hx Miscellaneous Medical Probl: No Hx Alcohol Use: No Hx Substance Use: No Hx Tobacco Use: No Smoking Status: Never smoker FmHx Family History: diabetes Physical Exam Vitals Vital Signs Date Temp Pulse Resp B/P (MAP) Pulse Ox O2 O2 Flow FiO2 Time Delivery Rate 02/25/19 85 18 134/95 98 Room Air 19:16 (108) 02/25/19 99.5 88 20 125/68 98 19:02 (87) Physical Exam Const: No acute distress Head: Atraumatic Eyes: Normal Conjunctiva ENT: Normal External Ears, Nose and Mouth. Neck: Full range of motion. No meningismus. Resp: Clear to auscultation bilaterally Cardio: Regular rate and rhythm, no murmurs Abd: Soft, non tender, non distended. Normal bowel sounds Skin: No petechiae or rashes Back: No midline or flank tenderness Ext: No cyanosis, or edema Neur: Awake and alert, it is difficult to even appreciate the "eye sagging" that the patient is talking about, there is no obvious eye droop, there is no facial droop otherwise, cranial nerves II through XII are intact, strength is 5 out of 5 in all 4 extremities, no slurred speech, no pronator drift Psych: Normal Mood and Affect Procedures/MDM Patient is a 59-year-old female who presents with complaints of right eye drooping. She may be has an early Clement's palsy. She is already being treated with prednisone. I doubt stroke. I believe the risk of doing a CT scan of the brain outweigh the benefits. The patient will be discharged and can return for any worsening symptoms. She should follow-up with her primary doctor within 24 to 48 hours for evaluation however. Departure Diagnosis: Primary Impression: Clement's palsy Condition: Fair Patient Instructions: Clement's Palsy Referrals: Your primary doctor Additional Instructions: Call your primary care doctor TOMORROW for an appointment during the next 1-2 days.See the doctor sooner or return here if your condition worsens before your appointment time. CONSTANCE SIMON MD Feb 25, 2019 22:50
== END 2019-02-25 19:27 | disposition home or self-care (01) ==
LOC: E/R 18:56
DX: G51.0 Bell's palsy (principal)
CPT/HCPCS: 99282

== ENCOUNTER 2019-03-20 15:31 | Emergency (ER) | payer OTHER ==
[~2019-03-20] VITALS: Ht 160 cm; Wt 84.9 kg
[~2019-03-20 15:31] MED LIST changes: +HYDR2TAB36 PO
[2019-03-20 15:34] VITALS: Ht 160 cm; Wt 84.9 kg
[2019-03-20] MEDS ORDERED: SOD CHLORIDE 0.9% 1,000 ML IV STA (19:12)
[2019-03-20] MEDS ORDERED: ONDANSETRON 4 MG INJ IV STA (19:12)
[2019-03-20] MEDS ORDERED: HYDROmorphONE 1 MG/ML SYG IV STA (19:15)
[2019-03-20] MEDS ORDERED: LORAZEPAM 2 MG INJ IV ONE (19:30)
[2019-03-20] MEDS ORDERED: HYDROmorphONE 0.5 MG/0.5 ML SYG IV STA (20:24)
[2019-03-20 20:50] VITALS: BP 158/78; PULSE 80; RESP 20
== END 2019-03-20 21:01 | disposition home or self-care (01) ==
LOC: FTE 15:31
DX: K51.90 Ulcerative colitis, unspecified, without complications (principal); I10 Essential (primary) hypertension; Z87.891 Personal history of nicotine dependence
CPT/HCPCS: 36415; 80053; 81003; 83690; 85025; 85610; 85730; 86850; 86900; 86901; 96374; 96375; 96376; J1170; J2060; J2405; J7030; Z7502

== ENCOUNTER 2019-04-15 20:34 | Emergency (ER) | payer OTHER ==
[~2019-04-15] VITALS: Ht 162.6 cm; Wt 86.3 kg
[~2019-04-15 20:34] MED LIST changes: +ACET500C5 PO; +BENZ-6 PO; +D-ME473S2 PO; +DICL100G37 TOP; +LIDO700A29 TP; -OMEP20CA16 PO; +OMEP20CA17 PO; +OXYC-279 PO; +PANT40TA4 PO
[2019-04-15 20:39] VITALS: Ht 162.6 cm; Wt 86.3 kg
[2019-04-15] MEDS ORDERED: morphine 4 MG/ML VIAL IV STA ×2 (22:16→23:35)
[2019-04-15] MEDS ORDERED: ONDANSETRON 4 MG INJ IV STA (22:16)
[2019-04-15] MEDS ORDERED: IOHEXOL 300MG/ML 150 ML BTL ONE (22:41)
[2019-04-15] MEDS ORDERED: SOD CHLORIDE 0.9% 100 ML ONE (22:41)
[2019-04-16 00:23] VITALS: BP 138/82; PULSE 79; RESP 16
== END 2019-04-16 00:26 | disposition home or self-care (01) ==
LOC: E/R 20:34
DX: R10.84 Generalized abdominal pain (principal); I10 Essential (primary) hypertension; Z87.891 Personal history of nicotine dependence
CPT/HCPCS: 74018; 74177; 80053; 81003; 81025; 83690; 85025; 85651; 86140; 96374; 96375; 96376; J2270; J2405; Q9967; Z7502; Z7610; 93005

== ENCOUNTER 2019-05-20 15:51 | Emergency (ER) | payer OTHER ==
[~2019-05-20] VITALS: Ht 162.6 cm; Wt 85.5 kg
[~2019-05-20 15:51] MED LIST changes: -BENZ-6 PO; -D-ME473S2 PO
[2019-05-20 16:05] VITALS: Ht 162.6 cm; Wt 85.5 kg
[2019-05-20] MEDS ORDERED: SOD CHLORIDE 0.9% 1,000 ML IV STA (17:57)
[2019-05-20] MEDS ORDERED: HALOPERIDOL 5 MG INJ IV ONE (18:00)
[2019-05-20 19:43] VITALS: BP 131/78; PULSE 82; RESP 16
== END 2019-05-20 19:44 | disposition home or self-care (01) ==
LOC: E/R 15:51
DX: R10.9 Unspecified abdominal pain (principal); I10 Essential (primary) hypertension; R40.2142 Coma scale, eyes open, spontaneous, at arrival to emergency department; R40.2362 Coma scale, best motor response, obeys commands, at arrival to emergency department; R40.2252 Coma scale, best verbal response, oriented, at arrival to emergency department
CPT/HCPCS: 80053; 83690; 85025; 96374; J1630; J7030; Z7502